=== PATIENT | male | born 1945 | race Caucasian/White ===

== ENCOUNTER → 2017-04-27 08:57 | Outpatient (CLI) | payer MEDICARE, SELFPAY ==
[2017-04-27 12:30] LABS: Absolute Lymphocyte Count 2.17 X10^3/ul (0.83-4.51); Absolute Neutrophil Count 5.6 X10^3/uL (2.0-7.7); Basophil# 0.04 X10^3/uL; Basophil% 0.5 % (0-1); Eosinophil# 0.28 X10^3/uL; Eosinophils% 3.2 % (0-5); Hematocrit 45.8 % (40-54); Hemoglobin 14.8 g/dl (13.0-16.5); Lymphocyte # 2.17 X10^3/ul (4.0); Mean Corp Hgb Conc 32.3 g/gl (32-36); Mean Corpuscular Hgb 31.1 pg (27.0-32.0); Mean Corpuscular Volume 96.2 fL (80-94); Mean Platelet Vol. 9.9 fl (6.2-12.0); Monocyte# 0.61 X10^3/uL; Neutrophil # 5.58 X10^3/uL (2.7-7.7); Neutrophil % 64.2 % (47-70); Platelet Count 230 K/mm3 (150-450); RBC Distribution Width CV 13.7 % (11.6-14.6); RBC Distribution Width SD 48.6 fl (35.1-43.9); Red Blood Count 4.76 M/mm3 (4.6-6.2); White Blood Count 8.7 K/mm3 (4.4-11.0)
[2017-04-27 12:41] LABS: POSITIVE COUNT NO; POSITIVE DIFFERENTIAL NO; POSITIVE MORPHOLOGY NO
[2017-04-27 12:50] LABS: ALB/GLOB Ratio 0.9 RATIO (0.9-2.4); AST(SGOT) 19 U/L (15-37); Alanine Aminotransfer ALT/SGPT 25 U/L (16-61); Albumin, Serum 3.4 g/dL (3.2-5.0); Alkaline Phosphatase 80 U/L (45-117); Anion Gap 5 (5-15); BUN 18 mg/dL (7-18); BUN/Creat Ratio 16.2 RATIO (10-20); Calcium,Total 8.5 mg/dL (8.5-10.1); Chloride 108 mmol/L (98-107); Cholesterol 164 mg/dL (200); Creatinine, Serum 1.11 mg/dL (0.70-1.30); EST Glomerular Filtration Rate 69 mL/min (>60); Est Glom Filt Rate - Afr Amer 84 mL/min (>60); Globulin 3.8 g/dL (2.2-4.2); Glucose 133 mg/dL (70-110); High Density Lipoprotein 49 mg/dL; Potassium 3.8 mmol/L (3.5-5.1); Protein, Total 7.2 g/dL (6.4-8.2); Sodium Level 141 mmol/L (136-145); Thyroid Stim Hormone (TSH) 3.83 uIU/mL (0.358-3.74); Triglycerides 124 mg/dL; Very Low Density Lipoprotein 25 mg/dL (5-40)
[2017-04-28 09:01] LABS: Hep C Antibodies <0.1 s/co ratio (0.0-0.9)
== END ==
PROVIDERS: Family Provider Family Medicine Geriatric Medicine; PCP Family Medicine Geriatric Medicine; Visit Provider Family Medicine Geriatric Medicine
DX: Z13.89 Encounter for screening for other disorder (principal); E23.6 Other disorders of pituitary gland; E78.4 Other hyperlipidemia; I10 Essential (primary) hypertension
CPT/HCPCS: 36415; 80053; 80061; 84403; 84443; 85025; 86803

== ENCOUNTER → 2017-04-30 07:28 | Outpatient (CLI) | payer MEDICARE, SELFPAY ==
--- NOTE | 2017-04-30 07:31 | US_ITS ---
PROCEDURES: ULTRASOUND AORTA REASON FOR EXAM: Male, 72 years old. History of abdominal aortic aneurysm. TECHNIQUE: Ultrasound evaluation of the aorta was performed with real-time and static karimi-scale imaging. COMPARISON: Comparison is made with prior examination dated April 25, 2016. FINDINGS: There is no elongation or tortuosity of the abdominal aorta. Aorta measures: Proximal 2.3 cm. Middle 2. cm. Distal 3.4 cm. Aorta measure transversely: Proximal 2.2 cm. Middle 2.0 cm. Distal 3.8 cm. Right iliac artery measures: 1.4 cm. Right iliac artery measure transversely: 1.1 cm. Left iliac artery measures: 2.0 cm. Left iliac artery measure transversely: 1.5 cm. Slight progression of the saccular infrarenal abdominal aortic aneurysm with a transverse dimension of 3.8 cm.. US/Aorta IMPRESSION: Slight progression of the saccular infrarenal abdominal aortic chiasm with a transverse dimension of 3.8 cm. Electronically Signed: Bossman Chavez MD at 14:14 EST Tel [phone], Service support ,
== END ==
PROVIDERS: Family Provider Family Medicine Geriatric Medicine; PCP Family Medicine Geriatric Medicine; Visit Provider Family Medicine Geriatric Medicine
DX: I71.4 Abdominal aortic aneurysm, without rupture (principal)
CPT/HCPCS: 76775

== ENCOUNTER → 2017-07-03 08:59 | Outpatient (CLI) | payer MEDICARE, SELFPAY ==
--- NOTE | 2017-07-03 09:15 | RAD_ITS ---
STUDY: X-RAY - ABDOMEN/PELVIS REASON FOR EXAM: Male, 72 years old. History of kidney stones. TECHNIQUE: Two AP supine views of the abdomen and pelvis. COMPARISON: Comparison is made with prior examination dated September 08, 2016. FINDINGS: Normal visualized lung bases. There is an abundance of fecal material throughout the colon. Tiny calcific densities are seen overlying the midportion of the left kidney suggestive of tiny renal calculi. Normal soft tissue structures. There are diffuse degenerative changes of the visualized lumbar spine. Moderate osteoarthritis of both hip joints. RAD/Abdomen Single View IMPRESSION: Tiny calcific densities are seen overlying the midportion of the left kidney suggestive of tiny renal calculi. Electronically Signed: Bossman Chavez MD at 15:46 EDT Tel [phone], Service support ,
[2017-07-03 10:42] LABS: Albumin, Serum 3.6 g/dL (3.2-5.0); BUN 20 mg/dL (7-18); BUN/Creat Ratio 17.7 RATIO (10-20); Calcium,Total 8.7 mg/dL (8.5-10.1); Chloride 109 mmol/L (98-107); Creatinine, Serum 1.13 mg/dL (0.70-1.30); EST Glomerular Filtration Rate 68 mL/min (>60); Est Glom Filt Rate - Afr Amer 82 mL/min (>60); Glucose 114 mg/dL (74-106); PSA,Total - Annual Screen 0.67 ng/mL (0.00-4.00); Phosphorus 2.4 mg/dL (2.5-4.9); Potassium 4.1 mmol/L (3.5-5.1); Sodium Level 143 mmol/L (136-145)
== END ==
PROVIDERS: Family Provider Family Medicine Geriatric Medicine; PCP Family Medicine Geriatric Medicine; Visit Provider Urology
DX: N20.0 Calculus of kidney (principal); Z12.5 Encounter for screening for malignant neoplasm of prostate; N18.2 Chronic kidney disease, stage 2 (mild)
CPT/HCPCS: 36415; 74018; 80069; 84153; G0103

== ENCOUNTER → 2017-07-20 07:51 | Outpatient (CLI) | payer MEDICARE, SELFPAY ==
--- NOTE | 2017-07-20 12:13 | PFT ---
INTRODUCTION: The patient is a 72-year-old male currently under the care of Dr. Madison that presents for pulmonary function testing secondary to a diagnosis of COPD. Respiratory therapy reports good patient effort and reports no other concerns. Bronchodilators were used during testing. INTERPRETATION: Forced expiration spirometry demonstrates the presence of a severe large airways obstructive ventilatory defect. There was a significant response to aerosolized bronchodilators, based upon change noted in FVC. Spirograms are of good quality and do not plateau indicating slow emptying of the lungs. The flow volume loop reveals decreased expiratory flow rates at all lung volumes consistent with airways obstruction. Body plethysmography was performed and reveals an increased TLC and RV, indicative of underlying hyperinflation and air-trapping. Diffusing capacity by single breath CO is moderately reduced at 47% of predicted. When compared to previous pulmonary function studies dated July 2016 there has been improvement in the patient's spirometric values. IMPRESSION: These pulmonary function studies demonstrate the presence of a partially reversible severe large airways obstructive ventilatory defect with associated hyperinflation, air trapping and reduction in diffusing capacity.
--- NOTE | 2017-07-20 12:16 | PFT_ITS ---
INTRODUCTION: The patient is a 72-year-old male currently under the care of Dr. Madison that presents for pulmonary function testing secondary to a diagnosis of COPD. Respiratory therapy reports good patient effort and reports no other concerns. Bronchodilators were used during testing. INTERPRETATION: Forced expiration spirometry demonstrates the presence of a severe large airways obstructive ventilatory defect. There was a significant response to aerosolized bronchodilators, based upon change noted in FVC. Spirograms are of good quality and do not plateau indicating slow emptying of the lungs. The flow volume loop reveals decreased expiratory flow rates at all lung volumes consistent with airways obstruction. Body plethysmography was performed and reveals an increased TLC and RV, indicative of underlying hyperinflation and air -trapping. Diffusing capacity by single breath CO is moderately reduced at 47% of predicted. When compared to previous pulmonary function studies dated July 2016 there has been improvement in the patient's spirometric values. IMPRESSION: These pulmonary function studies demonstrate the presence of a partially reversible severe large airways obstructive ventilatory defect with associated hyperinflation, air trapping and reduction in diffusing capacity.
== END ==
PROVIDERS: Family Provider Family Medicine Geriatric Medicine; PCP Family Medicine Geriatric Medicine; Visit Provider Internal Medicine Critical Care Medicine
DX: J44.9 Chronic obstructive pulmonary disease, unspecified (principal); G47.33 Obstructive sleep apnea (adult) (pediatric)
CPT/HCPCS: 94060; 94726; 94729

== ENCOUNTER → 2017-07-27 08:54 | Outpatient (CLI) | payer MEDICARE, SELFPAY ==
[2017-07-27 09:22] VITALS: PULSE 100; PULSE 75; PULSE 84; PULSE 92; PULSE 94; PULSE 96; O2SAT 89; O2SAT 90; O2SAT 91; O2SAT 92; O2SAT 93; O2SAT 95; O2SAT 96
--- NOTE | 2017-07-27 10:33 | WT_ITS ---
PSN 6 Minute Walk Test - 6 Minute Walk Test 6 Minute Walk Test: 6 Minute Walk Test PSN:6-Minute Walk Test Start: 07/27/17 09: 21 Freq: Status: Active Protocol: [id number] Document 07/27/17 09:22 CARLOS (Rec: 07/27/17 09:24 CARLOS [id number]) 6 Minute Walk Test Date Performed 07/27/17 Time Performed 09:00 Height 6 ft Weight: 81.647 kg Weight in Pounds 180.[address]: Omer Madison Assistive device used: None Pre-test Oxygen Delivery Method Room Air Pulse Ox (%) 95 Pulse Rate (60-100 beats/min) 84 Dyspnea Marisel Scale (0-10) 0 Exertion Marisel Scale (6-20) 6 1st minute Oxygen Delivery Method Room Air Pulse Ox (%) 93 Pulse Rate (60-100 beats/min) 92 2nd minute Oxygen Delivery Method Room Air Pulse Ox (%) 92 Pulse Rate (60-100 beats/min) 94 3rd minute Oxygen Delivery Method Room Air Pulse Ox (%) 91 Pulse Rate (60-100 beats/min) 96 4th minute Oxygen Delivery Method Room Air Pulse Ox (%) 90 Pulse Rate (60-100 beats/min) 100 5th minute Oxygen Delivery Method Room Air Pulse Ox (%) 89 Pulse Rate (60-100 beats/min) 100 6th minute Oxygen Delivery Method Room Air Pulse Ox (%) 90 Pulse Rate (60-100 beats/min) 100 Dyspnea Marisel Scale (0-10) 3 Exertion Marisel Scale (6-20) 12 Post-test Oxygen Delivery Method Room Air Pulse Ox (%) 96 Pulse Rate (60-100 beats/min) 75 Full Laps Walked 18 Partial Lap, Number of Tiles Walked 25 Total Distance Walked (ft) 1087 - Interpretation Interpretation: The patient was able to ambulate 1087 feet over the course of 6 minutes on room air with no assistive devices or breaks. The patient did have significant desaturation as low as 89% without significant tachycardia. These findings are consistent with a respiratory limitation exercise tolerance. - Recommendations Recommendations: No supplemental oxygen is indicated at this time. However, patient will need to be followed closely given level of desaturation.
== END ==
PROVIDERS: Family Provider Family Medicine Geriatric Medicine; PCP Family Medicine Geriatric Medicine; Visit Provider Internal Medicine Critical Care Medicine
DX: J44.9 Chronic obstructive pulmonary disease, unspecified (principal); G47.33 Obstructive sleep apnea (adult) (pediatric)
CPT/HCPCS: 94618

== ENCOUNTER → 2017-08-21 09:51 | Outpatient (CLI) | payer MEDICARE, SELFPAY ==
[2017-08-21 11:15] LABS: Albumin, Serum 3.4 g/dL (3.2-5.0); BUN 17 mg/dL (7-18); BUN/Creat Ratio 15.7 RATIO (10-20); Calcium,Total 8.4 mg/dL (8.5-10.1); Chloride 111 mmol/L (98-107); Creatinine, Serum 1.08 mg/dL (0.70-1.30); EST Glomerular Filtration Rate 71 mL/min (>60); Est Glom Filt Rate - Afr Amer 86 mL/min (>60); Glucose 137 mg/dL (74-106); Phosphorus 2.3 mg/dL (2.5-4.9); Potassium 3.5 mmol/L (3.5-5.1); Sodium Level 143 mmol/L (136-145)
== END ==
PROVIDERS: Family Provider Family Medicine Geriatric Medicine; PCP Family Medicine Geriatric Medicine; Visit Provider Internal Medicine Nephrology
DX: N18.2 Chronic kidney disease, stage 2 (mild) (principal)
CPT/HCPCS: 36415; 80069

== ENCOUNTER → 2017-11-07 15:07 | Outpatient (CLI) | payer MEDICARE, SELFPAY ==
[2017-11-07 16:10] LABS: Absolute Lymphocyte Count 1.97 X10^3/ul (0.83-4.51); Absolute Neutrophil Count 4.9 X10^3/uL (2.0-7.7); Basophil# 0.06 X10^3/uL; Basophil% 0.8 % (0-1); Eosinophils% 2.5 % (0-5); Hematocrit 46.7 % (40-54); Hemoglobin 15.1 g/dl (13.0-16.5); Lymphocyte # 1.97 X10^3/ul (4.0); Lymphocyte % 25.1 % (19-41); Mean Corp Hgb Conc 32.3 g/gl (32-36); Mean Corpuscular Hgb 31.1 pg (27.0-32.0); Mean Corpuscular Volume 96.3 fL (80-94); Mean Platelet Vol. 9.7 fl (6.2-12.0); Monocyte% 8.9 % (0-10); Neutrophil # 4.92 X10^3/uL (2.7-7.7); Neutrophil % 62.6 % (47-70); Platelet Count 223 K/mm3 (150-450); RBC Distribution Width CV 13.4 % (11.6-14.6); RBC Distribution Width SD 46.9 fl (35.1-43.9); Red Blood Count 4.85 M/mm3 (4.6-6.2); White Blood Count 7.9 K/mm3 (4.4-11.0)
[2017-11-07 16:15] LABS: POSITIVE COUNT NO; POSITIVE DIFFERENTIAL NO; POSITIVE MORPHOLOGY NO
[2017-11-07 16:21] LABS: Vitamin D,25 Hydroxy 22.7 ng/mL (29.95-100.01)
[2017-11-07 16:22] LABS: ALB/GLOB Ratio 0.9 RATIO (0.9-2.4); AST(SGOT) 20 U/L (15-37); Alanine Aminotransfer ALT/SGPT 24 U/L (16-61); Albumin, Serum 3.3 g/dL (3.2-5.0); Alkaline Phosphatase 76 U/L (45-117); Anion Gap 7 (5-15); BUN 15 mg/dL (7-18); BUN/Creat Ratio 13.2 RATIO (10-20); Calcium,Total 8.5 mg/dL (8.5-10.1); Chloride 110 mmol/L (98-107); Cholesterol 153 mg/dL (200); Creatinine, Serum 1.14 mg/dL (0.70-1.30); EST Glomerular Filtration Rate 67 mL/min (>60); Est Glom Filt Rate - Afr Amer 81 mL/min (>60); Globulin 3.5 g/dL (2.2-4.2); Glucose 100 mg/dL (74-106); High Density Lipoprotein 47 mg/dL; Potassium 4.2 mmol/L (3.5-5.1); Protein, Total 6.8 g/dL (6.4-8.2); Sodium Level 143 mmol/L (136-145); Thyroid Stim Hormone (TSH) 1.99 uIU/mL (0.358-3.74); Triglycerides 129 mg/dL; Very Low Density Lipoprotein 26 mg/dL (5-40)
== END ==
PROVIDERS: Family Provider Family Medicine Geriatric Medicine; PCP Family Medicine Geriatric Medicine; Visit Provider Family Medicine Geriatric Medicine
DX: I10 Essential (primary) hypertension (principal); E78.4 Other hyperlipidemia; E23.6 Other disorders of pituitary gland; E55.9 Vitamin D deficiency, unspecified
CPT/HCPCS: 36415; 80053; 80061; 82306; 84403; 84443; 85025

== ENCOUNTER → 2017-11-16 10:24 | Outpatient (CLI) | payer MEDICARE, SELFPAY | PROVIDERS: Family Provider Family Medicine Geriatric Medicine; PCP Family Medicine Geriatric Medicine; Visit Provider Family Medicine Geriatric Medicine | DX: I71.4 Abdominal aortic aneurysm, without rupture (principal) | CPT/HCPCS: 76775 ==

== ENCOUNTER → 2018-05-03 11:34 | Outpatient (CLI) | payer MEDICARE, SELFPAY ==
[2017-11-07 15:11] VITALS: BMI 25.4
[2018-05-03 13:13] LABS: Absolute Lymphocyte Count 1.91 X10^3/ul (0.83-4.51); Basophil# 0.05 X10^3/uL; Basophil% 0.4 % (0-1); Eosinophil# 0.29 X10^3/uL; Eosinophils% 2.5 % (0-5); Hematocrit 48.3 % (40-54); Hemoglobin 15.9 g/dl (13.0-16.5); Lymphocyte # 1.91 X10^3/ul (4.0); Lymphocyte % 16.6 % (19-41); Mean Corp Hgb Conc 32.9 g/gl (32-36); Mean Corpuscular Hgb 31.4 pg (27.0-32.0); Mean Corpuscular Volume 95.5 fL (80-94); Monocyte# 1.23 X10^3/uL; Monocyte% 10.7 % (0-10); Neutrophil # 7.99 X10^3/uL (2.7-7.7); Neutrophil % 69.5 % (47-70); Platelet Count 223 K/mm3 (150-450); RBC Distribution Width CV 13.9 % (11.6-14.6); RBC Distribution Width SD 46.7 fl (35.1-43.9); Red Blood Count 5.06 M/mm3 (4.6-6.2); White Blood Count 11.5 K/mm3 (4.4-11.0)
[2018-05-03 13:14] LABS: POSITIVE COUNT NO; POSITIVE DIFFERENTIAL NO; POSITIVE MORPHOLOGY NO
[2018-05-03 13:50] LABS: Vitamin D,25 Hydroxy 15.4 ng/mL (29.95-100.01)
[2018-05-03 14:11] LABS: AST(SGOT) 18 U/L (15-37); Alanine Aminotransfer ALT/SGPT 27 U/L (16-61); Albumin, Serum 3.4 g/dL (3.2-5.0); Alkaline Phosphatase 88 U/L (45-117); Anion Gap 9 (5-15); BUN 16 mg/dL (7-18); BUN/Creat Ratio 14.7 RATIO (10-20); Calcium,Total 8.5 mg/dL (8.5-10.1); Chloride 109 mmol/L (98-107); Cholesterol 145 mg/dL (200); Creatinine, Serum 1.09 mg/dL (0.70-1.30); EST Glomerular Filtration Rate 71 mL/min (>60); Est Glom Filt Rate - Afr Amer 85 mL/min (>60); Globulin 3.4 g/dL (2.2-4.2); Glucose 91 mg/dL (74-106); High Density Lipoprotein 45 mg/dL; Potassium 3.9 mmol/L (3.5-5.1); Protein, Total 6.8 g/dL (6.4-8.2); Sodium Level 141 mmol/L (136-145); Thyroid Stim Hormone (TSH) 1.35 uIU/mL (0.358-3.74); Triglycerides 135 mg/dL; Very Low Density Lipoprotein 27 mg/dL (5-40)
== END ==
PROVIDERS: Family Provider Family Medicine Geriatric Medicine; PCP Family Medicine Geriatric Medicine; Visit Provider Family Medicine Geriatric Medicine
DX: E23.6 Other disorders of pituitary gland (principal); E55.9 Vitamin D deficiency, unspecified; F52.8 Other sexual dysfunction not due to a substance or known physiological condition; I10 Essential (primary) hypertension
CPT/HCPCS: 36415; 80053; 80061; 82306; 84403; 84443; 85025

== ENCOUNTER → 2018-05-09 07:50 | Outpatient (CLI) | payer MEDICARE, SELFPAY ==
[2017-11-07 15:11] VITALS: BMI 25.4
--- NOTE | 2018-05-09 07:53 | US_ITS ---
PROCEDURES: ULTRASOUND AORTA REASON FOR EXAM: Male, 73 years old. AAA TECHNIQUE: Ultrasound evaluation of the aorta was performed with real-time and static karimi-scale imaging. COMPARISON: 11/16/2017 FINDINGS: There is no elongation or tortuosity of the abdominal aorta. Aorta measures: Proximal 2.7 cm. Middle 1.9 cm. Distal 0.1 cm. Aorta measure transversely: Proximal 2.5 cm. Middle 1.7 cm. Distal 2 cm. Right iliac artery measures: 1.2 cm. Right iliac artery measure transversely: 0.9 cm. Left iliac artery measures: 1.2 cm. Left iliac artery measure transversely: 0.8 cm. There is infrarenal fusiform infrarenal aneurysm.. This measures 3.8 cm in width and 6 cm in length, previous width 3.8 x 3.7 cm. This extends to the iliac bifurcation. US/Aorta IMPRESSION: There is a stable fusiform infrarenal abdominal aortic aneurysm. Electronically Signed: Krys Diaz MD at 6:57 EST , Service support ,
== END ==
PROVIDERS: Family Provider Family Medicine Geriatric Medicine; PCP Family Medicine Geriatric Medicine; Referring Provider Family Medicine Geriatric Medicine; Visit Provider Family Medicine Geriatric Medicine
DX: I71.4 Abdominal aortic aneurysm, without rupture (principal)
CPT/HCPCS: 76775

== ENCOUNTER → 2018-10-04 09:26 | Outpatient (CLI) | payer MEDICARE, SELFPAY ==
[2018-05-31 10:58] VITALS: BMI 26.0
[2018-10-04 13:10] LABS: Absolute Lymphocyte Count 2.21 X10^3/ul (0.83-4.51); Absolute Neutrophil Count 4.2 X10^3/uL (2.0-7.7); Basophil# 0.07 X10^3/uL; Basophil% 0.9 % (0-1); Eosinophil# 0.29 X10^3/uL; Eosinophils% 3.9 % (0-5); Lymphocyte # 2.21 X10^3/ul (4.0); Lymphocyte % 29.9 % (19-41); Mean Corp Hgb Conc 33.3 g/gl (32-36); Mean Corpuscular Hgb 31.3 pg (27.0-32.0); Mean Corpuscular Volume 93.8 fL (80-94); Mean Platelet Vol. 9.8 fl (6.2-12.0); Monocyte# 0.65 X10^3/uL; Monocyte% 8.8 % (0-10); Neutrophil # 4.15 X10^3/uL (2.7-7.7); Neutrophil % 56.2 % (47-70); Platelet Count 235 K/mm3 (150-450); RBC Distribution Width CV 13.7 % (11.6-14.6); RBC Distribution Width SD 45.4 fl (35.1-43.9); Red Blood Count 5.12 M/mm3 (4.6-6.2); White Blood Count 7.4 K/mm3 (4.4-11.0)
[2018-10-04 13:12] LABS: POSITIVE COUNT NO; POSITIVE DIFFERENTIAL NO; POSITIVE MORPHOLOGY NO
[2018-10-04 13:35] LABS: ALB/GLOB Ratio 1.1 RATIO (0.9-2.4); AST(SGOT) 17 U/L (15-37); Alanine Aminotransfer ALT/SGPT 23 U/L (16-61); Albumin, Serum 3.5 g/dL (3.2-5.0); Alkaline Phosphatase 82 U/L (45-117); Anion Gap 8 (5-15); BUN 17 mg/dL (7-18); BUN/Creat Ratio 15.6 RATIO (10-20); Calcium,Total 8.7 mg/dL (8.5-10.1); Chloride 110 mmol/L (98-107); Creatinine, Serum 1.09 mg/dL (0.70-1.30); EST Glomerular Filtration Rate 70 mL/min (>60); Est Glom Filt Rate - Afr Amer 85 mL/min (>60); Globulin 3.3 g/dL (2.2-4.2); Glucose 90 mg/dL (74-106); Potassium 3.9 mmol/L (3.5-5.1); Protein, Total 6.8 g/dL (6.4-8.2); Sodium Level 144 mmol/L (136-145); Thyroid Stim Hormone (TSH) 1.68 uIU/mL (0.358-3.74)
== END ==
PROVIDERS: Family Provider Family Medicine Geriatric Medicine; PCP Family Medicine Geriatric Medicine; Visit Provider Family Medicine Geriatric Medicine
DX: R53.83 Other fatigue (principal)
CPT/HCPCS: 36415; 80053; 84443; 85025

== ENCOUNTER → 2018-10-09 08:44 | Outpatient (CLI) | payer MEDICARE, SELFPAY ==
[2018-05-31 10:58] VITALS: BMI 26.0
--- NOTE | 2018-10-09 14:24 | NEURO ---
NCS and/or EMG Patient Report Ordering Doctor: Vipul Worthington Chi DATE OF SERVICE: 10/09/18 Tim Higginbotham is a 73-year-old male who presents for electrodiagnostic testing of the lower limbs. He reports paresthesias in both legs and a cold sensation in both feet. Electrodiagnostic findings: The right peroneal motor nerve demonstrates normal distal latency with reduced amplitude. Proximal response could not be obtained. Left peroneal motor nerve demonstrates prolonged distal latency with reduced amplitude and conduction velocity. Tibial motor response normal bilaterally. Prolonged sural latency is noted bilaterally. Prolonged right medial plantar latency. Superficial peroneal and left medial plantar responses are normal. On needle EMG, all muscles tested in the lower limb showed no evidence of denervation with normal motor unit action potentials. Next Electrodiagnostic assessment: This is an abnormal study in the lower limbs. 1. Electrodiagnostic findings suggestive of peripheral polyneuropathy, with involvement of motor and sensory nerve fibers. 2. No electrodiagnostic evidence is noted for lumbosacral radiculopathy. 3. No elective diagnostic evidence is noted for myopathy. If there are any further questions, please do not hesitate to contact me.
== END ==
PROVIDERS: Family Provider Family Medicine Geriatric Medicine; PCP Family Medicine Geriatric Medicine; Referring Provider Family Medicine Geriatric Medicine; Visit Provider Family Medicine Geriatric Medicine
DX: R20.2 Paresthesia of skin (principal)
CPT/HCPCS: 95886; 95913

== ENCOUNTER → 2018-10-15 09:34 | Outpatient (CLI) | payer MEDICARE, SELFPAY ==
[2018-05-31 10:58] VITALS: BMI 26.0
--- NOTE | 2018-10-15 09:37 | ART_ITS ---
Reason For Study: claudication Left Segmental Pressures Left brachial= 124mmHg. Left posterior tibial artery = 92mmHg. Left dorsalis pedis artery = 102mmHg. Left digit = 102 mmHg. The left dorsalis pedis waveforms are biphasic. The left posterior tibial artery waveforms are biphasic. Right Segmental Pressures Right brachial= 118mmHg. Right posterior tibial artery = 136mmHg. Right dorsalis pedis artery = 108mmHg. Right digit = 103 mmHg. The right posterior tibial artery waveforms are triphasic. The right dorsalis pedis waveforms are biphasic. Indices The right ankle brachial index by the dorsalis pedis is .87. The right ankle brachial index by the posterior tibial artery is 1.1. The right digital-brachial index is .83. The left ankle brachial index by the dorsalis pedis is .82. The left ankle brachial index by the posterior tibial artery is .74. The left digital-brachial index is .82. Interpretation Summary Biphasic and triphasic Doppler waveforms are noted at ankle level on the right. Biphasic Doppler waveforms are noted at ankle level on the left.Pulse-volume recording waveform amplitudes appear satisfactory at ankle and digital level bilaterally. 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 The resting left ankle-brachial index is mildly diminished. Digital-brachial indices are normal bilaterally. 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 Arterial flow appears to be mildly diminished at ankle level on the left. There is no evidence of significant distal, small-vessel arterial occlusive disease at digital level bilaterally. Ordering Physician: Vipul Worthington Performed By: MELO CARNEY T
--- NOTE | 2018-10-15 09:38 | ECHOCS_ITS ---
Reason For Study: DYSPNEA Procedure This was a 2D Doppler, Color Flow transthoracic echocardiogram. The study was technically difficult. Contrast injection was performed. Exam performed in department. Left Ventricle Normal LV size. The estimated ejection fraction is 55 %. Mild segmental systolic dysfunction (see wall motion). Basal inferoseptal: Hypokinetic. Posterior-Basal: Hypokinetic. The rest of the wall segments are normal. Right Ventricle Normal RV size. Normal systolic function. Atria Normal left atrium. Normal right atrium. Mitral Valve Normal mitral valve. Tricuspid Valve Normal tricuspid valve. Mild (1+) tricuspid valve insufficiency. Pulmonary artery systolic pressure is 30 mmHg. Aortic Valve Trisinus/trileaflet aortic valve. Mild focal aortic valve calcification. Mild (1+) aortic valve insufficiency. Pulmonic Valve Normal pulmonic valve. Mild (1+) pulmonic valve insufficiency. Great Vessels Normal aortic root. The pulmonary artery is normal size. Normal inferior vena cava. Pericardium/Pleural No pericardial effusion. Medication 22 gauge I.V. with prn adaptor inserted into right arm. Diluted definity 5ml given slow IV push to enhance endocardial definition. MMode/2D Measurements & Calculations LVIDd: 4.8 cm IVSd: 0.95 cm Ao root diam: 3.2 cm LVIDs: 3.8 cm LVPWd: 1.0 cm RVDd: 3.0 cm FS: 20.9 % LAV(MOD-sp4): 45.1 ml EDV(MOD-sp4): 112.2 ml SV(MOD-sp4): 53.0 ml ESV(MOD-sp4): 59.3 ml EF(MOD-sp4): 47.2 % LA A4 area: 16.1 cm2 LA dimension(2D): 3.3 cm RA A4 area: 14.0 cm2 Time Measurements MV dec time: 0.20 sec Doppler Measurements & Calculations MV E max shashi: 73.9 cm/sec Lat Peak E' Shashi: 6.8 cm/sec Med Peak E' Shashi: 5.1 cm/sec MV A max shashi: 63.1 cm/sec E/E' lat: 10.8 E/E' med: 14.5 MV E/A: 1.2 Ao V2 max: 126.2 cm/sec LV V1 max: 87.5 cm/sec PA V2 max: 85.5 cm/sec Ao max P.4 mmHg LV V1 max P.1 mmHg PI end-d shashi: 100.3 cm/sec TR max shashi: 249.9 cm/sec TR max P.0 mmHg Interpretation Summary Normal LV size. The estimated ejection fraction is 55 %. Mild segmental systolic dysfunction (see wall motion). Mild focal aortic valve calcification. Compared to prior study, there is no significant change. Contrast injection was performed. Ordering Physician: Vipul Worthington Referring Physician: Vipul Worthington Chi Performed By: Mayela Whitfield, DOM, RVT
== END ==
PROVIDERS: Family Provider Family Medicine Geriatric Medicine; PCP Family Medicine Geriatric Medicine; Referring Provider Family Medicine Geriatric Medicine; Visit Provider Family Medicine Geriatric Medicine
DX: R06.02 Shortness of breath (principal); R20.0 Anesthesia of skin; I73.9 Peripheral vascular disease, unspecified
CPT/HCPCS: 93306; 93922; Q9957; A4216; C8929

== ENCOUNTER → 2018-11-06 08:49 | Outpatient (CLI) | payer MEDICARE, SELFPAY ==
[2018-05-31 10:58] VITALS: BMI 26.0
[2018-11-06 12:48] LABS: Absolute Lymphocyte Count 1.82 X10^3/uL (0.83-4.51); Absolute Neutrophil Count 5.6 X10^3/uL (2.0-7.7); Basophil# 0.09 X10^3/uL; Basophil% 1.1 % (0-1); Eosinophil# 0.31 X10^3/uL; Eosinophils% 3.7 % (0-5); Hematocrit 49.7 % (40-54); Hemoglobin 16.2 g/dL (13.0-16.5); Lymphocyte # 1.82 X10^3/ul (4.0); Lymphocyte % 21.4 % (19-41); Mean Corp Hgb Conc 32.6 g/dL (32-36); Mean Corpuscular Hgb 31.3 pg (27.0-32.0); Mean Corpuscular Volume 96.1 fL (80-94); Mean Platelet Vol. 9.5 fl (6.2-12.0); Monocyte# 0.68 X10^3/uL; NRBC Flagged by Analyzer 0 % (0-5); Neutrophil # 5.55 X10^3/uL (2.7-7.7); Neutrophil % 65.3 % (47-70); Platelet Count 237 K/mm3 (150-450); RBC Distribution Width SD 46.2 fl (35.1-43.9); Red Blood Count 5.17 M/mm3 (4.6-6.2); White Blood Count 8.5 K/mm3 (4.4-11.0)
[2018-11-06 13:06] LABS: Vitamin D,25 Hydroxy 21.6 ng/mL (29.95-100.01)
[2018-11-06 13:16] LABS: AST(SGOT) 13 U/L (15-37); Alanine Aminotransfer ALT/SGPT 21 U/L (16-61); Albumin, Serum 3.4 g/dL (3.2-5.0); Alkaline Phosphatase 80 U/L (45-117); Anion Gap 7 (5-15); BUN 15 mg/dL (7-18); BUN/Creat Ratio 12.6 RATIO (10-20); Calcium,Total 8.5 mg/dL (8.5-10.1); Chloride 109 mmol/L (98-107); Creatinine, Serum 1.19 mg/dL (0.70-1.30); EST Glomerular Filtration Rate 64 mL/min (>60); Est Glom Filt Rate - Afr Amer 77 mL/min (>60); Globulin 3.3 g/dL (2.2-4.2); Glucose 139 mg/dL (74-106); Potassium 3.8 mmol/L (3.5-5.1); Protein, Total 6.7 g/dL (6.4-8.2); Sodium Level 140 mmol/L (136-145); Thyroid Stim Hormone (TSH) 2.55 uIU/mL (0.358-3.74)
== END ==
PROVIDERS: Family Provider Family Medicine Geriatric Medicine; PCP Family Medicine Geriatric Medicine; Visit Provider Family Medicine Geriatric Medicine
DX: E55.9 Vitamin D deficiency, unspecified (principal); F52.8 Other sexual dysfunction not due to a substance or known physiological condition; I10 Essential (primary) hypertension
CPT/HCPCS: 36415; 80053; 82306; 84403; 84443; 85025

== ENCOUNTER → 2019-05-09 09:05 | Outpatient (CLI) | payer MEDICARE, SELFPAY ==
[2018-12-06 13:30] VITALS: BMI 24.4
[2019-05-09 12:27] LABS: Absolute Lymphocyte Count 1.88 X10^3/uL (0.83-4.51); Basophil# 0.09 X10^3/uL; Basophil% 1.2 % (0-1); Eosinophil# 0.28 X10^3/uL; Eosinophils% 3.6 % (0-5); Hematocrit 51.2 % (40-54); Hemoglobin 16.4 g/dL (13.0-16.5); Lymphocyte # 1.88 X10^3/ul (4.0); Lymphocyte % 24.1 % (19-41); Mean Corpuscular Hgb 30.4 pg (27.0-32.0); Mean Corpuscular Volume 94.8 fL (80-94); Mean Platelet Vol. 9.7 fl (6.2-12.0); Monocyte# 0.54 X10^3/uL; Monocyte% 6.9 % (0-10); NRBC Flagged by Analyzer 0 % (0-5); Neutrophil # 4.99 X10^3/uL (2.7-7.7); Neutrophil % 63.8 % (47-70); Platelet Count 236 K/mm3 (150-450); RBC Distribution Width CV 13.1 % (11.6-14.6); RBC Distribution Width SD 45.6 fl (35.1-43.9); White Blood Count 7.8 K/mm3 (4.4-11.0)
[2019-05-09 12:46] LABS: Vitamin D,25 Hydroxy 27.4 ng/mL (29.95-100.01)
[2019-05-09 13:01] LABS: ALB/GLOB Ratio 1.1 RATIO (0.9-2.4); AST(SGOT) 13 U/L (15-37); Alanine Aminotransfer ALT/SGPT 23 U/L (16-61); Albumin, Serum 3.6 g/dL (3.2-5.0); Alkaline Phosphatase 77 U/L (45-117); Anion Gap 5 (5-15); BUN 17 mg/dL (7-18); BUN/Creat Ratio 14.2 RATIO (10-20); Calcium,Total 8.9 mg/dL (8.5-10.1); Chloride 111 mmol/L (98-107); EST Glomerular Filtration Rate 63 mL/min (>60); Est Glom Filt Rate - Afr Amer 76 mL/min (>60); Globulin 3.3 g/dL (2.2-4.2); Glucose 120 mg/dL (74-106); Protein, Total 6.9 g/dL (6.4-8.2); Sodium Level 142 mmol/L (136-145); Thyroid Stim Hormone (TSH) 1.62 uIU/mL (0.358-3.74)
== END ==
PROVIDERS: PCP Family Medicine Geriatric Medicine; Visit Provider Family Medicine Geriatric Medicine
DX: E55.9 Vitamin D deficiency, unspecified (principal); F52.8 Other sexual dysfunction not due to a substance or known physiological condition; I10 Essential (primary) hypertension
CPT/HCPCS: 36415; 80053; 82306; 84403; 84443; 85025

== ENCOUNTER → 2019-05-19 09:24 | Outpatient (CLI) | payer MEDICARE, SELFPAY ==
[2018-12-06 13:30] VITALS: BMI 24.4
--- NOTE | 2019-05-19 09:30 | US_ITS ---
PROCEDURES: ULTRASOUND AORTA REASON FOR EXAM: Male, 74 years old. AAA TECHNIQUE: Ultrasound evaluation of the aorta was performed with real-time and static karimi-scale imaging. COMPARISON: Previous study of 06/06/2018 FINDINGS: There is no elongation or tortuosity of the abdominal aorta. Aorta measures: Proximal 2.4 cm. Middle 2.0 cm. Distal 3.7 cm. Aorta measure transversely: Proximal 2.6 cm. Middle 2.5 cm. Distal 3.9 cm. Right iliac artery measures: 1.0 cm. Right iliac artery measure transversely: 1.1 cm. Left iliac artery measures: 0.8 cm. Left iliac artery measure transversely: 1.3 cm. There is aneurysmal dilatation of the distal abdominal aorta measuring up to 3.9 x 3.7 cm in diameter. This does not involve the renal arteries, nor does it extend into the iliac bifurcation. Saccular in morphology. US/Aorta IMPRESSION: Aneurysmal dilatation of the distal abdominal aorta measuring up to 3.9 x 3.7 cm in diameter. This is stable from the previous study. Electronically Signed: Sushil Birmingham MD at 23:05 EST , Service support ,
== END ==
PROVIDERS: PCP Family Medicine Geriatric Medicine; Referring Provider Family Medicine Geriatric Medicine; Visit Provider Family Medicine Geriatric Medicine
DX: I71.4 Abdominal aortic aneurysm, without rupture (principal)
CPT/HCPCS: 76775

== ENCOUNTER → 2019-05-30 06:53 | Outpatient (CLI) | payer MEDICARE, SELFPAY ==
[2019-05-23 13:05] VITALS: BMI 25.0
--- NOTE | 2019-05-30 07:54 | CT_ITS ---
STUDY: LOW DOSE CT LUNG CANCER SCREENING REASON FOR EXAM: Male, 74 years old. LOW DOSE LUNG SCREEN, 56 YR SMOKER X 1 PPD, QUIT 10 YRS AGO, COPD, [place]-3 STENTS, AAA, SKIN CANCER RADIATION DOSAGE (If Supplied By Facility): CTDIvol = ( 3.02 ) mGy, DLP = ( 114.75 ) mGycm TECHNIQUE: No contrast was administered. Low dose technique was utilized (average mAS-38 and kVp 120). 1.25 mm axial source images with a slice interval of 1.25-mm were reconstructed in lung windows. 2.5 mm axial source images with a slice interval of 2.5-mm were reconstructed in lung windows. 5.0 mm axial source images with a slice interval of 5.0-mm were reconstructed in soft tissue windows. Nodule measured using lung windows on PACS and/or independent workstation with automated measurement of minimum and maximum diameter. Nodule measurement reported as average diameter rounded to the nearest whole number. Growth is defined as an increase ins size of greater than 1.5 mm. COMPARISON: None. NODULES: No suspicious pulmonary nodules are seen. Emphysema: Hyperinflation. Emphysematous changes worse in the upper lobes with multiple areas of decreased bronchovascular markings and bullous formation worse in the lateral aspect of the right upper lobe. There is also evidence of subpleural blebs in the right lower lobe with minimal increased linear markings at the lung bases suggestive of mild bibasilar scarring more prominent at the right lung base. Endobronchial lesion: None. Aorta: Atherosclerotic calcification of the aortic arch and descending thoracic aorta. Coronary arteries: Coronary artery calcifications. Heart: Unremarkable. Mediastinal nodes: Small benign-appearing mediastinal lymph nodes. Calcified subcarinal lymph nodes. Other chest and abdominal findings: Degenerative changes of the thoracic spine. CT/Low Dose CT Lung Screening IMPRESSION: Lung-RADS category 2 - Continue annual screening with LDCT in 12 months. IMPORTANT NOTES FOR USE: ACR Lung-RADS Version 1.0 Assessment Categories Release Date: July 21, 2013 Category: Coded 0-4 bases on nodule(s) with highest degree of suspicion. Negative screen is defined as categories 1 and 2; a positive screen is defined as categories 3 and 4. Category 3 and 4A nodules that are unchanged on interval CT should be coded as category 2, and individuals returned to screening in 12 months. Category 4X: Category 3 or 4 nodules with additional imaging findings that increase the suspicion of lung cancer, such as spiculation, GGN that doubles in size in 1 year, enlarged lymph notes, etc. Category Modifiers: S (significant finding unrelated to lung cancer) and C (prior history of treated lung cancer) may be added to the 0-4 Lung-RADS Electronically Signed: Bossman Chavez, at 15:12 EST , Service support ,
--- NOTE | 2019-05-30 15:13 | PFTCOMP_ITS ---
COMPLETE PULMONARY FUNCTION TEST INTERPRETATION Brief HPI: Patient is a 74 year old male, currently under the care of Debbie Ruelas, who presents to [facility] for complete pulmonary function tests secondary to diagnosis of COPD. Respiratory therapist reports good effort and reproducible results. Interpretation: Forced expiration spirometry shows a severe large airways obstructive ventilatory defect with an FEV1 of 45% predicted. There is a significant bronchodilator response in FVC and FEV1 by strict ATS criteria. Spirograms are of good quality and plateau slowly, indicating slowly emptying areas of the lungs. The respiratory flow volume loop shows decreased expiratory flow rates at all lung volumes consistent with airway obstruction. Lung volumes by body plethysmography show an elevated total lung capacity at 8.37 L, 123% predicted. FRC and RV are elevated out of proportion. Lung volume measurements are consistent with hyperinflation and air-trapping. Diffusion capacity by carbon monoxide is decreased at 45% predicted. The airway resistance is elevated. Compared to previous pulmonary function tests from 07/20/2017, there has been no significant change. Impression: Partially reversible severe large airways obstructive ventilatory defect with a symmetric reduction diffusing capacity, resulting in air trapping with hyperinflation, in a pattern consistent with COPD/asthma overlap syndrome.
== END ==
PROVIDERS: PCP Family Medicine Geriatric Medicine; Referring Provider Nurse Practitioner Acute Care; Visit Provider Nurse Practitioner Acute Care
DX: Z12.2 Encounter for screening for malignant neoplasm of respiratory organs (principal); J44.9 Chronic obstructive pulmonary disease, unspecified; F17.210 Nicotine dependence, cigarettes, uncomplicated
CPT/HCPCS: 94060; 94726; 94729; G0297

== ENCOUNTER → 2019-07-25 06:41 | Outpatient (CLI) | payer MEDICARE, SELFPAY ==
[2019-07-08 10:02] VITALS: BMI 24.7
--- NOTE | 2019-07-25 06:43 | ECHOCS_ITS ---
Reason For Study: CAD Procedure This was a 2D Doppler, Color Flow transthoracic echocardiogram. The study was technically difficult. Contrast injection was performed. Exam performed in department. Left Ventricle Normal LV size. Mild concentric left ventricular hypertrophy. Mild segmental systolic dysfunction (see wall motion). The estimated ejection fraction is 50 %. No evidence for diastolic dysfunction. Posterior-Basal: Hypokinetic. Infero-Basal: Akinetic. Basal inferoseptal: Akinetic. Mid-Lateral : Hypokinetic. Mid-Posterior: Hypokinetic. Mid-Inferior: Hypokinetic. Inferior Colliers : Hypokinetic. Lateral Colliers : Hypokinetic. Right Ventricle Normal RV size. Normal systolic function. Atria Normal left atrium. Normal right atrium. No doppler evidence for ASD. Mitral Valve There is no mitral annular calcification. Normal mitral valve. Trivial mitral valve insufficiency. Tricuspid Valve Normal tricuspid valve. Trivial tricuspid valve insufficiency. Unable to estimate RV systolic pressure/pulmonary artery pressure due to technically difficult study. Aortic Valve Trisinus/trileaflet aortic valve. Moderate focal aortic valve calcification. Trivial aortic valve insufficiency. Pulmonic Valve The pulmonic valve is not well visualized. Trivial pulmonic valve insufficiency. Great Vessels Normal sized aortic root. Pericardium/Pleural No pericardial effusion. Epicardial fat. Medication Diluted definity 2ml given slow IV push to enhance endocardial definition. Negative bubble study on previous echo. MMode/2D Measurements & Calculations LVIDd: 4.5 cm IVSd: 1.3 cm LVOT diam: 2.1 cm LVIDs: 3.3 cm LVPWd: 1.3 cm RVDd: 3.4 cm FS: 27.4 % LVOT area: 3.6 cm2 Ao root diam: 3.1 cm LAV(MOD-bp): 38.2 ml LA A4 area: 14.8 cm2 LAV(MOD-bp) Indexed: 18.8 ml/m2 LAV(MOD-sp2): 38.7 ml LAV(MOD-sp4): 37.7 ml LA dimension(2D): 2.9 cm RA A4 area: 11.1 cm2 Doppler Measurements & Calculations MV E max shashi: 39.6 cm/sec Lat Peak E' Shashi: 4.8 cm/sec Med Peak E' Shashi: 3.2 cm/sec MV A max shashi: 71.6 cm/sec E/E' lat: 8.2 E/E' med: 12.5 MV E/A: 0.55 Ao V2 max: 113.7 cm/sec LV V1 max: 76.5 cm/sec PA V2 max: 80.1 cm/sec Ao max P.2 mmHg LV V1 max P.3 mmHg REESE(V,D): 2.4 cm2 Interpretation Summary The study was technically difficult. Contrast injection was performed. Mild segmental systolic dysfunction (see wall motion). The estimated ejection fraction is 50 %. Mild concentric left ventricular hypertrophy. Trivial mitral valve insufficiency. Trivial tricuspid valve insufficiency. Moderate focal aortic valve calcification. Trivial aortic valve insufficiency. Trivial pulmonic valve insufficiency. Epicardial fat. Unable to estimate RV systolic pressure/pulmonary artery pressure due to technically difficult study. No evidence for diastolic dysfunction. Ordering Physician: Tim Ortega Referring Physician: Tim Ortega Performed By: Aleena Ybarra, [facility]
--- NOTE | 2019-07-25 09:04 | STRESSREP_ITS ---
Stress Test Report Date: 11-25-2019 Procedure: Pharmacologic stress nuclear imaging study Indications: Chest pain; shortness of breath/dyspnea on exertion; CAD; PCI Consent: Per the patient Procedure: The patient underwent pharmacologic (Regadenoson) evaluation with a peak heart rate of 96 beats per minute (65 %predicted maximal heart rate) and a peak blood pressure of 164/80 mmHg. The baseline ECG demonstrated normal sinus rhythm to my: Poor R wave progression. The peak pharmacologic ECG demonstrated no obvious ECG changes. There was a rare PVC during pharmacologic infusion and recovery. There was no complaint of chest discomfort during pharmacologic infusion or recovery. The examination was discontinued secondary to completion of protocol. Impression: 1. Pharmacologic (Regadenoson) evaluation 2. Peak pharmacologic ECG with no obvious ECG changes. 3. Was a rare PVC during pharmacologic infusion and recovery. 4. Nuclear images pending Myocardial perfusion imaging study: Technique: The patient was injected with 14.6 millicuries of technetium 99m Cardiolite and subsequently rest SPECT Cardiolite nuclear imaging was obtained in the horizontal long, vertical long, and short axis views. The patient underwent pharmacologic (Regadenoson) evaluation with a peak heart rate of 96 beats per minute (65 % percent predicted maximal heart rate) and a peak blood pressure of 164/80 mmHg. The patient was injected with 44.0 millicuries of technetium 99m Cardiolite and subsequently stress SPECT Cardiolite nuclear imaging was obtained in the horizontal long, vertical long, and short axis views. A gated Cardiolite study at peak stress was obtained. Interpretation: Rest and stress SPECT Cardiolite nuclear imaging status post realignment, normalization, and attenuation correction demonstrate the appearance of diminished myocardial perfusion/tracer uptake in portions of the basal inferior septal and basal inferior segment extending to the mid inferior segments and status post stress the appearance of diminished myocardial perfusion/tracer uptake in portions of the mid to distal inferior segments. There is end systolic thickening and brightening. The gated Cardiolite study demonstrates myocardial thickening and inward wall motion. The reported LVEF is 54 %. Impression: 1. Rest and stress SPECT Cardiolite nuclear imaging demonstrate myocardial perfusion changes appearing compatible with an area of previous myocardial injury/infarction involving portions of the basal inferoseptal/basal to mid inferior segments with post stress myocardial perfusion changes concerning for an area of sakina-infarct related myocardial ischemia in portions of the mid to distal inferior segments. 2. The gated Cardiolite study reports an LVEF of 54 %. This note was generated with [employer] software. It may contain incorrect words, spelling, and punctuation that were not noted in checking the note before signing.
== END ==
PROVIDERS: PCP Family Medicine Geriatric Medicine; Referring Provider Internal Medicine Cardiovascular Disease; Visit Provider Internal Medicine Cardiovascular Disease
DX: I25.10 Atherosclerotic heart disease of native coronary artery without angina pectoris (principal); I71.4 Abdominal aortic aneurysm, without rupture; I10 Essential (primary) hypertension; I48.0 Paroxysmal atrial fibrillation; E78.2 Mixed hyperlipidemia; R07.2 Precordial pain; R06.00 Dyspnea, unspecified; Z95.5 Presence of coronary angioplasty implant and graft
CPT/HCPCS: 78452; 93017; 93306; A9500; Q9957; A4216; C8929

== ENCOUNTER → 2019-11-07 09:34 | Outpatient (CLI) | payer MEDICARE, SELFPAY ==
[2019-11-03 11:32] VITALS: BMI 24.7
[2019-11-07 11:55] LABS: Absolute Neutrophil Count 4.5 X10^3/uL (2.0-7.7); Basophil# 0.07 X10^3/uL; Eosinophil# 0.27 X10^3/uL; Eosinophils% 3.8 % (0-5); Hematocrit 49.3 % (40-54); Hemoglobin 15.8 g/dL (13.0-16.5); Lymphocyte % 22.3 % (19-41); Mean Corpuscular Hgb 31.2 pg (27.0-32.0); Mean Corpuscular Volume 97.4 fL (80-94); Mean Platelet Vol. 9.6 fl (6.2-12.0); Monocyte# 0.73 X10^3/uL; Monocyte% 10.2 % (0-10); NRBC Flagged by Analyzer 0 % (0-5); Neutrophil # 4.48 X10^3/uL (2.7-7.7); Neutrophil % 62.3 % (47-70); Platelet Count 226 K/mm3 (150-450); RBC Distribution Width CV 13.3 % (11.6-14.6); RBC Distribution Width SD 47.9 fl (35.1-43.9); Red Blood Count 5.06 M/mm3 (4.6-6.2); White Blood Count 7.2 K/mm3 (4.4-11.0)
[2019-11-07 12:21] LABS: AST(SGOT) 12 U/L (15-37); Alanine Aminotransfer ALT/SGPT 18 U/L (16-61); Albumin, Serum 3.4 g/dL (3.2-5.0); Alkaline Phosphatase 76 U/L (45-117); Anion Gap 4 (5-15); BUN 15 mg/dL (7-18); BUN/Creat Ratio 14.3 RATIO (10-20); Calcium,Total 8.9 mg/dL (8.5-10.1); Chloride 109 mmol/L (98-107); Creatinine, Serum 1.05 mg/dL (0.70-1.30); EST Glomerular Filtration Rate 73 mL/min (>60); Est Glom Filt Rate - Afr Amer 89 mL/min (>60); Globulin 3.3 g/dL (2.2-4.2); Glucose 100 mg/dL (74-106); Potassium 3.7 mmol/L (3.5-5.1); Protein, Total 6.7 g/dL (6.4-8.2); Sodium Level 141 mmol/L (136-145); Thyroid Stim Hormone (TSH) 2.12 uIU/mL (0.358-3.74)
[2019-11-08 10:10] LABS: Vitamin D,25 Hydroxy 37.2 ng/mL
== END ==
PROVIDERS: PCP Family Medicine Geriatric Medicine; Visit Provider Family Medicine Geriatric Medicine
DX: I10 Essential (primary) hypertension (principal); E23.6 Other disorders of pituitary gland; E55.9 Vitamin D deficiency, unspecified
CPT/HCPCS: 36415; 80053; 82306; 84403; 84443; 85025

== ENCOUNTER 2019-11-12 13:53 | Inpatient (IN) | payer MEDICARE, SELFPAY ==
[2019-11-03 11:32] VITALS: BMI 24.7
[2019-11-12] VITALS (10 sets, daily range): BP systolic 85–149; BP diastolic 69–91; PULSE 62–192; RESP 12–28; TEMP 36.1–37.1; O2SAT 90–99; BMI 24.6; BMI 24.1; BMI 24.2
[2019-11-12] MEDS: Adenosine 6 MG/2 ML Syringe IV (14:00)
[2019-11-12] MEDS: Adenosine 6 MG/2 ML Syringe 12 MG IV (14:05)
[2019-11-12] MEDS: dilTIAZem 25 MG/5 ML Vial IV BOLUS (14:10)
--- NOTE | 2019-11-12 14:14 | RAD_ITS ---
STUDY: X-RAY CHEST REASON FOR EXAM: Male, 74 years old. SHORT OF BREATH, CHEST PAIN, TACHYCARDIA TECHNIQUE: Single AP portable view of the chest. COMPARISON: 03/28/2017 FINDINGS: There is hyperinflation of the lungs consistent with chronic obstructive lung disease (COPD). There is no demonstrated pleural abnormality. Normal size heart. Normal mediastinum and liliam. Normal visualized pulmonary arteries. Normal visualized aortic arch and descending thoracic aorta. Normal visualized thoracic spine. Normal visualized ribs, clavicles, and shoulders. There is no demonstrated abnormality of the visualized soft tissue structures of the upper abdomen. RAD/Chest 1 View (Portable) IMPRESSION: Emphysema without pneumonia or atelectasis. Electronically Signed: Demian Arias MD at 14:46 EDT Tel , Service support ,
--- NOTE | 2019-11-12 14:14 | EKG12_ITS ---
Test Reason : Blood Pressure : / mmHG Vent. Rate : 193 BPM Atrial Rate : 096 BPM P-R Int : 000 ms QRS Dur : 234 ms QT Int : 352 ms P-R-T Axes : 000 -76 243 degrees QTc Int : 631 ms Ventricular Tachycardia Left axis deviation Right bundle branch block Abnormal ECG Confirmed by SOHA PIZANO, EHSAN ([id number]), film editor LEIF MURDOCK ([id number]) on 11/17/2019 9:33:01 AM Referred By: VERONIKA Confirmed By:KARTHIK HOYOS MD
--- NOTE | 2019-11-12 14:16 | ED.DCSUM_ITS ---
History of Present Illness Chief Complaint: Chest Pain Informant: Patient Narrative: 74-year-old male presenting with shortness of breath. Patient states he started having shortness of breath yesterday. He states it is worse with exertion. He went to his primary care physician's office and it is noted that he had an EKG with a heart rate of 190. Patient was sent to the ED for evaluation. He does not state that he is had any chest pain. He does not have any leg swelling that he notes. Denies fever, cough. He does admit to myalgias, but no loss of taste or smell. He states his only exposure to possible COVID?19 is watching his granddaughter play softball days ago. He states he has history of [place], DVT, COPD, hyperlipidemia. - Past Medical History (1) Abdominal aortic aneurysm without rupture Status: Chronic Comment: Infra renal saccular abdominal aortic aneurysm (2) Respiratory failure with hypoxia Status: Chronic (3) Mixed hyperlipidemia Status: Chronic (4) Essential hypertension Status: Chronic (5) Stage 4 very severe COPD by GOLD classification Status: Chronic Comment: FEV1 46% of predicted (6) COPD (chronic obstructive pulmonary disease) Status: Deleted (7) Obstructive sleep apnea syndrome Status: Chronic Comment: 13 cm of water Past Medical History - Allergies and Home Meds Allergies/Adverse Reactions: Allergies Sulfa (Sulfonamide Antibiotics) Allergy (Verified 11/12/19 13:55) Chest tightness Prior records reviewed: Yes Past Medical History: - - Hypertension, COPD, hyperlipidemia, [place], DVT Surgical History: herniorrhaphy, - - History of surgery on right hand. 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 There is a history 2 inguinal hernias Smoking Status: Former smoker - Family History Paternal Family History: Family History (Last Reviewed 11/12/19 @ 16:27 by GWEN Gatica) Father CHF (congestive heart failure) Mother CVA (cerebral vascular accident) Heart aneurysm Family History: Reports: Heart Disease Maternal Family History: Family History (Last Reviewed 11/12/19 @ 16:27 by GWEN Gatica) Father CHF (congestive heart failure) Mother CVA (cerebral vascular accident) Heart aneurysm Family History: Reports: Cancer, Heart Disease Sibling Family History: Family History (Last Reviewed 11/12/19 @ 16:27 by GWEN Gatica) Father CHF (congestive heart failure) Mother CVA (cerebral vascular accident) Heart aneurysm Family History: Reports: Cancer Offspring Family History: Family History (Last Reviewed 11/12/19 @ 16:27 by GWEN Gatica) Father CHF (congestive heart failure) Mother CVA (cerebral vascular accident) Heart aneurysm Family History: Reports: Cancer Review of Systems General: Denies: Chills, Fever, Malaise Eyes: Denies: Visual changes - bilaterally, Diplopia ENT: Denies: Rhinorrhea, Sore throat Cardiovascular: Reports: Heart racing. Denies: Chest pain Respiratory: Reports: Dyspnea, Dyspnea on exertion. Denies: Cough Gastrointestinal: Denies: Abdominal pain, Nausea, Vomiting Genitourinary: Denies: Dysuria Musculoskeletal: Reports: Myalgias. Denies: Arthralgias, Extremity Pain Skin: Denies: Rash Neurological: Reports: Headache. Denies: Weakness, Parasthesia, Numbness Hematologic: Denies: Easy bruising, Easy bleeding Physical Exam Vital Signs/Narrative: Vital Signs Temp Pulse Resp BP Pulse Ox 11/12/19 13:55 97.2 F L 192 H 14 85/69 L 90 General: Well nourished - Mild distress due to tachycardia Head: Normocephalic, Atraumatic Eyes: Perrl, EOMI ENT: Moist mucous membranes, No rhinorrhea Cardiovascular: Tachycardia. Negative for: Murmur Respiratory: No distress, CTA bilaterally Abdomen: Soft, Nontender Extremities: Nontender. Negative for: No edema, Calf Tenderness Skin: Normal color, No rash Neurological: Alert, Oriented x3 Psychological: Normal affect, Normal Mood Diagnostic/Tx/Re-eval Chest X-Ray - ED: 1 View Clinical Impression(s) from Imaging Studies Chest X-Ray 11/12/19 14:14 IMPRESSION: Emphysema without pneumonia or atelectasis. Electronically Signed: Demian Arias MD at 14:46 EDT Tel , Service support , Laboratory Data 11/12/19 11/12/19 11/12/19 13:58 13:58 13:58 WBC 16.9 H RBC 5.48 Hgb 17.5 H Hct 54.1 H MCV 98.7 H MCH 31.9 MCHC 32.3 RDW Std Deviation 50.0 H RDW Coeff of Rosalinda 13.7 Plt Count 229 MPV 9.9 Immature Gran % (Auto) 0.700 Neut % (Auto) 77.3 H Lymph % (Auto) 13.4 L [place] % (Auto) 8.2 Eos % (Auto) 0.1 Baso % (Auto) 0.3 Absolute Neuts (auto) 13.1 H Absolute Lymphs (auto) 2.26 Nucleated RBC % 0 PT INR APTT D-Dimer Quant (PE/DVT) 5.94 H* Sodium 139 Potassium 5.2 H Chloride 105 Carbon Dioxide 26.0 Anion Gap 8 BUN 31 H Creatinine 2.03 H Estim Creat Clear Calc 35.04 Est GFR (MDRD) Af Amer 41 L Est GFR (MDRD) Non-Af 34 L BUN/Creatinine Ratio 15.3 Glucose 118 H Lactic Acid Calcium 9.2 Magnesium Total Bilirubin Direct Bilirubin AST ALT Alkaline Phosphatase Troponin I 0.310 H B-Natriuretic Peptide Total Protein Albumin Globulin 11/12/19 11/12/19 11/12/19 13:58 13:58 15:09 WBC RBC Hgb Hct MCV MCH MCHC RDW Std Deviation RDW Coeff of Rosalinda Plt Count MPV Immature Gran % (Auto) Neut % (Auto) Lymph % (Auto) [place] % (Auto) Eos % (Auto) Baso % (Auto) Absolute Neuts (auto) Absolute Lymphs (auto) Nucleated RBC % PT 14.8 INR 1.2 APTT 26.8 D-Dimer Quant (PE/DVT) Sodium Potassium Chloride Carbon Dioxide Anion Gap BUN Creatinine Estim Creat Clear Calc Est GFR (MDRD) Af Amer Est GFR (MDRD) Non-Af BUN/Creatinine Ratio Glucose Lactic Acid Calcium Magnesium 2.4 Total Bilirubin 1.30 H Direct Bilirubin 0.38 H AST 58 H ALT 68 H Alkaline Phosphatase 78 Troponin I B-Natriuretic Peptide 1839.8 H Total Protein 7.1 Albumin 4.1 Globulin 3.0 11/12/19 15:24 WBC RBC Hgb Hct MCV MCH MCHC RDW Std Deviation RDW Coeff of Rosalinda Plt Count MPV Immature Gran % (Auto) Neut % (Auto) Lymph % (Auto) [place] % (Auto) Eos % (Auto) Baso % (Auto) Absolute Neuts (auto) Absolute Lymphs (auto) Nucleated RBC % PT INR APTT D-Dimer Quant (PE/DVT) Sodium Potassium Chloride Carbon Dioxide Anion Gap BUN Creatinine Estim Creat Clear Calc Est GFR (MDRD) Af Amer Est GFR (MDRD) Non-Af BUN/Creatinine Ratio Glucose Lactic Acid 2.6 H* Calcium Magnesium Total Bilirubin Direct Bilirubin AST ALT Alkaline Phosphatase Troponin I B-Natriuretic Peptide Total Protein Albumin Globulin - Rhythm Strip Rate: 193 Ectopy: - - EKG Initial EKG Interpretation: - - SVT at 193 bpm Follow-up EKG Interpretation: Sinus Rhythm, No Acute Injury Pattern, - - 72 bpm - Medical Decision Making 74-year-old male presenting with shortness of breath found to be in SVT at a rate of 193 bpm. He is not complaining of any chest pain at all. His biggest complaint is dyspnea and dyspnea on exertion. After his initial EKG we did attempt to use adenosine 6 mg followed by adenosine 12 mg which did not break his rate at all. He was then given Cardizem 25 mg which brought him down to about 180. After this point the patient coughed and converted into a sinus rhythm at 72 bpm and felt improved. His lab work shows that he has a leukocytosis, lactic acidosis of 2.6. Given his tachycardia and shortness of breath I did add on blood cultures and urinalysis with urine culture. Urinalysis is negative. Chest x-ray is negative. Patient does appear to have a elevated troponin at 0.310. Patient also has acute kidney injury since his previous lab work done a few days ago. Possible that his acute kidney injury and his rapid heart rate could have caused an elevation in troponin given the patient is not complaining of chest pain. Patient's d-dimer was elevated however due to the acute kidney injury I was unable to perform CTA. I did speak with cardiology who recommended that we heparin drip until we can get a VQ scan or hydrate the patient up to get a CTA. This was ordered. Patient received aspirin. Patient was discussed with hospitalist on-call who will accept the patient for monitoring. We did determine that we would hold antibiotics given we have not found a source of infection and likely some of these abnormal lab findings are because of his fast heart rate. Impression: 1. SVT 2. Indeterminate troponin 3. Lactic acidosis 4. Acute kidney injury 5. Dyspnea ED Disposition - Plan for ED Patient: Disposition: Acute Care Hospital [facility]
[2019-11-12] MEDS: 0.9% Normal Saline 1,000 ML 1000 ML IV (14:19)
--- NOTE | 2019-11-12 14:19 | EKG12_ITS ---
Test Reason : Blood Pressure : / mmHG Vent. Rate : 082 BPM Atrial Rate : 082 BPM P-R Int : 150 ms QRS Dur : 092 ms QT Int : 328 ms P-R-T Axes : 078 080 -69 degrees QTc Int : 383 ms Normal sinus rhythm Possible Left atrial enlargement Nonspecific ST-T change Abnormal EKG Confirmed by SOHA PIZANO, EHSAN ([id number]), editorial manager LEIF MURDOCK ([id number]) on 11/17/2019 9:34:10 AM Referred By: VERONIKA Confirmed By:KARTHIK HOYOS MD
[2019-11-12 14:31] LABS: Absolute Lymphocyte Count 2.26 X10^3/uL (0.83-4.51); Absolute Neutrophil Count 13.1 X10^3/uL (2.0-7.7); Basophil# 0.05 X10^3/uL; Basophil% 0.3 % (0-1); Eosinophil# 0.01 X10^3/uL; Eosinophils% 0.1 % (0-5); Hematocrit 54.1 % (40-54); Hemoglobin 17.5 g/dL (13.0-16.5); Lymphocyte # 2.26 X10^3/ul (4.0); Lymphocyte % 13.4 % (19-41); Mean Corp Hgb Conc 32.3 g/dL (32-36); Mean Corpuscular Hgb 31.9 pg (27.0-32.0); Mean Corpuscular Volume 98.7 fL (80-94); Mean Platelet Vol. 9.9 fl (6.2-12.0); Monocyte# 1.39 X10^3/uL; Monocyte% 8.2 % (0-10); NRBC Flagged by Analyzer 0 % (0-5); Neutrophil # 13.06 X10^3/uL (2.7-7.7); Neutrophil % 77.3 % (47-70); Platelet Count 229 K/mm3 (150-450); RBC Distribution Width CV 13.7 % (11.6-14.6); Red Blood Count 5.48 M/mm3 (4.6-6.2); White Blood Count 16.9 K/mm3 (4.4-11.0)
[2019-11-12 14:45] LABS: Anion Gap 8 (5-15); BUN 31 mg/dL (7-18); BUN/Creat Ratio 15.3 RATIO (10-20); Calcium,Total 9.2 mg/dL (8.5-10.1); Chloride 105 mmol/L (98-107); Creatinine, Serum 2.03 mg/dL (0.70-1.30); EST Glomerular Filtration Rate 34 mL/min (>60); Est Glom Filt Rate - Afr Amer 41 mL/min (>60); Estimated Creatinine Clearance 35.04 ml/min; Glucose 118 mg/dL (74-106); Potassium 5.2 mmol/L (3.5-5.1); Sodium Level 139 mmol/L (136-145)
[2019-11-12] MEDS: Aspirin 81 MG TAB.CHEW 324 MG PO (14:49)
[2019-11-12 15:05] LABS: D-Dimer Quantitative (DVT/PE) 5.94 FEU/ug/m (0.27-0.49)
--- NOTE | 2019-11-12 15:54 | NURSING ---
pcu elevated trop, acute kidney injury kristyn
[2019-11-12 15:56] LABS: International Normalized Ratio 1.2; Prothrombin Time (Protime)PT. 14.8 SECONDS (11.7-14.9)
[2019-11-12 15:57] LABS: Partial Thromboplast Time 26.8 Seconds (24.1-36.2)
--- NOTE | 2019-11-12 16:18 | HP.PCM_ITS ---
<Marie Mehta - Last Filed: 11/12/19 16:40> Problem List (1) Paroxysmal atrial fibrillation Status: Chronic (2) Abdominal aortic aneurysm without rupture Status: Chronic Comment: Infra renal saccular abdominal aortic aneurysm (3) Respiratory failure with hypoxia Status: Chronic Qualifiers: Chronicity: chronic Qualified Code(s): J96.11 - Chronic respiratory failure with hypoxia (4) Mixed hyperlipidemia Status: Chronic (5) Essential hypertension Status: Chronic (6) Stage 4 very severe COPD by GOLD classification Status: Chronic Comment: FEV1 46% of predicted (7) Obstructive sleep apnea syndrome Status: Chronic Comment: 13 cm of water (8) History of coronary artery stent placement Status: Chronic Comment: PTCA/BMS x2 to mid/distal RCA (9) Atherosclerotic heart disease of [place] coronary artery without angina pectoris Status: Chronic Qualifiers: [place] vs. transplanted heart: [place] heart Qualified Code(s): I25.10 - Atherosclerotic heart disease of [place] coronary artery without angina pectoris Comment: PCI to RCA in 2008 in 2014; (10) Long-term use of high-risk medication Status: Chronic History of Present Illness Date of Admission: 11/12/19 Chief Complaint: Shortness of breath. The patient is a 74 year old M who presents to the emergency room due to shortness of breath. Patient states he was unable to sleep last night due to being unable to catch his breath. His symptoms persisted this morning and he was evaluated by his primary care provider. He was noted to have significantly elevated heart rate and sent to the emergency room for further evaluation. Patient denies chest pain. Denies recent illness or exposure to sick contacts. Denies palpitations. He reports he feels very fatigued since onset of shortness of breath. Patient states he had a similar episode a few weeks ago however it resolved quickly. He has a past medical history of CAD with angioplasty and stenting, paroxysmal atrial fibrillation, hypertension, hyperlipidemia, DVT, chronic COPD with chronic toxic respiratory failure, infrarenal saccular abdominal aortic aneurysm, MAGALI, GERD. Past Medical History Past Medical History (Chronic Problems): Chronic Problems (Last Updated 11/12/19 @ 16:[address] Lars Kidd MD) Paroxysmal atrial fibrillation (Chronic) Abdominal aortic aneurysm without rupture (Chronic) Infra renal saccular abdominal aortic aneurysm Respiratory failure with hypoxia (Chronic) Mixed hyperlipidemia (Chronic) Essential hypertension (Chronic) Stage 4 very severe COPD by GOLD classification (Chronic) FEV1 46% of predicted Obstructive sleep apnea syndrome (Chronic) 13 cm of water History of coronary artery stent placement (Chronic ~10/2007) PTCA/BMS x2 to mid/distal RCA Atherosclerotic heart disease of [place] coronary artery without angina pectoris (Chronic) PCI to RCA in 2008 in 2014; Long-term use of high-risk medication (Chronic) Medical History: Medical History (Last Updated 11/12/19 @ 16:[address] Lars Kidd MD) Abdominal aortic aneurysm without rupture (Chronic) I71.4 Infra renal saccular abdominal aortic aneurysm Respiratory failure with hypoxia (Chronic) J96.91 Essential hypertension (Chronic) I10 Stage 4 very severe COPD by GOLD classification (Chronic) J44.9 FEV1 46% of predicted Obstructive sleep apnea syndrome (Chronic) G47.33 13 cm of water Atherosclerotic heart disease of [place] coronary artery without angina pectoris (Chronic) I25.10 PCI to RCA in 2008 in 2014; MAGALI (obstructive sleep apnea) G47.33 Other specified transient cerebral ischemias G45.8 COPD (chronic obstructive pulmonary disease) J44.9 Acute DVT (deep venous thrombosis) I82.409 Atrial fibrillation (Inactive) I48.91 BPH (benign prostatic hyperplasia) (Inactive) N40.0 Coronary artery disease s/p stents (Inactive) Hyperlipidemia (Inactive) E78.5 Allergies Sulfa (Sulfonamide Antibiotics) Allergy (Verified 11/12/19 13:55) Chest tightness Home Medications: Ambulatory Orders Medication Instructions Recorded Albuterol Inhaler [Ventolin Hfa 1 - 2 puff INHALATION Q4H PRN PRN 09/08/16 (SP)] Aspirin [Aspirin, Baby] 81 mg PO DAILY@0800 09/08/16 Clopidogrel Bisulfate [Plavix] 75 mg PO DAILY 09/08/16 nitroglycerin 0.4 mg sublingual 0.4 mg SUBLINGUAL Q5M PRN 03/16/17 tablet pravastatin 80 mg tablet 80 mg PO QODAY tab 03/16/17 budesonide-formoterol HFA 160 2 puff INHALATION DAILY g 05/31/18 mcg-4.5 mcg/actuation aerosol inhaler cholecalciferol (vitamin D3) 25 25 mcg PO DAILY 07/08/19 mcg (1,000 unit) capsule ipratropium bromide 42 mcg (0.06 2 spray INTRANASAL DAILY 07/08/19 %) nasal spray tiotropium bromide 2.5 1 puff INHALATION QDAY PRN ea 07/08/19 mcg/actuation mist for inhalation Ascorbic Acid [C-1000] 1,000 mg PO DAILY 11/12/19 Omeprazole [Prilosec] 20 mg PO DAILY 11/12/19 Ranolazine [Ranolazine ER] 500 mg PO DAILY 11/12/19 Vitamin B Complex 1 cap PO DAILY 11/12/19 Surgical History: Surgical History (Last Updated 11/12/19 @ 16:[address] Lars Kidd MD) History of inguinal herniorrhaphy Z98.890, Z87.19 Surgical History: herniorrhaphy, - - History of surgery on right hand. 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 There is a history 2 inguinal hernias. Left bicep surgery following injury. Cardiac stent placement. Psychiatric History: No pertinent psych hx Lives: Spouse/ Significant Other Smoking Status: Former smoker Alcohol: None Drugs: None - *Family History Paternal Family History: Family History (Last Reviewed 11/12/19 @ 16:27 by GWEN Gatica) Father CHF (congestive heart failure) Mother CVA (cerebral vascular accident) Heart aneurysm History Items: Heart Disease Maternal Family History: Family History (Last Reviewed 11/12/19 @ 16:27 by GWEN Gatica) Father CHF (congestive heart failure) Mother CVA (cerebral vascular accident) Heart aneurysm History Items: Cancer, Heart Disease Sibling Family History: Family History (Last Reviewed 11/12/19 @ 16:27 by GWEN Gatica) Father CHF (congestive heart failure) Mother CVA (cerebral vascular accident) Heart aneurysm History Items: Cancer Offspring Family History: Family History (Last Reviewed 11/12/19 @ 16:27 by GWEN Gatica) Father CHF (congestive heart failure) Mother CVA (cerebral vascular accident) Heart aneurysm History Items: Cancer Review of Systems Constitutional: Reports: Fatigue. Denies: Chills, Fever, Weight Change HEENT: Denies: Head Aches, Sinus Congestion, Sinus Drainage Cardiovascular: Denies: Chest Pain, Palpitations Respiratory: Reports: Shortness of Breath. Denies: Cough Gastrointestinal: Denies: Abdominal Pain, Nausea, Vomiting Genitourinary: Denies: Dysuria Musculoskeletal: Denies: Joint Pain, Joint Tenderness Skin: Denies: Rash, Wounds Neurological: Denies: Numbness, Tingling, Focal weakness Psychiatric: Denies: Anxiety, Depression, Homicidal Ideations, Suicidal I deations Hematologic/ Lymphatic: Denies: Easy Bruising, Easy Bleeding VTE Information - Inpt Only VTE Present on Admission: No VTE Mechan Device Prophylaxis: None VTE Pharm Prophylaxis ordered?: Yes - Physical Exam Vitals/I&O's: Vital Signs Temp Pulse Resp BP Pulse Ox 97.2 F L 62 12 133/85 H 99 11/12/19 13:55 11/12/19 15:28 11/12/19 15:28 11/12/19 15:28 11/12/19 15:28 Oxygen Flow Rate (L/min) 2 Oxygen Delivery Method Nasal Cannula Weight: 181 lb 14.102 oz Body Mass Index (BMI) 24.6 Intake and Output for Last 24 Hours 11/10/19 11/11/19 11/12/19 23:59 23:59 23:59 Intake Total 1000 / 1000 Balance 1000 / 1000 General: Alert, Oriented x3, Cooperative HEENT: Atraumatic, PERRLA, EOMI, Normocephalic Oral: Dry Mucosa Neck: Supple, No JVD, Negative Carotid Bruits Lungs: Clear to auscultation, Diminished Cardiovascular: Regular rate, No murmurs Abdomen: Bowel Sounds Present, Soft, Non Tender, Non-Distended Extremities: No clubbing, No cyanosis, No edema, Capillary Refill Less than 3 Seconds Skin: No rashes, No breakdown Musculoskeletal: No Tenderness to Palpation of Joints or Extremities Neurological: Cranial nerves II-XII grossly intact, Neuro grossly intact Psych/Mental Status: Normal Affect, Appropriate Laboratory Results 11/12/19 13:58: WBC 16.9 H, RBC 5.48, Hgb 17.5 H, Hct 54.1 H, MCV 98.7 H, MCH 31.9, MCHC 32.3, RDW Std Deviation 50.0 H, RDW Coeff of [place] 13.7, Plt Count 229, MPV 9.9, Immature Gran % (Auto) 0.700, Neut % (Auto) 77.3 H, Lymph % (Auto) 13.4 L, [place] % (Auto) 8.2, Eos % (Auto) 0.1, Baso % (Auto) 0.3, Absolute Neuts (auto) 13.1 H, Absolute Lymphs (auto) 2.26, Nucleated RBC % 0 11/12/19 13:58: D-Dimer Quant (PE/DVT) 5.94 H* 11/12/19 13:58: Sodium 139, Potassium 5.2 H, Chloride 105, Carbon Dioxide 26.0, Anion Gap 8, BUN 31 H, Creatinine 2.03 H, Estim Creat Clear Calc 35.04, Est GFR (MDRD) Af Amer 41 L, Est GFR (MDRD) Non-Af 34 L, BUN/Creatinine Ratio 15.3, Glucose 118 H, Calcium 9.2, Troponin I 0.310 H 11/12/19 15:09: PT 14.8, INR 1.2, APTT 26.8 11/12/19 15:24: Lactic Acid Pending Current Medications Heparin Sodium (Porcine) (Heparin Na) 0 unit IV UD PRN; Protocol PRN Reason: PROTOCOL Heparin Sodium/Sodium Chloride () 25,000 unit in 250 mls @ 12 mls/hr IV .[id number] [facility]; Protocol Assessment/Plan 1. Wide-complex tachycardia-patient received adenosine and Cardizem in ER. Now in sinus rhythm. Cardiology consulted. Trend enzymes. Heparin drip. Started on Cardizem CD 120 mg daily. Obtain echo. 2. Elevated [id number] to complete CTA due to acute renal failure. Obtain VQ scan and lower extremity Dopplers. Heparin drip. 3. Elevated troponin-suspect demand ischemia as result of #1. Stress test 07/2019 negative for ischemia. Trend enzymes. Cardiology consulted as noted above. 4. Acute kidney injury with hyperkalemia-IV fluids, trend BMP. 5. Lactic acidosis/leukocytosis-suspect reactive. Chest x-ray without acute process. Obtain UA/urine culture. 6. CAD with angioplasty and stenting- follows with Dr. Ortega. Continue aspirin, statin, Plavix. 7. Paroxysmal atrial fibrillation-not on rate limiting regimen or anticoagulation. 8. Hypertension-not on regimen. 9. Hyperlipidemia-continue statin 10. History of DVT-unprovoked. Completed course of Xarelto. 11. Chronic COPD with chronic hypoxic respiratory failure-continue supplement oxygen to maintain O2 sat above 90%. As needed albuterol aerosol. 12. Infrarenal saccular abdominal aortic aneurysm-aorta ultrasound April 2019 showed stable from previous study. 13. MAGALI-patient reports noncompliance with CPAP. 14. GERD-continue PPI. DVT prophylaxis-heparin drip CODE STATUS: Discussed in length with patient and patient's who is healthcare power of structural engineering technician. Patient requested DNR CCA no intubation status. This patient was seen by GWEN Gatica under the supervision of Dr. Kidd. <Lars Kidd - Last Filed: 11/12/19 16:56> History of Present Illness The patient is a 74 year old M [] Past Medical History Medical History: Medical History (Last Updated 11/12/19 @ 16:[address] Lars Kidd MD) Abdominal aortic aneurysm without rupture (Chronic) I71.4 Infra renal saccular abdominal aortic aneurysm Respiratory failure with hypoxia (Chronic) J96.91 Essential hypertension (Chronic) I10 Stage 4 very severe COPD by GOLD classification (Chronic) J44.9 FEV1 46% of predicted Obstructive sleep apnea syndrome (Chronic) G47.33 13 cm of water Atherosclerotic heart disease of [place] coronary artery without angina pectoris (Chronic) I25.10 PCI to RCA in 2008 in 2014; MAGALI (obstructive sleep apnea) G47.33 Other specified transient cerebral ischemias G45.8 COPD (chronic obstructive pulmonary disease) J44.9 Acute DVT (deep venous thrombosis) I82.409 Atrial fibrillation (Inactive) I48.91 BPH (benign prostatic hyperplasia) (Inactive) N40.0 Coronary artery disease s/p stents (Inactive) Hyperlipidemia (Inactive) E78.5 Allergies Sulfa (Sulfonamide Antibiotics) Allergy (Verified 11/12/19 13:55) Chest tightness Surgical History: Surgical History (Last Updated 11/12/19 @ 16:[address] Lars Kidd MD) History of inguinal herniorrhaphy Z98.890, Z87.19 - *Family History Paternal Family History: Family History (Last Reviewed 11/12/19 @ 16:27 by GWEN Gatica) Father CHF (congestive heart failure) Mother CVA (cerebral vascular accident) Heart aneurysm Maternal Family History: Family History (Last Reviewed 11/12/19 @ 16:27 by GWEN Gatica) Father CHF (congestive heart failure) Mother CVA (cerebral vascular accident) Heart aneurysm Sibling Family History: Family History (Last Reviewed 11/12/19 @ 16:27 by GWEN Gatica) Father CHF (congestive heart failure) Mother CVA (cerebral vascular accident) Heart aneurysm Offspring Family History: Family History (Last Reviewed 11/12/19 @ 16:27 by GWEN Gatica) Father CHF (congestive heart failure) Mother CVA (cerebral vascular accident) Heart aneurysm - Physical Exam Vitals/I&O's: Vital Signs Temp Pulse Resp BP Pulse Ox 97.2 F L 62 12 133/85 H 99 11/12/19 13:55 11/12/19 15:28 11/12/19 15:28 11/12/19 15:28 11/12/19 15:28 Oxygen Flow Rate (L/min) 2 Oxygen Delivery Method Nasal Cannula Weight: 181 lb 14.102 oz Body Mass Index (BMI) 24.6 Intake and Output for Last 24 Hours 11/10/19 11/11/19 11/12/19 23:59 23:59 23:59 Intake Total 1000 / 1000 Balance 1000 / 1000 Laboratory Results 11/12/19 13:58: WBC 16.9 H, RBC 5.48, Hgb 17.5 H, Hct 54.1 H, MCV 98.7 H, MCH 31.9, MCHC 32.3, RDW Std Deviation 50.0 H, RDW Coeff of [place] 13.7, Plt Count 229, MPV 9.9, Immature Gran % (Auto) 0.700, Neut % (Auto) 77.3 H, Lymph % (Auto) 13.4 L, [place] % (Auto) 8.2, Eos % (Auto) 0.1, Baso % (Auto) 0.3, Absolute Neuts (auto) 13.1 H, Absolute Lymphs (auto) 2.26, Nucleated RBC % 0 11/12/19 13:58: D-Dimer Quant (PE/DVT) 5.94 H* 11/12/19 13:58: Sodium 139, Potassium 5.2 H, Chloride 105, Carbon Dioxide 26.0, Anion Gap 8, BUN 31 H, Creatinine 2.03 H, Estim Creat Clear Calc 35.04, Est GFR (MDRD) Af Amer 41 L, Est GFR (MDRD) Non-Af 34 L, BUN/Creatinine Ratio 15.3, Glucose 118 H, Calcium 9.2, Troponin I 0.310 H 11/12/19 15:09: PT 14.8, INR 1.2, APTT 26.8 11/12/19 15:24: Lactic Acid 2.6 H* Current Medications Heparin Sodium (Porcine) (Heparin Na) 0 unit IV UD PRN; Protocol PRN Reason: PROTOCOL Heparin Sodium/Sodium Chloride () 25,000 unit in 250 mls @ 12 mls/hr IV .[id number] [facility]; Protocol Assessment/Plan Hospitalist note: I am seeing this patient in conjunction with Marie Mehta. I independently seen and examined the patient. History and physical, laboratory data and imaging studies reviewed and I concur with the above admission and treatment plan. Patient presented to the emergency room because of shortness of breath that started yesterday morning, awakening him from sleep, it was at rest, aggravated by activity, minimally relieved with using oxygen at 2 L as he does have oxygen at home, associated with dizziness and profuse sweating and he could not sleep last night because of it. He denied associated shortness of breath, palpitation, syncope or presyncope. He mentioned that few weeks ago, he had similar episode of sudden onset shortness of breath and that went away quickly. He denied cough or sputum production. He denied fever or chills. Upon arrival to the emergency department, heart rate has been in the 190s, blood pressure was borderline. He received IV adenosine and IV Cardizem which did not work. He coughed and he returned back to sinus rhythm. Currently, heart rate has been in the 70s, blood pressure stable, and he is on room air. His EKG revealed leukocytosis with neutrophilia, creatinine of 1.03, potassium is 5.2. Lactic acid is 2.6. Initial EKG revealed wide complex tachycardia, RBBB. Repeat EKG revealed normal sinus rhythm, normal CT table, normal QRS, normal QTC, no acute segment changes. Troponin was 0.31. D-dimer was elevated at 5.94. Patient is being admitted for cardiac arrhythmia, acute kidney injury with mild hyperkalemia, lactic acidosis, abnormal cardiac enzymes and elevated d-dimer. - Physical Exam General: Alert, Oriented x3, Cooperative, No apparent distress. HEENT: Atraumatic, PERRLA, EOMI. Neck: Supple, No JVD, Negative Carotid Bruits, Trachea Midline, Thyroid Normal. Lungs: Diminished breath sounds bilateral, otherwise clear, No rhonchi, No wheeze, No rales. Cardiovascular: Regular rate, Regular Rhythm, Normal S1, Normal S2, PMI Normal. Abdomen: Bowel Sounds Present, Soft, Non Tender, Non-Distended, No Hepato- splenomegaly. Extremities: No clubbing, No cyanosis, No edema Skin: No rashes, No breakdown Neurological: Cranial nerves are intact, neuro grossly intact Vital Signs stable. Assessment and plan: #1 cardiac arrhythmia: It is wide complex tachycardia. I doubt SVT. Patient received IV adenosine and Cardizem, no effect. Patient sent back to sinus rhythm after coughing up. Initial and repeat EKG reviewed. Troponin is 0.31. Currently, patient denied any chest pain. Chest x-ray showed no acute findings. Plan: Admit to PCU, cardiac monitoring, serial cardiac enzymes, repeat EKG tomorrow morning, check serum magnesium, 2D echocardiogram, cardiology consult, repeat CBC and BMP tomorrow morning, check serum magnesium, LFT, PT OT evaluation and treatment. #2 abnormal cardiac enzymes: This is likely because of the fast heart rate. Patient is chest pain-free. EKG reviewed as above. Plan: Cardiac monitoring, serial cardiac enzymes, repeat EKG tomorrow morning, cardiology consult, 2D echocardiogram. #3 acute kidney injury/mild hyperkalemia: This is due to tissue hypoperfusion secondary to cardiac arrhythmia. Baseline kidney function is normal. Plan: IV fluids, input output chart, hold nephrotoxic drugs, repeat BMP later tonight, repeat BMP tomorrow morning. #4 lactic acidosis/leukocytosis: This is probably reactive to acute illness, patient hypoperfusion and tissue hypoxia. I doubt infection, sepsis or severe sepsis. Plan: Blood culture, urine culture, repeat lactic acid in 3 hours, no indication for IV antibiotics. #5 elevated d-dimer: PE cannot be ruled out. CTA chest cannot be done because of acute kidney injury. Patient has history of DVT. Plan: Start IV heparin drip, VQ lung scan, bilateral venous Doppler of both legs. #6 other chronic medical problems: Stable, continue current medications as above. This note was generated with [employer] dictation software. It may contain incorrect words, spelling, and punctuation that were not noted in checking the note before signing. Inpatient E&M: 71177 Init Hosp L3
[2019-11-12 16:23] LABS: Lactic Acid 2.6 mmol/L (0.4-1.9)
--- NOTE | 2019-11-12 16:24 | ED.RN ---
lab with critical lactic of 2.6. dr sky notified at this time.
[2019-11-12] MEDS: Heparin Injection (Vial) 5,000 UNIT/ML VIAL 6000 UNIT IV (16:52)
--- NOTE | 2019-11-12 17:12 | VDLE_ITS ---
Reason For Study: elevated D-Dimer RIGHT LEFT GSV is normal. GSV is normal. CFV is compressible, spontaneous, phasic, CFV is compressible, spontaneous, phasic, competent and demonstrates normal competent, and demonstrates normal augmentation. augmentation. FV is compressible, spontaneous, phasic, FV is compressible, spontaneous, phasic, competent and demonstrates normal competent and demonstrates normal augmentation. augmentation. POP V is compressible, spontaneous, phasic, POP V is compressible, spontaneous, phasic, competent and demonstrates normal competent and demonstrates normal augmentation. augmentation. T/P Trunk is compressible. T/P Trunk is compressible. PTV is compressible. PTV is compressible. RT PerV is compressible. LT PerV is compressible. Procedure Exam performed portable in patient room. The exam was diagnostic. A preliminary report was called and/or faxed to Paige TRAMMELL. Interpretation Summary No evidence for acute deep venous thrombosis bilateral lower extremities with patent and compressible bilateral great saphenous veins. Ordering Physician: Lars Kidd Performed By: Joshua Raymond RVT
--- NOTE | 2019-11-12 17:12 | NM_ITS ---
CLINICAL: Male, 74 years old. RAPID HEART RATE -- SHORT OF BREATH -- HX OF COPD NUCLEAR VENTILATION/PERFUSION - LUNG TECHNIQUE: The patient was administered 5.8 mCi of Tc MAA followed by a perfusion lung scan. The patient was administered 48.9 mCi of Tc DTPA aerosol followed by a ventilation lung scan. Comparison made to prior chest radiograph dated 11/12/2019. COMPARISON STUDIES : NM - None. CR - Not available for review at this time. CT - Not available for review at this time. MR - Not available for review at this time. FINDINGS: There is decreased perfusion to the upper lobes bilaterally but more uptake particularly in the periphery of the lungs on the perfusion images than on the ventilation images suggestive of emphysema. There are no demonstrated segmental or subsegmental perfusion defects Patchy decreased uptake in the upper lobes consistent with emphysema. There are no segmental or subsegmental ventilation abnormalities. NM/Lung Scan Vent/Perf IMPRESSION: Low probability of pulmonary embolus.. Electronically Signed: Demian Arias MD at 12:32 EDT Tel , Service support ,
--- NOTE | 2019-11-12 17:12 | ECHOD_ITS ---
Reason For Study: DYSPNEA Procedure This was a 2D Doppler, Color Flow transthoracic echocardiogram. The study was technically difficult. Exam performed portable in patient room. Left Ventricle Normal size and thickness. The estimated ejection fraction is 55 %. Stage 1 diastolic dysfunction. Posterior-Basal: Mildly hypokinetic. Infero-Basal: Mildly hypokinetic. Right Ventricle Mildly dilated right ventricle. Normal systolic function. Atria Normal left atrium. Normal right atrium. Normal atrial septum. Mitral Valve The mitral valve is structurally normal. No prolapse or stenosis seen. Tricuspid Valve Normal tricuspid valve. Unable to estimate RV systolic pressure due to insufficient tricuspid regurgitant envelope. Aortic Valve Trisinus/trileaflet aortic valve. Mild focal aortic valve thickening. There is no aortic stenosis. Pulmonic Valve Normal pulmonic valve. Great Vessels Normal aortic root. Normal arch. Normal inferior vena cava. Inferior vena cava collapse with sniff. Pericardium/Pleural No pericardial effusion. MMode/2D Measurements & Calculations LVIDd: 4.6 cm IVSd: 1.1 cm LVOT diam: 2.0 cm LVIDs: 3.2 cm LVPWd: 1.3 cm LVOT area: 3.0 cm2 RVDd: 3.7 cm FS: 31.9 % Ao root diam: 3.3 cm LAV(MOD-bp): 36.8 ml LVAd ap4: 30.7 cm2 LAV(MOD-bp) Indexed: 18.2 ml/m2 EDV(MOD-sp4): 92.6 ml LAV(MOD-sp2): 31.2 ml EDV(sp4-el): 94.6 ml LAV(MOD-sp4): 42.5 ml LVAs ap4: 18.9 cm2 ESV(MOD-sp4): 41.9 ml ESV(sp4-el): 42.9 ml EF(MOD-sp4): 54.8 % EF(sp4-el): 54.7 % SV(MOD-sp4): 50.7 ml SV(sp4-el): 51.7 ml LA A4 area: 16.1 cm2 LA dimension(2D): 3.7 cm RA A4 area: 14.5 cm2 Time Measurements MV dec time: 0.25 sec Doppler Measurements & Calculations MV E max shashi: 75.9 cm/sec Lat Peak E' Shashi: 8.9 cm/sec Med Peak E' Shashi: 5.6 cm/sec MV A max shashi: 92.2 cm/sec E/E' lat: 8.5 E/E' med: 13.5 MV E/A: 0.82 Ao V2 max: 175.3 cm/sec LV V1 max: 111.6 cm/sec PA V2 max: 97.9 cm/sec Ao max P.3 mmHg LV V1 max P.0 mmHg REESE(V,D): 1.9 cm2 PI end-d shashi: 107.0 cm/sec Interpretation Summary Stage 1 diastolic dysfunction. Mildly dilated right ventricle. Unable to estimate RV systolic pressure due to insufficient tricuspid regurgitant envelope. The estimated ejection fraction is 55 %. Posterior-Basal: Mildly hypokinetic Infero-Basal: Mildly hypokinetic Compared with echo report dated 07/25/2019, LV function has improved from 50% to around 55%. Ordering Physician: Lars Kidd Referring Physician: ERICKA CRANDALL Performed By: Mayela Whitfield, DOM, RVT
[2019-11-12 17:37] LABS: AST(SGOT) 58 U/L (15-37); Alanine Aminotransfer ALT/SGPT 68 U/L (16-61); Albumin, Serum 4.1 g/dL (3.2-5.0); Alkaline Phosphatase 78 U/L (45-117); Bilirubin, Direct 0.38 mg/dL (0.00-0.30); Magnesium 2.4 mg/dL (1.6-2.6); Protein, Total 7.1 g/dL (6.4-8.2)
[2019-11-12] MEDS: 0.9% Normal Saline 1,000 ML 100 ML IV (17:48)
[2019-11-12] MEDS: Budesonide Respules 0.5 MG/2 ML AMPUL.NEB. INHALATION (19:06)
[2019-11-12] MEDS: Ipratropium/Albuterol Sulfate 3 ML AMPUL.NEB INHALATION (19:06)
[2019-11-12 19:32] LABS: Reflex Lactate? Y
[2019-11-12 20:10] LABS: Mucous, Urine 0 SEEN /hpf (<or=2+); Red Blood Cells-Urine 0 SEEN /hpf (0-5)
[2019-11-12 20:18] LABS: Color, Urine Amber (Yellow); Glucose, Dipstick Normal (Normal); Ketone-Dipstick 15 mg/dl (Negative); Leukocyte Esterase-Dipstick 25 /ul (Negative); Nitrite-Dipstick Negative (Negative); Occult Blood-Urine Negative /ul (Negative); Protein-Dipstick 30 mg/dl (Negative); Urine Bilirubin Dipstick Negative (Negative); Urine Clarity Clear (Clear); Urine Urobilinogen Normal (Normal)
[2019-11-12 20:25] LABS: Bacteria 2+ /hpf (None Seen); Squamous Epithelial Cells - UA 0-5 SEEN /hpf (0-5); White Blood Cells 0-5 SEEN /hpf (0-5)
[2019-11-12 20:26] LABS: Calcium Oxalate Crystals Ur 1+ /hpf (<or=2+); Hyaline Cast 0-5 SEEN /lpf (0-5)
[2019-11-12 21:02] LABS: Anion Gap 8 (5-15); BUN 28 mg/dL (7-18); BUN/Creat Ratio 18.3 RATIO (10-20); Calcium,Total 8.1 mg/dL (8.5-10.1); Chloride 108 mmol/L (98-107); Creatinine, Serum 1.53 mg/dL (0.70-1.30); EST Glomerular Filtration Rate 48 mL/min (>60); Est Glom Filt Rate - Afr Amer 57 mL/min (>60); Estimated Creatinine Clearance 46.49 ml/min; Glucose 113 mg/dL (74-106); Potassium 3.6 mmol/L (3.5-5.1); Sodium Level 140 mmol/L (136-145)
[2019-11-12 21:10] LABS: Lactic Acid 5.1 mmol/L (0.4-1.9)
[2019-11-13] VITALS (13 sets, daily range): BP systolic 131–147; BP diastolic 60–84; PULSE 85–102; RESP 16–20; TEMP 36.1–37.2; O2SAT 90–96
[2019-11-13 00:23] LABS: Lactic Acid 2.4 mmol/L (0.4-1.9)
[2019-11-13 00:35] LABS: Partial Thromboplast Time 164.4 Seconds (24.1-36.2)
[2019-11-13 03:58] LABS: Reflex Lactate? Y
[2019-11-13 04:27] LABS: Absolute Lymphocyte Count 2.07 X10^3/uL (0.83-4.51); Absolute Neutrophil Count 9.2 X10^3/uL (2.0-7.7); Basophil# 0.07 X10^3/uL; Basophil% 0.6 % (0-1); Eosinophil# 0.15 X10^3/uL; Eosinophils% 1.2 % (0-5); Hematocrit 42.6 % (40-54); Lymphocyte # 2.07 X10^3/ul (4.0); Lymphocyte % 16.3 % (19-41); Mean Corp Hgb Conc 32.9 g/dL (32-36); Mean Corpuscular Volume 97.3 fL (80-94); Mean Platelet Vol. 9.7 fl (6.2-12.0); Monocyte% 8.7 % (0-10); NRBC Flagged by Analyzer 0 % (0-5); Neutrophil # 9.23 X10^3/uL (2.7-7.7); Neutrophil % 72.7 % (47-70); Platelet Count 164 K/mm3 (150-450); RBC Distribution Width CV 13.3 % (11.6-14.6); RBC Distribution Width SD 47.9 fl (35.1-43.9); Red Blood Count 4.38 M/mm3 (4.6-6.2); White Blood Count 12.7 K/mm3 (4.4-11.0)
[2019-11-13 04:39] LABS: Anion Gap 5 (5-15); BUN 22 mg/dL (7-18); BUN/Creat Ratio 21.4 RATIO (10-20); Calcium,Total 7.5 mg/dL (8.5-10.1); Chloride 110 mmol/L (98-107); Creatinine, Serum 1.03 mg/dL (0.70-1.30); EST Glomerular Filtration Rate 75 mL/min (>60); Est Glom Filt Rate - Afr Amer 91 mL/min (>60); Estimated Creatinine Clearance 69.06 ml/min; Glucose 90 mg/dL (74-106); Potassium 3.4 mmol/L (3.5-5.1); Sodium Level 137 mmol/L (136-145)
[2019-11-13 04:43] LABS: Lactic Acid 1.3 mmol/L (0.4-1.9)
--- NOTE | 2019-11-13 05:00 | EKG12_ITS ---
Test Reason : AM EKG Blood Pressure : / mmHG Vent. Rate : 067 BPM Atrial Rate : 067 BPM P-R Int : 154 ms QRS Dur : 090 ms QT Int : 450 ms P-R-T Axes : 080 069 -65 degrees QTc Int : 475 ms Sinus rhythm with occasional Premature ventricular complexes T wave abnormality, consider inferior ischemia Poor R wave progression Abnormal ECG Confirmed by PAM PIZANO, SITA ([id number]), medical editor CARLOS ENRIQUE GONZALEZ ([id number]) on 11/19/2019 1:10:28 PM Referred By: DAIANA Confirmed By:SITA OROZCO MD
[2019-11-13] MEDS: 0.9% Normal Saline 1,000 ML 60 ML IV (06:17)
[2019-11-13] MEDS: Ipratropium/Albuterol Sulfate 3 ML AMPUL.NEB INHALATION ×3 (07:04→19:14)
[2019-11-13] MEDS: Budesonide Respules 0.5 MG/2 ML AMPUL.NEB. INHALATION ×2 (07:04→19:15)
[2019-11-13 07:13] LABS: Partial Thromboplast Time 43.3 Seconds (24.1-36.2)
[2019-11-13] MEDS: dilTIAZem CD 120 MG Capsule PO (10:01)
[2019-11-13] MEDS: Ranolazine 500 MG Tablet PO (10:01)
[2019-11-13] MEDS: Pantoprazole Sodium 20 MG Tablet PO (10:01)
[2019-11-13] MEDS: Aspirin 81 MG TAB.CHEW PO (10:01)
[2019-11-13] MEDS: Clopidogrel Bisulfate 75 MG Tablet PO (10:01)
--- NOTE | 2019-11-13 11:14 | PCM.PN.HOSP ---
<Jas Billingsley - Last Filed: 11/13/19 11:14> Reason for Visit: SOB Subjective: SOB resolved. No CP. No Palp. No cough. No Wheezing. No fever/chills. Vitals/I&O's: Vital Signs Temp Pulse Resp BP Pulse Ox 98 F 100 16 131/60 H 94 11/13/19 09:54 11/13/19 09:54 11/13/19 09:54 11/13/19 09:54 11/13/19 09:54 Oxygen Flow Rate (L/min) 2 Oxygen Delivery Method Room Air Weight: 178 lb 4.8 oz Body Mass Index (BMI) 24.1 Intake and Output for Last 24 Hours 11/11/19 11/12/19 11/13/19 23:59 23:59 23:59 Intake Total 1203.33 / 1203.33 1080.6 / 1080.6 Output Total 300 / 300 Balance 1203.33 / 1203.33 780.6 / 780.6 General: Alert, Oriented x3, Cooperative HEENT: Atraumatic, PERRLA, EOMI, Normocephalic Neck: Supple, No JVD, Negative Carotid Bruits Lungs: Clear to auscultation, Normal air movement Cardiovascular: Regular rate, No murmurs Abdomen: Bowel Sounds Present, Soft, Non Tender Extremities: No edema, Capillary Refill Less than 3 Seconds Skin: No rashes, No breakdown Musculoskeletal: No Tenderness to Palpation of Joints or Extremities Neurological: Cranial nerves II-XII grossly intact Psych/Mental Status: Normal Affect, Appropriate, Alert and oriented to time, place, person, mood and affect Laboratory Results 11/12/19 13:58: WBC 16.9 H, RBC 5.48, Hgb 17.5 H, Hct 54.1 H, MCV 98.7 H, MCH 31.9, MCHC 32.3, RDW Std Deviation 50.0 H, RDW Coeff of Rosalinda 13.7, Plt Count 229, MPV 9.9, Immature Gran % (Auto) 0.700, Neut % (Auto) 77.3 H, Lymph % (Auto) 13.4 L, Collingsworth % (Auto) 8.2, Eos % (Auto) 0.1, Baso % (Auto) 0.3, Absolute Neuts (auto) 13.1 H, Absolute Lymphs (auto) 2.26, Nucleated RBC % 0 11/12/19 13:58: D-Dimer Quant (PE/DVT) 5.94 H* 11/12/19 13:58: Sodium 139, Potassium 5.2 H, Chloride 105, Carbon Dioxide 26.0, Anion Gap 8, BUN 31 H, Creatinine 2.03 H, Estim Creat Clear Calc 35.04, Est GFR (MDRD) Af Amer 41 L, Est GFR (MDRD) Non-Af 34 L, BUN/Creatinine Ratio 15.3, Glucose 118 H, Calcium 9.2, Troponin I 0.310 H 11/12/19 13:58: B-Natriuretic Peptide 1839.8 H 11/12/19 13:58: Magnesium 2.4, Total Bilirubin 1.30 H, Direct Bilirubin 0.38 H, AST 58 H, ALT 68 H, Alkaline Phosphatase 78, Total Protein 7.1, Albumin 4.1, Globulin 3.0 11/12/19 15:09: PT 14.8, INR 1.2, APTT 26.8 11/12/19 15:24: Lactic Acid 2.6 H* 11/12/19 17:35: Troponin I 0.305 H 11/12/19 19:50: Urine Color Meghana, Urine Clarity Clear, Urine pH 5.0, Ur Specific Buckfield 1.030, Urine Protein 30 H, Urine Glucose (UA) Normal, Urine Ketones 15 H, Urine Occult Blood Negative, Urine Nitrite Negative, Urine Bilirubin Negative, Urine Urobilinogen Normal, Ur Leukocyte Esterase 25 H, Urine RBC 0 SEEN, Urine WBC 0-5 SEEN, Ur Squamous Epith Cells 0-5 SEEN, Calcium Oxalate Crystal 1+, Urine Bacteria 2+, Hyaline Casts 0-5 SEEN, Urine Mucus 0 SEEN 11/12/19 20:30: Sodium 140, Potassium 3.6, Chloride 108 H, Carbon Dioxide 24.0, Anion Gap 8, BUN 28 H, Creatinine 1.53 H, Estim Creat Clear Calc 46.49, Est GFR (MDRD) Af Amer 57 L, Est GFR (MDRD) Non-Af 48 L, BUN/Creatinine Ratio 18.3, Glucose 113 H, Calcium 8.1 L 11/12/19 20:30: Troponin I 0.315 H 11/12/19 20:30: Lactic Acid 5.1 H* 11/12/19 23:30: APTT 164.4 H* 11/12/19 23:30: Lactic Acid 2.4 H* 11/13/19 04:10: WBC 12.7 H, RBC 4.38 L, Hgb 14.0, Hct 42.6, MCV 97.3 H, MCH 32.0, MCHC 32.9, RDW Std Deviation 47.9 H, RDW Coeff of Rosalinda 13.3, Plt Count 164, MPV 9.7, Immature Gran % (Auto) 0.500, Neut % (Auto) 72.7 H, Lymph % (Auto) 16.3 L, Collingsworth % (Auto) 8.7, Eos % (Auto) 1.2, Baso % (Auto) 0.6, Absolute Neuts (auto) 9.2 H, Absolute Lymphs (auto) 2.07, Nucleated RBC % 0 11/13/19 04:10: Sodium 137, Potassium 3.4 L, Chloride 110 H, Carbon Dioxide 22.0, Anion Gap 5, BUN 22 H, Creatinine 1.03, Estim Creat Clear Calc 69.06, Est GFR (MDRD) Af Amer 91, Est GFR (MDRD) Non-Af 75, BUN/Creatinine Ratio 21.4 H, Glucose 90, Calcium 7.5 L 11/13/19 04:10: Lactic Acid 1.3 11/13/19 05:08: APTT 43.3 H Current Medications Acetaminophen (Tylenol) 650 mg PO Q6H PRN PRN PRN Reason: Pain Score 1-10/Temp > 100.7 F Albuterol Sulfate (Ventolin Aerosols) 2.5 mg INHALATION Q2H PRN PRN PRN Reason: SOB/Wheezing Albuterol/Ipratropium (Duoneb) 3 ml INHALATION Q6H.RT [facility] Last Admin: 11/13/19 07:04 Dose: 3 ml Documented by: Aspirin (Aspirin, Baby) 81 mg PO DAILY@0800 [facility] Last Admin: 11/13/19 10:01 Dose: 81 mg Documented by: Budesonide (Pulmicort Aerosol) 0.5 mg INHALATION Q12H.RT [facility] Last Admin: 11/13/19 07:04 Dose: 0.5 mg Documented by: Clopidogrel Bisulfate (Plavix) 75 mg PO DAILY [facility] Last Admin: 11/13/19 10:01 Dose: 75 mg Documented by: Diltiazem HCl (Cardizem Cd) 120 mg PO DAILY [facility] Last Admin: 11/13/19 10:01 Dose: 120 mg Documented by: Heparin Sodium (Porcine) (Heparin Na) 0 unit IV UD PRN; Protocol PRN Reason: PROTOCOL Heparin Sodium/Sodium Chloride () 25,000 unit in 250 mls @ 12 mls/hr IV .[id number] [facility]; Protocol Last Titration: 11/13/19 02:40 Dose: 900 units/hr, 9 mls/hr Documented by: Sodium Chloride () 1,000 mls @ 60 mls/hr IV .[id number] [facility] Last Admin: 11/13/19 06:17 Dose: 60 mls/hr Documented by: Sodium Chloride () 250 mls @ 15 mls/hr IV .[id number] PRN PRN Reason: Saline Flush Sodium Chloride () 250 mls @ 15 mls/hr IV .[id number] PRN PRN Reason: Additional IVPB Infusion Nutritional Formula (Lactose Free) (Ensure Enlive) 120 ml PO 4X/DAY [facility] Last Admin: 11/13/19 10:06 Dose: 120 ml Documented by: Ondansetron HCl (Zofran) 4 mg IV Q8H PRN PRN PRN Reason: NAUSEA/VOMITING Pantoprazole Sodium (Protonix) 20 mg PO DAILY [facility] Last Admin: 11/13/19 10:01 Dose: 20 mg Documented by: Pravastatin Sodium (Pravachol) 80 mg PO QODAY@2200 [facility] Ranolazine (Ranexa) 500 mg PO DAILY [facility] Last Admin: 11/13/19 10:01 Dose: 500 mg Documented by: Senna/Docusate Sodium (Senokot-S, Tracee-Colace) 2 tablet PO BID PRN PRN PRN Reason: Constipation Sodium Chloride () 10 - 40 ml IV UD PRN PRN Reason: SALINE FLUSH Zolpidem Tartrate (Ambien (Generic)) 5 mg PO QHS PRN PRN PRN Reason: INSOMNIA STROKE Vital Signs/Narrative: Vital Signs Temp Pulse Resp BP Pulse Ox 11/13/19 09:54 98 F 100 16 131/60 H 94 Medical Necessity - Tobacco Use Smoking Status: Former smoker Assessment/Plan 1. Wide complex tachy, pAfib - cardiology consulted. Rate improved. continue cardizem. Echo as below. 2. elevated troponin - no cp. echo shows EF 55% stage 1 diast dysf, hypokinesis of the posterior basal and infero basal segments. cardiology consulted. 3. elevated d dimer - VQ scan pending 4. MINESH - resolved 5. CAD - prior stent. on asa/statin/plavix/ranexa 6. hx unprovoked dvt - on xarelto in the past. not on OAC up to this admission. 7. Chronic hypoxic resp failure 2/2 emphysema- pt of dr. Madison - no acute exacerbation. Budesonide / Albuterol / Duoneb 8. Hx aortic aneurysm - US fe this year showed stable aneurysm 9. MAGALI - noncompliant with cpap DVT ppx: heparin drip This patient was seen by Jas Billingsley PA-C under the supervision of Doctor Suellen. <Olivier Ken - Last Filed: 11/13/19 11:38> Subjective: Feels better. No further palpitations. Vitals/I&O's: Vital Signs Temp Pulse Resp BP Pulse Ox 36.6 C 102 H 16 131/60 H 94 11/13/19 09:54 11/13/19 11:17 11/13/19 09:54 11/13/19 09:54 11/13/19 09:54 Oxygen Flow Rate (L/min) 2 Oxygen Delivery Method Room Air Weight: 80.876 kg Body Mass Index (BMI) 24.1 Intake and Output for Last 24 Hours 11/11/19 11/12/19 11/13/19 23:59 23:59 23:59 Intake Total 1203.33 / 1203.33 1080.6 / 1080.6 Output Total 300 / 300 Balance 1203.33 / 1203.33 780.6 / 780.6 General: Alert, Cooperative HEENT: Atraumatic, Normocephalic Neck: No Nodes, Trachea Midline Lungs: Clear to auscultation, Normal air movement Cardiovascular: Regular rate, No murmurs Abdomen: Bowel Sounds Present, Soft, Non Tender Extremities: No edema, No Calf Tenderness Skin: No rashes, No breakdown Psych/Mental Status: Normal Affect, Appropriate Laboratory Results 11/12/19 13:58: WBC 16.9 H, RBC 5.48, Hgb 17.5 H, Hct 54.1 H, MCV 98.7 H, MCH 31.9, MCHC 32.3, RDW Std Deviation 50.0 H, RDW Coeff of Rosalinda 13.7, Plt Count 229, MPV 9.9, Immature Gran % (Auto) 0.700, Neut % (Auto) 77.3 H, Lymph % (Auto) 13.4 L, Collingsworth % (Auto) 8.2, Eos % (Auto) 0.1, Baso % (Auto) 0.3, Absolute Neuts (auto) 13.1 H, Absolute Lymphs (auto) 2.26, Nucleated RBC % 0 11/12/19 13:58: D-Dimer Quant (PE/DVT) 5.94 H* 11/12/19 13:58: Sodium 139, Potassium 5.2 H, Chloride 105, Carbon Dioxide 26.0, Anion Gap 8, BUN 31 H, Creatinine 2.03 H, Estim Creat Clear Calc 35.04, Est GFR (MDRD) Af Amer 41 L, Est GFR (MDRD) Non-Af 34 L, BUN/Creatinine Ratio 15.3, Glucose 118 H, Calcium 9.2, Troponin I 0.310 H 11/12/19 13:58: B-Natriuretic Peptide 1839.8 H 11/12/19 13:58: Magnesium 2.4, Total Bilirubin 1.30 H, Direct Bilirubin 0.38 H, AST 58 H, ALT 68 H, Alkaline Phosphatase 78, Total Protein 7.1, Albumin 4.1, Globulin 3.0 11/12/19 15:09: PT 14.8, INR 1.2, APTT 26.8 11/12/19 15:24: Lactic Acid 2.6 H* 11/12/19 17:35: Troponin I 0.305 H 11/12/19 19:50: Urine Color Meghana, Urine Clarity Clear, Urine pH 5.0, Ur Specific Buckfield 1.030, Urine Protein 30 H, Urine Glucose (UA) Normal, Urine Ketones 15 H, Urine Occult Blood Negative, Urine Nitrite Negative, Urine Bilirubin Negative, Urine Urobilinogen Normal, Ur Leukocyte Esterase 25 H, Urine RBC 0 SEEN, Urine WBC 0-5 SEEN, Ur Squamous Epith Cells 0-5 SEEN, Calcium Oxalate Crystal 1+, Urine Bacteria 2+, Hyaline Casts 0-5 SEEN, Urine Mucus 0 SEEN 11/12/19 20:30: Sodium 140, Potassium 3.6, Chloride 108 H, Carbon Dioxide 24.0, Anion Gap 8, BUN 28 H, Creatinine 1.53 H, Estim Creat Clear Calc 46.49, Est GFR (MDRD) Af Amer 57 L, Est GFR (MDRD) Non-Af 48 L, BUN/Creatinine Ratio 18.3, Glucose 113 H, Calcium 8.1 L 11/12/19 20:30: Troponin I 0.315 H 11/12/19 20:30: Lactic Acid 5.1 H* 11/12/19 23:30: APTT 164.4 H* 11/12/19 23:30: Lactic Acid 2.4 H* 11/13/19 04:10: WBC 12.7 H, RBC 4.38 L, Hgb 14.0, Hct 42.6, MCV 97.3 H, MCH 32.0, MCHC 32.9, RDW Std Deviation 47.9 H, RDW Coeff of Rosalinda 13.3, Plt Count 164, MPV 9.7, Immature Gran % (Auto) 0.500, Neut % (Auto) 72.7 H, Lymph % (Auto) 16.3 L, Collingsworth % (Auto) 8.7, Eos % (Auto) 1.2, Baso % (Auto) 0.6, Absolute Neuts (auto) 9.2 H, Absolute Lymphs (auto) 2.07, Nucleated RBC % 0 11/13/19 04:10: Sodium 137, Potassium 3.4 L, Chloride 110 H, Carbon Dioxide 22.0, Anion Gap 5, BUN 22 H, Creatinine 1.03, Estim Creat Clear Calc 69.06, Est GFR (MDRD) Af Amer 91, Est GFR (MDRD) Non-Af 75, BUN/Creatinine Ratio 21.4 H, Glucose 90, Calcium 7.5 L 11/13/19 04:10: Lactic Acid 1.3 11/13/19 05:08: APTT 43.3 H Current Medications Acetaminophen (Tylenol) 650 mg PO Q6H PRN PRN PRN Reason: Pain Score 1-10/Temp > 100.7 F Albuterol Sulfate (Ventolin Aerosols) 2.5 mg INHALATION Q2H PRN PRN PRN Reason: SOB/Wheezing Albuterol/Ipratropium (Duoneb) 3 ml INHALATION Q6H.RT [facility] Last Admin: 11/13/19 07:04 Dose: 3 ml Documented by: Aspirin (Aspirin, Baby) 81 mg PO DAILY@0800 [facility] Last Admin: 11/13/19 10:01 Dose: 81 mg Documented by: Budesonide (Pulmicort Aerosol) 0.5 mg INHALATION Q12H.RT [facility] Last Admin: 11/13/19 07:04 Dose: 0.5 mg Documented by: Clopidogrel Bisulfate (Plavix) 75 mg PO DAILY [facility] Last Admin: 11/13/19 10:01 Dose: 75 mg Documented by: Diltiazem HCl (Cardizem Cd) 120 mg PO DAILY [facility] Last Admin: 11/13/19 10:01 Dose: 120 mg Documented by: Heparin Sodium (Porcine) (Heparin Na) 0 unit IV UD PRN; Protocol PRN Reason: PROTOCOL Heparin Sodium/Sodium Chloride () 25,000 unit in 250 mls @ 12 mls/hr IV .[id number] [facility]; Protocol Last Titration: 11/13/19 02:40 Dose: 900 units/hr, 9 mls/hr Documented by: Sodium Chloride () 1,000 mls @ 60 mls/hr IV .[id number] [facility] Last Admin: 11/13/19 06:17 Dose: 60 mls/hr Documented by: Sodium Chloride () 250 mls @ 15 mls/hr IV .[id number] PRN PRN Reason: Saline Flush Sodium Chloride () 250 mls @ 15 mls/hr IV .[id number] PRN PRN Reason: Additional IVPB Infusion Nutritional Formula (Lactose Free) (Ensure Enlive) 120 ml PO 4X/DAY [facility] Last Admin: 11/13/19 10:06 Dose: 120 ml Documented by: Ondansetron HCl (Zofran) 4 mg IV Q8H PRN PRN PRN Reason: NAUSEA/VOMITING Pantoprazole Sodium (Protonix) 20 mg PO DAILY [facility] Last Admin: 11/13/19 10:01 Dose: 20 mg Documented by: Pravastatin Sodium (Pravachol) 80 mg PO QODAY@2200 [facility] Ranolazine (Ranexa) 500 mg PO DAILY [facility] Last Admin: 11/13/19 10:01 Dose: 500 mg Documented by: Senna/Docusate Sodium (Senokot-S, Tracee-Colace) 2 tablet PO BID PRN PRN PRN Reason: Constipation Sodium Chloride () 10 - 40 ml IV UD PRN PRN Reason: SALINE FLUSH Zolpidem Tartrate (Ambien (Generic)) 5 mg PO QHS PRN PRN PRN Reason: INSOMNIA STROKE Vital Signs/Narrative: Vital Signs Temp Pulse Resp BP Pulse Ox 11/13/19 11:17 102 H 11/13/19 09:54 36.6 C 100 16 131/60 H 94 Assessment/Plan 1. Wide-complex tachycardia: A. fib resolved. On diltiazem 120 mg daily. Anticoagulated on heparin. Ejection fraction 55% on echocardiogram. 2. Elevated troponin: Cardiology on consultation. 3. Elevated d-dimer: V/Q. Inpatient E&M: [id number] Subs Hosp L2
--- NOTE | 2019-11-13 12:01 | CASEMGMT ---
JP NOGUEIRA assessment: Face to Face with patient for initial transition planning/care coordination assessment. RN CM introduced self and role at [facility], pt voices understanding and consents to assessment at this time. Pt is sitting up in bed in no distress at this time. Pt is A/Ox4 at this time and answers all questions appropriately at this time. Care providers, pharmacy, and demographics verified at this time. Presentation: Sent down by Dr. Worthington for SOB, racing heartbeat-pt also reports CP Admitting dx: Cardiac arrhythmia, SOB PCP: Ander Specialists: Shannon, cardio; misti Madison Preferred Pharmacy: [facility] Home delivery Insurance: [facility] Living Will/HPOA: Pt states has LW/HPOA and is aware that they are not file at [facility] at this time. Pt states his , Trini Higginbotham, is HPOA. LNOK: Trini Higginbotham, /HPOA Living Arrangements: Pt states lives with in 1 story home and states sleeps in the basement in a recliner d/t acid reflux. Pt states no concern with stairs at this time and states independent with ADL's. Transportation: Pt states drives self and states no transportation concerns at this time. DME/HHC: Pt states has the following DME: cane, w/c, electric scooter, and 2 liters prn home oxygen concentrator/portability thru [employer]. Pt states that his portable tank did not work when he tried to come in and states he will f/u with [employer]. [place] to [place] [facility] and per Toshia, pt's order is for 2liters with activity. Toshia is updated on tank not working and [facility] states that they are probably empty as pt has not had them refilled in quite awhile. Pt states no need for any further DME at this time. Pt states no hx of HHC or SNF in the past. Pt states no concerns with going home at time of discharge. Pt states is retired. Pt states does not smoke cigarettes or drink ETOH. Pt states no further concerns/needs at this time. CM to follow for increased home O2 need or any further discharge planning/needs. Advised pt to ask for CM if any further questions/concerns/needs arise, voices understanding. Pt Goal: Home Plan: Home Julia TRAMMELL CM
[2019-11-13 12:16] LABS: Partial Thromboplast Time 68.3 Seconds (24.1-36.2)
--- NOTE | 2019-11-13 14:07 | CHAPLAIN ---
Type of Pastoral Visit _x__ Initial Visit ___ Follow-up Visit ___ On-call Visit ___ General Patient Visit ___ Spiritual Assessment ___ Family Conference ___ Bereavement ___ Rapid Response ___ Code Blue ___ Other (describe below) Pastoral Care Referral From _x__ Patient ___ Family ___ Nurse ___ Physician ___ Financial Professional ___ Hosiery Pairer ___ Other (describe below) Sacrament/Intervention _x__ Active listening ___ Anointing ___ Buddhism ___ Bereavement ___ Communion ___ Armida exploration ___ _x__ Life review _x__ Prayer ___ Reconciliation ___ Sacrament of Sick _x__ Supportive presence ___ Wedding ___ Other (describe below) Pastoral Comments
[2019-11-13] MEDS: Albuterol 2.5 MG/3 ML VIAL.NEB. INHALATION (17:37)
[2019-11-13] MEDS: Carvedilol 3.125 MG TABLET PO (18:11)
[2019-11-13] MEDS: Pravastatin 80 MG Tablet PO (21:16)
[2019-11-14] VITALS (8 sets, daily range): BP systolic 113–137; BP diastolic 72–76; PULSE 68–82; RESP 13–18; TEMP 36.7–36.8; O2SAT 94–97
--- NOTE | 2019-11-14 05:55 | EKG12_ITS ---
Test Reason : AM Blood Pressure : / mmHG Vent. Rate : 085 BPM Atrial Rate : 085 BPM P-R Int : 138 ms QRS Dur : 092 ms QT Int : 420 ms P-R-T Axes : 075 059 -79 degrees QTc Int : 499 ms Sinus rhythm with occasional Premature ventricular complexes Poor R wave progression Nonspecific T wave abnormality Confirmed by PAM PIZANO, SITA ([id number]), content editor CARLOS ENRIQUE GONZALEZ ([id number]) on 11/19/2019 1:15:04 PM Referred By: DAIANA Confirmed By:SITA OROZCO MD
[2019-11-14 06:34] LABS: Absolute Lymphocyte Count 1.48 X10^3/uL (0.83-4.51); Absolute Neutrophil Count 6.5 X10^3/uL (2.0-7.7); Basophil# 0.04 X10^3/uL; Basophil% 0.4 % (0-1); Eosinophil# 0.27 X10^3/uL; Eosinophils% 2.9 % (0-5); Hematocrit 41.3 % (40-54); Hemoglobin 13.5 g/dL (13.0-16.5); Lymphocyte # 1.48 X10^3/ul (4.0); Lymphocyte % 15.8 % (19-41); Mean Corp Hgb Conc 32.7 g/dL (32-36); Mean Corpuscular Volume 97.9 fL (80-94); Monocyte% 10.7 % (0-10); NRBC Flagged by Analyzer 0 % (0-5); Neutrophil % 69.7 % (47-70); Platelet Count 170 K/mm3 (150-450); RBC Distribution Width CV 13.4 % (11.6-14.6); RBC Distribution Width SD 48.4 fl (35.1-43.9); Red Blood Count 4.22 M/mm3 (4.6-6.2); White Blood Count 9.3 K/mm3 (4.4-11.0)
[2019-11-14 06:47] LABS: Anion Gap 3 (5-15); BUN 14 mg/dL (7-18); BUN/Creat Ratio 16.2 RATIO (10-20); Calcium,Total 7.9 mg/dL (8.5-10.1); Chloride 111 mmol/L (98-107); Creatinine, Serum 0.86 mg/dL (0.70-1.30); EST Glomerular Filtration Rate 92 mL/min (>60); Est Glom Filt Rate - Afr Amer 111 mL/min (>60); Estimated Creatinine Clearance 82.71 ml/min; Glucose 81 mg/dL (74-106); Potassium 4.3 mmol/L (3.5-5.1); Sodium Level 142 mmol/L (136-145)
[2019-11-14] MEDS: Ipratropium/Albuterol Sulfate 3 ML AMPUL.NEB INHALATION ×2 (07:09→12:51)
[2019-11-14] MEDS: Budesonide Respules 0.5 MG/2 ML AMPUL.NEB. INHALATION (07:10)
--- NOTE | 2019-11-14 07:47 | STEWCON_ITS ---
Reason For Study: ARRHYTHMIA-OTHER Stress Results Protocol: Modified Omer Protocol With Definity Maximum Predicted HR: 146 bpm Target HR: 124 bpm % Maximum Predicted HR: 79 % DurationHeart Rate Stage (mm:ss) (bpm) BP Comment BASELINE 70 132/844 CC DEFINITY TOTAL FOR TEST, SOB AND O2 MAINTAINED STAGE 0 3:00 95 134/84 STAGE 1/2 3:00 103 140/90SOB, O2 INCREASED TO 2.5LNC STAGE 1 3:00 115 142/88INCREASED SOB AND FATIGUE RECOVERY 71 122/84DECREASED O2 TO 2LNC. SLIGHT HEADACHE REMAINS Stress Duration: 9:00 mm:ss Maximum Stress HR: 115 bpm Baseline Echocardiogram Findings The estimated ejection fraction is 55 %. Mildly dilated left ventricle. Stress Echo Wall motion Data Resting WM Intermediate WM Stress WM Resting Wall Motion Wall Motion Stress Posterior-Basal: Mildly No regional wall motion hypokinetic. abnormalities noted. Infero-Basal: Mildly hypokinetic. EKG Data The baseline ECG displays normal sinus rhythm. The maximum heart rate attained was 121 beats per minute. This was 82% of maximum predicted heart rate. The patient exercised into stage 2 of the Omer protocol. During stress, there were no ST or T wave changes noted to suggest ischemia. No clinical angina was noted. Interpretation Summary The estimated ejection fraction is 55 %. Posterior-Basal: Mildly hypokinetic Infero-Basal: Mildly hypokinetic Normal, adequate, modified Omer treadmill echocardiogram. Negative for ischemia by EKG and echocardiographic criteria. No anginal symptoms noted. Rare PVCs noted. Test terminated due to dyspnea and fatigue. Final LVEF of 55%. Decrease sensitivity due to poor echo windows requiring Definity agent. Although the patient did not quite reach target heart rate, the rate-pressure product of 15,762 demonstrated an adequate test. Patient tolerated procedure well. No complications. The study was technically difficult. Contrast injection was performed. Ordering Physician: David Recio MD Referring Physician: David Recio MD Performed By: Aleena Ybarra RDCS
--- NOTE | 2019-11-14 09:04 | PCM.CONS.C ---
Problem List (1) Abdominal aortic aneurysm without rupture Status: Chronic Comment: Infra renal saccular abdominal aortic aneurysm (2) Mixed hyperlipidemia Status: Chronic (3) Essential hypertension Status: Chronic (4) Stage 4 very severe COPD by GOLD classification Status: Chronic Comment: FEV1 46% of predicted (5) History of coronary artery stent placement Status: Chronic Comment: PTCA/BMS x2 to mid/distal RCA (6) Atherosclerotic heart disease of [place] coronary artery without angina pectoris Status: Chronic Qualifiers: [place] vs. transplanted heart: [place] heart Qualified Code(s): I25.10 - Atherosclerotic heart disease of [place] coronary artery without angina pectoris Comment: PCI to RCA in 2008 in 2014; Reason for Consult Date of Consultation: 11/14/19 Reason for Consultation: SVT with aberrancy, coronary disease, status post stenting, hypertension, hyperlipidemia, COPD History of Present Illness: The patient is a 74 year old M, primary patient of Dr. Elias, recently seen in the office on 11/03/2019, and was doing relatively well at that time. He has a history of the following: coronary artery disease status post angioplasty and stenting to his RCA in 2008 and 2014, paroxysmal atrial fibrillation, hypertension, hyperlipidemia, DVT, COPD, infrarenal saccular abdominal aortic aneurysm, and obstructive sleep apnea with CPAP therapy. Patient's most recent catheterization took place on 04/17/2017 with the following results: Elevated Left Ventricular End Diastolic Pressure Segmented LV systolic dysfunction- Mild LVEF: by LV gram 50 % [place] Multivessel CAD Compared with the previous [facility] Cardiac Catheterization from: 12/04/14: There appears to be no angiographically significant appearing change with respect to the LAD and LCX systems and the RCA system is now stented with a patent stent Patient apparently had on his own stopped his beta-shabnam therapy as well as his DAVID inhibitor therapy due to fatigue, but did not notify our office. This took place over the last week or so. He did so because his brothers are also had significant fatigue with beta-blockers and he wanted to try and get off his medications. Patient was also found to have an elevated white blood cell count of unknown source. Subsequent to that his WC count has improved as has his creatinine. Immediately prior to the presentation the emergency room the patient had taken several puffs of his inhalers. Patient then developed palpitations, shortness of breath and some substernal chest pressure. He presented to [facility] ER on the day of admission with what appeared to be SVT with aberrancy and a right bundle branch pattern. Patient was given adenosine which did not break it, and as he was about to receive Cardizem his rhythm broke on its own. His EKG then returned to normal sinus rhythm with inferior T wave inversion, no acute changes. His initial troponin was 0.3 as well as a second troponin. In addition appeared that his creatinine had also increased to 2.0 which was elevated over baseline. It was felt the patient may have had a pulmonary embolism and he underwent a VQ scan on 11/13/2019 which was low probability for pulmonary embolism. Patient then underwent a modified Omer treadmill echocardiogram today, with pulmonary results showing negative for inducible ischemia. 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 In addition he underwent a 2D echo with Doppler on 11/13/2019 which demonstrated the following: Stage 1 diastolic dysfunction. Mildly dilated right ventricle. Unable to estimate RV systolic pressure due to insufficient tricuspid regurgitant envelope. The estimated ejection fraction is 55 %. Posterior-Basal: Mildly hypokinetic Infero-Basal: Mildly hypokinetic Compared with echo report dated 07/25/2019, LV function has improved from 50% to around 55%. [] Past Medical History Allergies/Adverse Reactions: Allergies Sulfa (Sulfonamide Antibiotics) Allergy (Verified 11/12/19 13:55) Chest tightness Home Medications: Ambulatory Orders Medication Instructions Recorded Albuterol Inhaler [Ventolin Hfa 1 - 2 puff INHALATION Q4H PRN PRN 09/08/16 (SP)] Aspirin [Aspirin, Baby] 81 mg PO DAILY@0800 09/08/16 Clopidogrel Bisulfate [Plavix] 75 mg PO DAILY 09/08/16 nitroglycerin 0.4 mg sublingual 0.4 mg SUBLINGUAL Q5M PRN 03/16/17 tablet pravastatin 80 mg tablet 80 mg PO QODAY tab 03/16/17 budesonide-formoterol HFA 160 2 puff INHALATION DAILY g 05/31/18 mcg-4.5 mcg/actuation aerosol inhaler cholecalciferol (vitamin D3) 25 25 mcg PO DAILY 07/08/19 mcg (1,000 unit) capsule ipratropium bromide 42 mcg (0.06 2 spray INTRANASAL DAILY 07/08/19 %) nasal spray tiotropium bromide 2.5 1 puff INHALATION QDAY PRN ea 07/08/19 mcg/actuation mist for inhalation Ascorbic Acid [C-1000] 1,000 mg PO DAILY 11/12/19 Omeprazole [Prilosec] 20 mg PO DAILY 11/12/19 Ranolazine [Ranolazine ER] 500 mg PO DAILY 11/12/19 Vitamin B Complex 1 cap PO DAILY 11/12/19 Past Medical History (Chronic Problems): Chronic Problems (Last Updated 11/12/19 @ 16:[address] Lars Kidd MD) Paroxysmal atrial fibrillation (Chronic) Abdominal aortic aneurysm without rupture (Chronic) Infra renal saccular abdominal aortic aneurysm Respiratory failure with hypoxia (Chronic) Mixed hyperlipidemia (Chronic) Essential hypertension (Chronic) Stage 4 very severe COPD by GOLD classification (Chronic) FEV1 46% of predicted Obstructive sleep apnea syndrome (Chronic) 13 cm of water History of coronary artery stent placement (Chronic ~10/2007) PTCA/BMS x2 to mid/distal RCA Atherosclerotic heart disease of [place] coronary artery without angina pectoris (Chronic) PCI to RCA in 2008 in 2014; Long-term use of high-risk medication (Chronic) Surgical History: herniorrhaphy, - - History of surgery on right hand. 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 There is a history 2 inguinal hernias. Left bicep surgery following injury. Cardiac stent placement. Psychiatric History: No pertinent psych hx - *Family History Paternal Family History: Family History (Last Reviewed 11/12/19 @ 16:27 by GWEN Gatica) Father CHF (congestive heart failure) Mother CVA (cerebral vascular accident) Heart aneurysm History Items: Heart Disease Maternal Family History: Family History (Last Reviewed 11/12/19 @ 16:27 by GWEN Gatica) Father CHF (congestive heart failure) Mother CVA (cerebral vascular accident) Heart aneurysm History Items: Cancer, Heart Disease Sibling Family History: Family History (Last Reviewed 11/12/19 @ 16:27 by GWEN Gatica) Father CHF (congestive heart failure) Mother CVA (cerebral vascular accident) Heart aneurysm History Items: Cancer Offspring Family History: Family History (Last Reviewed 11/12/19 @ 16:27 by GWEN Gatica) Father CHF (congestive heart failure) Mother CVA (cerebral vascular accident) Heart aneurysm History Items: Cancer Lives: Spouse/ Significant Other Smoking Status: Former smoker Alcohol: None Drugs: None Review of Systems - Review of Systems General: Denies: Fever, Night Sweats, Fatigue Cardiovascular: Reports: Palpitations. Denies: Chest Discomfort, Shortness of Breath, Orthopnea, PND, Peripheral Edema, Lightheadedness, Dizziness, Near Syncope, Syncope Respiratory: Denies: Cough, Sputum Production, Hemoptysis Gastrointestinal: Denies: Hematemesis, Hematochezia, Melena Genitourinary: Denies: Dysuria, Hematuria Skin: Denies: Rash Subjectve: No acute distress. Objective: Vital Signs Temp Pulse Resp BP Pulse Ox 98.3 F 68 18 124/72 H 97 11/14/19 08:08 11/14/19 08:08 11/14/19 08:08 11/14/19 08:08 11/14/19 08:08 Oxygen Flow Rate (L/min) 2 Oxygen Delivery Method Nasal Cannula Weight: 178 lb 4.817 oz Body Mass Index (BMI) 24.1 Intake and Output for Last 24 Hours 11/12/19 11/13/19 11/14/19 23:59 23:59 23:59 Intake Total 1203.33 / 1203.33 3162.85 / 3162.85 0 / 0 Output Total 2200 / 2200 800 / 800 Balance 1203.33 / 1203.33 962.85 / 962.85 -800 / -800 General: Awake, Alert, Oriented x 3 HEENT: PERRL, EOMI, Sclera Non Icteric Neck: Supple, Good ROM, No Lymph Node Enlargement Lungs: Clear to auscultation Cardiovascular: Regular Rhythm, Normal S1, Normal S2, No Murmurs, No Rubs, No Gallops Vascular: No Carotid Bruits, Normal Femoral Pulses, Normal Radial Pulses, Normal Dorsalis Pedal Pulse, Normal Posterior Tibial Pulses Abdomen: Bowel Sounds Present, Soft, Non Tender, No HSM, No Organomegaly Extremities: No Cyanosis, No Clubbing, No edema Neurological: No Focal Motor or Sensory Deficit 11/13/19 11:55: APTT 68.3 H 11/14/19 06:08: WBC 9.3, RBC 4.22 L, Hgb 13.5, Hct 41.3, MCV 97.9 H, MCH 32.0, MCHC 32.7, Plt Count 170, MPV 10.0, Immature Gran % (Auto) 0.500, Neut % (Auto) 69.7, Lymph % (Auto) 15.8 L, [place] % (Auto) 10.7 H, Eos % (Auto) 2.9, Baso % (Auto) 0.4, Absolute Neuts (auto) 6.5, Nucleated RBC % 0 11/14/19 06:08: Sodium 142, Potassium 4.3, Chloride 111 H, Carbon Dioxide 28.0, Anion Gap 3 L, BUN 14, Creatinine 0.86, Est GFR (MDRD) Af Amer 111, Est GFR (MDRD) Non-Af 92, BUN/Creatinine Ratio 16.2, Glucose 81, Calcium 7.9 L Rhythm: EKG: ECHO: Stress Test: Cardiac Cath: PCI: CT Surgery: Holter monitor: EPS: PPM: CXR: Chest CT Scan: Assessment/Plan 1. Arrhythmia: The patient presents with what appears to be an SVT with aberrancy, which appeared to break on its own. In addition the patient has engaged in medical noncompliance by discontinuing his beta-shabnam due to fatigue. In addition his SVT it may been triggered by his inhalers immediately prior to his presentation. His cardiac work-up shows no overt ischemia of the anterior lateral fitzpatrick, and therefore would not recommend repeat catheterization. The patient underwent a modified Omer treadmill echocardiogram and had no chest pain or arrhythmias noted. I reinforced with the patient the importance of his beta-shabnam therapy, and given his increasing creatinine I am hesitant to place him back on his lisinopril. I recommended the patient start Coreg 3.125 mg p.o. twice daily and will use the alpha blocking component for afterload reduction. I do not believe the patient requires repeat catheterization at this time. If the patient is unable to tolerate beta-blockers due to severe fatigue, and alternative may be amiodarone to suppress his SVT, and use the beta-shabnam component of amiodarone for heart rate control. This may be somewhat problematic given his severe COPD however with potential diffusion effects. Would also recommend continuing ranolazine going forward. 2. Hyperlipidemia: Continue Pravachol therapy. 3. Thank you very much for the opportunity to participate in the cardiac care of your patient. Patient may be discharged home and follow-up with Dr. Ortega going forward.
[2019-11-14] MEDS: Aspirin 81 MG TAB.CHEW PO (09:35)
[2019-11-14] MEDS: Ranolazine 500 MG Tablet PO (09:35)
[2019-11-14] MEDS: Clopidogrel Bisulfate 75 MG Tablet PO (09:35)
[2019-11-14] MEDS: Carvedilol 3.125 MG TABLET PO (09:35)
[2019-11-14] MEDS: Pantoprazole Sodium 20 MG Tablet PO (09:35)
--- NOTE | 2019-11-14 10:03 | DCINST_ITS ---
You will use the following diet at home:: Cardiac Your food should be the consistency of: Regular Your liquids should be the consistency of: Regular/Thin Discharge Activity: Return to Normal Activity Allergies/Adverse Reactions: Allergies Sulfa (Sulfonamide Antibiotics) Allergy (Verified 11/12/19 13:55) Chest tightness Medications to take at Discharge Albuterol Inhaler [Ventolin Hfa] 1 - 2 puff INHALATION Q4H PRN PRN 09/08/16 Aspirin [Aspirin, Baby] 81 mg PO DAILY@0800 09/08/16 Clopidogrel Bisulfate [Plavix] 75 mg PO DAILY 09/08/16 nitroglycerin 0.4 mg sublingual tablet 0.4 mg SUBLINGUAL Q5M PRN 03/16/17 pravastatin 80 mg tablet 80 mg PO QODAY tab 03/16/17 budesonide-formoterol HFA 160 mcg-4.5 mcg/actuation aerosol inhaler 2 puff INHALATION DAILY g 05/31/18 cholecalciferol (vitamin D3) 25 mcg (1,000 unit) capsule 25 mcg PO DAILY 07/08/19 ipratropium bromide 42 mcg (0.06 %) nasal spray 2 spray INTRANASAL DAILY 07/08/19 tiotropium bromide 2.5 mcg/actuation mist for inhalation 1 puff INHALATION QDAY PRN ea 07/08/19 Ascorbic Acid [C-1000] 1,000 mg PO DAILY 11/12/19 Omeprazole [Prilosec] 20 mg PO DAILY 11/12/19 Ranolazine [Ranolazine ER] 500 mg PO DAILY 11/12/19 Vitamin B Complex 1 cap PO DAILY 11/12/19 Carvedilol [Coreg (Beta Juan)] 3.125 mg PO BID #60 tab 11/14/19 The following prescriptions were given: Carvedilol [Coreg (Beta Juan)] 3.125 mg PO BID #60 tab Transmission Status: Pending to [facility] Primary Care Physician: Vipul Worthington Chi, MD [Primary Care Provider] - Please follow up with your Primary Care Physician in: 1-2 weeks Test Results: Test results from this visit will be discussed in further detail at your follow- up appointment, if applicable. Please Follow Up With: Vipul Worthington Chi, MD Please Follow Up With: Tim Ortega MD When: 2-4 weeks Proposed Discharge Date: 11/14/19
--- NOTE | 2019-11-14 10:27 | PCM.DC.SUM ---
<Jas Billingsley - Last Filed: 11/14/19 10:27> Discharge Date and Diagnosis Date of Admission: 11/12/19 Date of Discharge: 11/14/19 - Primary Discharge Diagnosis Acute Problems: Wide complex tachycardia Elevated troponin MINESH CAD prior stent - Secondary Discharge Diagnosis Chronic Problems: Chronic Problems (Last Updated 11/12/19 @ 16:[address] Lars Kidd MD) Paroxysmal atrial fibrillation (Chronic) Abdominal aortic aneurysm without rupture (Chronic) Infra renal saccular abdominal aortic aneurysm Respiratory failure with hypoxia (Chronic) Mixed hyperlipidemia (Chronic) Essential hypertension (Chronic) Stage 4 very severe COPD by GOLD classification (Chronic) FEV1 46% of predicted Obstructive sleep apnea syndrome (Chronic) 13 cm of water History of coronary artery stent placement (Chronic ~10/2007) PTCA/BMS x2 to mid/distal RCA Atherosclerotic heart disease of [place] coronary artery without angina pectoris (Chronic) PCI to RCA in 2008 in 2014; Long-term use of high-risk medication (Chronic) Hospital Course and Treatment Imaging Results: IMAGING/DIAGNOSTICS: 11/14/19 07:47 Stress Test Echo W/Contrast [ECHO] Routine Interpretation Summary The estimated ejection fraction is 55 %. Posterior-Basal: Mildly hypokinetic Infero-Basal: Mildly hypokinetic Normal, adequate, modified Omer treadmill echocardiogram. Negative for ischemia by EKG and echocardiographic criteria. No anginal symptoms noted. Rare PVCs noted. Test terminated due to dyspnea and fatigue. Final LVEF of 55%. Decrease sensitivity due to poor echo windows requiring Definity agent. Although the patient did not quite reach target heart rate, the rate-pressure product of 15,762 demonstrated an adequate test. Patient tolerated procedure well. No complications. The study was technically difficult. Contrast injection was performed. Interpretation Summary Stage 1 diastolic dysfunction. Mildly dilated right ventricle. Unable to estimate RV systolic pressure due to insufficient tricuspid regurgitant envelope. The estimated ejection fraction is 55 %. Posterior-Basal: Mildly hypokinetic Infero-Basal: Mildly hypokinetic Compared with echo report dated 07/25/2019, LV function has improved from 50% to around 55%. RAD/Chest 1 View (Portable) IMPRESSION: Emphysema without pneumonia or atelectasis. Venous Doppler: Interpretation Summary No evidence for acute deep venous thrombosis bilateral lower extremities with patent and compressible bilateral great saphenous veins. Consultations 11/12/19 17:28 Consult: Optometrist Assistant Routine Comment: Reason for Consult: pt request Operations: None Procedures: 2-D Echocardiogram, Stress test Summary of Care Provided: Hospital course: The patient is a 74 year old M with a history of paroxysmal atrial fibrillation, coronary artery disease with prior stent, chronic hypoxic respiratory failure secondary to emphysema, history of aortic aneurysm, obstructive sleep apnea noncompliant with CPAP therapy, history of unprovoked DVT, who presented to the emergency room with shortness of breath. He will continue his PCP as he was short of breath all night, PCP noted that he had elevated heart rate and sent him to the emergency room. Patient appeared to have a wide-complex tachycardia on presentation to the emergency room. He was given adenosine and Cardizem which did not appear to work initially. He started coughing and return back to sinus rhythm. He had a troponin that was elevated at 0.31, elevated d-dimer. He appeared to have acute kidney injury which was felt to be secondary to hypoperfusion. He was admitted to the PCU and placed on telemetry. He was placed on a heparin drip. Cardiology was consulted. An echocardiogram was obtained with results as above. A VQ scan was obtained with his elevated d-dimer and poor kidney function-this was negative for PE. Venous ultrasound was obtained lower extremities which was also negative for DVT. Heparin was discontinued. Patient was placed on Coreg and it was revealed that he had not been taking his beta-juan at home. Patient had no further episodes of wide-complex tachycardia. He room remained stable in sinus rhythm and had no further shortness of breath. He was taken for stress test the following day which was negative for ischemia. Patient was discharged home in stable condition. He will need to follow-up with his own cable testers helper in 2 to 4 weeks, follow-up with his PCP in 1 to 2 weeks. This patient was seen by Jas Billingsley PA-C under the supervision of Doctor Suellen. [] - Physical Exam Vitals/I&O's: Vital Signs Temp Pulse Resp BP Pulse Ox 98.3 F 68 18 124/72 H 97 11/14/19 08:08 11/14/19 08:08 11/14/19 08:08 11/14/19 08:08 11/14/19 08:08 Oxygen Flow Rate (L/min) 2 Oxygen Delivery Method Nasal Cannula Weight: 178 lb 4.817 oz Body Mass Index (BMI) 24.1 Intake and Output for Last 24 Hours 11/12/19 11/13/19 11/14/19 23:59 23:59 23:59 Intake Total 1203.33 / 1203.33 3162.85 / 3162.85 0 / 0 Output Total 2200 / 2200 800 / 800 Balance 1203.33 / 1203.33 962.85 / 962.85 -800 / -800 General: Alert, Oriented x3, Cooperative HEENT: Atraumatic, PERRLA, EOMI, Normocephalic Neck: Supple, No JVD, Negative Carotid Bruits Lungs: Clear to auscultation, Normal air movement Cardiovascular: Regular rate, No murmurs Abdomen: Bowel Sounds Present, Soft, Non Tender Extremities: No edema, Capillary Refill Less than 3 Seconds Skin: No rashes, No breakdown Musculoskeletal: No Tenderness to Palpation of Joints or Extremities Neurological: Cranial nerves II-XII grossly intact Psych/Mental Status: Normal Affect, Appropriate Microbiology Past 72 Hours 11/12/19 19:50 Urine, Clean Catch Urine Culture - Final Mixed Gram Positive Organisms 11/12/19 15:09 Blood Culture (Wb) #2 - Left Hand Blood Culture - Preliminary No growth in 48 hours. 11/12/19 15:24 Blood Culture (Wb) - Anticubital Right Blood Culture - Preliminary No growth in 48 hours. Laboratory Results 11/13/19 11:55: APTT 68.3 H 11/14/19 06:08: WBC 9.3, RBC 4.22 L, Hgb 13.5, Hct 41.3, MCV 97.9 H, MCH 32.0, MCHC 32.7, RDW Std Deviation 48.4 H, RDW Coeff of Rosalinda 13.4, Plt Count 170, MPV 10.0, Immature Gran % (Auto) 0.500, Neut % (Auto) 69.7, Lymph % (Auto) 15.8 L, Iroquois % (Auto) 10.7 H, Eos % (Auto) 2.9, Baso % (Auto) 0.4, Absolute Neuts (auto) 6.5, Absolute Lymphs (auto) 1.48, Nucleated RBC % 0 11/14/19 06:08: Sodium 142, Potassium 4.3, Chloride 111 H, Carbon Dioxide 28.0, Anion Gap 3 L, BUN 14, Creatinine 0.86, Estim Creat Clear Calc 82.71, Est GFR (MDRD) Af Amer 111, Est GFR (MDRD) Non-Af 92, BUN/Creatinine Ratio 16.2, Glucose 81, Calcium 7.9 L Current Medications Acetaminophen (Tylenol) 650 mg PO Q6H PRN PRN PRN Reason: Pain Score 1-10/Temp > 100.7 F Albuterol Sulfate (Ventolin Aerosols) 2.5 mg INHALATION Q2H PRN PRN PRN Reason: SOB/Wheezing Last Admin: 11/13/19 17:37 Dose: 2.5 mg Documented by: Albuterol/Ipratropium (Duoneb) 3 ml INHALATION Q6H.RT [facility] Last Admin: 11/14/19 07:09 Dose: 3 ml Documented by: Aspirin (Aspirin, Baby) 81 mg PO DAILY@0800 [facility] Last Admin: 11/14/19 09:35 Dose: 81 mg Documented by: Budesonide (Pulmicort Aerosol) 0.5 mg INHALATION Q12H.RT [facility] Last Admin: 11/14/19 07:10 Dose: 0.5 mg Documented by: Carvedilol (Coreg) 3.125 mg PO BID [facility] Last Admin: 11/14/19 09:35 Dose: 3.125 mg Documented by: Clopidogrel Bisulfate (Plavix) 75 mg PO DAILY [facility] Last Admin: 11/14/19 09:35 Dose: 75 mg Documented by: Sodium Chloride () 250 mls @ 15 mls/hr IV .[id number] PRN PRN Reason: Saline Flush Sodium Chloride () 250 mls @ 15 mls/hr IV .[id number] PRN PRN Reason: Additional IVPB Infusion Nutritional Formula (Lactose Free) (Ensure Enlive) 120 ml PO 4X/DAY [facility] Last Admin: 11/14/19 09:38 Dose: 120 ml Documented by: Ondansetron HCl (Zofran) 4 mg IV Q8H PRN PRN PRN Reason: NAUSEA/VOMITING Pantoprazole Sodium (Protonix) 20 mg PO DAILY [facility] Last Admin: 11/14/19 09:35 Dose: 20 mg Documented by: Pravastatin Sodium (Pravachol) 80 mg PO QODAY@2200 [facility] Last Admin: 11/13/19 21:16 Dose: 80 mg Documented by: Ranolazine (Ranexa) 500 mg PO DAILY [facility] Last Admin: 11/14/19 09:35 Dose: 500 mg Documented by: Senna/Docusate Sodium (Senokot-S, Tracee-Colace) 2 tablet PO BID PRN PRN PRN Reason: Constipation Sodium Chloride () 10 - 40 ml IV UD PRN PRN Reason: SALINE FLUSH Zolpidem Tartrate (Ambien (Generic)) 5 mg PO QHS PRN PRN PRN Reason: INSOMNIA Discharge Diet: Low fat/ Low Cholesterol, 2000 mg Sodium Diet Discharge Activity: Return to Normal Activity Home Medications: Medications to take at Discharge Albuterol Inhaler [Ventolin Hfa] 1 - 2 puff INHALATION Q4H PRN PRN 09/08/16 Aspirin [Aspirin, Baby] 81 mg PO DAILY@0800 09/08/16 Clopidogrel Bisulfate [Plavix] 75 mg PO DAILY 09/08/16 nitroglycerin 0.4 mg sublingual tablet 0.4 mg SUBLINGUAL Q5M PRN 03/16/17 pravastatin 80 mg tablet 80 mg PO QODAY tab 03/16/17 budesonide-formoterol HFA 160 mcg-4.5 mcg/actuation aerosol inhaler 2 puff INHALATION DAILY g 05/31/18 cholecalciferol (vitamin D3) 25 mcg (1,000 unit) capsule 25 mcg PO DAILY 07/08/19 ipratropium bromide 42 mcg (0.06 %) nasal spray 2 spray INTRANASAL DAILY 07/08/19 tiotropium bromide 2.5 mcg/actuation mist for inhalation 1 puff INHALATION QDAY PRN ea 07/08/19 Ascorbic Acid [C-1000] 1,000 mg PO DAILY 11/12/19 Omeprazole [Prilosec] 20 mg PO DAILY 11/12/19 Ranolazine [Ranolazine ER] 500 mg PO DAILY 11/12/19 Vitamin B Complex 1 cap PO DAILY 11/12/19 Carvedilol [Coreg (Beta Juan)] 3.125 mg PO BID #60 tab 11/14/19 Following Prescriptions Were Given to Patient: Carvedilol [Coreg (Beta Juan)] 3.125 mg PO BID #60 tab Transmission Status: Received by Impact #30 Primary Care Physician: Vipul Worthington Chi, MD [Primary Care Provider] - Please follow up with your Primary Care Physician in: 1-2 weeks Please Follow Up With: Vipul Worthington Chi, MD Please Follow Up With: Tim Ortega MD When: 2-4 weeks Please Follow Up With: Tim Ortega MD Disposition: Home Minutes spent on discharge:: 35 Patient Condition:: Stable Medical Necessity - Tobacco Use Smoking Status: Former smoker Meaningful Use Info Meaningful Use Diagnoses (Choose all that apply): None applicable <Olivier Ken - Last Filed: 11/14/19 11:17> Discharge Date and Diagnosis - Secondary Discharge Diagnosis Chronic Problems: Chronic Problems (Last Updated 11/12/19 @ 16:[address] Lars Kidd MD) Paroxysmal atrial fibrillation (Chronic) Abdominal aortic aneurysm without rupture (Chronic) Infra renal saccular abdominal aortic aneurysm Respiratory failure with hypoxia (Chronic) Mixed hyperlipidemia (Chronic) Essential hypertension (Chronic) Stage 4 very severe COPD by GOLD classification (Chronic) FEV1 46% of predicted Obstructive sleep apnea syndrome (Chronic) 13 cm of water History of coronary artery stent placement (Chronic ~10/2007) PTCA/BMS x2 to mid/distal RCA Atherosclerotic heart disease of [place] coronary artery without angina pectoris (Chronic) PCI to RCA in 2008 in 2014; Long-term use of high-risk medication (Chronic) Hospital Course and Treatment Imaging Results: 11/14/19 07:47 Stress Test Echo W/Contrast [ECHO] Routine Consultations 11/12/19 17:28 Consult: Optometrist Assistant Routine Comment: Reason for Consult: pt request Operations: None Procedures: 2-D Echocardiogram, Stress test Summary of Care Provided: Patient seen and examined independently. Data reviewed. I agree with the above note by the physician junior assistant manager. The patient is a 74 year old M presents with SVT. Patient also had elevated troponins of 0.3. Patient had been on metoprolol but stopped taking due to fatigue though he had been on it for several years. Patient was seen in consultation by cardiology and patient had an echocardiogram that showed an EF of 55%. Patient underwent a stress echocardiogram today that was negative for any ischemia. The elevated troponins are likely due to the tachycardia. Patient will be on carvedilol for rhythm control patient advised if he has issues regards to fatigue recurring again, patient states that he is not really noticed any change in his fatigue since discontinuing the metoprolol, does not notify someone so that he could possibly transition over to amiodarone but I told patient that medication has many potential side effects with long-term use. [] - Physical Exam Vitals/I&O's: Vital Signs Temp Pulse Resp BP Pulse Ox 36.8 C 68 18 124/72 H 97 11/14/19 08:08 11/14/19 08:08 11/14/19 08:08 11/14/19 08:08 11/14/19 08:08 Oxygen Flow Rate (L/min) 2 Oxygen Delivery Method Nasal Cannula Weight: 80.876 kg Body Mass Index (BMI) 24.1 Intake and Output for Last 24 Hours 11/12/19 11/13/19 11/14/19 23:59 23:59 23:59 Intake Total 1203.33 / 1203.33 3162.85 / 3162.85 0 / 0 Output Total 2200 / 2200 800 / 800 Balance 1203.33 / 1203.33 962.85 / 962.85 -800 / -800 General: Alert, Cooperative HEENT: Atraumatic, Normocephalic Lungs: Clear to auscultation, Normal air movement, No rhonchi, No wheeze Cardiovascular: Regular rate, Regular Rhythm, Normal S1, Normal S2 Abdomen: Bowel Sounds Present, Soft, Non Tender, Non-Distended Skin: No rashes, No breakdown Microbiology Past 72 Hours 11/12/19 19:50 Urine, Clean Catch Urine Culture - Final Mixed Gram Positive Organisms 11/12/19 15:09 Blood Culture (Wb) #2 - Left Hand Blood Culture - Preliminary No growth in 48 hours. 11/12/19 15:24 Blood Culture (Wb) - Anticubital Right Blood Culture - Preliminary No growth in 48 hours. Laboratory Results 11/13/19 11:55: APTT 68.3 H 11/14/19 06:08: WBC 9.3, RBC 4.22 L, Hgb 13.5, Hct 41.3, MCV 97.9 H, MCH 32.0, MCHC 32.7, RDW Std Deviation 48.4 H, RDW Coeff of Rosalinda 13.4, Plt Count 170, MPV 10.0, Immature Gran % (Auto) 0.500, Neut % (Auto) 69.7, Lymph % (Auto) 15.8 L, [place] % (Auto) 10.7 H, Eos % (Auto) 2.9, Baso % (Auto) 0.4, Absolute Neuts (auto) 6.5, Absolute Lymphs (auto) 1.48, Nucleated RBC % 0 11/14/19 06:08: Sodium 142, Potassium 4.3, Chloride 111 H, Carbon Dioxide 28.0, Anion Gap 3 L, BUN 14, Creatinine 0.86, Estim Creat Clear Calc 82.71, Est GFR (MDRD) Af Amer 111, Est GFR (MDRD) Non-Af 92, BUN/Creatinine Ratio 16.2, Glucose 81, Calcium 7.9 L Current Medications Acetaminophen (Tylenol) 650 mg PO Q6H PRN PRN PRN Reason: Pain Score 1-10/Temp > 100.7 F Albuterol Sulfate (Ventolin Aerosols) 2.5 mg INHALATION Q2H PRN PRN PRN Reason: SOB/Wheezing Last Admin: 11/13/19 17:37 Dose: 2.5 mg Documented by: Albuterol/Ipratropium (Duoneb) 3 ml INHALATION Q6H.RT [facility] Last Admin: 11/14/19 07:09 Dose: 3 ml Documented by: Aspirin (Aspirin, Baby) 81 mg PO DAILY@0800 [facility] Last Admin: 11/14/19 09:35 Dose: 81 mg Documented by: Budesonide (Pulmicort Aerosol) 0.5 mg INHALATION Q12H.RT [facility] Last Admin: 11/14/19 07:10 Dose: 0.5 mg Documented by: Carvedilol (Coreg) 3.125 mg PO BID [facility] Last Admin: 11/14/19 09:35 Dose: 3.125 mg Documented by: Clopidogrel Bisulfate (Plavix) 75 mg PO DAILY [facility] Last Admin: 11/14/19 09:35 Dose: 75 mg Documented by: Sodium Chloride () 250 mls @ 15 mls/hr IV .[id number] PRN PRN Reason: Saline Flush Sodium Chloride () 250 mls @ 15 mls/hr IV .[id number] PRN PRN Reason: Additional IVPB Infusion Nutritional Formula (Lactose Free) (Ensure Enlive) 120 ml PO 4X/DAY [facility] Last Admin: 11/14/19 09:38 Dose: 120 ml Documented by: Ondansetron HCl (Zofran) 4 mg IV Q8H PRN PRN PRN Reason: NAUSEA/VOMITING Pantoprazole Sodium (Protonix) 20 mg PO DAILY [facility] Last Admin: 11/14/19 09:35 Dose: 20 mg Documented by: Pravastatin Sodium (Pravachol) 80 mg PO QODAY@2200 [facility] Last Admin: 11/13/19 21:16 Dose: 80 mg Documented by: Ranolazine (Ranexa) 500 mg PO DAILY [facility] Last Admin: 11/14/19 09:35 Dose: 500 mg Documented by: Senna/Docusate Sodium (Senokot-S, Tracee-Colace) 2 tablet PO BID PRN PRN PRN Reason: Constipation Sodium Chloride () 10 - 40 ml IV UD PRN PRN Reason: SALINE FLUSH Zolpidem Tartrate (Ambien (Generic)) 5 mg PO QHS PRN PRN PRN Reason: INSOMNIA Discharge Diet: Low fat/ Low Cholesterol, 2000 mg Sodium Diet Discharge Activity: Return to Normal Activity Disposition: Home Patient Condition:: Stable Medical Necessity - Tobacco Use Smoking Status: Former smoker Meaningful Use Info Meaningful Use Diagnoses (Choose all that apply): None applicable Inpatient E&M: 04127 Disch Hosp
--- NOTE | 2019-11-14 10:38 | PHA.DC.MC ---
Pharmacy Service has performed discharge medication reconciliation and counseling for this patient. The patient was counseled on the following discharge medications and changes in medications for homegoing were reviewed. 1. COREG: Counseled on use, purpose, ADR to monitor for. Also stressed importance of compliance with patient. The Reason for Use, instructions for use, and potential side effects were reviewed for all new medications. The patient's questions regarding all of their medications were answered. The patient was able to verbally demonstrate an understanding of their discharge medications. Home Medications Albuterol Inhaler [Ventolin Hfa] 1 - 2 puff INHALATION Q4H PRN PRN 09/08/16 Aspirin [Aspirin, Baby] 81 mg PO DAILY@0800 09/08/16 Clopidogrel Bisulfate [Plavix] 75 mg PO DAILY 09/08/16 nitroglycerin 0.4 mg sublingual tablet 0.4 mg SUBLINGUAL Q5M PRN 03/16/17 pravastatin 80 mg tablet 80 mg PO QODAY tab 03/16/17 budesonide-formoterol HFA 160 mcg-4.5 mcg/actuation aerosol inhaler 2 puff INHALATION DAILY g 05/31/18 cholecalciferol (vitamin D3) 25 mcg (1,000 unit) capsule 25 mcg PO DAILY 07/08/19 ipratropium bromide 42 mcg (0.06 %) nasal spray 2 spray INTRANASAL DAILY 07/08/19 tiotropium bromide 2.5 mcg/actuation mist for inhalation 1 puff INHALATION QDAY PRN ea 07/08/19 Ascorbic Acid [C-1000] 1,000 mg PO DAILY 11/12/19 Omeprazole [Prilosec] 20 mg PO DAILY 11/12/19 Ranolazine [Ranolazine ER] 500 mg PO DAILY 11/12/19 Vitamin B Complex 1 cap PO DAILY 11/12/19 Carvedilol [Coreg (Beta Juan)] 3.125 mg PO BID #60 tab 11/14/19 The patient's discharge medication list was reviewed for discrepancies and discrepancies were resolved.
--- NOTE | 2019-11-14 13:17 | CASEMGMT ---
SW met with pt and and pt states he does have a living will and a health care POA who is his Isela Michel. Pt is aware that there is not a copy at [facility] and he will bring in a copy at followup dr. appointment. Santi Miller, [facility]
--- NOTE | 2019-11-17 14:07 | CASEMGMT ---
JP CM DC Phone Call DC DATE: 11/14/2019 DC DISPOSITION: Home LACE/STRATA: 12/26 DID PATIENT IT COMPLIANCE ANALYST PRESCRIPTIONS: X DID PATIENT HAVE F/U APPOINTMENTS MADE: YES Attempted call to phone. No answer, and no messaging with name identifier. Josefa LINDERN RN ACM
== END 2019-11-14 13:30 | disposition home or self-care (01) | DRG 309 ==
LOC: ED 14:38 → PCU 16:13
PROVIDERS: Hospitalist; Physician Assistant; Admitting Provider Hospitalist; Emergency Provider Student in an Organized Health Care Education/Training Program; PCP Family Medicine Geriatric Medicine
DX: I47.1 Supraventricular tachycardia (principal); N17.9 Acute kidney failure, unspecified; J96.11 Chronic respiratory failure with hypoxia; E87.2 Acidosis; I25.10 Atherosclerotic heart disease of native coronary artery without angina pectoris; I48.0 Paroxysmal atrial fibrillation; E78.2 Mixed hyperlipidemia; I10 Essential (primary) hypertension; J43.9 Emphysema, unspecified; G47.33 Obstructive sleep apnea (adult) (pediatric); I25.2 Old myocardial infarction; E87.5 Hyperkalemia; K21.9 Gastro-esophageal reflux disease without esophagitis; I71.4 Abdominal aortic aneurysm, without rupture; I45.10 Unspecified right bundle-branch block; D72.829 Elevated white blood cell count, unspecified; R74.8 Abnormal levels of other serum enzymes; R79.1 Abnormal coagulation profile; Z66 Do not resuscitate; Z95.5 Presence of coronary angioplasty implant and graft; Z86.718 Personal history of other venous thrombosis and embolism; Z91.14 Patient's other noncompliance with medication regimen; Z91.19 Patient's noncompliance with other medical treatment and regimen; Z99.81 Dependence on supplemental oxygen; Z79.82 Long term (current) use of aspirin; Z79.02 Long term (current) use of antithrombotics/antiplatelets; Z79.899 Other long term (current) drug therapy; Z87.891 Personal history of nicotine dependence
CPT/HCPCS: 36415; 71045; 78582; 80048; 80076; 81001; 83605; 83735; 83880; 84484; 85025; 85379; 85610; 85730; 87040; 87086; 87088; 93005; 93017; 93306; 93350; 93970; 94640; 97162; 97166; 99251; 99285; A9540; A9567; J7030; Q9957; A4216; C8928; G0463; J0153

== ENCOUNTER → 2019-11-18 16:00 | Outpatient (CLI) | payer MEDICARE, SELFPAY ==
[2019-11-12 17:14] VITALS: BMI 24.1
[2019-11-18 17:25] LABS: Anion Gap 7 (5-15); BUN 16 mg/dL (7-18); BUN/Creat Ratio 16.2 RATIO (10-20); Calcium,Total 8.6 mg/dL (8.5-10.1); Chloride 111 mmol/L (98-107); Creatinine, Serum 0.99 mg/dL (0.70-1.30); EST Glomerular Filtration Rate 79 mL/min (>60); Est Glom Filt Rate - Afr Amer 95 mL/min (>60); Glucose 100 mg/dL (74-106); Potassium 4.3 mmol/L (3.5-5.1); Sodium Level 142 mmol/L (136-145)
== END ==
PROVIDERS: PCP Family Medicine Geriatric Medicine; Visit Provider Family Medicine Geriatric Medicine
DX: N17.9 Acute kidney failure, unspecified (principal)
CPT/HCPCS: 36415; 80048

== ENCOUNTER → 2020-05-14 08:58 | Outpatient (CLI) | payer MEDICARE, SELFPAY ==
[2020-02-27 10:58] VITALS: BMI 25.3
[2020-05-14 13:07] LABS: Absolute Lymphocyte Count 1.66 X10^3/uL (0.83-4.51); Basophil# 0.07 X10^3/uL; Basophil% 0.9 % (0-1); Eosinophil# 0.25 X10^3/uL; Eosinophils% 3.3 % (0-5); Hematocrit 49.8 % (40-54); Hemoglobin 15.8 g/dL (13.0-16.5); Lymphocyte # 1.66 X10^3/ul (4.0); Lymphocyte % 21.7 % (19-41); Mean Corp Hgb Conc 31.7 g/dL (32-36); Mean Corpuscular Volume 97.6 fL (80-94); Mean Platelet Vol. 9.6 fl (6.2-12.0); Monocyte# 0.68 X10^3/uL; Monocyte% 8.9 % (0-10); NRBC Flagged by Analyzer 0 % (0-5); Neutrophil # 4.95 X10^3/uL (2.7-7.7); Neutrophil % 64.5 % (47-70); Platelet Count 258 K/mm3 (150-450); RBC Distribution Width SD 46.9 fl (35.1-43.9); White Blood Count 7.7 K/mm3 (4.4-11.0)
[2020-05-14 13:38] LABS: ALB/GLOB Ratio 1.1 RATIO (0.9-2.4); AST(SGOT) 16 U/L (15-37); Alanine Aminotransfer ALT/SGPT 26 U/L (16-61); Albumin, Serum 3.5 g/dL (3.2-5.0); Alkaline Phosphatase 72 U/L (45-117); Anion Gap 5 (5-15); BUN 14 mg/dL (7-18); BUN/Creat Ratio 11.3 RATIO (10-20); Calcium,Total 8.9 mg/dL (8.5-10.1); Chloride 112 mmol/L (98-107); Creatinine, Serum 1.24 mg/dL (0.70-1.30); EST Glomerular Filtration Rate 60 mL/min (>60); Est Glom Filt Rate - Afr Amer 73 mL/min (>60); Globulin 3.2 g/dL (2.2-4.2); Glucose 113 mg/dL (74-106); Potassium 3.8 mmol/L (3.5-5.1); Protein, Total 6.7 g/dL (6.4-8.2); Sodium Level 141 mmol/L (136-145); Thyroid Stim Hormone (TSH) 3.63 uIU/mL (0.358-3.74)
== END ==
PROVIDERS: PCP Family Medicine Geriatric Medicine; Visit Provider Family Medicine Geriatric Medicine
DX: I10 Essential (primary) hypertension (principal); E23.6 Other disorders of pituitary gland; E55.9 Vitamin D deficiency, unspecified
CPT/HCPCS: 36415; 80053; 82306; 84403; 84443; 85025

== ENCOUNTER → 2020-05-26 08:31 | Outpatient (CLI) | payer MEDICARE, SELFPAY ==
[2020-02-27 10:58] VITALS: BMI 25.3
[2020-05-14 09:53] VITALS: BMI 24.5
--- NOTE | 2020-05-26 08:37 | AAVD_ITS ---
Reason For Study: AAA w/o rupture Aorta Measurements Aorta Doppler Measurements Proximal aorta measures2.44 x 2.43cm. in cross- Peak systolic flow velocities within the proximal sectional axis. aorta measure 51.2 cm/sec. Proximal aorta measures2.42cm. in longitudinal Peak systolic flow velocities within the mid aorta axis. measure 25.8 cm/sec. Mid aorta measures4.09 x 4.08cm. in cross- Peak systolic flow velocities within the distal sectional axis. aorta measure 45.9 cm/sec. Mid aorta measures4.08cm. in longitudinal axis. Distal aorta measures2.16 x 2.16cm. in cross- sectional axis. Distal aorta measures2.10cm. in longitudinal axis. Left Iliac Artery Left iliac artery measures 0.72 x 0.76 cm. in the cross-sectional axis. Left iliac artery measures 0.75 cm. in the longitudinal axis. Peak systolic velocity in the left iliac artery measures 52.3 cm/sec. Right Iliac Artery Right iliac artery measures 0.68 x 0.69 cm. in the cross-sectional axis. Right iliac artery measures 0.69 cm. in the longitudinal axis. Peak systolic velocity in the right iliac artery measures 90.6 cm/sec. Procedure Aorta IVC Iliac vasculature or bypass grafts [id number]. Exam performed in department. Interpretation Summary 4.09 x 4.08 cm diameter mid abdominal aortic aneurysm Normal left common iliac normal dimensions of 0.72 x 0.76 cm Normal right common iliac artery dimensions 0.68 x 0.69 cm Ordering Physician: Vipul Worthington Referring Physician: Vipul Worthington Chi Performed By: Ayleen Leslie RVT
== END ==
PROVIDERS: PCP Family Medicine Geriatric Medicine; Referring Provider Family Medicine Geriatric Medicine; Visit Provider Family Medicine Geriatric Medicine
DX: I71.4 Abdominal aortic aneurysm, without rupture (principal)
CPT/HCPCS: 93978

== ENCOUNTER → 2020-06-02 16:56 | Outpatient (CLI) | payer MEDICARE, SELFPAY ==
[2020-05-14 09:53] VITALS: BMI 24.5
--- NOTE | 2020-06-02 17:00 | CT_ITS ---
STUDY: LOW DOSE CT LUNG CANCER SCREENING REASON FOR EXAM: Male, 75 years old. 30 pack-year smoking history. RADIATION DOSAGE (If Supplied By Facility): CTDIvol = ( 3.02 ) mGy, DLP = ( 118.90 ) mGycm TECHNIQUE: No contrast was administered. Low dose technique was utilized (average mAS-38 and kVp 120). 1.25 mm axial source images with a slice interval of 1.25-mm were reconstructed in lung windows. 2.5 mm axial source images with a slice interval of 2.5-mm were reconstructed in lung windows. 5.0 mm axial source images with a slice interval of 5.0-mm were reconstructed in soft tissue windows. Nodule measured using lung windows on PACS and/or independent workstation with automated measurement of minimum and maximum diameter. Nodule measurement reported as average diameter rounded to the nearest whole number. Growth is defined as an increase ins size of greater than 1.5 mm. COMPARISON: None. NODULES: Total lung nodules (excluding granulomas): 0 Emphysema: Marked emphysematous changes of the lungs without acute infiltrate. There is no bronchiectasis. Endobronchial lesion: None Aorta: Mild atherosclerotic changes of the thoracic aorta without aneurysm. Coronary arteries: Mild coronary artery calcifications Heart: Normal in size Pulmonary artery: Normal in size Mediastinal nodes: Calcified subcarinal lymph node. Other chest and abdominal findings: Degenerative changes of the lumbar spine. CT/Low Dose CT Lung Screening IMPRESSION: Lung-RADS category 1 - Continue annual screening with LDCT in 12 months. IMPORTANT NOTES FOR USE: ACR Lung-RADS Version 1.0 Assessment Categories Release Date: July 21, 2013 Category: Coded 0-4 bases on nodule(s) with highest degree of suspicion. Negative screen is defined as categories 1 and 2; a positive screen is defined as categories 3 and 4. Category 3 and 4A nodules that are unchanged on interval CT should be coded as category 2, and individuals returned to screening in 12 months. Category 4X: Category 3 or 4 nodules with additional imaging findings that increase the suspicion of lung cancer, such as spiculation, GGN that doubles in size in 1 year, enlarged lymph notes, etc. Category Modifiers: S (significant finding unrelated to lung cancer) and C (prior history of treated lung cancer) may be added to the 0-4 Lung-RADS Electronically Signed: Dwayne Smith DO at 21:16 EST Tel [phone], Service support ,
== END ==
PROVIDERS: PCP Family Medicine Geriatric Medicine; Referring Provider Nurse Practitioner Acute Care; Visit Provider Nurse Practitioner Acute Care
DX: F17.210 Nicotine dependence, cigarettes, uncomplicated (principal)
CPT/HCPCS: 71271

== ENCOUNTER → 2020-09-08 | Outpatient (CLI) | payer MEDICARE, SELFPAY ==
[2020-06-04 10:42] VITALS: BMI 24.4
== END | disposition home or self-care (01) ==
LOC: LABSPEC 11:27
PROVIDERS: PCP Family Medicine Geriatric Medicine; Visit Provider Nurse Practitioner Adult Health
DX: N30.01 Acute cystitis with hematuria (principal)
CPT/HCPCS: 87086; 87088

== ENCOUNTER → 2020-10-21 11:00 | Outpatient (CLI) | payer MEDICARE, SELFPAY ==
[2020-10-08 06:48] VITALS: BMI 24.3
== END ==
PROVIDERS: PCP Family Medicine Geriatric Medicine; Referring Provider Internal Medicine Critical Care Medicine; Visit Provider Internal Medicine Critical Care Medicine
DX: G47.33 Obstructive sleep apnea (adult) (pediatric) (principal)
CPT/HCPCS: 98960; G0463

== ENCOUNTER → 2020-11-12 09:39 | Outpatient (CLI) | payer MEDICARE, SELFPAY ==
[2020-11-12 11:54] LABS: Absolute Lymphocyte Count 1.69 X10^3/uL (0.83-4.51); Basophil# 0.12 X10^3/uL; Basophil% 1.5 % (0-1); Eosinophil# 0.55 X10^3/uL; Eosinophils% 6.7 % (0-5); Hematocrit 46.7 % (40-54); Hemoglobin 15.3 g/dL (13.0-16.5); Lymphocyte # 1.69 X10^3/ul (0.83-4.51); Lymphocyte % 20.6 % (19-41); Mean Corp Hgb Conc 32.8 g/dL (32-36); Mean Corpuscular Hgb 31.5 pg (27.0-32.0); Mean Corpuscular Volume 96.1 fL (80-94); Mean Platelet Vol. 9.3 fl (6.2-12.0); Monocyte# 0.74 X10^3/uL; NRBC Flagged by Analyzer 0 % (0-5); Neutrophil # 5.04 X10^3/uL (2.7-7.7); Neutrophil % 61.5 % (47-70); Platelet Count 254 K/mm3 (150-450); RBC Distribution Width CV 13.1 % (11.6-14.6); RBC Distribution Width SD 46.5 fl (35.1-43.9); Red Blood Count 4.86 M/mm3 (4.6-6.2); White Blood Count 8.2 K/mm3 (4.4-11.0)
[2020-11-12 12:12] LABS: Vitamin D,25 Hydroxy 74.1 ng/mL
[2020-11-12 12:21] LABS: ALB/GLOB Ratio 0.9 RATIO (0.9-2.4); AST(SGOT) 11 U/L (15-37); Alanine Aminotransfer ALT/SGPT 21 U/L (16-61); Albumin, Serum 3.3 g/dL (3.2-5.0); Alkaline Phosphatase 75 U/L (45-117); Anion Gap 5 (5-15); BUN 18 mg/dL (7-18); BUN/Creat Ratio 14.2 RATIO (10-20); Calcium,Total 8.8 mg/dL (8.5-10.1); Chloride 111 mmol/L (98-107); Creatinine, Serum 1.27 mg/dL (0.70-1.30); EST Glomerular Filtration Rate 59 mL/min (>60); Est Glom Filt Rate - Afr Amer 71 mL/min (>60); Globulin 3.5 g/dL (2.2-4.2); Glucose 99 mg/dL (74-106); Potassium 3.4 mmol/L (3.5-5.1); Protein, Total 6.8 g/dL (6.4-8.2); Sodium Level 142 mmol/L (136-145); Thyroid Stim Hormone (TSH) 2.72 uIU/mL (0.358-3.74)
== END ==
PROVIDERS: PCP Family Medicine Geriatric Medicine; Visit Provider Family Medicine Geriatric Medicine
DX: I10 Essential (primary) hypertension (principal); E55.9 Vitamin D deficiency, unspecified; F52.8 Other sexual dysfunction not due to a substance or known physiological condition
CPT/HCPCS: 36415; 80053; 82306; 84403; 84443; 85025

== ENCOUNTER → 2020-12-09 10:16 | Outpatient (CLI) | payer MEDICARE, SELFPAY | PROVIDERS: PCP Family Medicine Geriatric Medicine; Referring Provider Family Medicine Geriatric Medicine; Visit Provider Family Medicine Geriatric Medicine | DX: U07.1 COVID-19 (principal); I71.4 Abdominal aortic aneurysm, without rupture; I51.3 Intracardiac thrombosis, not elsewhere classified | CPT/HCPCS: 87635; C9803; U0003 ==

== ENCOUNTER → 2020-12-10 08:44 | Outpatient (CLI) | payer MEDICARE, SELFPAY ==
--- NOTE | 2020-12-10 08:54 | AAVD_ITS ---
Reason For Study: AAA Aorta Measurements Aorta Doppler Measurements Proximal aorta measures2.35cm x 2.25cm. in cross- Peak systolic flow velocities within the proximal sectional axis. aorta measure 70 cm/sec. Proximal aorta measures2.27cm. in longitudinal Peak systolic flow velocities within the mid aorta axis. measure 44 cm/sec. Mid aorta measures4.07cm x 4.07cm. in cross- Peak systolic flow velocities within the distal sectional axis. aorta measure 65 cm/sec. Mid aorta measures3.99cm. in longitudinal axis. Distal aorta measures1.57cm x 1.69cm. in cross- sectional axis. Distal aorta measures1.42cm. in longitudinal axis. Mural thrombus noted, mid Ao true lumen measures 1.85cm x 2.22cm. Left Iliac Artery Left iliac artery measures 0.80cm x 0.83 cm. in the cross-sectional axis. Left iliac artery measures 0.86 cm. in the longitudinal axis. Peak systolic velocity in the left iliac artery measures 72 cm/sec. Right Iliac Artery Right iliac artery measures 0.93cm x 0.91 cm. in the cross-sectional axis. Right iliac artery measures 0.82 cm. in the longitudinal axis. Peak systolic velocity in the right iliac artery measures 96 cm/sec. VL/Abd Aortic/IVC Duplex scan Interpretation Summary Mid abdominal aortic aneurysm 4.07 x 4.07 cm in diameter. Mural thrombus noted. Normal aortic velocity. Left common leg 0.8 x 0.83 cm diameter Right common neck 0.93 x 0.91 cm in diameter No change from May 26, 2020 when the aortic aneurysm measured 4.09 x 4.09 cm i n diameter Ordering Physician: Vipul Worthington Chi Referring Physician: Vipul Worthington Chi Performed By: Mali Pérez, DOM, RVT
== END ==
PROVIDERS: PCP Family Medicine Geriatric Medicine; Referring Provider Family Medicine Geriatric Medicine; Visit Provider Family Medicine Geriatric Medicine
DX: I71.4 Abdominal aortic aneurysm, without rupture (principal); I51.3 Intracardiac thrombosis, not elsewhere classified
CPT/HCPCS: 93978

== ENCOUNTER 2020-12-11 19:59 | Inpatient (IN) | payer MEDICARE, SELFPAY ==
[2020-12-11 20:01] VITALS: BP 143/78; PULSE 108; RESP 25; TEMP 37.1; O2SAT 89; BMI 24.4
[2020-12-11 20:11] VITALS: BP 152/114; PULSE 112; PULSE 113; RESP 20; RESP 28; TEMP 36.7; O2SAT 89; O2SAT 90; O2SAT 91
[2020-12-11 20:21] VITALS: BP 134/83; PULSE 105; RESP 28; O2SAT 94
--- NOTE | 2020-12-11 20:50 | RAD_ITS ---
EXAM: XR CHEST, 1 VIEW : 1945 CLINICAL INDICATION: dyspnea TECHNIQUE: Frontal view of the chest. This report was created using [employer] report generation technology. COMPARISON: 11/12/2019 FINDINGS: LUNGS AND PLEURAL SPACES: The lungs are hyperinflated with emphysematous changes in the lung apices. There is scarring at the lung bases. No pneumothorax. No effusion. HEART: Unremarkable. Cardiac silhouette not enlarged. MEDIASTINUM: Central airways and mediastinal contour are unremarkable. BONES/JOINTS: Unremarkable. SOFT TISSUES: Unremarkable. RAD/Chest 1 View (Portable) IMPRESSION: Interstitial scarring at the lung bases with emphysematous change in lung apices. This is not significantly changed from the reference exam. at 2149 Reported and signed by: Eliseo Robin MD Electronically Signed: Eliseo Robin MD at 21:48 EDT Tel , Service support ,
--- NOTE | 2020-12-11 20:50 | EKG12_ITS ---
Test Reason : SOB Blood Pressure : / mmHG Vent. Rate : 098 BPM Atrial Rate : 098 BPM P-R Int : 138 ms QRS Dur : 088 ms QT Int : 390 ms P-R-T Axes : 075 052 015 degrees QTc Int : 497 ms Normal sinus rhythm Normal ECG Confirmed by PAM PIZANO, SITA ([id number]), editor farm journal CARLOS ENRIQUE GONZALEZ ([id number]) on 12/13/2020 10:43:24 AM Referred By: Confirmed By:SITA OROZCO MD
--- NOTE | 2020-12-11 20:51 | ED.VIS.DYS ---
HPI History of Present Illness Chief Complaint: Shortness of Breath Detail of Chief Complaint: Shortness of breath that started 6 days ago Associated Symptoms cough Narrative Narrative: Patient presents to the emergency department complaint shortness of breath that started 6 days ago. Patient has a cough that is mostly nonproductive. Patient had a Covid test 2 days ago but did not know his results. He is not had any fever. He does complain of body aches. He complains of generalized weakness and fatigue. Patient is not vaccinated against Covid. Patient's is vaccinated against Covid. Patient normally on 3 L of home O2 but over the last several days has bumped up to 4 L and he has been saturating around 89 to 90%. On arrival to the emergency department nursing staff state that patient was tripoding and was in significant distress. [facility] Medical History (Updated 12/11/20 @ 22:[address] Praneeth Will, ) Abdominal aortic aneurysm without rupture Acute DVT (deep venous thrombosis) Atherosclerotic heart disease of [place] coronary artery without angina pectoris Atrial fibrillation BPH (benign prostatic hyperplasia) COPD (chronic obstructive pulmonary disease) Coronary artery disease s/p stents Essential hypertension Hyperlipidemia Obstructive sleep apnea syndrome MAGALI (obstructive sleep apnea) Other specified transient cerebral ischemias Respiratory failure with hypoxia Stage 4 very severe COPD by GOLD classification Home Medications albuterol sulfate 1 - 2 puff INHALATION Q4H PRN PRN 09/08/16 [History Last Taken 11/11/19] aspirin 81 mg PO DAILY@0800 09/08/16 [History Last Taken 11/11/19] clopidogrel 75 mg PO DAILY 09/08/16 [History Last Taken 11/11/19] nitroglycerin 0.4 mg sublingual tablet 0.4 mg SUBLINGUAL Q5M PRN 03/16/17 [History Last Taken Unknown] pravastatin 80 mg tablet 80 mg PO QODAY tab 03/16/17 [History Last Taken 11/11/19] cholecalciferol (vitamin D3) 25 mcg (1,000 unit) capsule 25 mcg PO DAILY 07/08/19 [History Last Taken 11/12/19] ipratropium bromide 42 mcg (0.06 %) nasal spray 2 spray INTRANASAL DAILY 07/08/19 [History Last Taken 11/12/19] ascorbic acid (vitamin C) 1,000 mg PO DAILY 11/12/19 [History Last Taken 11/12/19] omeprazole 20 mg PO DAILY 11/12/19 [History Last Taken 11/12/19] vitamin B complex 1 cap PO DAILY 11/12/19 [History Last Taken 11/11/19] diltiazem HCl 120 mg capsule,extended release 24 hr 120 mg PO DAILY #90 cap 05/14/20 [Rx Last Taken Unknown] ranolazine 500 mg tablet,extended release,12 hr 500 mg PO DAILY #90 tab 05/14/20 [Rx Last Taken Unknown] Disability Placard #1 ea 06/04/20 [Rx Last Taken Unknown] budesonide 160 mcg-glycopyr 9 mcg-formot 4.8 mcg/actuation HFA inhaler 2 inh INHALATION BID #10.7 g 10/08/20 [Rx Last Taken Unknown] tiotropium bromide [Spiriva Respimat] 2 inh INHALATION DAILY 12/11/20 [History Last Taken Unknown] Allergy/AdvReac Type Severity Reaction Status Date / Time Sulfa (Sulfonamide Allergy Chest Verified 12/11/20 20:00 Antibiotics) tightness Family History Father CHF (congestive heart failure) Mother CVA (cerebral vascular accident) Heart aneurysm Surgical History History of inguinal herniorrhaphy Social History Smoking Status: Former smoker how long ago did patient quit smokin alcohol intake: never substance use type: does not use caffeine: No what type of physical activity do you participate in: none seatbelt use: always do you feel safe at home: Yes ROS ROS ED ROS Narrative Fatigue Constitutional Constitutional ED: Reports systems reviewed and no addt'l complaints, except as documented; Denies body ache(s), change in weight or chills Eyes Eyes: Denies acute decrease in peripheral vision, change in vision, double vision or loss of vision ENT ENT ED: Reports none; Denies ear pain, lip swelling, loss taste/smell, neck pain, otalgia or sore throat Cardiovascular Cardiovascular: Reports none; Denies abdominal pain, chest pain with activity, leg edema, lightheadedness, palpitations, rapid heart rate or syncope Respiratory/Chest Respiratory/Chest: Reports none, cough and dyspnea; Denies change in mental status, dry cough, hemoptysis, shortness of breath at rest or shortness of breath with exertion Gastrointestinal Gastrointestinal: Reports none; Denies abdominal pain, change in stool character, diarrhea, hematemesis, hematochezia, melena, rectal bleeding or vomiting Genitourinary Genitourinary ED: Reports none; Denies abdominal discomfort, anuria, dysuria, genital pain or polyuria Musculoskeletal Musculoskeletal: Reports none and myalgias; Denies arthralgias, back pain, difficulty walking, extremity pain or muscle weakness Integumentary Reports none; Denies abscess or rash Neurologic Neurologic: Reports none; Denies abnormal gait, confusion, focal weakness, frequent falls, headache(s), loss of vision, numbness, paresthesias, radicular pain, vertigo or weakness Psychiatric Psychiatric: Reports systems reviewed and no addt'l complaints, except as documented and none; Denies behavioral changes, confusion, difficulty concentrating, hallucinations, suicidal ideation, tactile hallucinations or visual hallucinations Endocrine Endocrinology: Denies none, cold intolerance, excessive sweating, fatigue or heat intolerance Hematologic/Lymphatic Hematologic/Lymphatic: Reports none; Denies anemia, easy bleeding or easy bruising Allergic/Immunologic Allergic/Immunologic ED: Denies as per HPI, none, lip swelling, mouth swelling, throat swelling, tongue swelling or hives EXAM Physical Exam Const Vital Signs: 12/11/20 20:01 12/11/20 20:11 12/11/20 20:21 Temperature 98.7 F 98.1 F Temperature Source Temporal Temporal Pulse Rate 108 H 112 H 105 H Respiratory Rate 25 H 20 H 28 H Respiratory Effort Short of Breath Labored Pursed Lip Retracting Respiratory Depth Deep Respiratory Pattern Tachypnea Blood Pressure 143/78 H 152/114 H 134/83 H Blood Pressure Mean 99 126 100 Pulse Ox 89 90 94 Oxygen Delivery Method Nasal Cannula Nasal Cannula Nasal Cannula Oxygen Flow Rate (L/min) 4 4 5 12/11/20 21:00 12/11/20 22:00 Temperature 98.1 F 98.4 F Temperature Source Temporal Temporal Pulse Rate 99 95 Respiratory Rate 18 12 Respiratory Effort Respiratory Depth Respiratory Pattern Blood Pressure 117/85 H 144/82 H Blood Pressure Mean 95 102 Pulse Ox 98 90 Oxygen Delivery Method Nasal Cannula Nasal Cannula Oxygen Flow Rate (L/min) 5 3 Positive well nourished and well developed General Appearance ED: well developed and NAD HEENT Reports TM's clear and moist mucous membranes normocephalic and atraumatic; Negative for trauma or tenderness Tympanic Membrane ED: Yes TM's clear Eyes PERRL and EOMs intact bilaterally General Eye ED: Negative for pale conjunctiva or scleral icterus Neck no lymphadenopathy, supple and no JVD General: Negative for tenderness Chest Wall inspection of chest normal and palpation of chest normal Chest: Negative for tenderness Resp clear to auscultation bilaterally Resp Narrative: Patient with some tachypnea at rest. Diminished breath sounds bilaterally with just occasional faint expiratory wheezes noted. No accessory muscle use or retractions at this time. Effort and Inspection: Negative for respiratory distress or pain with movement Auscultation: diminished lung sounds; Negative for rhonchi or wheezes Cardio regular rate, regular rhythm, S1 normal heart sound, S2 normal heart sound and no murmurs Peripheral Pulses: pulses 2+ throughout GI normal to inspection, nondistended, normoactive bowel sounds, soft to palpation, non-tender, non-distended and no masses Back/Spine no CVA tenderness and no thoracic nor lumbar tenderness Extremity normal to inspection General Extremety ED: Negative for edema General Extremity: Negative for edema Neuro oriented x3, CN's II-XII intact bilaterally, no sensory deficits noted and gait normal Sensorium / Orientation: awake, alert, oriented to person, oriented to place and oriented to time Motor Exam: strength 5/5 throughout and strength abnormal Psych mental status grossly normal Skin no rashes or lesions noted and no wounds MDM MDM MDM Narrative Medical decision making narrative: IV line established on arrival. Patient placed on a urban design consultant. I was able to look up patient's Covid result and noted that patient was positive for Covid. Patient D-dimer was elevated therefore CT of the chest was ordered to rule out PE. Care of patient turned over to evening physician awaiting CTA results and patient will require admission for his Covid pneumonia and respiratory failure with hypoxemia Lab Data Attestation: I reviewed the patient's lab results. Labs: Laboratory Results - last 24 hr 12/11/20 12/11/20 12/11/20 20:13 20:13 20:13 WBC 7.7 RBC 5.58 Hgb 17.1 H Hct 53.1 MCV 95.2 H MCH 30.6 MCHC 32.2 RDW Std Deviation 44.9 H RDW Coeff of Rosalinda 12.6 Plt Count 188 MPV 10.2 Immature Gran % (Auto) 0.600 Neut % (Auto) 78.1 H Lymph % (Auto) 16.5 L Fleming % (Auto) 4.5 Eos % (Auto) 0.0 Baso % (Auto) 0.3 Absolute Neuts (auto) 6.0 Absolute Lymphs (auto) 1.28 Nucleated RBC % 0 D-Dimer Quant (PE/DVT) 1.49 H* Sodium 139 Potassium 3.6 Chloride 101 Carbon Dioxide 31.0 Anion Gap 7 BUN 27 H Creatinine 1.28 Estim Creat Clear Calc 54.73 Est GFR (MDRD) Af Amer 70 Est GFR (MDRD) Non-Af 58 L BUN/Creatinine Ratio 21.1 H Glucose 115 H Lactic Acid Calcium 9.4 Troponin I High Sens 12/11/20 12/11/20 20:13 20:13 WBC RBC Hgb Hct MCV MCH MCHC RDW Std Deviation RDW Coeff of Rosalinda Plt Count MPV Immature Gran % (Auto) Neut % (Auto) Lymph % (Auto) Fleming % (Auto) Eos % (Auto) Baso % (Auto) Absolute Neuts (auto) Absolute Lymphs (auto) Nucleated RBC % D-Dimer Quant (PE/DVT) Sodium Potassium Chloride Carbon Dioxide Anion Gap BUN Creatinine Estim Creat Clear Calc Est GFR (MDRD) Af Amer Est GFR (MDRD) Non-Af BUN/Creatinine Ratio Glucose Lactic Acid 3.4 H* Calcium Troponin I High Sens 31 Radiography Chest X-Ray - ED: 1 View Diagnostic Testing: Radiology Impression Chest X-Ray 12/11/20 20:50 IMPRESSION: Interstitial scarring at the lung bases with emphysematous change in lung apices. This is not significantly changed from the reference exam. at 2149 Reported and signed by: Eliseo Robin MD Electronically Signed: Eliseo Robin MD at 21:48 EDT Tel , Service support , 1 view chest x-ray obtained interpreted by myself as increased lung markings in the lower lobes with COPD changes noted. Radiology felt patient had interstitial scarring at the lung bases with emphysematous changes in the lung apices which is not significantly changed from prior exam. EKG Initial EKG: Attestation: I personally reviewed and interpreted this EKG as follows: Comments: Sinus rhythm with a ventricular rate of 98 bpm with no acute ST segment changes Discharge Plan Triage Chief Complaint: Shortness of Breath ED Provider: Praneeth Will Dx/Rx/DC Orders Clinical Impression: COVID-19, Respiratory failure, Hypoxemia Prescriptions: No Action cholecalciferol (vitamin D3) 25 mcg (1,000 unit) capsule 25 mcg PO DAILY RF: 0 diltiazem HCl 120 mg capsule,extended release 24hr 120 mg PO DAILY Qty: 90 RF: 3 ranolazine 500 mg tablet extended release 12 hr 500 mg PO DAILY Qty: 90 RF: 3 (DME) Disability Placard See Rx Instructions .Route .MEDSUPPLY Qty: 1 RF: 0 Breztri Aerosphere 160-9-4.8 mcg/actuation HFA aerosol inhaler 2 inh inhalation BID Qty: 10.7 RF: 3 clopidogrel 75 MG tablet 75 mg PO DAILY RF: 0 aspirin 81 MG tablet,chewable 81 mg PO DAILY@0800 RF: 0 albuterol sulfate 1 INHALER inhaler 1 - 2 puff INHALATION Q4H PRN PRN (Reason: Sob &/Or Wheezing) RF: 0 nitroglycerin 0.4 MG tablet 0.4 mg SUBLINGUAL Q5M PRN (Reason: Chest Pain) RF: 0 pravastatin 80 MG tablet 80 mg PO QODAY RF: 0 ipratropium bromide 42 mcg (0.06 %) spray,non-aerosol 2 spray INTRANASAL DAILY RF: 0 ascorbic acid (vitamin C) 1,000 MG tablet 1,000 mg PO DAILY RF: 0 omeprazole 20 MG capsule 20 mg PO DAILY RF: 0 vitamin B complex 1 EACH capsule 1 cap PO DAILY RF: 0 Spiriva Respimat 2.5 mcg/actuation mist 2 inh INHALATION DAILY RF: 0 Primary Care Provider: Vipul Worthington Chi Referrals: Vipul Worthington Chi, MD [Primary Care Provider] - Disposition Disposition: Acute Care [facility]
[2020-12-11 21:00] VITALS: BP 117/85; PULSE 99; RESP 18; TEMP 36.7; O2SAT 98
[2020-12-11] MEDS: 0.9% Normal Saline 1,000 ML 150 ML IV (21:03)
[2020-12-11] MEDS: dexAMETHasone 4 MG Tablet 6 MG PO (21:03)
[2020-12-11 21:24] LABS: Absolute Lymphocyte Count 1.28 X10^3/uL (0.83-4.51); Basophil# 0.02 X10^3/uL; Basophil% 0.3 % (0-1); Hematocrit 53.1 % (40-54); Hemoglobin 17.1 g/dL (13.0-16.5); Lymphocyte # 1.28 X10^3/ul (0.83-4.51); Lymphocyte % 16.5 % (19-41); Mean Corp Hgb Conc 32.2 g/dL (32-36); Mean Corpuscular Hgb 30.6 pg (27.0-32.0); Mean Corpuscular Volume 95.2 fL (80-94); Mean Platelet Vol. 10.2 fl (6.2-12.0); Monocyte# 0.35 X10^3/uL; Monocyte% 4.5 % (0-10); NRBC Flagged by Analyzer 0 % (0-5); Neutrophil # 6.04 X10^3/uL (2.7-7.7); Neutrophil % 78.1 % (47-70); Platelet Count 188 K/mm3 (150-450); RBC Distribution Width CV 12.6 % (11.6-14.6); RBC Distribution Width SD 44.9 fl (35.1-43.9); Red Blood Count 5.58 M/mm3 (4.6-6.2); White Blood Count 7.7 K/mm3 (4.4-11.0)
[2020-12-11 21:33] LABS: Anion Gap 7 (5-15); BUN 27 mg/dL (7-18); BUN/Creat Ratio 21.1 RATIO (10-20); Calcium,Total 9.4 mg/dL (8.5-10.1); Chloride 101 mmol/L (98-107); Creatinine, Serum 1.28 mg/dL (0.70-1.30); EST Glomerular Filtration Rate 58 mL/min (>60); Est Glom Filt Rate - Afr Amer 70 mL/min (>60); Estimated Creatinine Clearance 54.73 ml/min; Glucose 115 mg/dL (74-106); Potassium 3.6 mmol/L (3.5-5.1); Sodium Level 139 mmol/L (136-145)
[2020-12-11 21:34] LABS: D-Dimer Quantitative (DVT/PE) 1.49 FEU/ug/m (0.27-0.49)
[2020-12-11 21:40] LABS: Lactic Acid 3.4 mmol/L (0.4-1.9)
--- NOTE | 2020-12-11 21:47 | CT_ITS ---
EXAM: CT ANGIOGRAPHY CHEST WITHOUT AND WITH INTRAVENOUS CONTRAST : 1945 CLINICAL INDICATION: elevated d-dimer TECHNIQUE: Helically acquired angiography images were obtained of the chest without and with intravenous contrast. This CT exam was performed using one or more of the following dose reduction techniques: automated exposure control, adjustment of the mA and/or kV according to patient size, and/or use of iterative reconstruction technique. This report was created using [employer] report generation technology. MIP reconstructed images were created and reviewed. CONTRAST: IV 100mL [id number] COMPARISON: None. FINDINGS: PULMONARY ARTERIES: Unremarkable. Normal in caliber. No evidence of pulmonary embolism. AORTA: Unremarkable. Normal in caliber. No evidence of dissection. GREAT VESSELS OF AORTIC ARCH: Unremarkable. Normal in caliber. No evidence of dissection. LUNGS AND PLEURAL SPACES: Unremarkable. No mass. No consolidation or edema. No pleural effusion or thickening. No pneumothorax. HEART: Unremarkable. Heart size is normal. No pericardial effusion. No signs of right heart strain, ratio of right ventricle to left ventricle measures less than 1. MEDIASTINUM: Unremarkable. No mediastinal or hilar adenopathy. Esophagus is unremarkable. No hiatal hernia. THYROID: Unremarkable. No thyroid lesions. BONES/JOINTS: Unremarkable. No suspicious lytic or blastic abnormality. SOFT TISSUES: Barium subcutaneous changes seen within the lung apices with interstitial scarring and fibrosis of the lung bases. CT/CTA Chest W/WO Contrast IMPRESSION: 1. No evidence of pulmonary embolus. 2. Emphysematous changes in the lung apices with scarring in the lung bases. Individualized dose optimization techniques were used for this CT. at 2316 Reported and signed by: Eliseo Robin MD Electronically Signed: Eliseo Robin MD at 23:15 EDT Tel , Service support ,
[2020-12-11 22:00] VITALS: BP 144/82; PULSE 95; RESP 12; TEMP 36.9; O2SAT 90; O2SAT 91
[2020-12-11 22:16] LABS: Troponin-I HS 31 pg/mL (3.0-78.0)
[2020-12-11 23:00] VITALS: BP 146/62; BP 148/75; PULSE 85; PULSE 88; RESP 15; RESP 17; TEMP 36.6; O2SAT 95; O2SAT 98
[2020-12-12] VITALS (13 sets, daily range): BP systolic 110–155; BP diastolic 69–94; PULSE 64–93; RESP 16–87; TEMP 36.4–36.9; O2SAT 86–94; BMI 22.4
--- NOTE | 2020-12-12 00:25 | PCM.HP.STD ---
HPI - General General Date of Admission: 12/12/20 Date of Service: 12/12/20 Chief Complaint: SOB HPI Narrative SITA PALACIOS, is a 75 M with a significant history of CAD status post stent; COPD on 3 L of nasal oxygen the oxygen; obstructive sleep apnea on CPAP who presents to emergency department with progressively worsening shortness of breath that started 6 days before presentation. Because of his worsening shortness of breath patient cranked up his home oxygen from 3 L to 4L. Reportedly when paramedics arrived even on 4 L nasal cannula oxygen his oxygen saturation was in the high 80s. At the emergency department on 4 L his oxygen saturation initially was in the low 90s. Associated with symptom is productive cough of clear sputum. Further patient reports dysgeusia and anorexia. At baseline he is unable to smell and he has not noticed any change in his smelling . He reports muscle aches and fatigue. He denies nausea vomiting; diarrhea or sore throat. Reportedly when he initially came to emergency department he was tripoding. [facility] Medical History (Updated 12/12/20 @ 00:[address] Grabiel Caceres MD) Abdominal aortic aneurysm without rupture Acute DVT (deep venous thrombosis) Atherosclerotic heart disease of [place] coronary artery without angina pectoris Atrial fibrillation BPH (benign prostatic hyperplasia) COPD (chronic obstructive pulmonary disease) Coronary artery disease s/p stents Essential hypertension Hyperlipidemia Obstructive sleep apnea syndrome MAGALI (obstructive sleep apnea) Other specified transient cerebral ischemias Respiratory failure with hypoxia Stage 4 very severe COPD by GOLD classification Home Medications albuterol sulfate 1 - 2 puff INHALATION Q4H PRN PRN 09/08/16 [History Last Taken 11/11/19] aspirin 81 mg PO DAILY@0800 09/08/16 [History Last Taken 11/11/19] clopidogrel 75 mg PO DAILY 09/08/16 [History Last Taken 11/11/19] nitroglycerin 0.4 mg sublingual tablet 0.4 mg SUBLINGUAL Q5M PRN 03/16/17 [History Last Taken Unknown] pravastatin 80 mg tablet 80 mg PO QODAY tab 03/16/17 [History Last Taken 11/11/19] cholecalciferol (vitamin D3) 25 mcg (1,000 unit) capsule 25 mcg PO DAILY 07/08/19 [History Last Taken 11/12/19] ipratropium bromide 42 mcg (0.06 %) nasal spray 2 spray INTRANASAL DAILY 07/08/19 [History Last Taken 11/12/19] ascorbic acid (vitamin C) 1,000 mg PO DAILY 11/12/19 [History Last Taken 11/12/19] omeprazole 20 mg PO DAILY 11/12/19 [History Last Taken 11/12/19] vitamin B complex 1 cap PO DAILY 11/12/19 [History Last Taken 11/11/19] diltiazem HCl 120 mg capsule,extended release 24 hr 120 mg PO DAILY #90 cap 05/14/20 [Rx Last Taken Unknown] ranolazine 500 mg tablet,extended release,12 hr 500 mg PO DAILY #90 tab 05/14/20 [Rx Last Taken Unknown] Disability Placard #1 ea 06/04/20 [Rx Last Taken Unknown] budesonide 160 mcg-glycopyr 9 mcg-formot 4.8 mcg/actuation HFA inhaler 2 inh INHALATION BID #10.7 g 10/08/20 [Rx Last Taken Unknown] tiotropium bromide [Spiriva Respimat] 2 inh INHALATION DAILY 12/11/20 [History Last Taken Unknown] Allergy/AdvReac Type Severity Reaction Status Date / Time Sulfa (Sulfonamide Allergy Chest Verified 12/11/20 20:00 Antibiotics) tightness Family History Father CHF (congestive heart failure) Mother CVA (cerebral vascular accident) Heart aneurysm Surgical History History of inguinal herniorrhaphy Social History Smoking Status: Former smoker how long ago did patient quit smokin alcohol intake: never substance use type: does not use caffeine: No what type of physical activity do you participate in: none seatbelt use: always do you feel safe at home: Yes ROS ROS Narrative Constitutional: Reports fatigue and anorexia. Denies fever, chills, and change in weight Eyes: Denies blurry vision, change in eye color, change in vision, discharge from eye(s), double vision, erythema, eye pain, loss of vision or other HEENT: Denies abnormal hearing, dysphagia, ear pain, epistaxis, headache(s), hearing loss, sore throat or other Cardiovascular: Denies chest pain or palpitations. Denies dyspnea on exertion, orthopnea and paroxysmal nocturnal dyspnea Respiratory/Chest: Reports cough. Reports sputum production. Reports shortness of breath. Gastrointestinal: Denies abdominal pain, coffee ground emesis, constipation, diarrhea, dyspepsia, hematemesis, hematochezia, loose stools, melena, nausea, vomiting or other Genitourinary: Denies burning urination, difficulty urinating, dysuria, hematuria, nocturia, urinary frequency, urinary hesitancy, urinary incontinence, urinary urgency or other Musculoskeletal: Reports myalgia. Denies arthralgias, back pain, joint pain, joint stiffness, joint swelling, neck pain or other Neurologic: Denies abnormal gait, abnormal speech, confusion, disequilibrium, dizziness, focal weakness, headache(s), numbness, paresthesias, seizure-like activity, seizures, syncope, tingling, tremor(s) or other Psychiatric: Denies anxiety, depression, homicidal ideation, suicidal ideation or other Endocrinology: Denies change in body appearance, excessive sweating, heat intolerance, polydipsia, polyuria or other Hematologic/Lymphatic: Denies anemia, easy bleeding, easy bruising, lymphadenopathy or other Integumentary: Denies rashes Allergic/Immunologic: Denies rhinitis, hives, eczema, or other Vital Signs Vital Signs Vital Signs: 12/11/20 20:01 12/11/20 20:11 12/11/20 20:21 Temperature 98.7 F 98.1 F Temperature Source Temporal Temporal Pulse Rate 108 H 112 H 105 H Respiratory Rate 25 H 20 H 28 H Respiratory Effort Short of Breath Labored Pursed Lip Retracting Respiratory Depth Deep Respiratory Pattern Tachypnea Blood Pressure 143/78 H 152/114 H 134/83 H Blood Pressure Mean 99 126 100 Pulse Ox 89 90 94 Oxygen Delivery Method Nasal Cannula Nasal Cannula Nasal Cannula Oxygen Flow Rate (L/min) 4 4 5 12/11/20 21:00 12/11/20 22:00 12/11/20 23:00 Temperature 98.1 F 98.4 F 98 F Temperature Source Temporal Temporal Temporal Pulse Rate 99 95 88 Respiratory Rate 18 12 15 Respiratory Effort Respiratory Depth Respiratory Pattern Blood Pressure 117/85 H 144/82 H 148/75 H Blood Pressure Mean 95 102 99 Pulse Ox 98 90 95 Oxygen Delivery Method Nasal Cannula Nasal Cannula Nasal Cannula Oxygen Flow Rate (L/min) 5 3 3 12/12/20 00:00 12/12/20 00:12 Temperature 98.2 F 98.2 F Temperature Source Temporal Temporal Pulse Rate 87 89 Respiratory Rate 17 17 Respiratory Effort Respiratory Depth Respiratory Pattern Blood Pressure 143/91 H 143/91 H Blood Pressure Mean 108 108 Pulse Ox 94 94 Oxygen Delivery Method Nasal Cannula Nasal Cannula Oxygen Flow Rate (L/min) 4 4 Weight Weight: 81.647 kg Body Mass Index (BMI) 24.4 Physical Exam Narrative Physical exam: General: Well-nourished, well-developed. Head: Normocephalic, atraumatic, no tenderness Eyes: PERRLA, EOMI ENT, no trauma, moist mucous membranes, no rhinorrhea Neck: Nontender, full range of motion, no spinal tenderness, deformities, step-off CVS: Regular rate and rhythm. S1-S2 present. No murmur, gallop or rub. Respiratory : Mild Rales. chest wall nontender Abdomen: Soft, nontender, nondistended, normal bowel sounds, no masses : Deferred Back: Nontender, no CVA tenderness, no midline spinal tenderness, deformities, step-offs Extremities: Nontender full range of motion, no trauma Skin: Normal color, no trauma, abrasions Neuro: Alert, oriented, cranial nerves II through XII grossly intact. Psychiatry: Normal mood. Normal affect. Not depressed. Not anxious. Results Lab / Micro Data Result Diagrams: 12/11/20 20:13 12/11/20 20:13 Labs: Laboratory Results - last 24 hr 12/11/20 20:13: WBC 7.7, RBC 5.58, Hgb 17.1 H, Hct 53.1, MCV 95.2 H, MCH 30.6, MCHC 32.2, RDW Std Deviation 44.9 H, RDW Coeff of Rosalinda 12.6, Plt Count 188, MPV 10.2, Immature Gran % (Auto) 0.600, Neut % (Auto) 78.1 H, Lymph % (Auto) 16.5 L, Mclennan % (Auto) 4.5, Eos % (Auto) 0.0, Baso % (Auto) 0.3, Absolute Neuts (auto) 6.0, Absolute Lymphs (auto) 1.28, Nucleated RBC % 0 12/11/20 20:13: D-Dimer Quant (PE/DVT) 1.49 H* 12/11/20 20:13: Sodium 139, Potassium 3.6, Chloride 101, Carbon Dioxide 31.0, Anion Gap 7, BUN 27 H, Creatinine 1.28, Estim Creat Clear Calc 54.73, Est GFR (MDRD) Af Amer 70, Est GFR (MDRD) Non-Af 58 L, BUN/Creatinine Ratio 21.1 H, Glucose 115 H, Calcium 9.4 12/11/20 20:13: Lactic Acid 3.4 H* 12/11/20 20:13: Troponin I High Sens 31 Radiology Impression Chest X-Ray 12/11/20 20:50 IMPRESSION: Interstitial scarring at the lung bases with emphysematous change in lung apices. This is not significantly changed from the reference exam. at 2149 Reported and signed by: Eliseo Robin MD Electronically Signed: Eliseo Robin MD at 21:48 EDT Tel , Service support , Chest CTA 12/11/20 21:47 IMPRESSION: 1. No evidence of pulmonary embolus. 2. Emphysematous changes in the lung apices with scarring in the lung bases. Individualized dose optimization techniques were used for this CT. at 2316 Reported and signed by: Eliseo Robin MD Electronically Signed: Eliseo Robin MD at 23:15 EDT Tel , Service support , Assessment & Plan Assessment/Plan (1) Acute on chronic respiratory failure with hypoxemia: PLAN: Acute hypoxemic respiratory failure secondary to SARS- COV 2/acute COPD extubation. Reportedly patient was tripoding when he initially came to emergency department and on 4 L nasal cannula at home is a saturation was in the high 80s and low 90s at the emergency department. At baseline patient is on 3 L. Continue oxygen supplementation to maintain oxygen saturation to at least 90%. Review of record showed that on 12/09/2020 patient had positive coronavirus test. Lactic acid was elevated at 3.4, trend. D-dimer was elevated at 1.49. Follow-up CTA did not show any PE. Radiologist impression of chest CTA is as above and upon personal interpretation I agree radiologist impression. Agree with radiologist interpretation of chest x-ray upon personal review of image. Received Decadron at the emergency department and continued. Remdesivir ordered. Trend CMP and CBC. Home inhalers continued. As needed proair ordered. Tylenol for fever Scheduled Mucinex and as needed Tessalon Perles for cough ordered. CAD status post stent Aspirin and Plavix continued Ranolazine continued Pravastatin continued. History of supraventricular tachycardia/A. fib Stable Cardizem continued AAA Abdominal aortic ultrasound on 12/10/2020 is stable compared to previous and with mural thrombus noted. Continue outpatient clinical monitoring. GERD Omeprazole continued DVT prophylaxis: Subcutaneous Lovenox ordered. Charges/Coding Visit Charges Inpatient E&M: 82532 Init Hosp L3
[2020-12-12 01:21] LABS: Reflex Lactate? Y
[2020-12-12 01:33] LABS: Lactic Acid 1.3 mmol/L (0.4-1.9)
[2020-12-12 02:09] LABS: AST(SGOT) 47 U/L (15-37); Alanine Aminotransfer ALT/SGPT 28 U/L (16-61); Albumin, Serum 3.3 g/dL (3.2-5.0); Alkaline Phosphatase 74 U/L (45-117); Globulin 4.6 g/dL (2.2-4.2); Protein, Total 7.9 g/dL (6.4-8.2)
[2020-12-12] MEDS: guaiFENesin 600 MG Tablet PO ×3 (02:40→21:52)
[2020-12-12] MEDS: dilTIAZem CD 120 MG Capsule PO ×2 (02:40→09:13)
[2020-12-12] MEDS: 0.9% Saline Lock 10 ML Syringe IV (02:43)
[2020-12-12] MEDS: INHALER, ASSIST DEVICES 1 EACH SPACER INHALATION (02:47)
[2020-12-12] MEDS: Enoxaparin 30 MG/0.3 ML Syringe SC ×2 (06:06→21:45)
[2020-12-12 06:26] LABS: Absolute Lymphocyte Count 0.32 X10^3/uL (0.83-4.51); Absolute Neutrophil Count 4.1 X10^3/uL (2.0-7.7); Basophil# 0.01 X10^3/uL; Basophil% 0.2 % (0-1); Hematocrit 44.5 % (40-54); Hemoglobin 14.5 g/dL (13.0-16.5); Lymphocyte # 0.32 X10^3/ul (0.83-4.51); Mean Corp Hgb Conc 32.6 g/dL (32-36); Mean Corpuscular Hgb 30.7 pg (27.0-32.0); Mean Corpuscular Volume 94.1 fL (80-94); Mean Platelet Vol. 10.1 fl (6.2-12.0); Monocyte# 0.13 X10^3/uL; Monocyte% 2.8 % (0-10); NRBC Flagged by Analyzer 0 % (0-5); Neutrophil # 4.12 X10^3/uL (2.7-7.7); Neutrophil % 89.6 % (47-70); POSITIVE DIFFERENTIAL YES; POSITIVE MORPHOLOGY YES; Platelet Count 162 K/mm3 (150-450); RBC Distribution Width CV 12.6 % (11.6-14.6); RBC Distribution Width SD 43.8 fl (35.1-43.9); Red Blood Count 4.73 M/mm3 (4.6-6.2); White Blood Count 4.6 K/mm3 (4.4-11.0)
[2020-12-12 06:39] LABS: Differential Indicated SCAN CRITERIA MET
[2020-12-12] MEDS: Aspirin 81 MG TAB.CHEW PO (09:10)
[2020-12-12] MEDS: Ascorbic Acid 500 MG Tablet 1000 MG PO (09:10)
[2020-12-12] MEDS: dexAMETHasone 2 MG TABLET 6 MG PO (09:10)
[2020-12-12] MEDS: Cholecalciferol (VIT D3) 25 MCG TABLET (1,000 UNITS) PO (09:13)
[2020-12-12] MEDS: Clopidogrel Bisulfate 75 MG Tablet PO (09:13)
[2020-12-12] MEDS: Pantoprazole Sodium 20 MG Tablet PO (09:14)
[2020-12-12] MEDS: Ranolazine 500 MG Tablet PO (09:14)
--- NOTE | 2020-12-12 11:45 | PCM.PN.HOSP ---
Subjective Subjective Thus far tolerating 6 liters NC. Not normally on oxygen, but was using it at home for the preceding days. Did not get the vaccine because he was concerned how it would affect him in his advanced COPD. Objective Data Objective Data Vital Signs: Vital Signs Temp Pulse Resp BP Pulse Ox 36.6 C 72 20 H 110/77 90 12/12/20 11:29 12/12/20 11:29 12/12/20 11:29 12/12/20 11:29 12/12/20 11:29 Oxygen Flow Rate (L/min) 6 Oxygen Delivery Method Nasal Cannula Weight: 76.884 kg Body Mass Index (BMI) 22.4 Intake & Output: Intake and Output for Last 24 Hours 12/10/20 12/11/20 12/12/20 23:59 23:59 23:59 Intake Total 1528.75 / 1528.75 Output Total 600 / 600 Balance 928.75 / 928.75 Lab / Micro Data Result Diagrams: 12/12/20 04:50 12/11/20 20:13 Labs: Laboratory Results - last 24 hr 12/11/20 20:13: WBC 7.7, RBC 5.58, Hgb 17.1 H, Hct 53.1, MCV 95.2 H, MCH 30.6, MCHC 32.2, RDW Std Deviation 44.9 H, RDW Coeff of Rosalinda 12.6, Plt Count 188, MPV 10.2, Immature Gran % (Auto) 0.600, Neut % (Auto) 78.1 H, Lymph % (Auto) 16.5 L, Villalba % (Auto) 4.5, Eos % (Auto) 0.0, Baso % (Auto) 0.3, Absolute Neuts (auto) 6.0, Absolute Lymphs (auto) 1.28, Nucleated RBC % 0 12/11/20 20:13: D-Dimer Quant (PE/DVT) 1.49 H* 12/11/20 20:13: Sodium 139, Potassium 3.6, Chloride 101, Carbon Dioxide 31.0, Anion Gap 7, BUN 27 H, Creatinine 1.28, Estim Creat Clear Calc 54.73, Est GFR (MDRD) Af Amer 70, Est GFR (MDRD) Non-Af 58 L, BUN/Creatinine Ratio 21.1 H, Glucose 115 H, Calcium 9.4 12/11/20 20:13: Lactic Acid 3.4 H* 12/11/20 20:13: Troponin I High Sens 31 12/12/20 01:00: Lactic Acid 1.3 12/12/20 01:30: Total Bilirubin 0.90, Direct Bilirubin 0.40 H, AST 47 H, ALT 28, Alkaline Phosphatase 74, Total Protein 7.9, Albumin 3.3, Globulin 4.6 H 12/12/20 04:50: WBC 4.6, RBC 4.73, Hgb 14.5, Hct 44.5, MCV 94.1 H, MCH 30.7, MCHC 32.6, RDW Std Deviation 43.8, RDW Coeff of Rosalinda 12.6, Plt Count 162, MPV 10.1, Immature Gran % (Auto) 0.400, Neut % (Auto) 89.6 H, Lymph % (Auto) 7.0 L, Villalba % (Auto) 2.8, Eos % (Auto) 0.0, Baso % (Auto) 0.2, Absolute Neuts (auto) 4.1, Absolute Lymphs (auto) 0.32 L, Nucleated RBC % 0 Radiography Diagnostic Testing: Radiology Impression Chest X-Ray 12/11/20 20:50 IMPRESSION: Interstitial scarring at the lung bases with emphysematous change in lung apices. This is not significantly changed from the reference exam. at 8753 Reported and signed by: Eliseo Robin MD Electronically Signed: Eliseo Robin MD at 21:48 EDT Tel , Service support , Chest CTA 12/11/20 21:47 IMPRESSION: 1. No evidence of pulmonary embolus. 2. Emphysematous changes in the lung apices with scarring in the lung bases. Individualized dose optimization techniques were used for this CT. at 1330 Reported and signed by: Eliseo Robin MD Electronically Signed: Eliseo Robin MD at 23:15 EDT Tel , Service support , Physical Exam Const alert Constitutional Narrative: lying on left side. no respiratory distress. no conversational dyspnea. Resp Resp Narrative: diminished bs bilaterally. no wheezes Cardio regular rate, regular rhythm, S1 normal heart sound and S2 normal heart sound GI normal to inspection, nondistended, normoactive bowel sounds, soft to palpation, non-tender and non-distended Extremity normal to inspection Assessment & Plan Assessment/Plan (1) Acute on chronic respiratory failure with hypoxemia: PLAN: 1. acute hypoxic respiratory failure 2/2 COVID 19 and advanced COPD Reviewed CT and pt has diffuse GGO and marked emphysematous changes so far tolerating 6liters, but informed pt he is a high risk for decompensation wean oxygen as able continue BDs 2. Acute COVID 19 onset 12/06 continue remdesivir and dexamethasone 3. Stage 4 COPD complicates prognosis and recovery Maintain pulse ox in low 90s to mitigate CO2 retention 4. CAD stable continue ASA, clopidogrel, ranolazine 5. VTE prophylaxis: LMWH Advanced care planning: Spent an additional 20 discussed with the patient about CODE STATUS. Verify that patient is DNR Comfort Care arrest no intubation. Patient advised that he could change his mind at any time. Charges/Coding Visit Charges Inpatient E&M: 85128 Subs Hosp L2 Procedures Hospitalists Procedures: 96012 Advncd Care Plan 30 Min
[2020-12-12] MEDS: Pravastatin 80 MG Tablet PO (21:52)
[2020-12-13] VITALS (11 sets, daily range): BP systolic 109–153; BP diastolic 58–95; PULSE 60–75; RESP 18–22; TEMP 36.3–36.7; O2SAT 89–94
[2020-12-13 07:02] LABS: Absolute Neutrophil Count 9.7 X10^3/uL (2.0-7.7); Basophil# 0.01 X10^3/uL; Basophil% 0.1 % (0-1); Hematocrit 41.1 % (40-54); Hemoglobin 13.9 g/dL (13.0-16.5); Lymphocyte % 5.5 % (19-41); Mean Corp Hgb Conc 33.8 g/dL (32-36); Mean Corpuscular Hgb 31.2 pg (27.0-32.0); Mean Corpuscular Volume 92.2 fL (80-94); Mean Platelet Vol. 9.6 fl (6.2-12.0); Monocyte# 0.62 X10^3/uL; Monocyte% 5.7 % (0-10); NRBC Flagged by Analyzer 0 % (0-5); Neutrophil # 9.65 X10^3/uL (2.7-7.7); POSITIVE DIFFERENTIAL YES; Platelet Count 220 K/mm3 (150-450); RBC Distribution Width CV 12.3 % (11.6-14.6); RBC Distribution Width SD 42.1 fl (35.1-43.9); Red Blood Count 4.46 M/mm3 (4.6-6.2)
[2020-12-13 07:14] LABS: Differential Indicated SCAN CRITERIA MET
[2020-12-13 07:36] LABS: ALB/GLOB Ratio 0.7 RATIO (0.9-2.4); AST(SGOT) 34 U/L (15-37); Alanine Aminotransfer ALT/SGPT 21 U/L (16-61); Albumin, Serum 2.3 g/dL (3.2-5.0); Alkaline Phosphatase 55 U/L (45-117); Anion Gap 5 (5-15); BUN 26 mg/dL (7-18); BUN/Creat Ratio 33.8 RATIO (10-20); Calcium,Total 8.4 mg/dL (8.5-10.1); Chloride 105 mmol/L (98-107); Creatinine, Serum 0.77 mg/dL (0.70-1.30); EST Glomerular Filtration Rate 105 mL/min (>60); Est Glom Filt Rate - Afr Amer 127 mL/min (>60); Estimated Creatinine Clearance 69.41 ml/min; Globulin 3.4 g/dL (2.2-4.2); Glucose 117 mg/dL (74-106); Potassium 3.1 mmol/L (3.5-5.1); Protein, Total 5.7 g/dL (6.4-8.2); Sodium Level 139 mmol/L (136-145)
[2020-12-13] MEDS: Ascorbic Acid 500 MG Tablet 1000 MG PO (08:28)
[2020-12-13] MEDS: Ranolazine 500 MG Tablet PO (08:28)
[2020-12-13] MEDS: Enoxaparin 30 MG/0.3 ML Syringe SC ×2 (08:29→21:07)
[2020-12-13] MEDS: dexAMETHasone 2 MG TABLET 6 MG PO (08:29)
[2020-12-13] MEDS: guaiFENesin 600 MG Tablet PO ×2 (08:29→21:08)
[2020-12-13] MEDS: dilTIAZem CD 120 MG Capsule PO (08:29)
[2020-12-13] MEDS: Clopidogrel Bisulfate 75 MG Tablet PO (08:29)
[2020-12-13] MEDS: Aspirin 81 MG TAB.CHEW PO (08:29)
[2020-12-13] MEDS: Pantoprazole Sodium 20 MG Tablet PO (08:29)
[2020-12-13] MEDS: Cholecalciferol (VIT D3) 25 MCG TABLET (1,000 UNITS) PO (08:29)
--- NOTE | 2020-12-13 12:35 | CASEMGMT ---
JP NOGUEIRA Assessment: Face to Face with pt for initial transition planning/care coordination assessment. JP NOGUEIRA introduced self and role at [facility], pt voices understanding and consents to assessment. Pt is A/O x4 and answers all questions appropriately at this time. Pt lying in bed with O2 on in no distress. Care providers, pharmacy, and demographics verified/updated. Admitting Dx:Acute hypoxemic resp failure secondary to COVID 19 PCP: Ander Specialists: Shannon, cardio; misti Madison Preferred Pharmacy: [facility] Insurance: [place] [facility] Prescription Benefit: yes LW/HPOA: Pt has DPOA on file at [facility]. His DPOA is his Trini Higginbotham. He is aware that his LW is not on file and he may have it brought in to be scanned into the chart. LNOK: Trini Higginbotham, Living Arrangements: Pt lives with in a single story house with 1 step to enter. Pt reports being I in ADL's and denies concerns at home. Transportation: Pt drives self and denies concerns with transportation. DME/HHC/SNF: Pt has a cane, scooter, O2 concentrator, CPAP and pulse ox at home. Pt uses [employer]. Pt denies hx of HHC or SNF stays. Pt reports he was first tested at [facility] for COVID. He states he can quarantine from his by using separate bedrooms and bathrooms. Pt has family who can provide him with groceries and supplies. Pt has portable O2 he can have his bring in upon dc to use to dc home. Pt states no concerns with going home at time of dc. Pt states no further concerns/needs. CM to follow. Advised pt to ask CM if any further question/concerns/needs arise, voices understanding. Pt Goal: Home Plan: Home
--- NOTE | 2020-12-13 14:58 | CASEMGMT ---
TC to [facility] to verify pt O2 order. Spoke with Devonte, pt ordered 2L with exertion.
--- NOTE | 2020-12-13 15:16 | PN.HOSP_ITS ---
Subjective Subjective Feels ill. No worsening shortness of breath. Objective Data Objective Data Vital Signs: Vital Signs Temp Pulse Resp BP Pulse Ox 36.7 C 68 20 H 118/59 L 91 12/13/20 13:00 12/13/20 13:00 12/13/20 13:00 12/13/20 13:00 12/13/20 13:00 Oxygen Flow Rate (L/min) 8 Oxygen Delivery Method Nasal Cannula Weight: 76.884 kg Body Mass Index (BMI) 22.4 Intake & Output: Intake and Output for Last 24 Hours 12/11/20 12/12/20 12/13/20 23:59 23:59 23:59 Intake Total 2078.75 / 2078.75 600 / 600 Output Total 800 / 1000 850 / 850 Balance 1278.75 / 1078.75 -250 / -250 Medical Nutrition Assessment Dietitian: Malnutrition Criteria Met Start: 12/12/20 12:58 Freq: Status: Active Protocol: Document 12/12/20 12:58 JAZZ (Rec: 12/12/20 12:58 [facility] [id number]) Nutrition Malnutrition Evidence of Malnutrition Exists Yes Malnutrition (severe): Acute Illness/Injury Evidenced By Suboptimal Energy Intake ( Severe),Weight Loss (Severe) Clinical Problem Acute Disease or Injury Related Malnutrition Etiology related to acute illness ( covid and resp failure) w/ pt having inability to consume adequate nutrition to meet est nutritional needs Signs/Symptoms as evidenced by po intake <50 x >5 days and 5.9% wt loss x 1 week Status Active Problem Recommendation Dietitian Recommendations/Changes Will liberalize diet to Regular w/ 8 oz ensure enlive w/ meals d/t signs and symptoms of malnutrition Lab / Micro Data Result Diagrams: 12/13/20 06:35 12/13/20 06:35 Labs: Laboratory Results - last 24 hr 12/13/20 06:35: WBC 11.0, RBC 4.46 L, Hgb 13.9, Hct 41.1, MCV 92.2, MCH 31.2, MCHC 33.8, RDW Std Deviation 42.1, RDW Coeff of Rosalinda 12.3, Plt Count 220, MPV 9.6, Immature Gran % (Auto) 0.700, Neut % (Auto) 88.0 H, Lymph % (Auto) 5.5 L, [place] % (Auto) 5.7, Eos % (Auto) 0.0, Baso % (Auto) 0.1, Absolute Neuts (auto) 9.7 H, Absolute Lymphs (auto) 0.60 L, Nucleated RBC % 0, Differential Comment COMMENT 12/13/20 06:35: Sodium 139, Potassium 3.1 L, Chloride 105, Carbon Dioxide 29.0, Anion Gap 5, BUN 26 H, Creatinine 0.77, Estim Creat Clear Calc 69.41, Est GFR (MDRD) Af Amer 127, Est GFR (MDRD) Non-Af 105, BUN/Creatinine Ratio 33.8 H, Glucose 117 H, Calcium 8.4 L, Total Bilirubin 0.50, AST 34, ALT 21, Alkaline Phosphatase 55, Total Protein 5.7 L, Albumin 2.3 L, Globulin 3.4, Albumin/Globulin Ratio 0.7 L Physical Exam Const alert and no apparent distress Constitutional Narrative: flat affect. no respiratory distress. no conversational dyspnea. HEENT Head and Scalp: normocephalic Neck no lymphadenopathy Resp no retractions and no use of accessory muscles Resp Narrative: diminished. Cardio regular rate, regular rhythm, S1 normal heart sound and S2 normal heart sound GI normal to inspection, nondistended, normoactive bowel sounds, soft to palpation, non-tender and non-distended Neuro Sensorium / Orientation: awake and alert Assessment & Plan Assessment/Plan (1) Acute on chronic respiratory failure with hypoxemia: (2) COVID-19: (3) Stage 4 very severe COPD by GOLD classification: PLAN: 1. acute hypoxic respiratory failure * 2/2 COVID 19 and advanced COPD * Reviewed CT and pt has diffuse GGO and marked emphysematous changes * he is a high risk for decompensation * wean oxygen as able * continue BDs * maintain sats in low 90s * 12/12: 6liters * 12/13: 8 liters 2. Acute COVID 19 * onset 12/06 * continue remdesivir and dexamethasone * not candidate for barcitinib 3. Stage 4 COPD * complicates prognosis and recovery * Maintain pulse ox in low 90s to mitigate CO2 retention 4. CAD * stable * continue ASA, clopidogrel, ranolazine 5. VTE prophylaxis: LMWH 6. Code Status: reviewed 12/12: DNRCCA, DNI. Charges/Coding Visit Charges Inpatient E&M: 38914 Subs Hosp L2
--- NOTE | 2020-12-13 15:25 | CHAPLAIN ---
Type of Pastoral Visit ___ Initial Visit ___ Follow-up Visit ___ On-call Visit ___ General Patient Visit ___ Spiritual Assessment ___ Family Conference ___ Bereavement ___ Rapid Response ___ Code Blue _x__ Other (describe below) Pastoral Care Referral From _x__ Patient ___ Family ___ Nurse ___ Physician ___ Table Games Shift Manager ___ Nailhead Puncher ___ Other (describe below) Sacrament/Intervention ___ Active listening ___ Anointing ___ Taoism ___ Bereavement ___ Communion ___ Armida exploration ___ ___ Life review ___ Prayer ___ Reconciliation ___ Sacrament of Sick ___ Supportive presence ___ Wedding ___ Other (describe below) Pastoral Comments phone call into isolation room; pt answers phone but explains that it will be difficult to talk since he just finished with therapy and is now winded; just offered pt the opportunity to pray for him and he agreed; gave pt assurance that I was here for his support and comfort
[2020-12-13] MEDS: MELATONIN 3 MG TABLET PO (22:10)
[2020-12-13] MEDS: 0.9% Saline Lock 10 ML Syringe IV (22:10)
--- NOTE | 2020-12-13 23:09 | CPS ---
Own CPAP setup at bedside with 8L O2 bled in. Patient's home machine set at a CPAP of 13.
[2020-12-14 02:10] VITALS: BP 150/79; PULSE 79; RESP 20; TEMP 36.6; O2SAT 95
[2020-12-14 06:48] LABS: Absolute Lymphocyte Count 0.52 X10^3/uL (0.83-4.51); Absolute Neutrophil Count 13.2 X10^3/uL (2.0-7.7); Basophil# 0.01 X10^3/uL; Basophil% 0.1 % (0-1); Hematocrit 41.6 % (40-54); Hemoglobin 13.7 g/dL (13.0-16.5); Lymphocyte # 0.52 X10^3/ul (0.83-4.51); Lymphocyte % 3.6 % (19-41); Mean Corp Hgb Conc 32.9 g/dL (32-36); Mean Corpuscular Hgb 30.6 pg (27.0-32.0); Mean Corpuscular Volume 93.1 fL (80-94); Mean Platelet Vol. 9.8 fl (6.2-12.0); Monocyte# 0.64 X10^3/uL; Monocyte% 4.4 % (0-10); NRBC Flagged by Analyzer 0 % (0-5); Neutrophil # 13.22 X10^3/uL (2.7-7.7); Neutrophil % 90.5 % (47-70); POSITIVE DIFFERENTIAL YES; Platelet Count 258 K/mm3 (150-450); RBC Distribution Width CV 12.4 % (11.6-14.6); RBC Distribution Width SD 42.7 fl (35.1-43.9); Red Blood Count 4.47 M/mm3 (4.6-6.2); White Blood Count 14.6 K/mm3 (4.4-11.0)
[2020-12-14 07:12] LABS: Differential Indicated SCAN CRITERIA MET
[2020-12-14 07:20] VITALS: O2SAT 94
[2020-12-14 07:20] LABS: ALB/GLOB Ratio 0.7 RATIO (0.9-2.4); AST(SGOT) 33 U/L (15-37); Alanine Aminotransfer ALT/SGPT 22 U/L (16-61); Albumin, Serum 2.2 g/dL (3.2-5.0); Alkaline Phosphatase 57 U/L (45-117); Anion Gap 3 (5-15); BUN 29 mg/dL (7-18); BUN/Creat Ratio 38.6 RATIO (10-20); Calcium,Total 8.5 mg/dL (8.5-10.1); Chloride 105 mmol/L (98-107); Creatinine, Serum 0.75 mg/dL (0.70-1.30); EST Glomerular Filtration Rate 107 mL/min (>60); Est Glom Filt Rate - Afr Amer 130 mL/min (>60); Estimated Creatinine Clearance 69.41 ml/min; Globulin 3.3 g/dL (2.2-4.2); Glucose 121 mg/dL (74-106); Potassium 3.6 mmol/L (3.5-5.1); Protein, Total 5.5 g/dL (6.4-8.2); Sodium Level 140 mmol/L (136-145)
[2020-12-14 08:16] VITALS: PULSE 70
--- NOTE | 2020-12-14 09:56 | CASEMGMT ---
Social Work Note Per paper bags sewing machine operator questions, pt has completed HCPOA and LW and provided documents to [facility]. HCPOA is on file, SW printed off documents and placed on pt's chart. RN CM updated pt that LW is not on file. Ayleen Bee SCREEDMAN/LABORER, TRAINING AND DEVELOPMENT ASSISTANT
[2020-12-14] MEDS: Enoxaparin 30 MG/0.3 ML Syringe SC ×2 (10:06→20:37)
[2020-12-14] MEDS: dexAMETHasone 2 MG TABLET 6 MG PO (10:06)
[2020-12-14] MEDS: Pantoprazole Sodium 20 MG Tablet PO (10:07)
[2020-12-14] MEDS: Ranolazine 500 MG Tablet PO (10:07)
[2020-12-14] MEDS: guaiFENesin 600 MG Tablet PO ×2 (10:07→20:38)
[2020-12-14] MEDS: Clopidogrel Bisulfate 75 MG Tablet PO (10:07)
[2020-12-14] MEDS: dilTIAZem CD 120 MG Capsule PO (10:07)
[2020-12-14] MEDS: Ascorbic Acid 500 MG Tablet 1000 MG PO (10:07)
[2020-12-14] MEDS: Cholecalciferol (VIT D3) 25 MCG TABLET (1,000 UNITS) PO (10:07)
[2020-12-14] MEDS: Aspirin 81 MG TAB.CHEW PO (10:08)
[2020-12-14 11:19] VITALS: O2SAT 90
[2020-12-14 13:28] VITALS: BP 125/67; PULSE 66; RESP 12; TEMP 36.4; O2SAT 95
[2020-12-14] MEDS: NYSTATIN 500,000 UNIT/5 ML UDC 500000 UNIT PO ×3 (13:32→20:37)
--- NOTE | 2020-12-14 16:40 | PN.HOSP_ITS ---
Subjective Subjective Feels more tired today. Objective Data Objective Data Vital Signs: Vital Signs Temp Pulse Resp BP Pulse Ox 36.4 C L 66 12 125/67 H 95 12/14/20 13:28 12/14/20 13:28 12/14/20 13:28 12/14/20 13:28 12/14/20 13:28 Oxygen Flow Rate (L/min) 10 Oxygen Delivery Method Nasal Cannula Weight: 76.884 kg Body Mass Index (BMI) 22.4 Intake & Output: Intake and Output for Last 24 Hours 12/12/20 12/13/20 12/14/20 23:59 23:59 23:59 Intake Total 2078.75 / 2078.75 880 / 880 277.5 / 277.5 Output Total 800 / 1000 1300 / 1300 400 / 400 Balance 1278.75 / 1078.75 -420 / -420 -122.5 / -122.5 Medical Nutrition Assessment Dietitian: Malnutrition Criteria Met Start: 12/12/20 12:58 Freq: Status: Active Protocol: Document 12/12/20 12:58 JAZZ (Rec: 12/12/20 12:58 [facility] [id number]) Nutrition Malnutrition Evidence of Malnutrition Exists Yes Malnutrition (severe): Acute Illness/Injury Evidenced By Suboptimal Energy Intake ( Severe),Weight Loss (Severe) Clinical Problem Acute Disease or Injury Related Malnutrition Etiology related to acute illness ( covid and resp failure) w/ pt having inability to consume adequate nutrition to meet est nutritional needs Signs/Symptoms as evidenced by po intake <50 x >5 days and 5.9% wt loss x 1 week Status Active Problem Recommendation Dietitian Recommendations/Changes Will liberalize diet to Regular w/ 8 oz ensure enlive w/ meals d/t signs and symptoms of malnutrition Lab / Micro Data Result Diagrams: 12/14/20 06:00 12/14/20 06:00 Labs: Laboratory Results - last 24 hr 12/14/20 06:00: WBC 14.6 H, RBC 4.47 L, Hgb 13.7, Hct 41.6, MCV 93.1, MCH 30.6, MCHC 32.9, RDW Std Deviation 42.7, RDW Coeff of Rosalinda 12.4, Plt Count 258, MPV 9 .8, Immature Gran % (Auto) 1.400 H, Neut % (Auto) 90.5 H, Lymph % (Auto) 3.6 L, [place] % (Auto) 4.4, Eos % (Auto) 0.0, Baso % (Auto) 0.1, Absolute Neuts (auto) 13.2 H, Absolute Lymphs (auto) 0.52 L, Nucleated RBC % 0 12/14/20 06:00: Sodium 140, Potassium 3.6, Chloride 105, Carbon Dioxide 32.0, Anion Gap 3 L, BUN 29 H, Creatinine 0.75, Estim Creat Clear Calc 69.41, Est GFR (MDRD) Af Amer 130, Est GFR (MDRD) Non-Af 107, BUN/Creatinine Ratio 38.6 H, Glucose 121 H, Calcium 8.5, Total Bilirubin 0.60, AST 33, ALT 22, Alkaline Phosphatase 57, Total Protein 5.5 L, Albumin 2.2 L, Globulin 3.3, Albumin/Globulin Ratio 0.7 L Micro: Microbiology 12/11/20 20:13 Blood Culture (Wb) - No Site/Description Given Blood Culture - Preliminary No growth in 48 hours. Physical Exam Narrative Sitting up in a chair 8 L of oxygen and pulse ox is around 89%. Const alert Constitutional Narrative: Listless. Afebrile. Resp no use of accessory muscles Resp Narrative: Diminished breath sounds bilaterally. Cardio regular rate, regular rhythm, S1 normal heart sound and S2 normal heart sound GI normal to inspection, nondistended, normoactive bowel sounds, soft to palpation, non-tender and non-distended Extremity normal to inspection Skin no rashes or lesions noted Assessment & Plan Assessment/Plan (1) Acute on chronic respiratory failure with hypoxemia: (2) COVID-19: (3) Stage 4 very severe COPD by GOLD classification: PLAN: 1. acute hypoxic respiratory failure * 2/2 COVID 19 and advanced COPD * Reviewed CT and pt has diffuse GGO and marked emphysematous changes * he is a high risk for decompensation * wean oxygen as able * continue BDs * maintain sats in low 90s * 12/12: 6liters * 12/13: 8 liters * 12/14: 10 liters 2. Acute COVID 19 * onset 12/06 * continue remdesivir and dexamethasone * not candidate for barcitinib 3. Stage 4 COPD * complicates prognosis and recovery * Maintain pulse ox in low 90s to mitigate CO2 retention * Reviewing his CAT scan images that is he does have patchy infiltrates consistent with Covid but is not as severe and profound. I feel much of his respiratory issues are more trivial to his COPD, at least at this point time. 4. CAD * stable * continue ASA, clopidogrel, ranolazine 5. VTE prophylaxis: LMWH 6. Code Status: reviewed 12/12: DNRCCA, DNI. Charges/Coding Visit Charges Inpatient E&M: 42373 Subs Hosp L2
[2020-12-14 20:30] VITALS: BP 142/71; PULSE 75; RESP 20; TEMP 36.7; O2SAT 92
[2020-12-14] MEDS: Benzonatate 100 MG Capsule PO (20:38)
[2020-12-14] MEDS: Pravastatin 80 MG Tablet PO (20:38)
[2020-12-14] MEDS: MELATONIN 3 MG TABLET PO (20:38)
[2020-12-14] MEDS: 0.9% Saline Lock 10 ML Syringe IV (20:40)
[2020-12-15] VITALS (11 sets, daily range): BP systolic 133–144; BP diastolic 69–81; PULSE 60–74; RESP 18–26; TEMP 36.4–36.8; O2SAT 89–96
[2020-12-15 07:04] LABS: Absolute Lymphocyte Count 0.55 X10^3/uL (0.83-4.51); Absolute Neutrophil Count 13.2 X10^3/uL (2.0-7.7); Basophil# 0.06 X10^3/uL; Basophil% 0.4 % (0-1); Eosinophil# 0.07 X10^3/uL; Eosinophils% 0.5 % (0-5); Hematocrit 40.8 % (40-54); Hemoglobin 13.6 g/dL (13.0-16.5); Lymphocyte # 0.55 X10^3/ul (0.83-4.51); Lymphocyte % 3.7 % (19-41); Mean Corp Hgb Conc 33.3 g/dL (32-36); Mean Corpuscular Hgb 30.6 pg (27.0-32.0); Mean Corpuscular Volume 91.9 fL (80-94); Mean Platelet Vol. 9.6 fl (6.2-12.0); Monocyte# 0.68 X10^3/uL; Monocyte% 4.6 % (0-10); NRBC Flagged by Analyzer 0 % (0-5); Neutrophil # 13.24 X10^3/uL (2.7-7.7); Neutrophil % 89.2 % (47-70); POSITIVE DIFFERENTIAL YES; Platelet Count 285 K/mm3 (150-450); RBC Distribution Width CV 12.5 % (11.6-14.6); RBC Distribution Width SD 42.2 fl (35.1-43.9); Red Blood Count 4.44 M/mm3 (4.6-6.2); White Blood Count 14.8 K/mm3 (4.4-11.0)
[2020-12-15 07:06] LABS: Differential Indicated SCAN CRITERIA MET
[2020-12-15 07:45] LABS: ALB/GLOB Ratio 0.7 RATIO (0.9-2.4); AST(SGOT) 32 U/L (15-37); Alanine Aminotransfer ALT/SGPT 26 U/L (16-61); Albumin, Serum 2.2 g/dL (3.2-5.0); Alkaline Phosphatase 59 U/L (45-117); Anion Gap 5 (5-15); BUN 29 mg/dL (7-18); BUN/Creat Ratio 41.5 RATIO (10-20); Calcium,Total 8.1 mg/dL (8.5-10.1); Chloride 104 mmol/L (98-107); EST Glomerular Filtration Rate 117 mL/min (>60); Est Glom Filt Rate - Afr Amer 141 mL/min (>60); Estimated Creatinine Clearance 69.41 ml/min; Globulin 3.1 g/dL (2.2-4.2); Glucose 133 mg/dL (74-106); Potassium 3.6 mmol/L (3.5-5.1); Protein, Total 5.3 g/dL (6.4-8.2); Sodium Level 140 mmol/L (136-145)
[2020-12-15] MEDS: guaiFENesin 600 MG Tablet PO ×2 (08:08→20:43)
[2020-12-15] MEDS: Clopidogrel Bisulfate 75 MG Tablet PO (08:08)
[2020-12-15] MEDS: Pantoprazole Sodium 20 MG Tablet PO (08:08)
[2020-12-15] MEDS: dexAMETHasone 2 MG TABLET 6 MG PO (08:08)
[2020-12-15] MEDS: dilTIAZem CD 120 MG Capsule PO (08:08)
[2020-12-15] MEDS: Cholecalciferol (VIT D3) 25 MCG TABLET (1,000 UNITS) PO (08:08)
[2020-12-15] MEDS: Ranolazine 500 MG Tablet PO (08:08)
[2020-12-15] MEDS: Aspirin 81 MG TAB.CHEW PO (08:08)
[2020-12-15] MEDS: Enoxaparin 30 MG/0.3 ML Syringe SC ×2 (08:08→20:44)
[2020-12-15] MEDS: Ascorbic Acid 500 MG Tablet 1000 MG PO (08:09)
[2020-12-15] MEDS: NYSTATIN 500,000 UNIT/5 ML UDC 500000 UNIT PO ×4 (08:09→20:44)
[2020-12-15] MEDS: 0.9% Saline Lock 10 ML Syringe IV ×2 (08:10→20:44)
--- NOTE | 2020-12-15 09:02 | PN.HOSP_ITS ---
Subjective Subjective Patient was seen and examined. His oxygen requirements has gone up. Currently on Airvo Objective Data Objective Data Vital Signs: Vital Signs Temp Pulse Resp BP Pulse Ox 97.9 F 74 26 H 144/80 H 89 12/15/20 08:19 12/15/20 08:19 12/15/20 08:19 12/15/20 08:19 12/15/20 08:19 Oxygen Flow Rate (L/min) 14 Oxygen Delivery Method Nasal Cannula Weight: 76.884 kg Body Mass Index (BMI) 22.4 Intake & Output: Intake and Output for Last 24 Hours 12/13/20 12/14/20 12/15/20 23:59 23:59 23:59 Intake Total 880 / 880 527.5 / 527.5 Output Total 1300 / 1300 1000 / 1000 250 / 250 Balance -420 / -420 -472.5 / -472.5 -250 / -250 Medical Nutrition Assessment Dietitian: Malnutrition Criteria Met Start: 12/12/20 12:5 8 Freq: Status: Active Protocol: Document 12/12/20 12:58 [facility] (Rec: 12/12/20 12:58 [facility] [id number]) Nutrition Malnutrition Evidence of Malnutrition Exists Yes Malnutrition (severe): Acute Illness/Injury Evidenced By Suboptimal Energy Intake ( Severe),Weight Loss (Severe) Clinical Problem Acute Disease or Injury Related Malnutrition Etiology related to acute illness ( covid and resp failure) w/ pt having inability to consume adequate nutrition to meet est nutritional needs Signs/Symptoms as evidenced by po intake <50 x >5 days and 5.9% wt loss x 1 week Status Active Problem Recommendation Dietitian Recommendations/Changes Will liberalize diet to Regular w/ 8 oz ensure enlive w/ meals d/t signs and symptoms of malnutrition Lab / Micro Data Result Diagrams: 12/15/20 06:41 12/15/20 06:41 Labs: Laboratory Results - last 24 hr 12/15/20 06:41: WBC 14.8 H, RBC 4.44 L, Hgb 13.6, Hct 40.8, MCV 91.9, MCH 30.6, MCHC 33.3, RDW Std Deviation 42.2, RDW Coeff of Rosalinda 12.5, Plt Count 285, MPV 9.6, Immature Gran % (Auto) 1.600 H, Neut % (Auto) 89.2 H, Lymph % (Auto) 3.7 L, [place] % (Auto) 4.6, Eos % (Auto) 0.5, Baso % (Auto) 0.4, Absolute Neuts (auto) 13.2 H, Absolute Lymphs (auto) 0.55 L, Nucleated RBC % 0 12/15/20 06:41: Sodium 140, Potassium 3.6, Chloride 104, Carbon Dioxide 31.0, Anion Gap 5, BUN 29 H, Creatinine 0.70, Estim Creat Clear Calc 69.41, Est GFR (MDRD) Af Amer 141, Est GFR (MDRD) Non-Af 117, BUN/Creatinine Ratio 41.5 H, Glucose 133 H, Calcium 8.1 L, Total Bilirubin 0.70, AST 32, ALT 26, Alkaline Janine sphatase 59, Total Protein 5.3 L, Albumin 2.2 L, Globulin 3.1, Albumin/Globulin Ratio 0.7 L Micro: Microbiology 12/11/20 20:13 Blood Culture (Wb) - No Site/Description Given Blood Culture - Preliminary No growth in 48 hours. Physical Exam Narrative Physical exam: General: Alert, Oriented x3, Cooperative, No apparent distress, in mild respiratory distress, unable HEENT: Atraumatic Oral: Moist Mucosa Neck: Supple Lungs: Diminished to auscultation, crackles at both lung bases Cardiovascular: HS I+II, regular, no murmurs Abdomen: Bowel Sounds Present, Soft, Non Tender Extremities: No edema Assessment & Plan Assessment/Plan (1) Acute on chronic respiratory failure with hypoxemia: (2) COVID-19: (3) Stage 4 very severe COPD by GOLD classification: PLAN: 1. Acute on chronic hypoxic respiratory failure secondary to acute COVID-19 pneumonia In a patient with chronic respiratory failure secondary to COPD; on 3 L of oxygen History of MAGALI on CPAP Patient's oxygenation status is worse; currently on Airvo Confirm patient's CODE STATUS to be DNR CCA Continue on Airvo 2. Acute COVID 19 pneumonia with respiratory failure Patient is currently on remdesivir and dexamethasone Will consult pulmonary and ID 3. Severe protein calorie malnutrition, welder tool and die consulted, on supplements 4. Rest of his chronic medical conditions including CAD status post stent, chronic atrial fibrillation, hypertension, hyperlipidemia, MAGALI remained stable Charges/Coding Visit Charges Inpatient E&M: 36602 Subs Hosp L3
--- NOTE | 2020-12-15 13:33 | EX.PCM.CONCC ---
Assessment & Plan Assessment/Plan (1) COVID-19: PLAN: RECOMMENDATIONS: 1. Continue Airvo heated high flow and wean FiO2 to maintain saturations at or above 90%. 2. Continue remdesivir to complete treatment course. 3. Continue Decadron to complete 10 days of therapy. 4. Continue Lovenox as ordered. 5. Start scheduled bronchodilator therapy. 6. Recommend infectious disease consultation to be considered for possible Simon inhibitor therapy. IMPRESSIONS: 1. Acute on chronic hypoxemic respiratory failure secondary to COVID-19 pneumonia The patient presented to the hospital with less than 10 days of progressive dyspnea and nonproductive cough, having tested positive for coronavirus. Accordingly, I agree with continuing remdesivir to complete 5-day treatment course. Decadron will also be continued to complete a 10-day therapy regimen. Continue Lovenox twice daily. The patient should be placed on scheduled bronchodilator therapy given his underlying lung disease. The patient will be at high risk for further clinical decompensation given his limited respiratory reserve/lung function. 2. History of coronary artery disease/atrial fibrillation/hypertension/hyperlipidemia/MAGALI Complicates care, management, recovery and prognosis. Continue home medications as indicated. This note was generated with [employer] dictation software. It may contain incorrect words, spelling, and punctuation that were not noted in checking the note before signing. HPI Consult Data Date of Consult: 12/16/20 HPI Narrative Reason for Consultation: Acute hypoxemic respiratory failure secondary to COVID-19 pneumonia HPI Narrative: The patient is a 75-year-old male, with a history as outlined below, who presented to the emergency department on December 11 with complaints of worsening dyspnea and nonproductive cough. The patient has a history of stage IV COPD along with chronic hypoxemic respiratory failure with a 2 L/min oxygen requirement, obstructive sleep apnea and prior tobacco dependency. In addition, the patient has known coronary artery disease, paroxysmal atrial fibrillation and abdominal aortic aneurysm. The patient is unvaccinated for coronavirus. On presentation to the emergency department, the patient was noted to be afebrile hemodynamically stable. Initial laboratory evaluation revealed no evidence of a leukocytosis. D-dimer was elevated at 1.49. Chemistry profile was largely unrevealing. Lactate was elevated at 3.4. The patient had initially tested positive for coronavirus on December 09. CTA chest showed no evidence for PE. The patient was initially admitted to the medical surgical floor, where he has been maintained on supplemental oxygen along with remdesivir, Decadron and Lovenox. Over the course of his hospitalization, his oxygenation status has slowly worsened. [facility] Medical History (Updated 12/12/20 @ 02:05 by Lorenza Son) Abdominal aortic aneurysm without rupture Acute DVT (deep venous thrombosis) Atherosclerotic heart disease of alutiiq coronary artery without angina pectoris Atrial fibrillation BPH (benign prostatic hyperplasia) Cancer COPD (chronic obstructive pulmonary disease) Coronary artery disease s/p stents CPAP (continuous positive airway pressure) dependence Essential hypertension Former smoker Hyperlipidemia Kidney stones Myocardial infarct Obstructive sleep apnea syndrome On home oxygen therapy MAGALI (obstructive sleep apnea) Other specified transient cerebral ischemias Respiratory failure with hypoxia Stage 4 very severe COPD by GOLD classification Home Medications albuterol sulfate 1 - 2 puff INHALATION Q4H PRN PRN 09/08/16 [History Last Taken 11/11/19] aspirin 81 mg PO DAILY@0800 09/08/16 [History Last Taken 11/11/19] clopidogrel 75 mg PO DAILY 09/08/16 [History Last Taken 11/11/19] nitroglycerin 0.4 mg sublingual tablet 0.4 mg SUBLINGUAL Q5M PRN 03/16/17 [History Last Taken Unknown] pravastatin 80 mg tablet 80 mg PO QODAY tab 03/16/17 [History Last Taken 11/11/19] cholecalciferol (vitamin D3) 25 mcg (1,000 unit) capsule 25 mcg PO DAILY 07/08/19 [History Last Taken 11/12/19] ipratropium bromide 42 mcg (0.06 %) nasal spray 2 spray INTRANASAL DAILY 07/08/19 [History Last Taken 11/12/19] ascorbic acid (vitamin C) 1,000 mg PO DAILY 11/12/19 [History Last Taken 11/12/19] omeprazole 20 mg PO DAILY 11/12/19 [History Last Taken 11/12/19] vitamin B complex 1 cap PO DAILY 11/12/19 [History Last Taken 11/11/19] diltiazem HCl 120 mg capsule,extended release 24 hr 120 mg PO DAILY #90 cap 05/14/20 [Rx Last Taken Unknown] ranolazine 500 mg tablet,extended release,12 hr 500 mg PO DAILY #90 tab 05/14/20 [Rx Last Taken Unknown] Disability Placard #1 ea 03/12/21 [Rx Last Taken Unknown] budesonide 160 mcg-glycopyr 9 mcg-formot 4.8 mcg/actuation HFA inhaler 2 inh INHALATION BID #10.7 g 10/08/20 [Rx Last Taken Unknown] tiotropium bromide [Spiriva Respimat] 2 inh INHALATION DAILY 12/11/20 [History Last Taken Unknown] Allergy/AdvReac Type Severity Reaction Status Date / Time Sulfa (Sulfonamide Allergy Chest Verified 12/11/20 20:00 Antibiotics) tightness Family History Father CHF (congestive heart failure) Mother CVA (cerebral vascular accident) Heart aneurysm Surgical History History of inguinal herniorrhaphy Social History Smoking Status: Former smoker how long ago did patient quit smokin alcohol intake: never substance use type: does not use caffeine: No what type of physical activity do you participate in: none seatbelt use: always do you feel safe at home: Yes ROS Constitutional Constitutional: Reports fatigue and malaise Eyes Eyes: Denies blurry vision or change in vision ENT HEENT: Denies dizziness, hoarseness or loss taste/smell Cardiovascular Cardiovascular: Reports dyspnea; Denies chest pain Respiratory/Chest Respiratory/Chest: Reports cough and dyspnea Gastrointestinal Gastrointestinal: Denies abdominal pain, diarrhea, nausea or vomiting Genitourinary Genitourinary: Denies difficulty urinating Musculoskeletal Musculoskeletal: Denies arthralgias, back pain or joint pain Integumentary Integumentary: Reports rash; Denies lesions or skin ulcer Neurologic Neurologic: Denies abnormal gait or abnormal speech Psychiatric Psychiatric: Denies anxiety or depression Endocrine Endocrinology: Reports fatigue Hematologic/Lymphatic Hematologic/Lymphatic: Denies easy bleeding or easy bruising Physical Exam Const alert and no apparent distress General Appearance: cooperative HEENT normocephalic, head/scalp atraumatic and moist oral mucous membranes Eyes PERRL, EOMs intact bilaterally and conjunctivae normal Neck supple General: trachea midline Chest inspection of chest normal Resp Effort and Inspection: able to speak in complete sentences Auscultation: diminished lung sounds; Negative for rales, rhonchi or wheezes Cardio regular rate and regular rhythm GI normal to inspection, nondistended, normoactive bowel sounds Extremity no clubbing, cyanosis or edema Skin no rashes or lesions noted Neuro CN's II-XII intact bilaterally, moves all extremities and no focal motor deficits Psych cooperative and affect normal Medical Records Data Medical Nutrition Assessment Dietitian: Malnutrition Criteria Met Start: 12/12/20 12:58 Freq: Status: Active Protocol: Document 12/12/20 12:58 [facility] (Rec: 12/12/20 12:58 [facility] [id number]) Nutrition Malnutrition Evidence of Malnutrition Exists Yes Malnutrition (severe): Acute Illness/Injury Evidenced By Suboptimal Energy Intake ( Severe),Weight Loss (Severe) Clinical Problem Acute Disease or Injury Related Malnutrition Etiology related to acute illness ( covid and resp failure) w/ pt having inability to consume adequate nutrition to meet est nutritional needs Signs/Symptoms as evidenced by po intake <50 x >5 days and 5.9% wt loss x 1 week Status Active Problem Recommendation Dietitian Recommendations/Changes Will liberalize diet to Regular w/ 8 oz ensure enlive w/ meals d/t signs and symptoms of malnutrition Lab / Micro Data Result Diagrams: 12/16/20 06:10 12/16/20 06:10 Labs: Laboratory Results - last 24 hr 12/15/20 06:41: WBC 14.8 H, RBC 4.44 L, Hgb 13.6, Hct 40.8, MCV 91.9, MCH 30.6, MCHC 33.3, RDW Std Deviation 42.2, RDW Coeff of Rosalinda 12.5, Plt Count 285, MPV 9.6, Immature Gran % (Auto) 1.600 H, Neut % (Auto) 89.2 H, Lymph % (Auto) 3.7 L, [place] % (Auto) 4.6, Eos % (Auto) 0.5, Baso % (Auto) 0.4, Absolute Neuts (auto) 13.2 H, Absolute Lymphs (auto) 0.55 L, Nucleated RBC % 0 12/15/20 06:41: Sodium 140, Potassium 3.6, Chloride 104, Carbon Dioxide 31.0, Anion Gap 5, BUN 29 H, Creatinine 0.70, Estim Creat Clear Calc 69.41, Est GFR (MDRD) Af Amer 141, Est GFR (MDRD) Non-Af 117, BUN/Creatinine Ratio 41.5 H, Glucose 133 H, Calcium 8.1 L, Total Bilirubin 0.70, AST 32, ALT 26, Alkaline Phosphatase 59, Total Protein 5.3 L, Albumin 2.2 L, Globulin 3.1, Albumin/Globulin Ratio 0.7 L Charges/Coding Visit Charges Inpatient E&M: 62158 Init Hosp L3
[2020-12-15] MEDS: MELATONIN 3 MG TABLET PO (20:43)
--- NOTE | 2020-12-15 23:33 | CPS ---
Patient on home CPAP for sleep tonight. 10L O2 bled into machine
[2020-12-16] VITALS (14 sets, daily range): BP systolic 132–159; BP diastolic 74–137; PULSE 73–88; RESP 18–24; TEMP 36.2–36.8; O2SAT 89–98
[2020-12-16 06:22] LABS: Absolute Lymphocyte Count 0.56 X10^3/uL (0.83-4.51); Absolute Neutrophil Count 15.2 X10^3/uL (2.0-7.7); Basophil# 0.09 X10^3/uL; Basophil% 0.5 % (0-1); Hematocrit 42.2 % (40-54); Hemoglobin 14.2 g/dL (13.0-16.5); Lymphocyte # 0.56 X10^3/ul (0.83-4.51); Lymphocyte % 3.2 % (19-41); Mean Corp Hgb Conc 33.6 g/dL (32-36); Mean Corpuscular Hgb 31.3 pg (27.0-32.0); Mean Platelet Vol. 9.5 fl (6.2-12.0); Monocyte% 5.7 % (0-10); NRBC Flagged by Analyzer 0 % (0-5); Neutrophil % 86.6 % (47-70); POSITIVE DIFFERENTIAL YES; Platelet Count 323 K/mm3 (150-450); RBC Distribution Width CV 12.5 % (11.6-14.6); RBC Distribution Width SD 42.6 fl (35.1-43.9); Red Blood Count 4.54 M/mm3 (4.6-6.2); White Blood Count 17.6 K/mm3 (4.4-11.0)
[2020-12-16 06:34] LABS: Differential Indicated SCAN CRITERIA MET
[2020-12-16 07:06] LABS: ALB/GLOB Ratio 0.7 RATIO (0.9-2.4); AST(SGOT) 32 U/L (15-37); Alanine Aminotransfer ALT/SGPT 32 U/L (16-61); Albumin, Serum 2.1 g/dL (3.2-5.0); Alkaline Phosphatase 65 U/L (45-117); Anion Gap 5 (5-15); BUN 30 mg/dL (7-18); Chloride 103 mmol/L (98-107); Creatinine, Serum 0.72 mg/dL (0.70-1.30); EST Glomerular Filtration Rate 114 mL/min (>60); Est Glom Filt Rate - Afr Amer 138 mL/min (>60); Estimated Creatinine Clearance 69.41 ml/min; Globulin 3.2 g/dL (2.2-4.2); Glucose 136 mg/dL (74-106); Potassium 3.9 mmol/L (3.5-5.1); Protein, Total 5.3 g/dL (6.4-8.2); Sodium Level 139 mmol/L (136-145)
[2020-12-16] MEDS: Enoxaparin 30 MG/0.3 ML Syringe SC ×2 (08:31→20:51)
[2020-12-16] MEDS: NYSTATIN 500,000 UNIT/5 ML UDC 500000 UNIT PO ×4 (08:31→20:51)
[2020-12-16] MEDS: Pantoprazole Sodium 20 MG Tablet PO (08:32)
[2020-12-16] MEDS: Ranolazine 500 MG Tablet PO (08:32)
[2020-12-16] MEDS: dilTIAZem CD 120 MG Capsule PO (08:32)
[2020-12-16] MEDS: Clopidogrel Bisulfate 75 MG Tablet PO (08:32)
[2020-12-16] MEDS: Ascorbic Acid 500 MG Tablet 1000 MG PO (08:32)
[2020-12-16] MEDS: Aspirin 81 MG TAB.CHEW PO (08:33)
[2020-12-16] MEDS: guaiFENesin 600 MG Tablet PO ×2 (08:33→20:51)
[2020-12-16] MEDS: dexAMETHasone 2 MG TABLET 6 MG PO (08:33)
[2020-12-16] MEDS: Cholecalciferol (VIT D3) 25 MCG TABLET (1,000 UNITS) PO (08:35)
[2020-12-16] MEDS: 0.9% Saline Lock 10 ML Syringe IV (11:00)
[2020-12-16] MEDS: Furosemide 40 MG/4 ML Vial IV (11:00)
--- NOTE | 2020-12-16 12:08 | PN.HOSP_ITS ---
Subjective Subjective Patient was seen and examined. His oxygen requirement had gone up. He is saturating in the low 80s on Airvo. Objective Data Objective Data Vital Signs: Vital Signs Temp Pulse Resp BP Pulse Ox 97.9 F 77 20 H 159/137 H 96 12/16/20 08:30 12/16/20 08:30 12/16/20 11:18 12/16/20 08:30 12/16/20 09:30 Oxygen Flow Rate (L/min) 11 Oxygen Delivery Method Airvo Weight: 76.884 kg Body Mass Index (BMI) 22.4 Intake & Output: Intake and Output for Last 24 Hours 12/14/20 12/15/20 12/16/20 23:59 23:59 23:59 Intake Total 527.5 / 527.5 1251.25 / 1251.25 Output Total 1000 / 1000 1700 / 1700 400 / 400 Balance -472.5 / -472.5 -448.75 / -448.75 -400 / -400 Medical Nutrition Assessment Dietitian: Malnutrition Criteria Met Start: 12/12/20 12:58 Freq: Status: Active Protocol: Document 12/12/20 12:58 [facility] (Rec: 12/12/20 12:58 [facility] [id number]) Nutrition Malnutrition Evidence of Malnutrition Exists Yes Malnutrition (severe): Acute Illness/Injury Evidenced By Suboptimal Energy Intake ( Severe),Weight Loss (Severe) Clinical Problem Acute Disease or Injury Related Malnutrition Etiology related to acute illness ( covid and resp failure) w/ pt having inability to consume adequate nutrition to meet est nutritional needs Signs/Symptoms as evidenced by po intake <50 x >5 days and 5.9% wt loss x 1 week Status Active Problem Recommendation Dietitian Recommendations/Changes Will liberalize diet to Regular w/ 8 oz ensure enlive w/ meals d/t signs and symptoms of malnutrition Lab / Micro Data Result Diagrams: 12/16/20 06:10 12/16/20 06:10 Labs: Laboratory Results - last 24 hr 12/16/20 06:10: Sodium 139, Potassium 3.9, Chloride 103, Carbon Dioxide 31.0, Anion Gap 5, BUN 30 H, Creatinine 0.72, Estim Creat Clear Calc 69.41, Est GFR (MDRD) Af Amer 138, Est GFR (MDRD) Non-Af 114, BUN/Creatinine Ratio 42.0 H, Glucose 136 H, Calcium 8.0 L, Total Bilirubin 0.70, AST 32, ALT 32, Alkaline Phosphatase 65, Total Protein 5.3 L, Albumin 2.1 L, Globulin 3.2, Albumin/Globulin Ratio 0.7 L 12/16/20 06:10: WBC 17.6 H, RBC 4.54 L, Hgb 14.2, Hct 42.2, MCV 93.0, MCH 31.3, MCHC 33.6, RDW Std Deviation 42.6, RDW Coeff of Rosailnda 12.5, Plt Count 323, MPV 9.5, Immature Gran % (Auto) 4.000 H, Neut % (Auto) 86.6 H, Lymph % (Auto) 3.2 L, [place] % (Auto) 5.7, Eos % (Auto) 0.0, Baso % (Auto) 0.5, Absolute Neuts (auto) 15.2 H, Absolute Lymphs (auto) 0.56 L, Nucleated RBC % 0 Micro: Microbiology 12/11/20 20:13 Blood Culture (Wb) - No Site/Description Given Blood Culture - Preliminary No growth in 48 hours. Physical Exam Narrative Physical exam: General: Alert, Oriented x3, Cooperative, No apparent distress, in mild respiratory distress, on Airvo HEENT: Atraumatic Oral: Moist Mucosa Neck: Supple Lungs: Diminished to auscultation, crackles at both lung bases Cardiovascular: HS I+II, regular, no murmurs Abdomen: Bowel Sounds Present, Soft, Non Tender Extremities: No edema Assessment & Plan Assessment/Plan (1) Acute on chronic respiratory failure with hypoxemia: (2) COVID-19: (3) Stage 4 very severe COPD by GOLD classification: PLAN: 1. Acute on chronic hypoxic respiratory failure secondary to Acute COVID-19 pneumonia, worse In a patient with chronic respiratory failure secondary to COPD; on 3 L of oxygen at home History of MAGALI on CPAP Patient's oxygenation status is worse; will transfer to ICU for closer monitoring and BiPAP use Patient's CODE STATUS is DNR CCA 2. Acute COVID 19 pneumonia with respiratory failure Patient is currently on remdesivir and dexamethasone Pulmonary and ID consulted 3. Severe protein calorie malnutrition, account service associate consulted, on supplements 4. Rest of his chronic medical conditions including CAD status post stent, chronic atrial fibrillation, hypertension, hyperlipidemia, MAGALI remained stable Charges/Coding Visit Charges Inpatient E&M: 59788 Subs Hosp L3
--- NOTE | 2020-12-16 15:48 | PCM.CONS.GEN ---
Assessment & Plan Assessment/Plan (1) COVID-19: PLAN: Sx started 12/07/20. Unvaccinated. Isolate for 20 days from start of sx. Completed remdesivir. On dex. Reviewed EUA with him, will start baricitinib. Recommend vaccine once out of iso. Will follow, thank you (2) Hypoxemia: HPI Consult Data Date of Consult: 12/16/20 HPI Narrative HPI Narrative: SITA PALACIOS, is a 75 M who presented with sx starting 12/07. C/o cough, progressive dyspnea. Also with change in taste, some aches, some diarrhea. Unvaccinated. is asymptomatic, had neg test, is vaccinated. Came to ED, admitted on dex, remdesivir. Now worsening O2. Full ROS performed and neg except as noted above. [facility] Medical History (Updated 12/12/20 @ 02:05 by Lorenza Son) Abdominal aortic aneurysm without rupture Acute DVT (deep venous thrombosis) Atherosclerotic heart disease of [place] coronary artery without angina pectoris Atrial fibrillation BPH (benign prostatic hyperplasia) Cancer COPD (chronic obstructive pulmonary disease) Coronary artery disease s/p stents CPAP (continuous positive airway pressure) dependence Essential hypertension Former smoker Hyperlipidemia Kidney stones Myocardial infarct Obstructive sleep apnea syndrome On home oxygen therapy MAGALI (obstructive sleep apnea) Other specified transient cerebral ischemias Respiratory failure with hypoxia Stage 4 very severe COPD by GOLD classification Home Medications albuterol sulfate 1 - 2 puff INHALATION Q4H PRN PRN 09/08/16 [History Last Taken 11/11/19] aspirin 81 mg PO DAILY@0800 09/08/16 [History Last Taken 11/11/19] clopidogrel 75 mg PO DAILY 09/08/16 [History Last Taken 11/11/19] nitroglycerin 0.4 mg sublingual tablet 0.4 mg SUBLINGUAL Q5M PRN 03/16/17 [History Last Taken Unknown] pravastatin 80 mg tablet 80 mg PO QODAY tab 03/16/17 [History Last Taken 11/11/19] cholecalciferol (vitamin D3) 25 mcg (1,000 unit) capsule 25 mcg PO DAILY 07/08/19 [History Last Taken 11/12/19] ipratropium bromide 42 mcg (0.06 %) nasal spray 2 spray INTRANASAL DAILY 07/08/19 [History Last Taken 11/12/19] ascorbic acid (vitamin C) 1,000 mg PO DAILY 11/12/19 [History Last Taken 11/12/19] omeprazole 20 mg PO DAILY 11/12/19 [History Last Taken 11/12/19] vitamin B complex 1 cap PO DAILY 11/12/19 [History Last Taken 11/11/19] diltiazem HCl 120 mg capsule,extended release 24 hr 120 mg PO DAILY #90 cap 05/14/20 [Rx Last Taken Unknown] ranolazine 500 mg tablet,extended release,12 hr 500 mg PO DAILY #90 tab 05/14/20 [Rx Last Taken Unknown] Disability Placard #1 ea 06/04/20 [Rx Last Taken Unknown] budesonide 160 mcg-glycopyr 9 mcg-formot 4.8 mcg/actuation HFA inhaler 2 inh INHALATION BID #10.7 g 10/08/20 [Rx Last Taken Unknown] tiotropium bromide [Spiriva Respimat] 2 inh INHALATION DAILY 12/11/20 [History Last Taken Unknown] Allergy/AdvReac Type Severity Reaction Status Date / Time Sulfa (Sulfonamide Allergy Chest Verified 12/11/20 20:00 Antibiotics) tightness Family History Father CHF (congestive heart failure) Mother CVA (cerebral vascular accident) Heart aneurysm Surgical History History of inguinal herniorrhaphy Social History Smoking Status: Former smoker how long ago did patient quit smokin alcohol intake: never substance use type: does not use caffeine: No what type of physical activity do you participate in: none seatbelt use: always do you feel safe at home: Yes Physical Exam Const alert, oriented x3 and no apparent distress General Appearance: cooperative Exam Limitations: no limitations HEENT normocephalic and head/scalp atraumatic Eyes PERRL and EOMs intact bilaterally Neck supple and No nodes Resp Auscultation: diminished lung sounds Cardio regular rate and regular rhythm GI normal to inspection, nondistended, normoactive bowel sounds Extremity no clubbing, cyanosis or edema Skin no rashes or lesions noted Neuro CN's II-XII intact bilaterally Medical Records Data Medical Nutrition Assessment Dietitian: Malnutrition Criteria Met Start: 12/12/20 12:58 Freq: Status: Active Protocol: Document 12/12/20 12:58 JAZZ (Rec: 12/12/20 12:58 SLA [id number]) Nutrition Malnutrition Evidence of Malnutrition Exists Yes Malnutrition (severe): Acute Illness/Injury Evidenced By Suboptimal Energy Intake ( Severe),Weight Loss (Severe) Clinical Problem Acute Disease or Injury Related Malnutrition Etiology related to acute illness ( covid and resp failure) w/ pt having inability to consume adequate nutrition to meet est nutritional needs Signs/Symptoms as evidenced by po intake <50 x >5 days and 5.9% wt loss x 1 week Status Active Problem Recommendation Dietitian Recommendations/Changes Will liberalize diet to Regular w/ 8 oz ensure enlive w/ meals d/t signs and symptoms of malnutrition Lab / Micro Data Result Diagrams: 12/16/20 06:10 12/16/20 06:10 Labs: Laboratory Results - last 24 hr 12/16/20 06:10: Sodium 139, Potassium 3.9, Chloride 103, Carbon Dioxide 31.0, Anion Gap 5, BUN 30 H, Creatinine 0.72, Estim Creat Clear Calc 69.41, Est GFR (MDRD) Af Amer 138, Est GFR (MDRD) Non-Af 114, BUN/Creatinine Ratio 42.0 H, Glucose 136 H, Calcium 8.0 L, Total Bilirubin 0.70, AST 32, ALT 32, Alkaline Phosphatase 65, Total Protein 5.3 L, Albumin 2.1 L, Globulin 3.2, Albumin/Globulin Ratio 0.7 L 12/16/20 06:10: WBC 17.6 H, RBC 4.54 L, Hgb 14.2, Hct 42.2, MCV 93.0, MCH 31.3, MCHC 33.6, RDW Std Deviation 42.6, RDW Coeff of Rosalinda 12.5, Plt Count 323, MPV 9.5, Immature Gran % (Auto) 4.000 H, Neut % (Auto) 86.6 H, Lymph % (Auto) 3.2 L, [place] % (Auto) 5.7, Eos % (Auto) 0.0, Baso % (Auto) 0.5, Absolute Neuts (auto) 15.2 H, Absolute Lymphs (auto) 0.56 L, Nucleated RBC % 0
[2020-12-16] MEDS: Pravastatin 80 MG Tablet PO (20:51)
[2020-12-17] VITALS (16 sets, daily range): BP systolic 108–143; BP diastolic 70–84; PULSE 71–90; RESP 14–27; TEMP 36.2–37.2; O2SAT 88–98
[2020-12-17 06:28] LABS: Basophil# 0.06 X10^3/uL; Basophil% 0.3 % (0-1); Eosinophil# 0.05 X10^3/uL; Eosinophils% 0.2 % (0-5); Hematocrit 45.9 % (40-54); Hemoglobin 15.6 g/dL (13.0-16.5); Lymphocyte % 1.9 % (19-41); Mean Corpuscular Hgb 31.1 pg (27.0-32.0); Mean Corpuscular Volume 91.6 fL (80-94); Mean Platelet Vol. 9.3 fl (6.2-12.0); Monocyte# 0.89 X10^3/uL; Monocyte% 4.2 % (0-10); NRBC Flagged by Analyzer 0.1 % (0-5); Neutrophil # 18.98 X10^3/uL (2.7-7.7); Neutrophil % 90.6 % (47-70); POSITIVE DIFFERENTIAL YES; Platelet Count 368 K/mm3 (150-450); RBC Distribution Width CV 12.8 % (11.6-14.6); RBC Distribution Width SD 42.6 fl (35.1-43.9); Red Blood Count 5.01 M/mm3 (4.6-6.2)
[2020-12-17 06:38] LABS: Differential Indicated SCAN CRITERIA MET
[2020-12-17 07:00] LABS: ALB/GLOB Ratio 0.6 RATIO (0.9-2.4); AST(SGOT) 18 U/L (15-37); Alanine Aminotransfer ALT/SGPT 29 U/L (16-61); Albumin, Serum 2.2 g/dL (3.2-5.0); Alkaline Phosphatase 66 U/L (45-117); Anion Gap 6 (5-15); BUN 30 mg/dL (7-18); BUN/Creat Ratio 39.3 RATIO (10-20); Calcium,Total 8.1 mg/dL (8.5-10.1); Chloride 101 mmol/L (98-107); Creatinine, Serum 0.76 mg/dL (0.70-1.30); EST Glomerular Filtration Rate 105 mL/min (>60); Est Glom Filt Rate - Afr Amer 128 mL/min (>60); Estimated Creatinine Clearance 69.41 ml/min; Globulin 3.4 g/dL (2.2-4.2); Glucose 136 mg/dL (74-106); Potassium 3.7 mmol/L (3.5-5.1); Protein, Total 5.6 g/dL (6.4-8.2); Sodium Level 138 mmol/L (136-145)
[2020-12-17 07:11] LABS: Differential Comment SCANNED
--- NOTE | 2020-12-17 07:22 | PN.HOSP_ITS ---
Subjective Subjective Patient was seen and examined. His oxygen requirements have worsened. He is maxed out on BiPAP. Objective Data Objective Data Vital Signs: Vital Signs Temp Pulse Resp BP Pulse Ox 98.5 F 72 20 H 141/83 H 97 12/17/20 02:22 12/17/20 03:35 12/17/20 02:22 12/17/20 02:22 12/17/20 03:35 Oxygen Flow Rate (L/min) 60 Oxygen Delivery Method Airvo Weight: 76.884 kg Body Mass Index (BMI) 22.4 Intake & Output: Intake and Output for Last 24 Hours 12/15/20 12/16/20 12/17/20 23:59 23:59 23:59 Intake Total 1251.25 / 1251.25 1350 / 1350 Output Total 1700 / 1700 2350 / 2350 850 / 850 Balance -448.75 / -448.75 -1000 / -1000 -850 / -850 Medical Nutrition Assessment Dietitian: Malnutrition Criteria Met Start: 12/12/20 12:58 Freq: Status: Active Protocol: Document 12/12/20 12:58 JAZZ (Rec: 12/12/20 12:58 [facility] [id number]) Nutrition Malnutrition Evidence of Malnutrition Exists Yes Malnutrition (severe): Acute Illness/Injury Evidenced By Suboptimal Energy Intake ( Severe),Weight Loss (Severe) Clinical Problem Acute Disease or Injury Related Malnutrition Etiology related to acute illness ( covid and resp failure) w/ pt having inability to consume adequate nutrition to meet est nutritional needs Signs/Symptoms as evidenced by po intake <50 x >5 days and 5.9% wt loss x 1 week Status Active Problem Recommendation Dietitian Recommendations/Changes Will liberalize diet to Regular w/ 8 oz ensure enlive w/ meals d/t signs and symptoms of malnutrition Lab / Micro Data Result Diagrams: 12/17/20 06:05 12/17/20 06:05 Labs: Laboratory Results - last 24 hr 12/17/20 06:05: WBC 21.0 H, RBC 5.01, Hgb 15.6, Hct 45.9, MCV 91.6, MCH 31.1, MCHC 34.0, RDW Std Deviation 42.6, RDW Coeff of Rosalinda 12.8, Plt Count 368, MPV 9.3, Immature Gran % (Auto) 2.800 H, Neut % (Auto) 90.6 H, Lymph % (Auto) 1.9 L, [place] % (Auto) 4.2, Eos % (Auto) 0.2, Baso % (Auto) 0.3, Absolute Neuts (auto) 19.0 H, Absolute Lymphs (auto) 0.40 L, Nucleated RBC % 0.1, Differential Comment SCANNED 12/17/20 06:05: Sodium 138, Potassium 3.7, Chloride 101, Carbon Dioxide 31.0, An ion Gap 6, BUN 30 H, Creatinine 0.76, Estim Creat Clear Calc 69.41, Est GFR ( MDRD) Af Amer 128, Est GFR (MDRD) Non-Af 105, BUN/Creatinine Ratio 39.3 H, Glucose 136 H, Calcium 8.1 L, Total Bilirubin 1.10 H, AST 18, ALT 29, Alkaline Phosphatase 66, Total Protein 5.6 L, Albumin 2.2 L, Globulin 3.4, Albumin/Globulin Ratio 0.6 L Micro: Microbiology 12/11/20 20:13 Blood Culture (Wb) - No Site/Description Given Blood Culture - Final No growth in 5 days. Physical Exam Narrative Physical exam: General: Alert, Oriented x3, Cooperative, in moderate respiratory distress, on BiPAP HEENT: Atraumatic Oral: Moist Mucosa Neck: Supple Lungs: Diminished to auscultation, crackles at both lung bases Cardiovascular: HS I+II, regular, no murmurs Abdomen: Bowel Sounds Present, Soft, Non Tender Extremities: No edema Assessment & Plan Assessment/Plan (1) Acute on chronic respiratory failure with hypoxemia: (2) COVID-19: (3) Stage 4 very severe COPD by GOLD classification: PLAN: 1. Acute on chronic hypoxic respiratory failure secondary to Acute COVID-19 pneumonia, worse Currently on BiPAP in a patient with chronic respiratory failure secondary to COPD; on 3 L of oxygen at home History of MAGALI on CPAP Patient's CODE STATUS remains DNR CCA I had a family meeting with the patient and her at the bedside. Welt Rander also talked with patient. We will continue to monitor on BiPAP. Family understands that if patient does not improve, will transition to comfort measures 2. Acute COVID 19 pneumonia with respiratory failure Patient is currently on remdesivir and dexamethasone Pulmonary and ID consulted 3. Severe protein calorie malnutrition, senior manager creative services consulted, on supplements 4. Rest of his chronic medical conditions including CAD status post stent, chronic atrial fibrillation, hypertension, hyperlipidemia, MAGALI remained stable Charges/Coding Visit Charges Inpatient E&M: 06052 Subs Hosp L3
[2020-12-17] MEDS: NYSTATIN 500,000 UNIT/5 ML UDC 500000 UNIT PO ×3 (10:04→20:26)
[2020-12-17] MEDS: guaiFENesin 600 MG Tablet PO ×2 (10:04→20:26)
[2020-12-17] MEDS: Pantoprazole Sodium 20 MG Tablet PO (10:04)
[2020-12-17] MEDS: Clopidogrel Bisulfate 75 MG Tablet PO (10:04)
[2020-12-17] MEDS: Ranolazine 500 MG Tablet PO (10:04)
[2020-12-17] MEDS: Enoxaparin 30 MG/0.3 ML Syringe SC ×2 (10:04→20:26)
[2020-12-17] MEDS: Cholecalciferol (VIT D3) 25 MCG TABLET (1,000 UNITS) PO (10:05)
[2020-12-17] MEDS: dexAMETHasone 2 MG TABLET 6 MG PO (10:05)
[2020-12-17] MEDS: Ascorbic Acid 500 MG Tablet 1000 MG PO (10:05)
[2020-12-17] MEDS: Aspirin 81 MG TAB.CHEW PO (10:05)
[2020-12-17] MEDS: dilTIAZem CD 120 MG Capsule PO (10:06)
--- NOTE | 2020-12-17 15:32 | NURSING ---
Pt spouse in room visiting. She is asking for nurse to speak to son who is in [place]. Per conversation with pt son he states that he is requesting that his father be transferred to [facility] that his called and they are admitting patients. Pt son saying that they are better equipped to handle his father airway. Pt is asked if this is what he wants to be transferred for better airway management he said no. Son is notified that pt is able to voice his requests and he is not his health care POA and cannot make such decisions. Pt spouse is present also during this conversation. She is also in agreement with pt not to transferred to any other facility. Also pt spouse is notified she needs to limit her exiting out of room to nurses desk but use call light for all assist and questions.
[2020-12-17] MEDS: Acetaminophen 325 MG Tablet 650 MG PO (20:26)
[2020-12-17] MEDS: Benzonatate 100 MG Capsule PO (20:26)
[2020-12-18] VITALS (12 sets, daily range): BP systolic 129–145; BP diastolic 80–86; PULSE 72–87; RESP 14–23; TEMP 36.2–36.7; O2SAT 88–94
--- NOTE | 2020-12-18 09:40 | PN.HOSP_ITS ---
Subjective Subjective Patient was seen and examined. Patient remains on BiPAP. In respiratory distress. Objective Data Objective Data Vital Signs: Vital Signs Temp Pulse Resp BP Pulse Ox 97.8 F 72 18 133/85 H 92 12/18/20 03:14 12/18/20 03:14 12/18/20 03:14 12/18/20 03:14 12/18/20 03:14 Oxygen Flow Rate (L/min) 60 Oxygen Delivery Method Bi-pap Weight: 76.884 kg Body Mass Index (BMI) 22.4 Intake & Output: Intake and Output for Last 24 Hours 12/16/20 12/17/20 12/18/20 23:59 23:59 23:59 Intake Total 1350 / 1350 350 / 350 Output Total 2350 / 2350 1820 / 1820 200 / 200 Balance -1000 / -1000 -1470 / -1470 -200 / -200 Medical Nutrition Assessment Dietitian: Malnutrition Criteria Met Start: 12/12/20 12:58 Freq: Status: Active Protocol: Document 12/12/20 12:58 AJZZ (Rec: 12/12/20 12:58 JAZZ [id number]) Nutrition Malnutrition Evidence of Malnutrition Exists Yes Malnutrition (severe): Acute Illness/Injury Evidenced By Suboptimal Energy Intake ( Severe),Weight Loss (Severe) Clinical Problem Acute Disease or Injury Related Malnutrition Etiology related to acute illness ( covid and resp failure) w/ pt having inability to consume adequate nutrition to meet est nutritional needs Signs/Symptoms as evidenced by po intake <50 x >5 days and 5.9% wt loss x 1 week Status Active Problem Recommendation Dietitian Recommendations/Changes Will liberalize diet to Regular w/ 8 oz ensure enlive w/ meals d/t signs and symptoms of malnutrition Lab / Micro Data Result Diagrams: 12/17/20 06:05 12/17/20 06:05 Micro: Microbiology 12/11/20 20:13 Blood Culture (Wb) - No Site/Description Given Blood Culture - Final No growth in 5 days. Physical Exam Narrative Physical exam: General: Alert, Oriented x3, Cooperative, in moderate respiratory distress, on BiPAP HEENT: Atraumatic Oral: Moist Mucosa Neck: Supple Lungs: Diminished to auscultation, crackles at both lung bases Cardiovascular: HS I+II, regular, no murmurs Abdomen: Bowel Sounds Present, Soft, Non Tender Extremities: No edema Assessment & Plan Assessment/Plan (1) Acute on chronic respiratory failure with hypoxemia: (2) COVID-19: (3) Stage 4 very severe COPD by GOLD classification: PLAN: 1. Acute on chronic hypoxic respiratory failure secondary to Acute COVID-19 pneumonia, worse Remains on BiPAP in a patient with chronic respiratory failure secondary to COPD; on 3 L of oxygen at home History of MAGALI on CPAP Patient's CODE STATUS remains DNR CCA 2. Acute COVID 19 pneumonia with respiratory failure Patient is currently on remdesivir and dexamethasone Pulmonary and ID consulted 3. Severe protein calorie malnutrition, microelectronics assembler consulted, on supplements 4. Rest of his chronic medical conditions including CAD status post stent, chronic atrial fibrillation, hypertension, hyperlipidemia, MAGALI remained stable Prognosis is guarded Charges/Coding Visit Charges Inpatient E&M: 87186 Subs Hosp L3
[2020-12-18] MEDS: dexAMETHasone 2 MG TABLET 6 MG PO (10:04)
[2020-12-18] MEDS: guaiFENesin 600 MG Tablet PO ×2 (10:05→22:12)
[2020-12-18] MEDS: dilTIAZem CD 120 MG Capsule PO (10:06)
[2020-12-18] MEDS: Enoxaparin 30 MG/0.3 ML Syringe SC ×2 (10:06→22:12)
--- NOTE | 2020-12-18 18:50 | NURSING ---
Family is here, has many questions, texted Dr Gallego, and she is currently talking to Avtar.
[2020-12-18] MEDS: Dext 5%-0.45% NS 1,000 ML 100 ML IV (19:27)
[2020-12-18] MEDS: 0.9% Saline Lock 10 ML Syringe IV (19:27)
[2020-12-19] VITALS (16 sets, daily range): BP systolic 128–144; BP diastolic 55–92; PULSE 69–99; RESP 14–30; TEMP 36.6–36.7; O2SAT 91–96
[2020-12-19] MEDS: Dext 5%-0.45% NS 1,000 ML 100 ML IV (04:09)
[2020-12-19 07:20] LABS: Absolute Lymphocyte Count 0.21 X10^3/uL (0.83-4.51); Absolute Neutrophil Count 13.4 X10^3/uL (2.0-7.7); Basophil# 0.01 X10^3/uL; Basophil% 0.1 % (0-1); Hematocrit 43.4 % (40-54); Hemoglobin 14.3 g/dL (13.0-16.5); Lymphocyte # 0.21 X10^3/ul (0.83-4.51); Lymphocyte % 1.5 % (19-41); Mean Corp Hgb Conc 32.9 g/dL (32-36); Mean Corpuscular Hgb 31.1 pg (27.0-32.0); Mean Corpuscular Volume 94.3 fL (80-94); Mean Platelet Vol. 9.4 fl (6.2-12.0); Monocyte# 0.55 X10^3/uL; Monocyte% 3.8 % (0-10); NRBC Flagged by Analyzer 0 % (0-5); Neutrophil # 13.36 X10^3/uL (2.7-7.7); Neutrophil % 93.3 % (47-70); POSITIVE DIFFERENTIAL YES; Platelet Count 354 K/mm3 (150-450); RBC Distribution Width CV 13.6 % (11.6-14.6); RBC Distribution Width SD 46.9 fl (35.1-43.9); White Blood Count 14.3 K/mm3 (4.4-11.0)
[2020-12-19 07:25] LABS: Differential Indicated SCAN CRITERIA MET
--- NOTE | 2020-12-19 07:34 | PCM.PN.HOSP ---
Subjective Subjective Patient was seen and examined. I was asked to call family last night with regards to patient's care. Family was in from [place]. They were updated. Patient's son, Avtar insisted on patient being started on IV fluids. Discussed with Dr. Rose; will check D-dimer and procalcitonin. Patient D-dimer was elevated, Lovenox was increased to therapeutic dosing. Objective Data Objective Data Vital Signs: Vital Signs Temp Pulse Resp BP Pulse Ox 97.9 F 69 22 H 142/85 H 96 12/19/20 04:14 12/19/20 07:15 12/19/20 07:15 12/19/20 04:14 12/19/20 07:15 Oxygen Flow Rate (L/min) 60 Oxygen Delivery Method Bi-pap Weight: 76.884 kg Body Mass Index (BMI) 22.4 Intake & Output: Intake and Output for Last 24 Hours 12/17/20 12/18/20 12/19/20 23:59 23:59 23:59 Intake Total 350 / 350 870 / 870 Output Total 1820 / 1820 520 / 520 Balance -1470 / -1470 -520 / -520 870 / 870 Medical Nutrition Assessment Dietitian: Malnutrition Criteria Met Start: 12/12/20 12:58 Freq: Status: Active Protocol: Document 12/12/20 12:58 JAZZ (Rec: 12/12/20 12:58 JAZZ [id number]) Nutrition Malnutrition Evidence of Malnutrition Exists Yes Malnutrition (severe): Acute Illness/Injury Evidenced By Suboptimal Energy Intake ( Severe),Weight Loss (Severe) Clinical Problem Acute Disease or Injury Related Malnutrition Etiology related to acute illness ( covid and resp failure) w/ pt having inability to consume adequate nutrition to meet est nutritional needs Signs/Symptoms as evidenced by po intake <50 x >5 days and 5.9% wt loss x 1 week Status Active Problem Recommendation Dietitian Recommendations/Changes Will liberalize diet to Regular w/ 8 oz ensure enlive w/ meals d/t signs and symptoms of malnutrition Lab / Micro Data Result Diagrams: 12/19/20 06:55 12/19/20 06:55 Labs: Laboratory Results - last 24 hr 12/19/20 06:55: WBC 14.3 H, RBC 4.60, Hgb 14.3, Hct 43.4, MCV 94.3 H, MCH 31.1, MCHC 32.9, RDW Std Deviation 46.9 H, RDW Coeff of Rosalinda 13.6, Plt Count 354, MPV 9.4, Immature Gran % (Auto) 1.300 H, Neut % (Auto) 93.3 H, Lymph % (Auto) 1.5 L, [place] % (Auto) 3.8, Eos % (Auto) 0.0, Baso % (Auto) 0.1, Absolute Neuts (auto) 13.4 H, Absolute Lymphs (auto) 0.21 L, Nucleated RBC % 0 Micro: Microbiology 12/11/20 20:13 Blood Culture (Wb) - No Site/Description Given Blood Culture - Final No growth in 5 days. Physical Exam Narrative Physical exam: General: Alert, Oriented x3, Cooperative, in moderate respiratory distress, appeared frail ,on BiPAP HEENT: Atraumatic Oral: Moist Mucosa Neck: Supple Lungs: Diminished to auscultation, crackles at both lung bases Cardiovascular: HS I+II, regular, no murmurs Abdomen: Bowel Sounds Present, Soft, Non Tender Extremities: No edema Assessment & Plan Assessment/Plan (1) Acute on chronic respiratory failure with hypoxemia: (2) COVID-19: (3) Stage 4 very severe COPD by GOLD classification: PLAN: 1. Acute on chronic hypoxic respiratory failure secondary to Acute COVID-19 pneumonia, worsening Patient is still hypoxic on continuous BiPAP. History of chronic respiratory failure secondary to COPD; on 3 L of oxygen at home History of MAGALI on CPAP Not vaccinated Patient does not want to be intubated?CODE STATUS DNR CCA D-dimer is elevated, Lovenox increased to therapeutic dosing We will check urine streptococcal and Legionella antigen Discussed with pulmonology?we will transition to air Vo to allow patient to eat Family meeting today; updated on the goals of care, all questions answered. Family understands that we cannot do a feeding tube/NG tube whilst on BiPAP 2. Acute COVID 19 pneumonia with respiratory failure Completed remdesivir Continue on dexamethasone Started on Baracitinib on 12/17/20 Pulmonary and ID consulted 3. Severe protein calorie malnutrition, ambulatory services representative consulted, on supplements 4. Rest of his chronic medical conditions including CAD status post stent, chronic atrial fibrillation, hypertension, hyperlipidemia, MAGALI remained stable Prognosis is guarded Charges/Coding Visit Charges Inpatient E&M: 15391 Subs Hosp L3
--- NOTE | 2020-12-19 07:51 | PCM.PN.INT ---
Assessment & Plan Assessment/Plan (1) COVID-19: PLAN: RECOMMENDATIONS: 1. Continue patient on AVAPS. Oxygen saturations of 88% or greater are acceptable. 2. Attempt to wean patient to Airvo, if feasible, today. 3. Recheck D-dimer and procalcitonin. 4. If D-dimer is elevated, consider increasing Lovenox to therapeutic dose. 5. Continue Decadron to complete 10 days of therapy. 6. Continue baricitinib to complete treatment course. 7. Start scheduled bronchodilator therapy. IMPRESSIONS: 1. Acute on chronic hypoxemic respiratory failure secondary to COVID-19 pneumonia The patient presented to the hospital with less than 10 days of progressive dyspnea and nonproductive cough, having tested positive for coronavirus. The patient has completed a treatment course of remdesivir and will remain on Decadron to complete 10 days of therapy. In addition, baricitinib will be continued per ID recommendations. Recommend rechecking D-dimer level and if elevated increase Lovenox to therapeutic level dosing. Recommend starting scheduled bronchodilators, as the patient has known severe obstructive lung disease. The patient will be at high risk for further clinical decompensation given his limited respiratory reserve/lung function. However, CODE STATUS was again confirmed with the patient this morning to be DNR CCA without intubation. 2. History of coronary artery disease/atrial fibrillation/hypertension/hyperlipidemia/MAGALI Complicates care, management, recovery and prognosis. Continue home medications as indicated. This note was generated with [employer] dictation software. It may contain incorrect words, spelling, and punctuation that were not noted in checking the note before signing. Subjective Subjective The patient was seen and examined at the bedside this morning. Events from the last 24 hours have been reviewed. The patient is currently afebrile, hemodynamically stable and maintaining appropriate oxygen saturations on BiPAP with an FiO2 requirement of 100%. The patient is documented to be overall net -2.1 L for the hospital admission. The patient remains on Decadron, prophylactic Lovenox and baricitinib. He is already completed his treatment course of remdesivir. The patient has been essentially BiPAP dependent for at least 2 days now. His CODE STATUS was again confirmed to be DNR CCA without intubation. Objective Data Objective Data The patient's most recent lab work, culture data and imaging studies have all been personally reviewed. Vital Signs: Vital Signs Temp Pulse Resp BP Pulse Ox 97.9 F 69 22 H 142/85 H 96 12/19/20 04:14 12/19/20 07:15 12/19/20 07:15 12/19/20 04:14 12/19/20 07:15 Oxygen Flow Rate (L/min) 60 Oxygen Delivery Method Bi-pap Weight: 76.884 kg Body Mass Index (BMI) 22.4 Intake & Output: Intake and Output for Last 24 Hours 12/17/20 12/18/20 12/19/20 23:59 23:59 23:59 Intake Total 350 / 350 870 / 870 Output Total 1820 / 1820 520 / 520 Balance -1470 / -1470 -520 / -520 870 / 870 Medical Nutrition Assessment Dietitian: Malnutrition Criteria Met Start: 12/12/20 12:58 Freq: Status: Active Protocol: Document 12/12/20 12:58 JAZZ (Rec: 12/12/20 12:58 [facility] [id number]) Nutrition Malnutrition Evidence of Malnutrition Exists Yes Malnutrition (severe): Acute Illness/Injury Evidenced By Suboptimal Energy Intake ( Severe),Weight Loss (Severe) Clinical Problem Acute Disease or Injury Related Malnutrition Etiology related to acute illness ( covid and resp failure) w/ pt having inability to consume adequate nutrition to meet est nutritional needs Signs/Symptoms as evidenced by po intake <50 x >5 days and 5.9% wt loss x 1 week Status Active Problem Recommendation Dietitian Recommendations/Changes Will liberalize diet to Regular w/ 8 oz ensure enlive w/ meals d/t signs and symptoms of malnutrition Lab / Micro Data Attestation: I reviewed the patient's lab results. Result Diagrams: 12/19/20 06:55 12/19/20 06:55 Labs: Laboratory Results - last 24 hr 12/19/20 06:55: WBC 14.3 H, RBC 4.60, Hgb 14.3, Hct 43.4, MCV 94.3 H, MCH 31.1, MCHC 32.9, RDW Std Deviation 46.9 H, RDW Coeff of Rosalinda 13.6, Plt Count 354, MPV 9.4, Immature Gran % (Auto) 1.300 H, Neut % (Auto) 93.3 H, Lymph % (Auto) 1.5 L, [place] % (Auto) 3.8, Eos % (Auto) 0.0, Baso % (Auto) 0.1, Absolute Neuts (auto) 13.4 H, Absolute Lymphs (auto) 0.21 L, Nucleated RBC % 0 Micro: Microbiology 12/11/20 20:13 Blood Culture (Wb) - No Site/Description Given Blood Culture - Final No growth in 5 days. Physical Exam Const alert General Appearance: cooperative and on BiPAP HEENT normocephalic and head/scalp atraumatic Eyes PERRL, EOMs intact bilaterally and conjunctivae normal Neck supple General: trachea midline Chest inspection of chest normal Resp Effort and Inspection: tachypneic Auscultation: diminished lung sounds; Negative for rales, rhonchi or wheezes Cardio regular rate and regular rhythm GI normal to inspection, nondistended, normoactive bowel sounds Extremity no clubbing, cyanosis or edema Skin no rashes or lesions noted Neuro CN's II-XII intact bilaterally, moves all extremities and no focal motor deficits Psych cooperative and affect normal Charges/Coding Visit Charges Inpatient E&M: 86422 Subs Hosp L3
[2020-12-19 08:04] LABS: ALB/GLOB Ratio 0.5 RATIO (0.9-2.4); AST(SGOT) 13 U/L (15-37); Alanine Aminotransfer ALT/SGPT 17 U/L (16-61); Albumin, Serum 1.8 g/dL (3.2-5.0); Alkaline Phosphatase 53 U/L (45-117); Anion Gap 8 (5-15); BUN 37 mg/dL (7-18); BUN/Creat Ratio 46.1 RATIO (10-20); Calcium,Total 7.9 mg/dL (8.5-10.1); Chloride 102 mmol/L (98-107); EST Glomerular Filtration Rate 100 mL/min (>60); Est Glom Filt Rate - Afr Amer 121 mL/min (>60); Estimated Creatinine Clearance 86.76 ml/min; Globulin 3.8 g/dL (2.2-4.2); Glucose 162 mg/dL (74-106); Potassium 3.9 mmol/L (3.5-5.1); Protein, Total 5.6 g/dL (6.4-8.2); Sodium Level 139 mmol/L (136-145)
[2020-12-19] MEDS: Enoxaparin 30 MG/0.3 ML Syringe SC (09:05)
[2020-12-19] MEDS: guaiFENesin 600 MG Tablet PO ×2 (09:06→20:02)
[2020-12-19] MEDS: dilTIAZem CD 120 MG Capsule PO (09:06)
[2020-12-19] MEDS: dexAMETHasone 2 MG TABLET 6 MG PO (09:06)
--- NOTE | 2020-12-19 11:24 | NURSING ---
Addendum entered by Elmira Palacio 12/19/20 11:26: Paradise states it will be around 2000 tonight, aware will have to use ER entrance as main entrance is locked by that time, Paradise aware. Original Note: spouse Paradise states that she would like her grandson Inés Michel to come see pt, he is 18 yrs old, as she states pt has been asking about him. informed as long as visitor aware of precautions/risks and Paradise states he is.
[2020-12-19] MEDS: Enoxaparin 60 MG/0.6 ML Syringe 50 MG SC (11:35)
[2020-12-19] MEDS: Dext 5%-0.45% NS 1,000 ML 75 ML IV (14:33)
[2020-12-19] MEDS: Ipratropium/Albuterol Sulfate 3 ML AMPUL.NEB INHALATION (19:43)
[2020-12-19] MEDS: Enoxaparin 80 MG/0.8 ML Syringe SC (20:02)
--- NOTE | 2020-12-19 22:25 | PCS.PANDOC ---
PANDEMIC DOCUMENTATION INITIATED: Date: 11/08/2020 Time: 190
[2020-12-20] VITALS (15 sets, daily range): BP systolic 115–140; BP diastolic 75–87; PULSE 64–89; RESP 14–24; TEMP 36.4–36.8; O2SAT 91–94
[2020-12-20] MEDS: Ipratropium/Albuterol Sulfate 3 ML AMPUL.NEB INHALATION ×4 (07:25→19:15)
[2020-12-20 08:30] LABS: Absolute Lymphocyte Count 0.31 X10^3/uL (0.83-4.51); Basophil# 0.03 X10^3/uL; Basophil% 0.2 % (0-1); Hematocrit 40.5 % (40-54); Hemoglobin 13.1 g/dL (13.0-16.5); Lymphocyte # 0.31 X10^3/ul (0.83-4.51); Mean Corp Hgb Conc 32.3 g/dL (32-36); Mean Corpuscular Hgb 30.4 pg (27.0-32.0); Mean Platelet Vol. 9.7 fl (6.2-12.0); Monocyte# 0.69 X10^3/uL; Monocyte% 4.5 % (0-10); NRBC Flagged by Analyzer 0 % (0-5); Neutrophil # 13.99 X10^3/uL (2.7-7.7); Neutrophil % 92.1 % (47-70); POSITIVE DIFFERENTIAL YES; Platelet Count 361 K/mm3 (150-450); RBC Distribution Width CV 13.4 % (11.6-14.6); RBC Distribution Width SD 46.4 fl (35.1-43.9); Red Blood Count 4.31 M/mm3 (4.6-6.2); White Blood Count 15.2 K/mm3 (4.4-11.0)
[2020-12-20 08:31] LABS: Differential Indicated SCAN CRITERIA MET
[2020-12-20 08:54] LABS: Platelet Estimate ADEQUATE (ADEQ); Red Cell Morphology NORM C+C NORMAL (NORM C&C)
[2020-12-20 08:56] LABS: Anion Gap 8 (5-15); BUN 31 mg/dL (7-18); BUN/Creat Ratio 49.3 RATIO (10-20); Calcium,Total 8.1 mg/dL (8.5-10.1); Chloride 103 mmol/L (98-107); Creatinine, Serum 0.63 mg/dL (0.70-1.30); EST Glomerular Filtration Rate 132 mL/min (>60); Est Glom Filt Rate - Afr Amer 160 mL/min (>60); Estimated Creatinine Clearance 69.41 ml/min; Glucose 113 mg/dL (74-106); Potassium 4.4 mmol/L (3.5-5.1); Sodium Level 138 mmol/L (136-145)
--- NOTE | 2020-12-20 10:47 | PCM.PN.INT ---
Assessment & Plan Assessment/Plan (1) COVID-19: PLAN: RECOMMENDATIONS: 1. Continue patient on AVAPS. Oxygen saturations of 88% or greater are acceptable. 2. Attempt to wean patient to Airvo, if feasible, today to facilitate p.o. intake 3. Diuretic challenge 4. Continue therapeutic anticoagulation. 5. Continue Decadron to complete 10 days of therapy. 6. Continue baricitinib to complete treatment course. 7. Continue scheduled bronchodilator therapy. IMPRESSIONS: 1. Acute on chronic hypoxemic respiratory failure secondary to COVID-19 pneumonia The patient presented to the hospital with less than 10 days of progressive dyspnea and nonproductive cough, having tested positive for coronavirus. The patient has completed a treatment course of remdesivir and will remain on Decadron to complete 10 days of therapy. In addition, baricitinib will be continued per ID recommendations. Continue Lovenox to therapeutic level dosing. Continue scheduled bronchodilators, as the patient has known severe obstructive lung disease. The patient will be at high risk for further clinical decompensation given his limited respiratory reserve/lung function. However, CODE STATUS was again confirmed with the patient this morning to be DNR CCA without intubation. Patient will be challenged with diuretics. 2. History of coronary artery disease/atrial fibrillation/hypertension/hyperlipidemia/MAGALI Complicates care, management, recovery and prognosis. Continue home medications as indicated. This note was generated with [employer] dictation software. It may contain incorrect words, spelling, and punctuation that were not noted in checking the note before signing. Subjective Subjective Patient did okay overnight. Patient is feeling more symptomatic today compared to yesterday. Patient did reiterate that he is a DNR Comfort Care arrest without intubation. Patient does report a productive cough. Patient is complaining of a dry mouth. Objective Data Objective Data Vital Signs: Vital Signs Temp Pulse Resp BP Pulse Ox 36.4 C L 82 20 H 140/80 H 91 12/20/20 04:33 12/20/20 08:03 12/20/20 08:03 12/20/20 04:33 12/20/20 08:01 Oxygen Flow Rate (L/min) 60 Oxygen Delivery Method Bi-pap Weight: 76.884 kg Body Mass Index (BMI) 22.4 Intake & Output: Intake and Output for Last 24 Hours 12/18/20 12/19/20 12/20/20 23:59 23:59 23:59 Intake Total 1869 1000 / 1000 Output Total 520 / 520 Balance -520 / -520 1869 1000 / 1000 Medical Nutrition Assessment Dietitian: Malnutrition Criteria Met Start: 12/12/20 12:58 Freq: Status: Active Protocol: Document 12/12/20 12:58 JAZZ (Rec: 12/12/20 12:58 [facility] [id number]) Nutrition Malnutrition Evidence of Malnutrition Exists Yes Malnutrition (severe): Acute Illness/Injury Evidenced By Suboptimal Energy Intake ( Severe),Weight Loss (Severe) Clinical Problem Acute Disease or Injury Related Malnutrition Etiology related to acute illness ( covid and resp failure) w/ pt having inability to consume adequate nutrition to meet est nutritional needs Signs/Symptoms as evidenced by po intake <50 x >5 days and 5.9% wt loss x 1 week Status Active Problem Recommendation Dietitian Recommendations/Changes Will liberalize diet to Regular w/ 8 oz ensure enlive w/ meals d/t signs and symptoms of malnutrition Lab / Micro Data Result Diagrams: 12/20/20 07:49 12/20/20 07:40 Labs: Laboratory Results - last 24 hr 12/20/20 07:40: Sodium 138, Potassium 4.4, Chloride 103, Carbon Dioxide 27.0, Anion Gap 8, BUN 31 H, Creatinine 0.63 L, Estim Creat Clear Calc 69.41, Est GFR (MDRD) Af Amer 160, Est GFR (MDRD) Non-Af 132, BUN/Creatinine Ratio 49.3 H, Glucose 113 H, Calcium 8.1 L 12/20/20 07:49: WBC 15.2 H, RBC 4.31 L, Hgb 13.1, Hct 40.5, MCV 94.0, MCH 30.4, MCHC 32.3, RDW Std Deviation 46.4 H, RDW Coeff of Rosalinda 13.4, Plt Count 361, MPV 9.7, Immature Gran % (Auto) 1.200 H, Neut % (Auto) 92.1 H, Lymph % (Auto) 2.0 L, [place] % (Auto) 4.5, Eos % (Auto) 0.0, Baso % (Auto) 0.2, Absolute Neuts (auto) 14.0 H, Absolute Lymphs (auto) 0.31 L, Nucleated RBC % 0, Platelet Estimate ADEQUATE, RBC Morphology NORM C+C Micro: Microbiology 12/19/20 18:30 Urine, Clean Catch Streptococcus pneumoniae Antigen (M - Final 12/19/20 18:30 Urine, Clean Catch Legionella Antigen - Final 12/11/20 20:13 Blood Culture (Wb) - No Site/Description Given Blood Culture - Final No growth in 5 days. Physical Exam Const alert General Appearance: cooperative and on BiPAP HEENT normocephalic and head/scalp atraumatic Eyes PERRL, EOMs intact bilaterally and conjunctivae normal Neck supple General: trachea midline Chest inspection of chest normal Resp Effort and Inspection: tachypneic Auscultation: diminished lung sounds; Negative for rales, rhonchi or wheezes Cardio regular rate and regular rhythm GI normal to inspection, nondistended, normoactive bowel sounds Extremity no clubbing, cyanosis or edema Skin no rashes or lesions noted Neuro CN's II-XII intact bilaterally, moves all extremities and no focal motor deficits Psych cooperative and affect normal Charges/Coding Visit Charges Inpatient E&M: 63944 Subs Hosp L3
[2020-12-20] MEDS: guaiFENesin 600 MG Tablet PO ×2 (11:05→20:58)
[2020-12-20] MEDS: dilTIAZem CD 120 MG Capsule PO (11:05)
[2020-12-20] MEDS: dexAMETHasone 2 MG TABLET 6 MG PO (11:05)
[2020-12-20] MEDS: Enoxaparin 80 MG/0.8 ML Syringe SC ×2 (11:14→20:58)
[2020-12-20] MEDS: 0.9% Saline Lock 10 ML Syringe IV ×2 (11:18→17:06)
[2020-12-20] MEDS: Furosemide 40 MG/4 ML Vial IV (11:18)
--- NOTE | 2020-12-20 14:04 | CHAPLAIN ---
Type of Pastoral Visit ___ Initial Visit ___ Follow-up Visit ___ On-call Visit ___ General Patient Visit ___ Spiritual Assessment ___ Family Conference ___ Bereavement ___ Rapid Response ___ Code Blue _x__ Other (describe below) Pastoral Care Referral From ___ Patient ___ Family _x__ Nurse ___ Physician ___ Auto Mechanics Teacher ___ Sandstone Splitter ___ Other (describe below) Sacrament/Intervention ___ Active listening ___ Anointing ___ Worship ___ Bereavement ___ Communion ___ Armida exploration ___ ___ Life review ___ Prayer ___ Reconciliation ___ Sacrament of Sick ___ Supportive presence ___ Wedding _x__ Other (describe below) Pastoral Comments DYE BOX OPERATOR informed this hims clerk that patient's family is here and some are in the waiting area; met with two granddaughters who welcomed the support for pt and gave permission to call into room and offer prayer as he would really like that; phone call into room was unanswered as after three rings the voice stated the patient is not available;
--- NOTE | 2020-12-20 17:29 | PN.HOSP_ITS ---
Subjective Subjective has been on BiPAP with 80% FiO2. Denies pain. Objective Data Objective Data Vital Signs: Vital Signs Temp Pulse Resp BP Pulse Ox 36.6 C 83 22 H 115/75 92 12/20/20 14:15 12/20/20 15:27 12/20/20 15:27 12/20/20 14:15 12/20/20 15:27 Oxygen Flow Rate (L/min) 60 Oxygen Delivery Method Bi-pap Weight: 76.884 kg Body Mass Index (BMI) 22.4 Intake & Output: Intake and Output for Last 24 Hours 12/18/20 12/19/20 12/20/20 23:59 23:59 23:59 Intake Total 1870 / 1870 1000 / 1000 Output Total 520 / 520 Balance -520 / -520 1869 / 1869 1000 / 1000 Medical Nutrition Assessment Dietitian: Malnutrition Criteria Met Start: 12/12/20 12:58 Freq: Status: Active Protocol: Document 12/12/20 12:58 JAZZ (Rec: 12/12/20 12:58 JAZZ [id number]) Nutrition Malnutrition Evidence of Malnutrition Exists Yes Malnutrition (severe): Acute Illness/Injury Evidenced By Suboptimal Energy Intake ( Severe),Weight Loss (Severe) Clinical Problem Acute Disease or Injury Related Malnutrition Etiology related to acute illness ( covid and resp failure) w/ pt having inability to consume adequate nutrition to meet est nutritional needs Signs/Symptoms as evidenced by po intake <50 x >5 days and 5.9% wt loss x 1 week Status Active Problem Recommendation Dietitian Recommendations/Changes Will liberalize diet to Regular w/ 8 oz ensure enlive w/ meals d/t signs and symptoms of malnutrition Lab / Micro Data Result Diagrams: 12/20/20 07:49 12/20/20 07:40 Labs: Laboratory Results - last 24 hr 12/20/20 07:40: Sodium 138, Potassium 4.4, Chloride 103, Carbon Dioxide 27.0, Anion Gap 8, BUN 31 H, Creatinine 0.63 L, Estim Creat Clear Calc 69.41, Est GFR (MDRD) Af Amer 160, Est GFR (MDRD) Non-Af 132, BUN/Creatinine Ratio 49.3 H, Glucose 113 H, Calcium 8.1 L 12/20/20 07:49: WBC 15.2 H, RBC 4.31 L, Hgb 13.1, Hct 40.5, MCV 94.0, MCH 30.4, MCHC 32.3, RDW Std Deviation 46.4 H, RDW Coeff of Rosalinda 13.4, Plt Count 361, MPV 9 .7, Immature Gran % (Auto) 1.200 H, Neut % (Auto) 92.1 H, Lymph % (Auto) 2.0 L, [place] % (Auto) 4.5, Eos % (Auto) 0.0, Baso % (Auto) 0.2, Absolute Neuts (auto) 14.0 H, Absolute Lymphs (auto) 0.31 L, Nucleated RBC % 0, Platelet Estimate ADEQUATE, RBC Morphology NORM C+C Micro: Microbiology 12/19/20 17:45 Sputum, Expectorated/Coughed Gram Stain - Final 12/19/20 17:45 Sputum, Expectorated/Coughed Respiratory Culture - Preliminary Gram negative alfred GNR lactose [place] line attendant 12/19/20 18:30 Urine, Clean Catch Streptococcus pneumoniae Antigen (M - Final 12/19/20 18:30 Urine, Clean Catch Legionella Antigen - Final 12/11/20 20:13 Blood Culture (Wb) - No Site/Description Given Blood Culture - Final No growth in 5 days. Physical Exam Const alert Resp Resp Narrative: diminished, but coarse throughout. Cardio regular rate, regular rhythm, S1 normal heart sound and S2 normal heart sound GI normal to inspection, nondistended, normoactive bowel sounds, soft to palpation, non-tender and non-distended Neuro Sensorium / Orientation: awake and alert Assessment & Plan Assessment/Plan (1) Acute on chronic respiratory failure with hypoxemia: (2) COVID-19: (3) Stage 4 very severe COPD by GOLD classification: PLAN: 1. acute hypoxic respiratory failure * 2/2 COVID 19 and advanced COPD +/- GN pneumonia * Reviewed CT and pt has diffuse GGO and marked emphysematous changes * overall worsening he is a high risk for decompensation * wean oxygen as able * continue BDs * maintain sats in low 90s * 12/12: 6liters * 12/13: 8 liters * 12/14: 10 liters * 12/20: BiPAP w 80% FiO2. Continue with therapeutic Enoxaparin (started 12/19) 2. Acute COVID 19 * onset 12/06 * unvaccinated * completed remdesivir * continue dexamethasone * continue baricitinib 3. Gram negative pneumonia * noted on sputum culture on 12/19 * Ur Ag for strep and legionella negative * 12/20: start Pip/tazo and follow up culture 4. Stage 4 COPD * complicates prognosis and recovery * Maintain pulse ox in low 90s to mitigate CO2 retention * Reviewing his CAT scan images that is he does have patchy infiltrates consistent with Covid but is not as severe and profound. I feel much of his respiratory issues are more trivial to his COPD, at least at this point time. 4. CAD * stable * continue ASA, clopidogrel, ranolazine 5. VTE prophylaxis: LMWH 6. Code Status: * reviewed 12/12: DNRCCA, DNI. 7. Severe protein calorie malnutrition, * claim processing specialist consulted, on supplements Prognosis is guarded Advance care planning: Spent an additional 30 minutes and discussed with the patient's son, Avtar, explained the patient's guarded prognosis and patient's limited physiologic reserve to bounce back from a significant insult such as COVID-19 given his advanced COPD. At the time when I spoke with him I was unaware of the infectious work-up that had already been ordered on but I told him that would be doing a sputum culture as well as a urinary antigens. But I also encouraged him to talk with his father and to speak openly to him so that he knows that the son is there to support him and what ever decision he makes. The patient son was agreeable to some as needed morphine to help with shortness of breath. Is explained that this was strictly palliative and not curative in any way. And we could consider further palliation measures if needed. But pat ient does continue to decline may need to consider hospice. Charges/Coding Visit Charges Inpatient E&M: 64638 Subs Hosp L3 Procedures Hospitalists Procedures: 20240 Advncd Care Plan 30 Min
[2020-12-21] VITALS (17 sets, daily range): BP systolic 114–149; BP diastolic 60–74; PULSE 55–94; RESP 12–24; TEMP 36.3–36.8; O2SAT 83–93
[2020-12-21] MEDS: Ipratropium/Albuterol Sulfate 3 ML AMPUL.NEB INHALATION ×4 (07:04→19:00)
[2020-12-21 08:27] LABS: Basophil# 0.03 X10^3/uL; Basophil% 0.2 % (0-1); Hematocrit 42.3 % (40-54); Lymphocyte % 1.5 % (19-41); Mean Corp Hgb Conc 33.1 g/dL (32-36); Mean Corpuscular Volume 93.8 fL (80-94); Mean Platelet Vol. 9.1 fl (6.2-12.0); Monocyte# 1.16 X10^3/uL; Monocyte% 5.9 % (0-10); NRBC Flagged by Analyzer 0 % (0-5); Neutrophil # 18.04 X10^3/uL (2.7-7.7); Neutrophil % 91.2 % (47-70); POSITIVE DIFFERENTIAL YES; Platelet Count 349 K/mm3 (150-450); RBC Distribution Width CV 13.7 % (11.6-14.6); RBC Distribution Width SD 46.9 fl (35.1-43.9); Red Blood Count 4.51 M/mm3 (4.6-6.2); White Blood Count 19.8 K/mm3 (4.4-11.0)
[2020-12-21 08:29] LABS: Differential Indicated SCAN CRITERIA MET
[2020-12-21 08:49] LABS: Anion Gap 6 (5-15); BUN 38 mg/dL (7-18); BUN/Creat Ratio 53.2 RATIO (10-20); Calcium,Total 8.3 mg/dL (8.5-10.1); Chloride 102 mmol/L (98-107); Creatinine, Serum 0.71 mg/dL (0.70-1.30); EST Glomerular Filtration Rate 114 mL/min (>60); Est Glom Filt Rate - Afr Amer 138 mL/min (>60); Estimated Creatinine Clearance 69.41 ml/min; Glucose 117 mg/dL (74-106); Magnesium 2.2 mg/dL (1.6-2.6); Phosphorus 3.1 mg/dL (2.5-4.9); Potassium 4.4 mmol/L (3.5-5.1); Sodium Level 138 mmol/L (136-145)
[2020-12-21] MEDS: Menthol/Lanolin/Calamine/Znox 113 GM Tube 1 APPLIC TOPICAL ×4 (09:54→20:34)
[2020-12-21] MEDS: dilTIAZem CD 120 MG Capsule PO (09:57)
[2020-12-21] MEDS: dexAMETHasone 2 MG TABLET 6 MG PO (09:57)
[2020-12-21] MEDS: Enoxaparin 80 MG/0.8 ML Syringe SC ×2 (09:58→20:35)
[2020-12-21] MEDS: guaiFENesin 600 MG Tablet PO ×2 (09:59→20:35)
--- NOTE | 2020-12-21 11:27 | CASEMGMT ---
Social Work Note Pt has been at [facility] for 9 Days. SW placed a call to pt's Trini and provided support. Trini states she is doing ok and states that they are handling things ok. Trini states her son and family from [place] have been in to see pt and she is thankful that she gets to be with pt while pt is at [facility]. At this time Trini denied additional needs or concerns. SW to remain available should additional needs or concerns arise. Ayleen Bee CHIEF SECURITY OFFICER, USER EXPERIENCE ARCHITECT
--- NOTE | 2020-12-21 12:42 | EKG12_ITS ---
Test Reason : CP Blood Pressure : / mmHG Vent. Rate : 079 BPM Atrial Rate : 079 BPM P-R Int : 142 ms QRS Dur : 094 ms QT Int : 388 ms P-R-T Axes : 084 062 056 degrees QTc Int : 444 ms Normal sinus rhythm Normal ECG When compared with ECG of 11-DEC-2020 21:02, T wave inversion no longer evident in Inferior leads QT has shortened Confirmed by SHEILA PIZANO, EMMA ([id number]), sports editor CARLOS ENRIQUE GONZALEZ ([id number]) on 12/23/2020 8:29:16 AM Referred By: LENORA Confirmed By:EMMA SOSA MD
--- NOTE | 2020-12-21 12:47 | PN.CC_ITS ---
Assessment & Plan Assessment/Plan (1) COVID-19: PLAN: RECOMMENDATIONS: 1. Continue patient on AVAPS with sleep. Oxygen saturations of 88% or greater are acceptable. 2. Use Airvo to facilitate p.o. intake 3. Diuretic challenge as labs allow 4. Continue therapeutic anticoagulation. 5. Continue Decadron to complete 10 days of therapy. 6. Continue baricitinib to complete treatment course. 7. Continue scheduled bronchodilator therapy. 8. Transition from Zosyn to Levaquin IMPRESSIONS: 1. Acute on chronic hypoxemic respiratory failure secondary to COVID-19 pneumonia with secondary stenotrophomonas pneumonia The patient presented to the hospital with less than 10 days of progressive dyspnea and nonproductive cough, having tested positive for coronavirus. The patient has completed a treatment course of remdesivir and will remain on Decadron to complete 10 days of therapy. In addition, baricitinib will be continued per ID recommendations. Continue Lovenox to therapeutic level dosing. Continue scheduled bronchodilators, as the patient has known severe obstructive lung disease. The patient will be at high risk for further clinical decompensation given his limited respiratory reserve/lung function. However, CODE STATUS was again confirmed with the patient this morning to be DNR CCA without intubation. Patient will be challenged with diuretics as tolerated by labs. Stenotrophomonas is typically not covered by Zosyn. Levaquin will be initiated. 2. History of coronary artery disease/atrial fibrillation/hypertension/hyperlipidemia/MAGALI Complicates care, management, recovery and prognosis. Continue home medications as indicated. This note was generated with [employer] dictation software. It may contain incorrect words, spelling, and punctuation that were not noted in checking the note before signing. Subjective Subjective Patient did okay overnight. Patient was actually able to patient to Airvo. Patient reported subjective improvement compared to yesterday. Patient has had a cough with little production. Objective Data Objective Data Vital Signs: Vital Signs Temp Pulse Resp BP Pulse Ox 36.7 C 94 23 H 114/65 83 12/21/20 09:41 12/21/20 11:33 12/21/20 11:33 12/21/20 09:41 12/21/20 11:33 Oxygen Flow Rate (L/min) 60 Oxygen Delivery Method Airvo Weight: 76.884 kg Body Mass Index (BMI) 22.4 Intake & Output: Intake and Output for Last 24 Hours 12/19/20 12/20/20 12/21/20 23:59 23:59 23:59 Intake Total 1869 1050 / 1050 50 / 50 Balance 1869 1050 / 1050 50 / 50 Medical Nutrition Assessment Dietitian: Malnutrition Criteria Met Start: 12/12/20 12:58 Freq: Status: Active Protocol: Document 12/12/20 12:58 JAZZ (Rec: 12/12/20 12:58 [facility] [id number]) Nutrition Malnutrition Evidence of Malnutrition Exists Yes Malnutrition (severe): Acute Illness/Injury Evidenced By Suboptimal Energy Intake ( Severe),Weight Loss (Severe) Clinical Problem Acute Disease or Injury Related Malnutrition Etiology related to acute illness ( covid and resp failure) w/ pt having inability to consume adequate nutrition to meet est nutritional needs Signs/Symptoms as evidenced by po intake <50 x >5 days and 5.9% wt loss x 1 week Status Active Problem Recommendation Dietitian Recommendations/Changes Will liberalize diet to Regular w/ 8 oz ensure enlive w/ meals d/t signs and symptoms of malnutrition Lab / Micro Data Result Diagrams: 12/21/20 08:15 12/21/20 08:15 Labs: Laboratory Results - last 24 hr 12/21/20 08:15: WBC 19.8 H, RBC 4.51 L, Hgb 14.0, Hct 42.3, MCV 93.8, MCH 31.0, MCHC 33.1, RDW Std Deviation 46.9 H, RDW Coeff of Rosalinda 13.7, Plt Count 349, MPV 9.1, Immature Gran % (Auto) 1.200 H, Neut % (Auto) 91.2 H, Lymph % (Auto) 1.5 L, [place] % (Auto) 5.9, Eos % (Auto) 0.0, Baso % (Auto) 0.2, Absolute Neuts (auto) 18.0 H, Absolute Lymphs (auto) 0.30 L, Nucleated RBC % 0 12/21/20 08:15: Sodium 138, Potassium 4.4, Chloride 102, Carbon Dioxide 30.0, Anion Gap 6, BUN 38 H, Creatinine 0.71, Estim Creat Clear Calc 69.41, Est GFR (M DRD) Af Amer 138, Est GFR (MDRD) Non-Af 114, BUN/Creatinine Ratio 53.2 H, Glucose 117 H, Calcium 8.3 L, Phosphorus 3.1, Magnesium 2.2 Micro: Microbiology 12/19/20 17:45 Sputum, Expectorated/Coughed Gram Stain - Final 12/19/20 17:45 Sputum, Expectorated/Coughed Respiratory Culture - Preliminary Stenotrophomonas maltophilia GNR lactose director of ancillary services 12/19/20 18:30 Urine, Clean Catch Streptococcus pneumoniae Antigen (M - Final 12/19/20 18:30 Urine, Clean Catch Legionella Antigen - Final 12/11/20 20:13 Blood Culture (Wb) - No Site/Description Given Blood Culture - Final No growth in 5 days. Physical Exam Const alert and oriented x3 Constitutional Narrative: On Airvo. Family at the bedside. General Appearance: cooperative HEENT normocephalic and head/scalp atraumatic Eyes PERRL, EOMs intact bilaterally and conjunctivae normal Neck supple General: trachea midline Chest inspection of chest normal Resp Effort and Inspection: tachypneic Auscultation: rhonchi right lower and diminished lung sounds; Negative for rales or wheezes Cardio regular rate, regular rhythm, S1 normal heart sound, S2 normal heart sound, no murmurs, no rub and no gallops GI normal to inspection, nondistended, normoactive bowel sounds Extremity no clubbing, cyanosis or edema Skin no rashes or lesions noted Neuro CN's II-XII intact bilaterally, moves all extremities and no focal motor deficits Psych cooperative and affect normal Charges/Coding Visit Charges Inpatient E&M: 06653 Subs Hosp L3
[2020-12-21] MEDS: levoFLOXacin 750 MG Tablet PO (13:17)
[2020-12-21] MEDS: Furosemide 40 MG/4 ML Vial IV (13:17)
[2020-12-21] MEDS: 0.9% Saline Lock 10 ML Syringe IV (13:17)
--- NOTE | 2020-12-21 13:58 | CHAPLAIN ---
Type of Pastoral Visit ___ Initial Visit ___ Follow-up Visit ___ On-call Visit ___ General Patient Visit ___ Spiritual Assessment ___ Family Conference ___ Bereavement ___ Rapid Response ___ Code Blue _x__ Other (describe below) Pastoral Care Referral From _x__ Patient ___ Family ___ Nurse ___ Physician ___ Fiber Design Engineer ___ Head Banquet Waitress ___ Other (describe below) Sacrament/Intervention ___ Active listening ___ Anointing ___ Gnosticism ___ Bereavement ___ Communion ___ Armida exploration ___ ___ Life review _x__ Prayer ___ Reconciliation ___ Sacrament of Sick ___ Supportive presence ___ Wedding ___ Other (describe below) Pastoral Comments phone call into isolation room; [id number] answers the phone for patient; offer of support and prayer given; pt declines speaking on phone but family appreciates the prayers and states the pt is doing some better today
--- NOTE | 2020-12-21 14:51 | PN.HOSP_ITS ---
Subjective Subjective Has been able to tolerate Airvo. States he does not feel short of breath. Objective Data Objective Data Vital Signs: Vital Signs Temp Pulse Resp BP Pulse Ox 36.6 C 71 18 117/60 91 12/21/20 13:20 12/21/20 13:20 12/21/20 13:20 12/21/20 13:20 12/21/20 13:20 Oxygen Flow Rate (L/min) 60 Oxygen Delivery Method Airvo Weight: 76.884 kg Body Mass Index (BMI) 22.4 Intake & Output: Intake and Output for Last 24 Hours 12/19/20 12/20/20 12/21/20 23:59 23:59 23:59 Intake Total 1870 / 1870 1050 / 1050 50 / 50 Balance 1870 / 1870 1050 / 1050 50 / 50 Medical Nutrition Assessment Dietitian: Malnutrition Criteria Met Start: 12/12/20 12:58 Freq: Status: Active Protocol: Document 12/12/20 12:58 JAZZ (Rec: 12/12/20 12:58 [facility] [id number]) Nutrition Malnutrition Evidence of Malnutrition Exists Yes Malnutrition (severe): Acute Illness/Injury Evidenced By Suboptimal Energy Intake ( Severe),Weight Loss (Severe) Clinical Problem Acute Disease or Injury Related Malnutrition Etiology related to acute illness ( covid and resp failure) w/ pt having inability to consume adequate nutrition to meet est nutritional needs Signs/Symptoms as evidenced by po intake <50 x >5 days and 5.9% wt loss x 1 week Status Active Problem Recommendation Dietitian Recommendations/Changes Will liberalize diet to Regular w/ 8 oz ensure enlive w/ meals d/t signs and symptoms of malnutrition Lab / Micro Data Result Diagrams: 12/21/20 08:15 12/21/20 08:15 Labs: Laboratory Results - last 24 hr 12/21/20 08:15: WBC 19.8 H, RBC 4.51 L, Hgb 14.0, Hct 42.3, MCV 93.8, MCH 31.0, MCHC 33.1, RDW Std Deviation 46.9 H, RDW Coeff of Rosalinda 13.7, Plt Count 349, MPV 9.1, Immature Gran % (Auto) 1.200 H, Neut % (Auto) 91.2 H, Lymph % (Auto) 1.5 L, [place] % (Auto) 5.9, Eos % (Auto) 0.0, Baso % (Auto) 0.2, Absolute Neuts (auto) 18.0 H, Absolute Lymphs (auto) 0.30 L, Nucleated RBC % 0 12/21/20 08:15: Sodium 138, Potassium 4.4, Chloride 102, Carbon Dioxide 30.0, Anion Gap 6, BUN 38 H, Creatinine 0.71, Estim Creat Clear Calc 69.41, Est GFR (MDRD) Af Amer 138, Est GFR (MDRD) Non-Af 114, BUN/Creatinine Ratio 53.2 H, Glucose 117 H, Calcium 8.3 L, Phosphorus 3.1, Magnesium 2.2 Micro: Microbiology 12/19/20 17:45 Sputum, Expectorated/Coughed Gram Stain - Final 12/19/20 17:45 Sputum, Expectorated/Coughed Respiratory Culture - Preliminary Stenotrophomonas maltophilia GNR lactose captain assistant 12/19/20 18:30 Urine, Clean Catch Streptococcus pneumoniae Antigen (M - Final 12/19/20 18:30 Urine, Clean Catch Legionella Antigen - Final 12/11/20 20:13 Blood Culture (Wb) - No Site/Description Given Blood Culture - Final No growth in 5 days. Physical Exam Const alert HEENT Head and Scalp: normocephalic Resp normal respiratory effort, no retractions, no use of accessory muscles and clear to auscultation bilaterally Cardio regular rate, regular rhythm, S1 normal heart sound and S2 normal heart sound GI normal to inspection, nondistended, normoactive bowel sounds, soft to palpation, non-tender and non-distended Neuro Sensorium / Orientation: awake and alert Assessment & Plan Assessment/Plan (1) Acute on chronic respiratory failure with hypoxemia: (2) COVID-19: (3) Stage 4 very severe COPD by GOLD classification: PLAN: 1. acute hypoxic respiratory failure * 2/2 COVID 19 and advanced COPD +/- GN pneumonia * Reviewed CT and pt has diffuse GGO and marked emphysematous changes * overall worsening he is a high risk for decompensation * wean oxygen as able * continue BDs * maintain sats in low 90s * 12/12: 6liters * 12/13: 8 liters * 12/14: 10 liters * 12/20: BiPAP w 80% FiO2. Continue with therapeutic Enoxaparin (started 12/19) * 12/21: on Airvo at 92%. 2. Acute COVID 19 * onset 12/06 * unvaccinated * completed remdesivir * continue dexamethasone * continue baricitinib 3. Gram negative pneumonia * 12/20: start Pip/tazo and follow up culture * 12/21: Stenotrophomonas. Changed to levofloxacin 4. Stage 4 COPD * complicates prognosis and recovery * Maintain pulse ox in low 90s to mitigate CO2 retention * Reviewing his CAT scan images that is he does have patchy infiltrates consistent with Covid but is not as severe and profound. I feel much of his respiratory issues are more trivial to his COPD, at least at this point time. 4. CAD * stable * continue ASA, clopidogrel, ranolazine 5. VTE prophylaxis: LMWH 6. Code Status: * reviewed 12/12: DNRCCA, DNI. 7. Severe protein calorie malnutrition, * armature varnisher consulted, on supplements 8. Prognosis is guarded * 12/20: discussed with the patient's son, Avtar, explained the patient's guarded prognosis and patient's limited physiologic reserve to bounce back from a significant insult such as COVID-19 given his advanced COPD. The patient's son was agreeable to some as needed morphine to help with shortness of breath. Is explained that this was strictly palliative and not curative in any way. And we could consider further palliation measures if needed. But patient does continue to decline may need to consider hospice. * 12/21: dw family at bedside. Slightly improved from the , but still on high FiO2 Charges/Coding Visit Charges Inpatient E&M: 56030 Subs Hosp L2
--- NOTE | 2020-12-21 16:06 | PCM.PN.ID ---
Physical Exam Narrative No fever, ongoing dyspnea and cough Const alert General Appearance: cooperative Resp Auscultation: diminished lung sounds Cardio regular rate and regular rhythm GI normal to inspection, nondistended, normoactive bowel sounds Skin no rashes or lesions noted ID ID: Route of nutrition/ use of supplements: [] Nutritional Intake: [] IV Site: [] Art Catheter: [] Assessment & Plan Assessment/Plan (1) COVID-19: PLAN: Sx started 12/07/20. Unvaccinated. Isolate for 20 days from start of sx. Completed remdesivir. On dex, baricitinib. Recommend vaccine once out of iso. Now sputum with GNR and steno. Zosyn changed to levaquin Will follow (2) Hypoxemia:
[2020-12-22] VITALS (16 sets, daily range): BP systolic 135–143; BP diastolic 69–80; PULSE 57–102; RESP 13–23; TEMP 36.3–37.1; O2SAT 85–96
[2020-12-22] MEDS: 0.9% Saline Lock 10 ML Syringe IV (05:19)
[2020-12-22 07:29] LABS: Absolute Lymphocyte Count 0.35 X10^3/uL (0.83-4.51); Absolute Neutrophil Count 16.2 X10^3/uL (2.0-7.7); Basophil# 0.05 X10^3/uL; Basophil% 0.3 % (0-1); Hematocrit 42.4 % (40-54); Lymphocyte # 0.35 X10^3/ul (0.83-4.51); Lymphocyte % 1.9 % (19-41); Mean Corpuscular Hgb 30.9 pg (27.0-32.0); Mean Corpuscular Volume 93.6 fL (80-94); Mean Platelet Vol. 9.6 fl (6.2-12.0); Monocyte# 1.11 X10^3/uL; Monocyte% 6.2 % (0-10); NRBC Flagged by Analyzer 0 % (0-5); Neutrophil # 16.23 X10^3/uL (2.7-7.7); Neutrophil % 89.9 % (47-70); POSITIVE DIFFERENTIAL YES; Platelet Count 365 K/mm3 (150-450); RBC Distribution Width CV 13.5 % (11.6-14.6); RBC Distribution Width SD 46.1 fl (35.1-43.9); Red Blood Count 4.53 M/mm3 (4.6-6.2)
[2020-12-22 07:39] LABS: Differential Indicated SCAN CRITERIA MET
[2020-12-22] MEDS: Ipratropium/Albuterol Sulfate 3 ML AMPUL.NEB INHALATION ×4 (07:51→19:19)
[2020-12-22 08:12] LABS: ALB/GLOB Ratio 0.5 RATIO (0.9-2.4); AST(SGOT) 23 U/L (15-37); Alanine Aminotransfer ALT/SGPT 45 U/L (16-61); Albumin, Serum 1.8 g/dL (3.2-5.0); Alkaline Phosphatase 57 U/L (45-117); Anion Gap 6 (5-15); BUN 36 mg/dL (7-18); BUN/Creat Ratio 50.3 RATIO (10-20); Calcium,Total 8.8 mg/dL (8.5-10.1); Chloride 100 mmol/L (98-107); Creatinine, Serum 0.72 mg/dL (0.70-1.30); EST Glomerular Filtration Rate 114 mL/min (>60); Est Glom Filt Rate - Afr Amer 138 mL/min (>60); Estimated Creatinine Clearance 69.41 ml/min; Globulin 3.9 g/dL (2.2-4.2); Glucose 128 mg/dL (74-106); Potassium 4.3 mmol/L (3.5-5.1); Protein, Total 5.7 g/dL (6.4-8.2); Sodium Level 138 mmol/L (136-145)
[2020-12-22] MEDS: Enoxaparin 80 MG/0.8 ML Syringe SC ×2 (09:07→21:55)
[2020-12-22] MEDS: dexAMETHasone 2 MG TABLET 6 MG PO (09:07)
[2020-12-22] MEDS: dilTIAZem CD 120 MG Capsule PO (09:08)
[2020-12-22] MEDS: guaiFENesin 600 MG Tablet PO ×2 (09:08→21:55)
[2020-12-22] MEDS: Menthol/Lanolin/Calamine/Znox 113 GM Tube 1 APPLIC TOPICAL ×3 (09:08→21:55)
[2020-12-22] MEDS: levoFLOXacin 750 MG Tablet PO (09:08)
--- NOTE | 2020-12-22 09:22 | NURSING ---
assisted pt up to chair - on avirvo... after 10min pt sat at 78-81% on airvo - resp called pt placed on bipap to help recover.
[2020-12-22] MEDS: morphine (oral solution) 10MG/0.5ML Syringe 10 MG SL/PO (09:43)
--- NOTE | 2020-12-22 09:45 | NURSING ---
bipap masked changed to lg.. roxonal given to help with SOB
--- NOTE | 2020-12-22 09:59 | PN.CC_ITS ---
Assessment & Plan Assessment/Plan (1) COVID-19: PLAN: RECOMMENDATIONS: 1. Continue patient on AVAPS with sleep. Oxygen saturations of 88% or greater are acceptable. 2. Use Airvo to facilitate p.o. intake and pulmonary toileting 3. Diuretic challenge as labs allow 4. Continue therapeutic anticoagulation. 5. Continue Decadron to complete 10 days of therapy. 6. Continue baricitinib to complete treatment course. 7. Continue scheduled bronchodilator therapy. 8. Continue Levaquin IMPRESSIONS: 1. Acute on chronic hypoxemic respiratory failure secondary to COVID-19 pneumonia with secondary stenotrophomonas pneumonia The patient presented to the hospital with less than 10 days of progressive dyspnea and nonproductive cough, having tested positive for coronavirus. The patient has completed a treatment course of remdesivir and will remain on Decadron to complete 10 days of therapy. In addition, baricitinib will be continued per ID recommendations. Continue Lovenox to therapeutic level dosing. Continue scheduled bronchodilators, as the patient has known severe obstructive lung disease. The patient will be at high risk for further clinical decompensation given his limited respiratory reserve/lung function. However, CODE STATUS was again confirmed with the patient this morning to be DNR CCA without intubation. Patient will be challenged with diuretics as tolerated by labs. Anticipate 24 to 48 hours to see improvement in stenotrophomonas contribution as Levaquin was just started yesterday. Continue aggressive pulmonary toileting to allow for recruitment. 2. History of coronary artery disease/atrial fibrillation/hypertension/hyperlipidemia/MAGALI Complicates care, management, recovery and prognosis. Continue home medications as indicated. This note was generated with [employer] dictation software. It may contain incorrect words, spelling, and punctuation that were not noted in checking the note before signing. Subjective Subjective Patient reports little change compared to yesterday. Patient has been able to tolerate Airvo, but with 93% FiO2. Patient continues to have a loose cough, but little production. Patient is not reporting any hemoptysis or chest pain. Patient was able to get to the chair yesterday afternoon. Objective Data Objective Data Vital Signs: Vital Signs Temp Pulse Resp BP Pulse Ox 36.6 C 102 H 23 H 141/80 H 85 12/22/20 08:48 12/22/20 09:20 12/22/20 09:20 12/22/20 08:48 12/22/20 09:20 Oxygen Flow Rate (L/min) 60 Oxygen Delivery Method Airvo Weight: 76.884 kg Body Mass Index (BMI) 22.4 Intake & Output: Intake and Output for Last 24 Hours 12/20/20 12/21/20 12/22/20 23:59 23:59 23:59 Intake Total 1050 / 1050 50 / 50 Balance 1050 / 1050 50 / 50 Medical Nutrition Assessment Dietitian: Malnutrition Criteria Met Start: 12/12/20 12:58 Freq: Status: Active Protocol: Document 12/12/20 12:58 SLA (Rec: 12/12/20 12:58 [facility] [id number]) Nutrition Malnutrition Evidence of Malnutrition Exists Yes Malnutrition (severe): Acute Illness/Injury Evidenced By Suboptimal Energy Intake ( Severe),Weight Loss (Severe) Clinical Problem Acute Disease or Injury Related Malnutrition Etiology related to acute illness ( covid and resp failure) w/ pt having inability to consume adequate nutrition to meet est nutritional needs Signs/Symptoms as evidenced by po intake <50 x >5 days and 5.9% wt loss x 1 week Status Active Problem Recommendation Dietitian Recommendations/Changes Will liberalize diet to Regular w/ 8 oz ensure enlive w/ meals d/t signs and symptoms of malnutrition Lab / Micro Data Result Diagrams: 12/22/20 06:22 12/22/20 06:22 Labs: Laboratory Results - last 24 hr 12/22/20 06:22: WBC 18.0 H, RBC 4.53 L, Hgb 14.0, Hct 42.4, MCV 93.6, MCH 30.9, MCHC 33.0, RDW Std Deviation 46.1 H, RDW Coeff of Rosalinda 13.5, Plt Count 365, MPV 9.6, Immature Gran % (Auto) 1.700 H, Neut % (Auto) 89.9 H, Lymph % (Auto) 1.9 L, [place] % (Auto) 6.2, Eos % (Auto) 0.0, Baso % (Auto) 0.3, Absolute Neuts (auto) 16.2 H, Absolute Lymphs (auto) 0.35 L, Nucleated RBC % 0, Differential Comment COMMENT 12/22/20 06:22: Sodium 138, Potassium 4.3, Chloride 100, Carbon Dioxide 32.0, Anion Gap 6, BUN 36 H, Creatinine 0.72, Estim Creat Clear Calc 69.41, Est GFR (MDRD) Af Amer 138, Est GFR (MDRD) Non-Af 114, BUN/Creatinine Ratio 50.3 H, Glucose 128 H, Calcium 8.8, Total Bilirubin 1.00, AST 23, ALT 45, Alkaline Phosphatase 57, Total Protein 5.7 L, Albumin 1.8 L, Globulin 3.9, Albumin/Globulin Ratio 0.5 L Micro: Microbiology 12/19/20 17:45 Sputum, Expectorated/Coughed Gram Stain - Final 12/19/20 17:45 Sputum, Expectorated/Coughed Respiratory Culture - Final Stenotrophomonas maltophilia Raoultella planticola 12/19/20 18:30 Urine, Clean Catch Streptococcus pneumoniae Antigen (M - Final 12/19/20 18:30 Urine, Clean Catch Legionella Antigen - Final 12/11/20 20:13 Blood Culture (Wb) - No Site/Description Given Blood Culture - Final No growth in 5 days. Physical Exam Const alert and oriented x3 Constitutional Narrative: On Airvo. Family at the bedside. General Appearance: cooperative HEENT normocephalic and head/scalp atraumatic Eyes PERRL, EOMs intact bilaterally and conjunctivae normal Neck supple General: trachea midline Chest inspection of chest normal Resp Effort and Inspection: tachypneic Auscultation: rhonchi right lower and diminished lung sounds; Negative for rales or wheezes Cardio regular rate, regular rhythm, S1 normal heart sound, S2 normal heart sound, no murmurs, no rub and no gallops GI normal to inspection, nondistended, normoactive bowel sounds Extremity no clubbing, cyanosis or edema Skin no rashes or lesions noted Neuro CN's II-XII intact bilaterally, moves all extremities and no focal motor deficits Psych cooperative and affect normal Charges/Coding Visit Charges Inpatient E&M: 25284 Subs Hosp L3
--- NOTE | 2020-12-22 11:56 | NURSING ---
confirmed with Dr. Ken & Primary RN ok for to visit. discussed visitation with and additional family member about visitation. requesting to talk to advocate as requesting more than & 1 other person be allowed to visit. call placed to supervisor extrusion
--- NOTE | 2020-12-22 12:01 | NURSING ---
talked with powerhouse operator regarding visitation and family's request that more than the be allowed to visit, placed a call to Tamie Priest as advised.
[2020-12-22] MEDS: Furosemide 40 MG Tablet PO (14:13)
--- NOTE | 2020-12-22 14:17 | PN.HOSP_ITS ---
Subjective Subjective Placed on BiPAP given hypoxia when going into chair. Pulse ox has been tenuous despite 100% FiO2. Objective Data Objective Data Vital Signs: Vital Signs Temp Pulse Resp BP Pulse Ox 36.6 C 91 23 H 141/80 H 91 12/22/20 08:48 12/22/20 11:17 12/22/20 11:17 12/22/20 08:48 12/22/20 11:17 Oxygen Flow Rate (L/min) 60 Oxygen Delivery Method Airvo Weight: 76.9 kg Body Mass Index (BMI) 22.4 Intake & Output: Intake and Output for Last 24 Hours 12/20/20 12/21/20 12/22/20 23:59 23:59 23:59 Intake Total 1050 / 1050 50 / 50 Output Total 175 / 175 Balance 1050 / 1050 50 / 50 -175 / -175 Medical Nutrition Assessment Dietitian: Malnutrition Criteria Met Start: 12/12/20 12:58 Freq: Status: Active Protocol: Document 12/22/20 10:10 RMA (Rec: 12/22/20 10:10 RMA [id number]) Nutrition Malnutrition Evidence of Malnutrition Exists Yes Malnutrition (severe): Acute Illness/Injury Evidenced By Suboptimal Energy Intake ( Severe),Weight Loss (Severe) Clinical Problem Acute Disease or Injury Related Malnutrition Etiology Severe protein/calorie malnutrition in the context of acute illness (covid and resp failure) related to inadequate oral intake due to increased oxygen requirements Signs/Symptoms as evidenced by PO less than 50% at meals, meeting less than 50% estimated nutrition needs and ~6% wt loss x past 2 weeks. Status Active Problem Recommendation Dietitian Recommendations/Changes Continue Regular diet as tolerated. Will adjust ONS to 240ml oz ensure enlive w with breakfast and Ensure Pudding with lunch and dinner. Lab / Micro Data Result Diagrams: 12/22/20 06:22 12/22/20 06:22 Labs: Laboratory Results - last 24 hr 12/22/20 06:22: WBC 18.0 H, RBC 4.53 L, Hgb 14.0, Hct 42.4, MCV 93.6, MCH 30.9, MCHC 33.0, RDW Std Deviation 46.1 H, RDW Coeff of Rosalinda 13.5, Plt Count 365, MPV 9.6, Immature Gran % (Auto) 1.700 H, Neut % (Auto) 89.9 H, Lymph % (Auto) 1.9 L, [place] % (Auto) 6.2, Eos % (Auto) 0.0, Baso % (Auto) 0.3, Absolute Neuts (auto) 16.2 H, Absolute Lymphs (auto) 0.35 L, Nucleated RBC % 0, Differential Comment COMMENT 12/22/20 06:22: Sodium 138, Potassium 4.3, Chloride 100, Carbon Dioxide 32.0, Anion Gap 6, BUN 36 H, Creatinine 0.72, Estim Creat Clear Calc 69.41, Est GFR (MDRD) Af Amer 138, Est GFR (MDRD) Non-Af 114, BUN/Creatinine Ratio 50.3 H, Glucose 128 H, Calcium 8.8, Total Bilirubin 1.00, AST 23, ALT 45, Alkaline Phosphatase 57, Total Protein 5.7 L, Albumin 1.8 L, Globulin 3.9, Albumin/Globulin Ratio 0.5 L Micro: Microbiology 12/19/20 17:45 Sputum, Expectorated/Coughed Gram Stain - Final 12/19/20 17:45 Sputum, Expectorated/Coughed Respiratory Culture - Final Stenotrophomonas maltophilia Raoultella planticola 12/19/20 18:30 Urine, Clean Catch Streptococcus pneumoniae Antigen (M - Final 12/19/20 18:30 Urine, Clean Catch Legionella Antigen - Final 12/11/20 20:13 Blood Culture (Wb) - No Site/Description Given Blood Culture - Final No growth in 5 days. Physical Exam Const alert Constitutional Narrative: in chair. uncomfortable. Resp normal respiratory effort and no retractions Resp Narrative: coarse breath sounds bilaterally. Cardio regular rate, regular rhythm, S1 normal heart sound and S2 normal heart sound GI normal to inspection, nondistended, normoactive bowel sounds, soft to palpation, non-tender and non-distended Extremity normal to inspection and no clubbing, cyanosis or edema Skin no rashes or lesions noted and no wounds Neuro Sensorium / Orientation: awake Assessment & Plan Assessment/Plan (1) Acute on chronic respiratory failure with hypoxemia: (2) COVID-19: (3) Stage 4 very severe COPD by GOLD classification: PLAN: 1. acute hypoxic respiratory failure * 2/2 COVID 19 and advanced COPD +/- GN pneumonia * Reviewed CT and pt has diffuse GGO and marked emphysematous changes * overall worsening he is a high risk for decompensation * wean oxygen as able * continue BDs * maintain sats in low 90s * 12/12: 6liters * 12/13: 8 liters * 12/14: 10 liters * 12/20: BiPAP w 80% FiO2. Continue with therapeutic Enoxaparin (started 12/19) * 12/21: on Airvo at 92%. * 12/22: back on BiPAP with 100% FiO2. Concern for ongoing worsening given poor physiologic reserve. 2. Acute COVID 19 * onset 12/06 * unvaccinated * completed remdesivir * continue dexamethasone * continue baricitinib 3. Gram negative pneumonia * 12/20: start Pip/tazo and follow up culture * 12/21: Stenotrophomonas. Changed to levofloxacin 4. Stage 4 COPD * complicates prognosis and recovery * Maintain pulse ox in low 90s to mitigate CO2 retention * Reviewing his CAT scan images that is he does have patchy infiltrates consistent with Covid but is not as severe and profound. I feel much of his respiratory issues are more trivial to his COPD, at least at this point time. 4. CAD * stable * continue ASA, clopidogrel, ranolazine 5. VTE prophylaxis: LMWH 6. Code Status: * reviewed 12/12: DNRCCA, DNI. 7. Severe protein calorie malnutrition, * servicenow administrator developer consulted, on supplements 8. Prognosis is guarded * 12/20: discussed with the patient's son, Avtar, explained the patient's guarded prognosis and patient's limited physiologic reserve to bounce back from a significant insult such as COVID-19 given his advanced COPD. The patient's son was agreeable to some as needed morphine to help with shortness of breath. Is explained that this was strictly palliative and not curative in any way. And we could consider further palliation measures if needed. But patient does continue to decline may need to consider hospice. * 12/21: dw family at bedside. Slightly improved from the , but still on high FiO2 * 12/22: overall worse and back on BiPAP. Family made aware. Charges/Coding Visit Charges Inpatient E&M: 03208 Subs Hosp L2
--- NOTE | 2020-12-22 15:10 | NURSING ---
spoke with Trini, son Avtar and 2 daugther in laws about visitations.. informed of visitation will be and sons only,, no daughter in laws or grandchildren. - everyone agreeable with this. updated them on status of pt and went through the COVID process for them to visit in room. spokw to them about the progress of using the Airvo, biapap and eventually getting to and [place]. spoke to them for approx 25mins.. answered bunch of questions. everyone one on same page with pt care.
--- NOTE | 2020-12-22 15:14 | CASEMGMT ---
Social Work Note SW received message from Milagros Michel [phone] wanting to talk to SW. SW in to speak with pt and pt's Trini. SW asked Trini if she is related to a Milagros Michel. Trini states Milagros is her DIL. LUCIANA informed Trini that Milagros called this worker. Trini states Milagros is out in waiting area, gives permission for this worker to speak with Milagros. SW went out to waiting area. Pt's family present in waiting room. RN just got done providing update. LUCIANA introduced self and role at [facility]. Milagros states all of their questions were answered by RN, states they wanted a medical update on pt. LUCIANA informed pt's family that any additional medical questions need to be directed to RN as this worker cannot answer medical questions. LUCIANA explained role of discharge planning and that this worker works with RN CM to develop a safe discharge plan for pt. Pt's family states understanding. SW following. Ayleen Bee AUTO PARTS COUNTER PERSON, CARPET SEWING MACHINE OPERATOR
[2020-12-23] VITALS (15 sets, daily range): BP systolic 111–132; BP diastolic 69–85; PULSE 58–100; RESP 14–26; TEMP 36.3–36.6; O2SAT 83–93
[2020-12-23 07:22] LABS: Absolute Lymphocyte Count 0.55 X10^3/uL (0.83-4.51); Absolute Neutrophil Count 18.4 X10^3/uL (2.0-7.7); Basophil# 0.07 X10^3/uL; Basophil% 0.3 % (0-1); Hematocrit 44.2 % (40-54); Hemoglobin 14.2 g/dL (13.0-16.5); Lymphocyte # 0.55 X10^3/ul (0.83-4.51); Lymphocyte % 2.6 % (19-41); Mean Corp Hgb Conc 32.1 g/dL (32-36); Mean Corpuscular Hgb 30.6 pg (27.0-32.0); Mean Corpuscular Volume 95.3 fL (80-94); Mean Platelet Vol. 9.7 fl (6.2-12.0); Monocyte% 5.8 % (0-10); NRBC Flagged by Analyzer 0 % (0-5); Neutrophil # 18.38 X10^3/uL (2.7-7.7); Neutrophil % 88.2 % (47-70); POSITIVE DIFFERENTIAL YES; Platelet Count 352 K/mm3 (150-450); RBC Distribution Width CV 13.7 % (11.6-14.6); RBC Distribution Width SD 48.1 fl (35.1-43.9); Red Blood Count 4.64 M/mm3 (4.6-6.2); White Blood Count 20.9 K/mm3 (4.4-11.0)
[2020-12-23 07:28] LABS: Differential Indicated SCAN CRITERIA MET
[2020-12-23] MEDS: Ipratropium/Albuterol Sulfate 3 ML AMPUL.NEB INHALATION ×4 (07:29→19:07)
[2020-12-23 08:02] LABS: ALB/GLOB Ratio 0.5 RATIO (0.9-2.4); AST(SGOT) 18 U/L (15-37); Alanine Aminotransfer ALT/SGPT 54 U/L (16-61); Alkaline Phosphatase 61 U/L (45-117); Anion Gap 6 (5-15); BUN 40 mg/dL (7-18); BUN/Creat Ratio 49.9 RATIO (10-20); Calcium,Total 8.4 mg/dL (8.5-10.1); Chloride 101 mmol/L (98-107); EST Glomerular Filtration Rate 100 mL/min (>60); Est Glom Filt Rate - Afr Amer 121 mL/min (>60); Estimated Creatinine Clearance 86.78 ml/min; Globulin 3.7 g/dL (2.2-4.2); Glucose 114 mg/dL (74-106); Potassium 4.4 mmol/L (3.5-5.1); Protein, Total 5.7 g/dL (6.4-8.2); Sodium Level 138 mmol/L (136-145)
[2020-12-23 08:34] LABS: Differential Comment SCANNED
--- NOTE | 2020-12-23 08:42 | PN.CC_ITS ---
Assessment & Plan Assessment/Plan (1) COVID-19: PLAN: RECOMMENDATIONS: 1. Continue patient on AVAPS with sleep. Oxygen saturations of 88% or greater are acceptable. 2. Use Airvo during the day to facilitate p.o. intake and pulmonary toileting 3. Diuretic challenge as labs allow 4. Continue therapeutic anticoagulation. 5. Continue Decadron to complete 10 days of therapy. 6. Continue baricitinib to complete treatment course. 7. Continue scheduled bronchodilator therapy. 8. Continue Levaquin to complete a 10-day course IMPRESSIONS: 1. Acute on chronic hypoxemic respiratory failure secondary to COVID-19 pneumonia with secondary stenotrophomonas pneumonia The patient presented to the hospital with less than 10 days of progressive dyspnea and nonproductive cough, having tested positive for coronavirus. The patient has completed a treatment course of remdesivir and will remain on Decadron to complete 10 days of therapy. In addition, baricitinib will be continued per ID recommendations. Continue Lovenox to therapeutic level dosing. Continue scheduled bronchodilators, as the patient has known severe obstructive lung disease. The patient will be at high risk for further clinical decompensation given his limited respiratory reserve/lung function. However, CODE STATUS was again confirmed with the patient this morning to be DNR CCA without intubation. Patient appears to be improving with treatment of stenotrophomonas. Continue aggressive pulmonary toileting to allow for recruitment. 2. History of coronary artery disease/atrial fibrillation/hypertension/hyperlipidemia/MAGALI Complicates care, management, recovery and prognosis. Continue home medications as indicated. This note was generated with [employer] dictation software. It may contain incorrect words, spelling, and punctuation that were not noted in checking the note before signing. Subjective Subjective Patient subjectively feels improved compared to yesterday. Patient is having a cough that is productive of sputum. Patient has been able to tolerate Airvo, but still requiring significant amounts of supplemental oxygen to maintain saturations. Patient is not reporting any nausea or diarrhea. Objective Data Objective Data Vital Signs: Vital Signs Temp Pulse Resp BP Pulse Ox 36.4 C L 60 18 132/85 H 93 12/23/20 03:18 12/23/20 07:29 12/23/20 07:29 12/23/20 03:18 12/23/20 07:29 Oxygen Flow Rate (L/min) 60 Oxygen Delivery Method Airvo Weight: 76.9 kg Body Mass Index (BMI) 22.4 Intake & Output: Intake and Output for Last 24 Hours 12/21/20 12/22/20 12/23/20 23:59 23:59 23:59 Intake Total 50 / 50 200 / 200 Output Total 175 / 175 600 / 600 Balance 50 / 50 -175 / -175 -400 / -400 Medical Nutrition Assessment Dietitian: Malnutrition Criteria Met Start: 12/12/20 12:58 Freq: Status: Active Protocol: Document 12/22/20 10:10 RMA (Rec: 12/22/20 10:10 RMA [id number]) Nutrition Malnutrition Evidence of Malnutrition Exists Yes Malnutrition (severe): Acute Illness/Injury Evidenced By Suboptimal Energy Intake ( Severe),Weight Loss (Severe) Clinical Problem Acute Disease or Injury Related Malnutrition Etiology Severe protein/calorie malnutrition in the context of acute illness (covid and resp failure) related to inadequate oral intake due to increased oxygen requirements Signs/Symptoms as evidenced by PO less than 50% at meals, meeting less than 50% estimated nutrition needs and ~6% wt loss x past 2 weeks. Status Active Problem Recommendation Dietitian Recommendations/Changes Continue Regular diet as tolerated. Will adjust ONS to 240ml oz ensure enlive w with breakfast and Ensure Pudding with lunch and dinner. Lab / Micro Data Result Diagrams: 12/23/20 06:44 12/23/20 06:44 Labs: Laboratory Results - last 24 hr 12/23/20 06:44: WBC 20.9 H, RBC 4.64, Hgb 14.2, Hct 44.2, MCV 95.3 H, MCH 30.6, MCHC 32.1, RDW Std Deviation 48.1 H, RDW Coeff of Rosalinda 13.7, Plt Count 352, MPV 9.7, Immature Gran % (Auto) 3.100 H, Neut % (Auto) 88.2 H, Lymph % (Auto) 2.6 L, Hancock % (Auto) 5.8, Eos % (Auto) 0.0, Baso % (Auto) 0.3, Absolute Neuts (auto) 18.4 H, Absolute Lymphs (auto) 0.55 L, Nucleated RBC % 0, Differential Comment SCANNED 12/23/20 06:44: Sodium 138, Potassium 4.4, Chloride 101, Carbon Dioxide 31.0, Anion Gap 6, BUN 40 H, Creatinine 0.80, Estim Creat Clear Calc 86.78, Est GFR (MDRD) Af Amer 121, Est GFR (MDRD) Non-Af 100, BUN/Creatinine Ratio 49.9 H, Glucose 114 H, Calcium 8.4 L, Total Bilirubin 1.00, AST 18, ALT 54, Alkaline Phosphatase 61, Total Protein 5.7 L, Albumin 2.0 L, Globulin 3.7, Albumin/Globu gorge Ratio 0.5 L Micro: Microbiology 12/19/20 17:45 Sputum, Expectorated/Coughed Gram Stain - Final 12/19/20 17:45 Sputum, Expectorated/Coughed Respiratory Culture - Final Stenotrophomonas maltophilia Raoultella planticola 12/19/20 18:30 Urine, Clean Catch Streptococcus pneumoniae Antigen (M - Final 12/19/20 18:30 Urine, Clean Catch Legionella Antigen - Final 12/11/20 20:13 Blood Culture (Wb) - No Site/Description Given Blood Culture - Final No growth in 5 days. Physical Exam Const alert and oriented x3 Constitutional Narrative: On Airvo. General Appearance: cooperative HEENT normocephalic and head/scalp atraumatic Eyes PERRL, EOMs intact bilaterally and conjunctivae normal Neck supple General: trachea midline Chest inspection of chest normal Resp Effort and Inspection: tachypneic Auscultation: rhonchi right lower and diminished lung sounds; Negative for rales or wheezes Cardio regular rate, regular rhythm, S1 normal heart sound, S2 normal heart sound, no murmurs, no rub and no gallops GI normal to inspection, nondistended, normoactive bowel sounds Extremity no clubbing, cyanosis or edema Skin no rashes or lesions noted Neuro CN's II-XII intact bilaterally, moves all extremities and no focal motor deficits Psych cooperative and affect normal Charges/Coding Visit Charges Inpatient E&M: 95067 Subs Hosp L3
[2020-12-23] MEDS: dilTIAZem CD 120 MG Capsule PO (09:04)
[2020-12-23] MEDS: Menthol/Lanolin/Calamine/Znox 113 GM Tube 1 APPLIC TOPICAL ×3 (09:04→22:25)
[2020-12-23] MEDS: Enoxaparin 80 MG/0.8 ML Syringe SC ×2 (09:05→22:24)
[2020-12-23] MEDS: guaiFENesin 600 MG Tablet PO ×2 (09:05→22:24)
[2020-12-23] MEDS: Furosemide 40 MG Tablet PO ×2 (09:05→16:25)
[2020-12-23] MEDS: dexAMETHasone 2 MG TABLET 6 MG PO (09:05)
[2020-12-23] MEDS: levoFLOXacin 750 MG Tablet PO (09:05)
--- NOTE | 2020-12-23 14:52 | PN.HOSP_ITS ---
Subjective Subjective Switched over to Airvo. States his breathing is much better today. Objective Data Objective Data Vital Signs: Vital Signs Temp Pulse Resp BP Pulse Ox 36.4 C L 98 20 H 124/70 H 91 12/23/20 09:13 12/23/20 14:25 12/23/20 14:25 12/23/20 09:13 12/23/20 14:25 Oxygen Flow Rate (L/min) 60 Oxygen Delivery Method Airvo Weight: 76.9 kg Body Mass Index (BMI) 22.4 Intake & Output: Intake and Output for Last 24 Hours 12/21/20 12/22/20 12/23/20 23:59 23:59 23:59 Intake Total 50 / 50 200 / 200 Output Total 175 / 175 600 / 600 Balance 50 / 50 -175 / -175 -400 / -400 Medical Nutrition Assessment Dietitian: Malnutrition Criteria Met Start: 12/12/20 12:58 Freq: Status: Active Protocol: Document 12/22/20 10:10 RMA (Rec: 12/22/20 10:10 RMA [id number]) Nutrition Malnutrition Evidence of Malnutrition Exists Yes Malnutrition (severe): Acute Illness/Injury Evidenced By Suboptimal Energy Intake ( Severe),Weight Loss (Severe) Clinical Problem Acute Disease or Injury Related Malnutrition Etiology Severe protein/calorie malnutrition in the context of acute illness (covid and resp failure) related to inadequate oral intake due to increased oxygen requirements Signs/Symptoms as evidenced by PO less than 50% at meals, meeting less than 50% estimated nutrition needs and ~6% wt loss x past 2 weeks. Status Active Problem Recommendation Dietitian Recommendations/Changes Continue Regular diet as tolerated. Will adjust ONS to 240ml oz ensure enlive w with breakfast and Ensure Pudding with lunch and dinner. Lab / Micro Data Result Diagrams: 12/23/20 06:44 12/23/20 06:44 Labs: Laboratory Results - last 24 hr 12/23/20 06:44: WBC 20.9 H, RBC 4.64, Hgb 14.2, Hct 44.2, MCV 95.3 H, MCH 30.6, MCHC 32.1, RDW Std Deviation 48.1 H, RDW Coeff of Rosalinda 13.7, Plt Count 352, MPV 9.7, Immature Gran % (Auto) 3.100 H, Neut % (Auto) 88.2 H, Lymph % (Auto) 2.6 L, Swift % (Auto) 5.8, Eos % (Auto) 0.0, Baso % (Auto) 0.3, Absolute Neuts (auto) 18.4 H, Absolute Lymphs (auto) 0.55 L, Nucleated RBC % 0, Differential Comment SCANNED 12/23/20 06:44: Sodium 138, Potassium 4.4, Chloride 101, Carbon Dioxide 31.0, Anion Gap 6, BUN 40 H, Creatinine 0.80, Estim Creat Clear Calc 86.78, Est GFR (MDRD) Af Amer 121, Est GFR (MDRD) Non-Af 100, BUN/Creatinine Ratio 49.9 H, Glucose 114 H, Calcium 8.4 L, Total Bilirubin 1.00, AST 18, ALT 54, Alkaline Phosphatase 61, Total Protein 5.7 L, Albumin 2.0 L, Globulin 3.7, Albumin/Globulin Ratio 0.5 L Micro: Microbiology 12/19/20 17:45 Sputum, Expectorated/Coughed Gram Stain - Final 12/19/20 17:45 Sputum, Expectorated/Coughed Respiratory Culture - Final Stenotrophomonas maltophilia Raoultella planticola 12/19/20 18:30 Urine, Clean Catch Streptococcus pneumoniae Antigen (M - Final 12/19/20 18:30 Urine, Clean Catch Legionella Antigen - Final 12/11/20 20:13 Blood Culture (Wb) - No Site/Description Given Blood Culture - Final No growth in 5 days. Physical Exam Const alert Constitutional Narrative: on Airvo. No respiratory distress. No conversational dyspnea. Resp normal respiratory effort, no retractions, no use of accessory muscles and clear to auscultation bilaterally Cardio regular rate, regular rhythm, S1 normal heart sound and S2 normal heart sound GI normal to inspection, nondistended, normoactive bowel sounds, soft to palpation, non-tender and non-distended Assessment & Plan Assessment/Plan (1) Acute on chronic respiratory failure with hypoxemia: (2) COVID-19: (3) Stage 4 very severe COPD by GOLD classification: PLAN: 1. acute hypoxic respiratory failure * 2/2 COVID 19 and advanced COPD +/- GN pneumonia * Reviewed CT and pt has diffuse GGO and marked emphysematous changes * overall worsening he is a high risk for decompensation * wean oxygen as able * continue BDs * maintain sats in low 90s * 12/12: 6liters * 12/13: 8 liters * 12/14: 10 liters * 12/20: BiPAP w 80% FiO2. Continue with therapeutic Enoxaparin (started 12/19) * 12/21: on Airvo at 92%. * 12/22: back on BiPAP with 100% FiO2. Concern for ongoing worsening given poor physiologic reserve. * 12/23: back on Airvo 91%. Subjectively feeling better. Furosemide challenge. 2. Acute COVID 19 * onset 12/06 * unvaccinated * completed remdesivir * continue dexamethasone * continue baricitinib 3. Stenotrophomonas pneumonia * 12/20: start Pip/tazo and follow up culture * 12/21: Stenotrophomonas. Changed to levofloxacin 4. Stage 4 COPD * complicates prognosis and recovery * Maintain pulse ox in low 90s to mitigate CO2 retention * Reviewing his CAT scan images that is he does have patchy infiltrates consistent with Covid but is not as severe and profound. I feel much of his respiratory issues are more trivial to his COPD, at least at this point time. 4. CAD * stable * continue ASA, clopidogrel, ranolazine 5. VTE prophylaxis: LMWH 6. Code Status: * reviewed 12/12: DNRCCA, DNI. 7. Severe protein calorie malnutrition, * system administration manager consulted, on supplements 8. Prognosis is guarded * 12/20: discussed with the patient's son, Avtar, explained the patient's guarded prognosis and patient's limited physiologic reserve to bounce back from a significant insult such as COVID-19 given his advanced COPD. The patient's son was agreeable to some as needed morphine to help with shortness of breath. Is explained that this was strictly palliative and not curative in any way. And we could consider further palliation measures if needed. But patient does continue to decline may need to consider hospice. * 12/21: dw family at bedside. Slightly improved from the , but still on high FiO2 * 12/22: overall worse and back on BiPAP. Family made aware. * 12/23: DW pt that he is improved from the , but condition is still tenous. Charges/Coding Visit Charges Inpatient E&M: 42465 Subs Hosp L2
[2020-12-24] VITALS (16 sets, daily range): BP systolic 123–141; BP diastolic 67–85; PULSE 70–99; RESP 12–22; TEMP 36.4–36.6; O2SAT 88–94
--- NOTE | 2020-12-24 02:11 | CPS ---
Patient explained discomfort with wearing BiPAP. Said that it seems to make his breathing worse and irritate his throat. NATUROPATH will try NRB 15L O2 overtop of AirVo with max settings to keep saturations >88%.
[2020-12-24 07:02] LABS: Absolute Lymphocyte Count 0.55 X10^3/uL (0.83-4.51); Absolute Neutrophil Count 24.2 X10^3/uL (2.0-7.7); Basophil# 0.11 X10^3/uL; Basophil% 0.4 % (0-1); Hemoglobin 14.6 g/dL (13.0-16.5); Lymphocyte # 0.55 X10^3/ul (0.83-4.51); Mean Corp Hgb Conc 32.4 g/dL (32-36); Mean Corpuscular Hgb 31.3 pg (27.0-32.0); Mean Corpuscular Volume 96.6 fL (80-94); Mean Platelet Vol. 9.3 fl (6.2-12.0); Monocyte# 1.69 X10^3/uL; Monocyte% 6.1 % (0-10); NRBC Flagged by Analyzer 0 % (0-5); Neutrophil # 24.16 X10^3/uL (2.7-7.7); Neutrophil % 86.6 % (47-70); POSITIVE DIFFERENTIAL YES; Platelet Count 387 K/mm3 (150-450); RBC Distribution Width CV 13.6 % (11.6-14.6); RBC Distribution Width SD 48.3 fl (35.1-43.9); Red Blood Count 4.66 M/mm3 (4.6-6.2); White Blood Count 27.9 K/mm3 (4.4-11.0)
[2020-12-24 07:08] LABS: Differential Indicated SCAN CRITERIA MET
[2020-12-24] MEDS: Ipratropium/Albuterol Sulfate 3 ML AMPUL.NEB INHALATION ×4 (07:11→19:28)
[2020-12-24 07:24] LABS: Platelet Estimate ADEQUATE (ADEQ); Red Cell Morphology NORM C+C NORMAL (NORM C&C)
[2020-12-24 07:31] LABS: ALB/GLOB Ratio 0.6 RATIO (0.9-2.4); AST(SGOT) 21 U/L (15-37); Alanine Aminotransfer ALT/SGPT 62 U/L (16-61); Albumin, Serum 2.1 g/dL (3.2-5.0); Alkaline Phosphatase 60 U/L (45-117); Anion Gap 6 (5-15); BUN 42 mg/dL (7-18); BUN/Creat Ratio 44.5 RATIO (10-20); Calcium,Total 8.7 mg/dL (8.5-10.1); Chloride 98 mmol/L (98-107); Creatinine, Serum 0.94 mg/dL (0.70-1.30); EST Glomerular Filtration Rate 83 mL/min (>60); Est Glom Filt Rate - Afr Amer 100 mL/min (>60); Estimated Creatinine Clearance 73.85 ml/min; Globulin 3.6 g/dL (2.2-4.2); Glucose 129 mg/dL (74-106); Potassium 4.3 mmol/L (3.5-5.1); Protein, Total 5.7 g/dL (6.4-8.2); Sodium Level 136 mmol/L (136-145)
[2020-12-24] MEDS: Menthol/Lanolin/Calamine/Znox 113 GM Tube 1 APPLIC TOPICAL ×2 (08:49→20:38)
[2020-12-24] MEDS: Enoxaparin 80 MG/0.8 ML Syringe SC ×2 (08:50→20:34)
[2020-12-24] MEDS: levoFLOXacin 750 MG Tablet PO (08:51)
[2020-12-24] MEDS: guaiFENesin 600 MG Tablet PO ×2 (08:51→20:34)
[2020-12-24] MEDS: dexAMETHasone 2 MG TABLET 6 MG PO (08:51)
[2020-12-24] MEDS: dilTIAZem CD 120 MG Capsule PO (08:52)
--- NOTE | 2020-12-24 10:34 | PN.CC_ITS ---
Assessment & Plan Assessment/Plan (1) COVID-19: PLAN: RECOMMENDATIONS: 1. AVAPS with sleep, with a Airvo during the day. Oxygen saturations of 88% or greater are acceptable. 2. Use Airvo during the day to facilitate p.o. intake and pulmonary toileting 3. Diuretic challenge as labs allow 4. Continue therapeutic anticoagulation. 5. Continue Decadron to complete 10 days of therapy. 6. Continue baricitinib to complete treatment course. 7. Continue scheduled bronchodilator therapy. 8. Continue Levaquin to complete a 10-day course IMPRESSIONS: 1. Acute on chronic hypoxemic respiratory failure secondary to COVID-19 pneumonia with secondary stenotrophomonas pneumonia The patient presented to the hospital with less than 10 days of progressive dyspnea and nonproductive cough, having tested positive for coronavirus. The patient has completed a treatment course of remdesivir and will remain on Decadron to complete 10 days of therapy. In addition, baricitinib will be continued per ID recommendations. Continue Lovenox to therapeutic level dosing. Continue scheduled bronchodilators, as the patient has known severe obstructive lung disease. The patient will be at high risk for further clinical decompensation given his limited respiratory reserve/lung function. However, CODE STATUS was again confirmed with the patient this morning to be DNR CCA without intubation. Patient appears to be stable with treatment of stenotrophomonas. Continue aggressive pulmonary toileting to allow for recruitment. Patient status continues to be relatively tenuous 2. History of coronary artery disease/atrial fibrillation/hypertension/hyperlipidemia/MAGALI Complicates care, management, recovery and prognosis. Continue home medications as indicated. This note was generated with [employer] dictation software. It may contain incorrect words, spelling, and punctuation that were not noted in checking the note before signing. Subjective Subjective Patient did okay overnight. Oxygenation remains marginal. Patient was on a nonrebreather with sleep and is currently on Airvo. Patient continues to report a productive cough. No chest pain or hemoptysis is been reported. Objective Data Objective Data Vital Signs: Vital Signs Temp Pulse Resp BP Pulse Ox 36.6 C 87 18 139/75 H 88 12/24/20 08:46 12/24/20 08:46 12/24/20 08:46 12/24/20 08:46 12/24/20 08:46 Oxygen Flow Rate (L/min) 60 Oxygen Delivery Method Airvo Weight: 76.9 kg Body Mass Index (BMI) 22.4 Intake & Output: Intake and Output for Last 24 Hours 12/22/20 12/23/20 12/24/20 23:59 23:59 23:59 Intake Total 200 / 200 200 / 200 Output Total 175 / 175 600 / 600 Balance -175 / -175 -400 / -400 200 / 200 Medical Nutrition Assessment Dietitian: Malnutrition Criteria Met Start: 12/12/20 12:58 Freq: Status: Active Protocol: Document 12/22/20 10:10 RMA (Rec: 12/22/20 10:10 RMA [id number]) Nutrition Malnutrition Evidence of Malnutrition Exists Yes Malnutrition (severe): Acute Illness/Injury Evidenced By Suboptimal Energy Intake ( Severe),Weight Loss (Severe) Clinical Problem Acute Disease or Injury Related Malnutrition Etiology Severe protein/calorie malnutrition in the context of acute illness (covid and resp failure) related to inadequate oral intake due to increased oxygen requirements Signs/Symptoms as evidenced by PO less than 50% at meals, meeting less than 50% estimated nutrition needs and ~6% wt loss x past 2 weeks. Status Active Problem Recommendation Dietitian Recommendations/Changes Continue Regular diet as tolerated. Will adjust ONS to 240ml oz ensure enlive w with breakfast and Ensure Pudding with lunch and dinner. Lab / Micro Data Result Diagrams: 12/24/20 06:44 12/24/20 06:44 Labs: Laboratory Results - last 24 hr 12/24/20 06:44: WBC 27.9 H, RBC 4.66, Hgb 14.6, Hct 45.0, MCV 96.6 H, MCH 31.3, MCHC 32.4, RDW Std Deviation 48.3 H, RDW Coeff of Rosalinda 13.6, Plt Count 387, MPV 9.3, Immature Gran % (Auto) 4.900 H, Neut % (Auto) 86.6 H, Lymph % (Auto) 2.0 L, D[place]key % (Auto) 6.1, Eos % (Auto) 0.0, Baso % (Auto) 0.4, Absolute Neuts (auto) 24.2 H, Absolute Lymphs (auto) 0.55 L, Total Counted Not Reportable, Nucleated RBC % 0, Diff Path Review May foll, Platelet Estimate ADEQUATE, RBC Morphology N ORM C+C 12/24/20 06:44: Sodium 136, Potassium 4.3, Chloride 98, Carbon Dioxide 32.0, Anion Gap 6, BUN 42 H, Creatinine 0.94, Estim Creat Clear Calc 73.85, Est GFR (MDRD) Af Amer 100, Est GFR (MDRD) Non-Af 83, BUN/Creatinine Ratio 44.5 H, Glucose 129 H, Calcium 8.7, Total Bilirubin 1.00, AST 21, ALT 62 H, Alkaline Phosphatase 60, Total Protein 5.7 L, Albumin 2.1 L, Globulin 3.6, Albumin/Globulin Ratio 0.6 L Micro: Microbiology 12/19/20 17:45 Sputum, Expectorated/Coughed Gram Stain - Final 12/19/20 17:45 Sputum, Expectorated/Coughed Respiratory Culture - Final Stenotrophomonas maltophilia Raoultella planticola 12/19/20 18:30 Urine, Clean Catch Streptococcus pneumoniae Antigen (M - Final 12/19/20 18:30 Urine, Clean Catch Legionella Antigen - Final 12/11/20 20:13 Blood Culture (Wb) - No Site/Description Given Blood Culture - Final No growth in 5 days. Physical Exam Const alert and oriented x3 Constitutional Narrative: On Airvo. General Appearance: cooperative HEENT normocephalic and head/scalp atraumatic Eyes PERRL, EOMs intact bilaterally and conjunctivae normal Neck supple General: trachea midline Chest inspection of chest normal Resp Effort and Inspection: tachypneic Auscultation: rhonchi right lower and diminished lung sounds; Negative for rales or wheezes Cardio regular rate, regular rhythm, S1 normal heart sound, S2 normal heart sound, no murmurs, no rub and no gallops GI normal to inspection, nondistended, normoactive bowel sounds Extremity no clubbing, cyanosis or edema Skin no rashes or lesions noted Neuro CN's II-XII intact bilaterally, moves all extremities and no focal motor deficits Psych cooperative and affect normal Charges/Coding Visit Charges Inpatient E&M: 36256 Subs Hosp L3
[2020-12-24] MEDS: Furosemide 40 MG/4 ML Vial IV (12:07)
[2020-12-24] MEDS: 0.9% Saline Lock 10 ML Syringe IV ×2 (12:07→20:34)
[2020-12-24 13:34] LABS: Pathologist Review Reviewed
--- NOTE | 2020-12-24 15:26 | PN.HOSP_ITS ---
Subjective Subjective feeling rough today, but still on Airvo. Objective Data Objective Data Vital Signs: Vital Signs Temp Pulse Resp BP Pulse Ox 36.6 C 87 14 141/67 H 92 12/24/20 12:33 12/24/20 14:54 12/24/20 14:54 12/24/20 12:33 12/24/20 14:54 Oxygen Flow Rate (L/min) 60 Oxygen Delivery Method Airvo Weight: 76.9 kg Body Mass Index (BMI) 22.4 Intake & Output: Intake and Output for Last 24 Hours 12/22/20 12/23/20 12/24/20 23:59 23:59 23:59 Intake Total 200 / 200 200 / 200 Output Total 175 / 175 600 / 600 Balance -175 / -175 -400 / -400 200 / 200 Medical Nutrition Assessment Dietitian: Malnutrition Criteria Met Start: 12/12/20 12:58 Freq: Status: Active Protocol: Document 12/22/20 10:10 RMA (Rec: 12/22/20 10:10 RMA [id number]) Nutrition Malnutrition Evidence of Malnutrition Exists Yes Malnutrition (severe): Acute Illness/Injury Evidenced By Suboptimal Energy Intake ( Severe),Weight Loss (Severe) Clinical Problem Acute Disease or Injury Related Malnutrition Etiology Severe protein/calorie malnutrition in the context of acute illness (covid and resp failure) related to inadequate oral intake due to increased oxygen requirements Signs/Symptoms as evidenced by PO less than 50% at meals, meeting less than 50% estimated nutrition needs and ~6% wt loss x past 2 weeks. Status Active Problem Recommendation Dietitian Recommendations/Changes Continue Regular diet as tolerated. Will adjust ONS to 240ml oz ensure enlive w with breakfast and Ensure Pudding with lunch and dinner. Lab / Micro Data Result Diagrams: 12/24/20 06:44 12/24/20 06:44 Labs: Laboratory Results - last 24 hr 12/24/20 06:44: WBC 27.9 H, RBC 4.66, Hgb 14.6, Hct 45.0, MCV 96.6 H, MCH 31.3, MCHC 32.4, RDW Std Deviation 48.3 H, RDW Coeff of Rosalinda 13.6, Plt Count 387, MPV 9.3, Immature Gran % (Auto) 4.900 H, Neut % (Auto) 86.6 H, Lymph % (Auto) 2.0 L, [place] % (Auto) 6.1, Eos % (Auto) 0.0, Baso % (Auto) 0.4, Absolute Neuts (auto) 24.2 H, Absolute Lymphs (auto) 0.55 L, Total Counted Not Reportable, Neutrophils % (Manual) Not Reportable, Band Neutrophils % Not Reportable, Lymphocytes % (Manual) Not Reportable, Metamyelocytes % Not Reportable, Myelocytes % Not Reportable, Nucleated RBC % 0, Diff Path Review Reviewed, Platelet Estimate ADEQUATE, RBC Morphology NORM C+C 12/24/20 06:44: Sodium 136, Potassium 4.3, Chloride 98, Carbon Dioxide 32.0, Anion Gap 6, BUN 42 H, Creatinine 0.94, Estim Creat Clear Calc 73.85, Est GFR (MDRD) Af Amer 100, Est GFR (MDRD) Non-Af 83, BUN/Creatinine Ratio 44.5 H, Glucose 129 H, Calcium 8.7, Total Bilirubin 1.00, AST 21, ALT 62 H, Alkaline Phosphatase 60, Total Protein 5.7 L, Albumin 2.1 L, Globulin 3.6, Albumin/Globulin Ratio 0.6 L Micro: Microbiology 12/19/20 17:45 Sputum, Expectorated/Coughed Gram Stain - Final 12/19/20 17:45 Sputum, Expectorated/Coughed Respiratory Culture - Final Stenotrophomonas maltophilia Raoultella planticola 12/19/20 18:30 Urine, Clean Catch Streptococcus pneumoniae Antigen (M - Final 12/19/20 18:30 Urine, Clean Catch Legionella Antigen - Final 12/11/20 20:13 Blood Culture (Wb) - No Site/Description Given Blood Culture - Final No growth in 5 days. Physical Exam Const alert HEENT head/scalp atraumatic Head and Scalp: normocephalic Resp normal respiratory effort, no retractions, no use of accessory muscles and clear to auscultation bilaterally Cardio regular rate, regular rhythm, S1 normal heart sound and S2 normal heart sound GI normal to inspection, nondistended, normoactive bowel sounds, soft to palpation, non-tender and non-distended Extremity normal to inspection Assessment & Plan Assessment/Plan (1) Acute on chronic respiratory failure with hypoxemia: (2) COVID-19: (3) Stage 4 very severe COPD by GOLD classification: PLAN: 1. acute hypoxic respiratory failure * 2/2 COVID 19 and advanced COPD +/- GN pneumonia * Reviewed CT and pt has diffuse GGO and marked emphysematous changes * overall worsening he is a high risk for decompensation * wean oxygen as able * continue BDs * maintain sats in low 90s * 12/12: 6liters * 12/13: 8 liters * 12/14: 10 liters * 12/20: BiPAP w 80% FiO2. Continue with therapeutic Enoxaparin (started 12/19) * 12/21: on Airvo at 92%. * 12/22: back on BiPAP with 100% FiO2. Concern for ongoing worsening given poor physiologic reserve. * 12/23: back on Airvo 91%. Subjectively feeling better. Furosemide challenge. * 12/24: still on Airvo. Sujectively worse. 2. Acute COVID 19 * onset 12/06 * unvaccinated * completed remdesivir * continue dexamethasone * continue baricitinib 3. Stenotrophomonas pneumonia * 12/20: start Pip/tazo and follow up culture * 12/21: Stenotrophomonas. Changed to levofloxacin 4. Stage 4 COPD * complicates prognosis and recovery * Maintain pulse ox in low 90s to mitigate CO2 retention * Reviewing his CAT scan images that is he does have patchy infiltrates consistent with Covid but is not as severe and profound. I feel much of his respiratory issues are more trivial to his COPD, at least at this point time. 4. CAD * stable * continue ASA, clopidogrel, ranolazine 5. VTE prophylaxis: LMWH 6. Code Status: * reviewed 12/12: DNRCCA, DNI. 7. Severe protein calorie malnutrition, * digital traffic coordinator consulted, on supplements 8. Prognosis is guarded * 12/20: discussed with the patient's son, Avtar, explained the patient's guarded prognosis and patient's limited physiologic reserve to bounce back from a significant insult such as COVID-19 given his advanced COPD. The patient's son was agreeable to some as needed morphine to help with shortness of breath. Is explained that this was strictly palliative and not curative in any way. And we could consider further palliation measures if needed. But patient does continue to decline may need to consider hospice. * 12/21: dw family at bedside. Slightly improved from the , but still on high FiO2 * 12/22: overall worse and back on BiPAP. Family made aware. * 12/23: DW pt that he is improved from the , but condition is still tenuous. * 12/24: advised pt of his ability to inform us of when he is unable to tolerate the stress and focus on comfort measures and hospice. Will continue with current therapy. Charges/Coding Visit Charges Inpatient E&M: 04920 Subs Hosp L2
[2020-12-24] MEDS: NYSTATIN 500,000 UNIT/5 ML UDC 500000 UNIT PO (21:30)
[2020-12-25] VITALS (17 sets, daily range): BP systolic 123–150; BP diastolic 81–93; PULSE 82–117; RESP 12–24; TEMP 36.4–37.1; O2SAT 87–97
[2020-12-25] MEDS: morphine (oral solution) 10MG/0.5ML Syringe 10 MG SL/PO ×5 (00:19→22:02)
[2020-12-25] MEDS: Acetaminophen 325 MG Tablet 650 MG PO (00:19)
--- NOTE | 2020-12-25 04:46 | PCM.PN.BLA ---
Progress Note Nurse reports softball sized hematoma to right thigh. Stop lovenox. SCD ordered. Check H&H. Ice pack to hematoma area.
[2020-12-25] MEDS: Ipratropium/Albuterol Sulfate 3 ML AMPUL.NEB INHALATION ×4 (08:09→17:36)
[2020-12-25 08:51] LABS: Absolute Lymphocyte Count 0.74 X10^3/uL (0.83-4.51); Absolute Neutrophil Count 34.5 X10^3/uL (2.0-7.7); Basophil# 0.17 X10^3/uL; Basophil% 0.4 % (0-1); Hematocrit 41.8 % (40-54); Hemoglobin 13.8 g/dL (13.0-16.5); Lymphocyte # 0.74 X10^3/ul (0.83-4.51); Lymphocyte % 1.9 % (19-41); Mean Corpuscular Volume 93.9 fL (80-94); Mean Platelet Vol. 9.7 fl (6.2-12.0); Monocyte# 2.11 X10^3/uL; Monocyte% 5.4 % (0-10); NRBC Flagged by Analyzer 0 % (0-5); Neutrophil % 87.8 % (47-70); POSITIVE COUNT YES; POSITIVE DIFFERENTIAL YES; Platelet Count 452 K/mm3 (150-450); RBC Distribution Width CV 13.3 % (11.6-14.6); RBC Distribution Width SD 45.5 fl (35.1-43.9); Red Blood Count 4.45 M/mm3 (4.6-6.2)
[2020-12-25 08:55] LABS: Differential Indicated SCAN CRITERIA MET; White Blood Count 39.3 K/mm3 (4.4-11.0)
[2020-12-25 09:16] LABS: ALB/GLOB Ratio 0.5 RATIO (0.9-2.4); AST(SGOT) 20 U/L (15-37); Alanine Aminotransfer ALT/SGPT 64 U/L (16-61); Albumin, Serum 2.1 g/dL (3.2-5.0); Alkaline Phosphatase 64 U/L (45-117); Anion Gap 8 (5-15); BUN 54 mg/dL (7-18); BUN/Creat Ratio 51.4 RATIO (10-20); Calcium,Total 8.2 mg/dL (8.5-10.1); Chloride 97 mmol/L (98-107); Creatinine, Serum 1.05 mg/dL (0.70-1.30); EST Glomerular Filtration Rate 73 mL/min (>60); Est Glom Filt Rate - Afr Amer 88 mL/min (>60); Estimated Creatinine Clearance 66.12 ml/min; Glucose 109 mg/dL (74-106); Potassium 4.1 mmol/L (3.5-5.1); Protein, Total 6.1 g/dL (6.4-8.2); Sodium Level 136 mmol/L (136-145)
[2020-12-25 10:02] LABS: Differential Comment SCANNED
[2020-12-25] MEDS: guaiFENesin 600 MG Tablet PO ×2 (10:08→22:03)
[2020-12-25] MEDS: dexAMETHasone 2 MG TABLET 6 MG PO (10:08)
[2020-12-25] MEDS: levoFLOXacin 750 MG Tablet PO (10:08)
[2020-12-25] MEDS: dilTIAZem CD 120 MG Capsule PO (10:09)
[2020-12-25] MEDS: NYSTATIN 500,000 UNIT/5 ML UDC 500000 UNIT PO ×4 (10:09→22:03)
[2020-12-25] MEDS: Menthol/Lanolin/Calamine/Znox 113 GM Tube 1 APPLIC TOPICAL ×4 (10:10→22:03)
--- NOTE | 2020-12-25 10:43 | PN.CC_ITS ---
Assessment & Plan Assessment/Plan (1) COVID-19: PLAN: RECOMMENDATIONS: 1. AVAPS with sleep, with a Airvo during the day. Oxygen saturations of 88% or greater are acceptable. 2. Use Airvo during the day to facilitate p.o. intake and pulmonary toileting 3. Diuretic challenge as labs allow 4. Continue therapeutic anticoagulation. 5. Completed Decadron 6. Continue baricitinib (12/30/2020) to complete treatment course. 7. Continue scheduled bronchodilator therapy. 8. Continue Levaquin to complete a 10-day course (12/31/2020) IMPRESSIONS: 1. Acute on chronic hypoxemic respiratory failure secondary to COVID-19 pneumonia with secondary stenotrophomonas pneumonia The patient presented to the hospital with less than 10 days of progressive dyspnea and nonproductive cough, having tested positive for coronavirus. The patient has completed a treatment course of remdesivir and will remain on Decadron to complete 10 days of therapy. In addition, baricitinib will be continued per ID recommendations. Continue Lovenox to therapeutic level dosing. Continue scheduled bronchodilators, as the patient has known severe obstructive lung disease. The patient will be at high risk for further clinical decompensation given his limited respiratory reserve/lung function. However, CODE STATUS was again confirmed with the patient this morning to be DNR CCA without intubation. Patient appears to be stable with treatment of stenotrophomonas. Continue aggressive pulmonary toileting to allow for recruitment. Patient status continues to be relatively tenuous 2. History of coronary artery disease/atrial fi brillation/hypertension/hyperlipidemia/MAGALI/thigh hematoma Complicates care, management, recovery and prognosis. Continue home medications as indicated. Anticoagulation currently held secondary to thigh hematoma This note was generated with [employer] dictation software. It may contain incorrect words, spelling, and punctuation that were not noted in checking the note before signing. Subjective Subjective Patient saturations remained marginal despite subjective improvement. Patient is reporting a productive cough. No chest pain is reported. Patient did have the development of a large right thigh hematoma and does report some discomfort. Patient reaffirms that he does not want to be intubated. Objective Data Objective Data Vital Signs: Vital Signs Temp Pulse Resp BP Pulse Ox 36.8 C 96 20 H 138/91 H 92 12/25/20 10:06 12/25/20 10:06 12/25/20 10:24 12/25/20 10:06 12/25/20 10:06 Oxygen Flow Rate (L/min) 60 Oxygen Delivery Method Airvo Weight: 76.9 kg Body Mass Index (BMI) 22.4 Intake & Output: Intake and Output for Last 24 Hours 12/23/20 12/24/20 12/25/20 23:59 23:59 23:59 Intake Total 200 / 200 300 / 300 Output Total 600 / 600 Balance -400 / -400 300 / 300 Medical Nutrition Assessment Dietitian: Malnutrition Criteria Met Start: 12/12/20 12:58 Freq: Status: Active Protocol: Document 12/22/20 10:10 RMA (Rec: 12/22/20 10:10 RMA [id number]) Nutrition Malnutrition Evidence of Malnutrition Exists Yes Malnutrition (severe): Acute Illness/Injury Evidenced By Suboptimal Energy Intake ( Severe),Weight Loss (Severe) Clinical Problem Acute Disease or Injury Related Malnutrition Etiology Severe protein/calorie malnutrition in the context of acute illness (covid and resp failure) related to inadequate oral intake due to increased oxygen requirements Signs/Symptoms as evidenced by PO less than 50% at meals, meeting less than 50% estimated nutrition needs and ~6% wt loss x past 2 weeks. Status Active Problem Recommendation Dietitian Recommendations/Changes Continue Regular diet as tolerated. Will adjust ONS to 240ml oz ensure enlive w with breakfast and Ensure Pudding with lunch and dinner. Lab / Micro Data Result Diagrams: 12/25/20 07:45 12/25/20 07:45 Labs: Laboratory Results - last 24 hr 12/24/20 06:44: Neutrophils % (Manual) Not Reportable, Band Neutrophils % Not Reportable, Lymphocytes % (Manual) Not Reportable, Metamyelocytes % Not Reportable, Myelocytes % Not Reportable, Diff Path Review Reviewed 12/25/20 07:45: WBC 39.3 H*, RBC 4.45 L, Hgb 13.8, Hct 41.8, MCV 93.9, MCH 31.0, MCHC 33.0, RDW Std Deviation 45.5 H, RDW Coeff of Rosalinda 13.3, Plt Count 452 H, MPV 9.7, Immature Gran % (Auto) 4.500 H, Neut % (Auto) 87.8 H, Lymph % (Auto) 1.9 L, [place] % (Auto) 5.4, Eos % (Auto) 0.0, Baso % (Auto) 0.4, Absolute Neuts (auto) 34.5 H, Absolute Lymphs (auto) 0.74 L, Nucleated RBC % 0, Differential Comment SCANNED, Diff Path Review July12/25/20 07:45: Sodium 136, Potassium 4.1, Chloride 97 L, Carbon Dioxide 31.0, Anion Gap 8, BUN 54 H, Creatinine 1.05, Estim Creat Clear Calc 66.12, Est GFR (MDRD) Af Amer 88, Est GFR (MDRD) Non-Af 73, BUN/Creatinine Ratio 51.4 H, Glucose 109 H, Calcium 8.2 L, Total Bilirubin 1.10 H, AST 20, ALT 64 H, Alkaline Phosphatase 64, Total Protein 6.1 L, Albumin 2.1 L, Globulin 4.0, Albumin/Globulin Ratio 0.5 L Micro: Microbiology 12/19/20 17:45 Sputum, Expectorated/Coughed Gram Stain - Final 12/19/20 17:45 Sputum, Expectorated/Coughed Respiratory Culture - Final Stenotrophomonas maltophilia Raoultella planticola 12/19/20 18:30 Urine, Clean Catch Streptococcus pneumoniae Antigen (M - Final 12/19/20 18:30 Urine, Clean Catch Legionella Antigen - Final 12/11/20 20:13 Blood Culture (Wb) - No Site/Description Given Blood Culture - Final No growth in 5 days. Physical Exam Const alert and oriented x3 Constitutional Narrative: On BiPAP. General Appearance: cooperative HEENT normocephalic and head/scalp atraumatic Eyes PERRL, EOMs intact bilaterally and conjunctivae normal Neck supple General: trachea midline Chest inspection of chest normal Resp Effort and Inspection: tachypneic Auscultation: rhonchi right lower and diminished lung sounds; Negative for rales or wheezes Cardio regular rate, regular rhythm, S1 normal heart sound, S2 normal heart sound, no murmurs, no rub and no gallops GI normal to inspection, nondistended, normoactive bowel sounds Extremity no clubbing, cyanosis or edema Skin no rashes or lesions noted Neuro CN's II-XII intact bilaterally, moves all extremities and no focal motor deficits Psych cooperative and affect normal Charges/Coding Visit Charges Inpatient E&M: 48546 Subs Hosp L3
--- NOTE | 2020-12-25 14:16 | PN.HOSP_ITS ---
Subjective Subjective Feels better today. Tolerating air Vo presently. Objective Data Objective Data Vital Signs: Vital Signs Temp Pulse Resp BP Pulse Ox 36.8 C 96 12 138/91 H 90 12/25/20 10:06 12/25/20 10:44 12/25/20 10:44 12/25/20 10:06 12/25/20 10:44 Oxygen Flow Rate (L/min) 60 Oxygen Delivery Method Airvo Weight: 76.9 kg Body Mass Index (BMI) 22.4 Intake & Output: Intake and Output for Last 24 Hours 12/23/20 12/24/20 12/25/20 23:59 23:59 23:59 Intake Total 200 / 200 300 / 300 Output Total 600 / 600 Balance -400 / -400 300 / 300 Medical Nutrition Assessment Dietitian: Malnutrition Criteria Met Start: 12/12/20 12:58 Freq: Status: Active Protocol: Document 12/22/20 10:10 RMA (Rec: 12/22/20 10:10 RMA [id number]) Nutrition Malnutrition Evidence of Malnutrition Exists Yes Malnutrition (severe): Acute Illness/Injury Evidenced By Suboptimal Energy Intake ( Severe),Weight Loss (Severe) Clinical Problem Acute Disease or Injury Related Malnutrition Etiology Severe protein/calorie malnutrition in the context of acute illness (covid and resp failure) related to inadequate oral intake due to increased oxygen requirements Signs/Symptoms as evidenced by PO less than 50% at meals, meeting less than 50% estimated nutrition needs and ~6% wt loss x past 2 weeks. Status Active Problem Recommendation Dietitian Recommendations/Changes Continue Regular diet as tolerated. Will adjust ONS to 240ml oz ensure enlive w with breakfast and Ensure Pudding with lunch and dinner. Lab / Micro Data Result Diagrams: 12/25/20 07:45 12/25/20 07:45 Labs: Laboratory Results - last 24 hr 12/25/20 07:45: WBC 39.3 H*, RBC 4.45 L, Hgb 13.8, Hct 41.8, MCV 93.9, MCH 31.0, MCHC 33.0, RDW Std Deviation 45.5 H, RDW Coeff of Rosalinda 13.3, Plt Count 452 H, MPV 9.7, Immature Gran % (Auto) 4.500 H, Neut % (Auto) 87.8 H, Lymph % (Auto) 1.9 L, [place] % (Auto) 5.4, Eos % (Auto) 0.0, Baso % (Auto) 0.4, Absolute Neuts (auto) 34.5 H, Absolute Lymphs (auto) 0.74 L, Nucleated RBC % 0, Differential Comment SCANNED, Diff Path Review July12/25/20 07:45: Sodium 136, Potassium 4.1, Chloride 97 L, Carbon Dioxide 31.0, Anion Gap 8, BUN 54 H, Creatinine 1.05, Estim Creat Clear Calc 66.12, Est GFR (MDRD) Af Amer 88, Est GFR (MDRD) Non-Af 73, BUN/Creatinine Ratio 51.4 H, Glucose 109 H, Calcium 8.2 L, Total Bilirubin 1.10 H, AST 20, ALT 64 H, Alkaline Phosphatase 64, Total Protein 6.1 L, Albumin 2.1 L, Globulin 4.0, Albumin/Globulin Ratio 0.5 L Micro: Microbiology 12/19/20 17:45 Sputum, Expectorated/Coughed Gram Stain - Final 12/19/20 17:45 Sputum, Expectorated/Coughed Respiratory Culture - Final Stenotrophomonas maltophilia Raoultella planticola 12/19/20 18:30 Urine, Clean Catch Streptococcus pneumoniae Antigen (M - Final 12/19/20 18:30 Urine, Clean Catch Legionella Antigen - Final 12/11/20 20:13 Blood Culture (Wb) - No Site/Description Given Blood Culture - Final No growth in 5 days. Physical Exam Const alert, no apparent distress and average body habitus Constitutional Narrative: On [place] HEENT head/scalp atraumatic and moist oral mucous membranes Head and Scalp: normocephalic Eyes PERRL Resp normal respiratory effort, no retractions, no use of accessory muscles and clear to auscultation bilaterally Cardio regular rate, regular rhythm, S1 normal heart sound and S2 normal heart sound GI normal to inspection, nondistended, normoactive bowel sounds, soft to palpation, non-tender and non-distended Extremity normal to inspection Neuro Sensorium / Orientation: awake and alert Assessment & Plan Assessment/Plan (1) Acute on chronic respiratory failure with hypoxemia: (2) COVID-19: (3) Stage 4 very severe COPD by GOLD classification: PLAN: 1. acute hypoxic respiratory failure * 2/2 COVID 19 and advanced COPD +/- GN pneumonia * Reviewed CT and pt has diffuse GGO and marked emphysematous changes * overall worsening he is a high risk for decompensation * wean oxygen as able * continue BDs * maintain sats in low 90s * 12/12: 6liters * 12/13: 8 liters * 12/14: 10 liters * 12/20: BiPAP w 80% FiO2. Continue with therapeutic Enoxaparin (started 12/19) * 12/21: on Airvo at 92%. * 12/22: back on BiPAP with 100% FiO2. Concern for ongoing worsening given poor physiologic reserve. * 12/23: back on Airvo 91%. Subjectively feeling better. Furosemide challenge. * 12/24: still on Airvo. Sujectively worse. * 12/25: [place] with AVAPS w sleep. 2. Acute COVID 19 * onset 12/06 * unvaccinated * completed remdesivir * completed dexamethasone * continue baricitinib 3. Stenotrophomonas pneumonia * 12/20: start Pip/tazo and follow up culture * 12/21: Stenotrophomonas. Changed to levofloxacin 4. Stage 4 COPD * complicates prognosis and recovery * Maintain pulse ox in low 90s to mitigate CO2 retention * Reviewing his CAT scan images that is he does have patchy infiltrates co nsistent with Covid but is not as severe and profound. I feel much of his respiratory issues are more trivial to his COPD, at least at this point time. 4. CAD * stable * continue ASA, clopidogrel, ranolazine 5. VTE prophylaxis: LMWH 6. Code Status: * reviewed 12/12: DNRCCA, DNI. 7. Severe protein calorie malnutrition, * heavy duty mechanic consulted, on supplements 8. Prognosis is guarded * 12/20: discussed with the patient's son, Avtar, explained the patient's guarded prognosis and patient's limited physiologic reserve to bounce back from a significant insult such as COVID-19 given his advanced COPD. The patient's son was agreeable to some as needed morphine to help with shortness of breath. Is explained that this was strictly palliative and not curative in any way. And we could consider further palliation measures if needed. But patient does continue to decline may need to consider hospice. * 12/21: dw family at bedside. Slightly improved from the , but still on high FiO2 * 12/22: overall worse and back on BiPAP. Family made aware. * 12/23: DW pt that he is improved from the , but condition is still tenuous. * 12/24 & 12/25: advised pt of his ability to inform us of when he is unable to tolerate the stress and focus on comfort measures and hospice. Will continue with current therapy. Charges/Coding Visit Charges Inpatient E&M: 67032 Subs Hosp L2
[2020-12-26] VITALS (8 sets, daily range): BP systolic 116–122; BP diastolic 77–82; PULSE 89–127; RESP 11–24; TEMP 36.4; O2SAT 85–92
[2020-12-26 01:21] LABS: Bedside Glucose 157 mg/dL (70-110)
--- NOTE | 2020-12-26 04:31 | CPS ---
jose Mcclelland with NRMask
--- NOTE | 2020-12-26 07:32 | CPS ---
patient states he is not feeling well enough to take breathing tx, has been throwing up x2 this morning
--- NOTE | 2020-12-26 07:38 | NURSING ---
Pt had a very large brown emesis all over himself, the bed and onto the floor. New NRB mask given and respiratory therapy is changing out Airvo hose. Complete bed change and gown change done. Pt looks exhausted. Suction set up at bedside if needed.
[2020-12-26 08:04] LABS: ALB/GLOB Ratio 0.5 RATIO (0.9-2.4); AST(SGOT) 19 U/L (15-37); Alanine Aminotransfer ALT/SGPT 55 U/L (16-61); Albumin, Serum 2.1 g/dL (3.2-5.0); Alkaline Phosphatase 62 U/L (45-117); Anion Gap 12 (5-15); BUN 77 mg/dL (7-18); BUN/Creat Ratio 43.8 RATIO (10-20); Calcium,Total 8.1 mg/dL (8.5-10.1); Chloride 95 mmol/L (98-107); Creatinine, Serum 1.76 mg/dL (0.70-1.30); EST Glomerular Filtration Rate 40 mL/min (>60); Est Glom Filt Rate - Afr Amer 49 mL/min (>60); Estimated Creatinine Clearance 39.45 ml/min; Globulin 3.9 g/dL (2.2-4.2); Glucose 144 mg/dL (74-106); Potassium 4.9 mmol/L (3.5-5.1); Sodium Level 134 mmol/L (136-145)
[2020-12-26] MEDS: Furosemide 40 MG/4 ML Vial IV (09:00)
[2020-12-26] MEDS: Menthol/Lanolin/Calamine/Znox 113 GM Tube 1 APPLIC TOPICAL (09:00)
[2020-12-26] MEDS: 0.9% Saline Lock 10 ML Syringe IV (09:00)
[2020-12-26] MEDS: Ondansetron 4 MG/2 ML Vial IV (09:02)
--- NOTE | 2020-12-26 09:07 | NURSING ---
pt had another emesis of thick brown vomit noted on his gown. spo2 ranging from 85-89% on Airvo and Non-Rebreather. When pt is awake, pt has respirations of 11/min. when sleeping, pt has respirations of 5/min. Pt is out of covid precautions and family was called to come and see pt. This nurse is not going to give scheduled am meds at this time.
--- NOTE | 2020-12-26 09:19 | NURSING ---
Family arrived to be with pt
--- NOTE | 2020-12-26 09:34 | PN.HOSP_ITS ---
Subjective Subjective Worse overnight. Vomiting. RR dropped down to 4-9 BPM. Objective Data Objective Data Vital Signs: Vital Signs Temp Pulse Resp BP Pulse Ox 36.4 C L 102 H 11 L 119/82 H 85 12/26/20 08:46 12/26/20 08:46 12/26/20 08:46 12/26/20 08:46 12/26/20 08:46 Oxygen Flow Rate (L/min) 15 Oxygen Delivery Method Airvo Weight: 76.9 kg Body Mass Index (BMI) 22.4 Intake & Output: Intake and Output for Last 24 Hours 12/24/20 12/25/20 12/26/20 23:59 23:59 23:59 Intake Total 300 / 300 Output Total 120 / 120 Balance 300 / 300 -120 / -120 Medical Nutrition Assessment Dietitian: Malnutrition Criteria Met Start: 12/12/20 12:58 Freq: Status: Active Protocol: Document 12/22/20 10:10 RMA (Rec: 12/22/20 10:10 RMA [id number]) Nutrition Malnutrition Evidence of Malnutrition Exists Yes Malnutrition (severe): Acute Illness/Injury Evidenced By Suboptimal Energy Intake ( Severe),Weight Loss (Severe) Clinical Problem Acute Disease or Injury Related Malnutrition Etiology Severe protein/calorie malnutrition in the context of acute illness (covid and resp failure) related to inadequate oral intake due to increased oxygen requirements Signs/Symptoms as evidenced by PO less than 50% at meals, meeting less than 50% estimated nutrition needs and ~6% wt loss x past 2 weeks. Status Active Problem Recommendation Dietitian Recommendations/Changes Continue Regular diet as tolerated. Will adjust ONS to 240ml oz ensure enlive w with breakfast and Ensure Pudding with lunch and dinner. Lab / Micro Data Result Diagrams: 12/25/20 07:45 12/26/20 07:00 Labs: Laboratory Results - last 24 hr 12/25/20 07:45: Differential Comment SCANNED, Diff Path Review July12/25/20 21:14: POC Glucose 157 H 12/26/20 07:00: Sodium 134 L, Potassium 4.9, Chloride 95 L, Carbon Dioxide 27.0, Anion Gap 12, BUN 77 H, Creatinine 1.76 H, Estim Creat Clear Calc 39.45, Est GFR (MDRD) Af Amer 49 L, Est GFR (MDRD) Non-Af 40 L, BUN/Creatinine Ratio 43.8 H, Glucose 144 H, Calcium 8.1 L, Total Bilirubin 1.40 H, AST 19, ALT 55, Alkaline Phosphatase 62, Total Protein 6.0 L, Albumin 2.1 L, Globulin 3.9, Albumin/Globulin Ratio 0.5 L Micro: Microbiology 12/19/20 17:45 Sputum, Expectorated/Coughed Gram Stain - Final 12/19/20 17:45 Sputum, Expectorated/Coughed Respiratory Culture - Final Stenotrophomonas maltophilia Raoultella planticola 12/19/20 18:30 Urine, Clean Catch Streptococcus pneumoniae Antigen (M - Fi nal 12/19/20 18:30 Urine, Clean Catch Legionella Antigen - Final 12/11/20 20:13 Blood Culture (Wb) - No Site/Description Given Blood Culture - Final No growth in 5 days. Physical Exam Const Constitutional Narrative: lying in bed on Airvo w NRB over his face. listless. family members present. Assessment & Plan Assessment/Plan (1) Acute on chronic respiratory failure with hypoxemia: (2) COVID-19: (3) Stage 4 very severe COPD by GOLD classification: PLAN: 1. acute hypoxic respiratory failure * /2 COVID 19 and advanced COPD +/- GN pneumonia * Reviewed CT and pt has diffuse GGO and marked emphysematous changes * overall worsening he is a high risk for decompensation * wean oxygen as able * continue BDs * maintain sats in low 90s * 12/12: 6liters * 12/13: 8 liters * 12/14: 10 liters * 12/20: BiPAP w 80% FiO2. Continue with therapeutic Enoxaparin (started 12/19) * 12/21: on Airvo at 92%. * 12/22: back on BiPAP with 100% FiO2. Concern for ongoing worsening given poor physiologic reserve. * 12/23: back on Airvo 91%. Subjectively feeling better. Furosemide challenge. * 12/24: still on Airvo. Sujectively worse. * 12/25: Arivo with AVAPS w sleep. 2. Acute COVID 19 * onset 12/06 * unvaccinated * completed remdesivir * completed dexamethasone * DC baricitinib given worsening condition and pursuing end-of-life care. 3. Stenotrophomonas pneumonia * 12/20: start Pip/tazo and follow up culture * 12/21: Stenotrophomonas. Changed to levofloxacin * 12/26: dc lvq given end-of-life care 4. Stage 4 COPD * complicates prognosis and recovery * Maintain pulse ox in low 90s to mitigate CO2 retention * Reviewing his CAT scan images that is he does have patchy infiltrates consistent with Covid but is not as severe and profound. I feel much of his respiratory issues are more trivial to his COPD, at least at this point time. 4. CAD * stable * continue ASA, clopidogrel, ranolazine 5. VTE prophylaxis: LMWH 6. Code Status: * reviewed 12/12: DNRCCA, DNI. 7. Severe protein calorie malnutrition, * director of sports performance consulted, on supplements 8. Prognosis is guarded * 12/20: discussed with the patient's son, Avtar, explained the patient's guarded prognosis and patient's limited physiologic reserve to bounce back from a significant insult such as COVID-19 given his advanced COPD. The patient's son was agreeable to some as needed morphine to help with shortness of breath. Is explained that this was strictly palliative and not curative in any way. And we could consider further palliation measures if needed. But patient does continue to decline may need to consider hospice. * 12/21: dw family at bedside. Slightly improved from the , but still on high FiO2 * 12/22: overall worse and back on BiPAP. Family made aware. * 12/23: DW pt that he is improved from the , but condition is still tenuous. * 12/24 & 12/25: advised pt of his ability to inform us of when he is unable to tolerate the stress and focus on comfort measures and hospice. Will continue with current therapy. * 12/26: condition worsened. Pt ready to pursue comfort measures (family at bedside present during this encounter). Continue with liquid morphine, add lorazepam. Charges/Coding Visit Charges Inpatient E&M: 05804 Subs Hosp L1
[2020-12-26] MEDS: morphine (oral solution) 10MG/0.5ML Syringe 10 MG SL/PO ×5 (13:12→23:47)
--- NOTE | 2020-12-26 13:23 | NURSING ---
Pt had another brown emesis, not seen by this nurse as it was cleaned up by Oscar by the time this nurse got in the room. Offered pt to lay on his side, pt refused. Pt refusing Non-rebreather mask on but will keep the Airvo on. Family asked that the Continous spo2 in room be turned off since it kept beeping. Spo2 88-89% on the Airvo.
[2020-12-26] MEDS: LORazepam 2 MG/ML Bottle 1 MG SL ×4 (14:14→21:47)
--- NOTE | 2020-12-26 18:42 | NURSING ---
Family wanted pt to have Airvo taken off and have NC put on. Dr. Ken aware and Roxanol now Q1hr and ATivan as well. Ativan just given and then this nurse took pt off Airvo and applied him on 15L NC. Pt on continous spo2 at the nurses station and spo2 is 64% on 15L. Family praying at bedside.
[2020-12-27] MEDS: LORazepam 2 MG/ML Bottle 1 MG SL ×3 (02:32→07:37)
[2020-12-27 02:52] VITALS: BP 105/63; PULSE 122; O2SAT 65
[2020-12-27] MEDS: morphine (oral solution) 10MG/0.5ML Syringe 10 MG SL/PO ×2 (04:17→07:37)
[2020-12-27 07:58] VITALS: BP 94/63; PULSE 125; RESP 20; TEMP 37.2; O2SAT 67
--- NOTE | 2020-12-27 10:40 | CASEMGMT ---
Social Work Note Pt has . SW in to speak with pt's family and offered support. Ayleen Bee CRACKER SPRAYER, LIBRARY INFORMATION TECHNICIAN
--- NOTE | 2020-12-27 11:08 | NURSING ---
Nurse into see pt with family members at bedside. Noted he has 10.28 am. Absence of apical. Non breathing.Hospitalist notified and home notiefied. [facility] also notified and ok to release the body to home. Post mortem care given and body is transported to the [facility].
[2020-12-27 14:53] LABS: Pathologist Review Reviewed
--- NOTE | 2020-12-27 15:02 | EXP.PCM_ITS ---
Preliminary Cause of Preliminary Cause of Preliminary Cause of : COVID 19 Date of Admission: 12/12/20 Principle Diagnosis Problem List: Active and Suspected Problems (Updated 12/12/20 @ 02:05 by Lorenza Son) COVID-19 (Acute) Respiratory failure (Acute) Hypoxemia (Acute) Hospital Course 75-year-old male with a history of stage IV gold criteria of COPD presents with emergency room with worsening shortness of breath. Patient was found to have COVID-19 with date of onset December 06. Patient is unvaccinated due to concern for his underlying health with vaccine was due to. Patient was started on remdesivir as well as dexamethasone. Patient my first evaluation on the was 6 L but there is still high concern for decompensation given his advanced lung disease. His oxygenation continued to worsen and patient was eventually placed on BiPAP. Infectious disease was consulted and patient was started on bar icitinib. He was also started on therapeutic enoxaparin. Patient did have a culture from sputum that grew out stenotrophomonas from the 26. Patient initially started on Pipracil/tazobactam but then switched over to levofloxacin. Despite all this, the patient continued to deteriorate. He was oscillating between BiPAP and air Vo but on the morning of the third patient had vomited and had a very low respiratory rate. Discussed with the patient and the decision was to make him hospice at that point in time. Given that he was on high flow oxygen with a air Vo, plan was to manage him here in the hospital. Family had been aware and had been seeing him and they were made aware of the third as well about his worsening status. With the family present verified with the patient that he want to proceed with comfort measures and he verified that with the family present. So discontinued the baricitinib as well as other nonessential medications and focus on medications to help him with comfort. Family want to take him off of the air Vo and put him on nonrebreather. Patient on December at 1030. Assessment & Plan Assessment/Plan (1) COVID-19: (2) Infection due to Stenotrophomonas maltophilia: (3) Acute on chronic respiratory failure with hypoxemia:
== END 2020-12-27 11:30 | DRG 177 ==
LOC: ED 12-12 00:14 → MS3 12-12 00:40
PROVIDERS: Emergency Medicine; Internal Medicine; Internal Medicine Critical Care Medicine; Admitting Provider Hospitalist; Emergency Provider Emergency Medicine; PCP Family Medicine Geriatric Medicine
DX: U07.1 COVID-19 (principal); J96.21 Acute and chronic respiratory failure with hypoxia; J12.82 Pneumonia due to coronavirus disease 2019; J15.6 Pneumonia due to other Gram-negative bacteria; E43 Unspecified severe protein-calorie malnutrition; J44.0 Chronic obstructive pulmonary disease with (acute) lower respiratory infection; I47.1 Supraventricular tachycardia; I48.20 Chronic atrial fibrillation, unspecified; J44.1 Chronic obstructive pulmonary disease with (acute) exacerbation; I25.10 Atherosclerotic heart disease of native coronary artery without angina pectoris; I10 Essential (primary) hypertension; E78.5 Hyperlipidemia, unspecified; I71.4 Abdominal aortic aneurysm, without rupture; I51.3 Intracardiac thrombosis, not elsewhere classified; N40.0 Benign prostatic hyperplasia without lower urinary tract symptoms; K21.9 Gastro-esophageal reflux disease without esophagitis; G47.33 Obstructive sleep apnea (adult) (pediatric); Z68.22 Body mass index [BMI] 22.0-22.9, adult; Z28.3 Underimmunization status; Z99.81 Dependence on supplemental oxygen; Z79.02 Long term (current) use of antithrombotics/antiplatelets; Z79.82 Long term (current) use of aspirin; Z79.899 Other long term (current) drug therapy; I25.2 Old myocardial infarction; Z87.891 Personal history of nicotine dependence; Z95.5 Presence of coronary angioplasty implant and graft
CPT/HCPCS: 36415; 71045; 71275; 80048; 80053; 80076; 82962; 83605; 83735; 84100; 84145; 84484; 85025; 85379; 87040; 87070; 87077; 87186; 87205; 87449; 87635; 93005; 93978; 94002; 94003; 94640; 94660; 94762; 97110; 97162; 97165; 97530; 97535; 97802; 97803; 99251; 99284; C9803; J7030; J7050; Q9967; U0005; A4216; G0463; J1940; J2405; J7799; U0003